=== PATIENT | female | born 1945 | race Two or more races ===

== ENCOUNTER → 2022-04-15 11:06 | Outpatient (BNVA) | payer OTHER, SELFPAY | PROVIDERS: PCP Internal Medicine; Visit Provider Internal Medicine Gastroenterology | DX: K62.5 Hemorrhage of anus and rectum (principal); R06.02 Shortness of breath; R60.9 Edema, unspecified; R21 Rash and other nonspecific skin eruption; M32.9 Systemic lupus erythematosus, unspecified; L40.9 Psoriasis, unspecified; E46 Unspecified protein-calorie malnutrition | CPT/HCPCS: Q3014 ==

== ENCOUNTER 2022-05-02 14:05 | Outpatient (REF) | payer OTHER, SELFPAY ==
[2022-05-02 10:21] LABS: MANUAL DIFF FLAG NO
[2022-05-02 10:31] LABS: Basophils Absolute Auto 0.1 X10*3/uL (0.0-0.2); Basophils Percent Auto 0.9 % (0-2); Eosinophils Absolute Auto 0.1 X10*3/uL (0.0-0.4); Eosinophils Percent Auto 2.1 % (0-4); Hematocrit 39.8 % (37.0-47.0); Hemoglobin 12.9 g/dl (12.0-16.0); Imm Gran Abs Auto 0.02 X10*3/uL (0.00-0.03); Imm Gran Pct Auto 0.3 % (0.0-0.4); Lymphocytes Percent Auto 34.2 % (20-40); Mean Corpuscular HGB Conc 32.4 g/dl (31.0-35.0); Mean Corpuscular Hemoglobin 30.4 pg (27.0-33.0); Mean Corpuscular Volume 93.9 fL (80.0-98.0); Mean Platelet Volume 10.4 fL (9.4-12.3); Monocytes Absolute Auto 0.7 X10*3/uL (0.1-1.2); Monocytes Percent Auto 11.5 % (2-11); Platelet Count 198 X10*3/uL (160-400); Red Blood Count 4.24 X10*6/uL (4.20-5.50); White Blood Count 5.9 X10*3/uL (4.8-10.8)
[2022-05-02 10:49] LABS: Alanine Aminotransferase 15 U/L (0-31); Albumin Level 3.9 g/dL (3.5-5.0); Alkaline Phosphatase 120 U/L (39-117); Anion Gap 14 (12-20); Aspartate Amino Transferase 17 U/L (5-31); Bilirubin Total 0.9 mg/dL (0.0-1.0); Blood Urea Nitrogen 16 mg/dL (9-16); C Reactive Protein 0.25 mg/dL (< or = 0.50); Calcium 9.6 mg/dL (8.4-10.2); Carbon Dioxide 25 mmol/L (22-29); Chloride 107 mmol/L (96-108); Estimated Glomerular Filt Rate > 60; Glucose Random 89 mg/dL (60-115); Potassium 4.3 mmol/L (3.3-5.1); Rheumatoid Factor < 15.0 IU/mL (<15.0); Sodium 142 mmol/L (135-145); Total Protein 7.6 g/dL (6.5-8.0)
[2022-05-02 10:53] LABS: B Type Natriuretic Peptide 23 pg/mL (<100)
[2022-05-02 11:07] LABS: Creatinine Urine 77.85 mg/dL; Total Protein Urine Random < 7 mg/dL (<12)
[2022-05-02 11:11] LABS: Ferritin 76 ng/mL (10-250); TSH reflex Free T4 3.98 uIU/mL (0.32-4.0); Vitamin D 25-OH Total 33.9 ng/mL (>30)
[2022-05-02 11:12] LABS: HBc Num1 0.15 S/CO (0.00-0.79); HBsAGNum1 0.21 S/CO (0.00-0.99); Hepatitis B Core Antibody Nonreactive (Nonreactive); Hepatitis B Surface Antigen Negative (Negative); ~HepC Num1 0.09 S/CO (0.00-0.79); ~Hepatitis B Surface Antibody NONREACTIVE (Nonreactive); ~Hepatitis C Antibody Nonreactive (Nonreactive)
[2022-05-02 11:33] LABS: Folate 14.5 ng/mL (> or = 4.0); Vitamin B12 484 pg/mL (200-900)
[2022-05-02 11:40] LABS: Erythrocyte Sedimentation Rate 28 MM/HR (0-20)
[2022-05-03 04:50] LABS: Hepatitis A Antibody IgM 0.22 Index (0-0.79); ~Hepatitis A Antibody IgM Nonreactive (Nonreactive)
[2022-05-06 12:17] LABS: Immunoglobulin G 1922 mg/dL (600-1540)
[2022-05-06 14:52] LABS: Anti DNA DS Antibody <1 IU/mL
[2022-05-06 18:23] LABS: Cyclic Citrullinated Peptide <16 UNITS
[2022-05-07 11:31] LABS: Complement C3 158 mg/dL (83-193)
[2022-05-07 12:21] LABS: Vitamin B6 16.2 ng/mL (2.1-21.7)
[2022-05-07 13:12] LABS: Anti Nuclear Antibody Screen NEGATIVE (NEGATIVE)
[2022-05-07 14:18] LABS: Zinc 60 mcg/dL (60-130)
[2022-05-07 14:37] LABS: Transglutaminase Ab IgG 3.9 U/mL; Transglutaminase IgA <1.0 U/mL
[2022-05-08 12:46] LABS: Vitamin A 32 mcg/dL (38-98)
[2022-05-08 12:51] LABS: Beta-Gamma Tocopherol <1.0 mg/L (<=4.3)
[2022-05-08 16:57] LABS: Vitamin C 1.1 mg/dL (0.3-2.7)
[2022-05-09 05:32] LABS: Aldolase 4.4 U/L (<=8.1); Angiotensin Converting Enzyme 28 U/L (9-67)
[2022-05-09 10:47] LABS: Nicotinamide 24 ng/mL; Vit B3 - Nicotinic Acid <20 ng/mL
[2022-05-10 10:56] LABS: Vitamin B5 (Pantothenic Acid) 46 ng/mL (<275)
[2022-05-10 17:16] LABS: Histamine Plasma <1.5 ng/mL (< OR = 1.8)
[2022-05-10 22:46] LABS: EJ Autoantibodies NOT DETECTED (NOT DETECTED); JO-1 Antibody <1.0 NEG AI (<1.0 NEGATIVE); MI 2 Autoantibodies NOT DETECTED (NOT DETECTED); OJ Autoantibodies NOT DETECTED (NOT DETECTED); PL 12 Autoantibodies NOT DETECTED (NOT DETECTED); PL 7 Autoantibodies NOT DETECTED (NOT DETECTED)
== END 2022-05-02 14:06 | disposition home or self-care (01) ==
LOC: HO.LHD 14:05
PROVIDERS: Visit Provider Internal Medicine Gastroenterology
DX: K62.5 Hemorrhage of anus and rectum (principal); L40.9 Psoriasis, unspecified; M32.9 Systemic lupus erythematosus, unspecified; R06.02 Shortness of breath; R21 Rash and other nonspecific skin eruption; R60.9 Edema, unspecified; K52.839 Microscopic colitis, unspecified; R19.7 Diarrhea, unspecified; G89.29 Other chronic pain; R10.33 Periumbilical pain; K75.81 Nonalcoholic steatohepatitis (NASH); R79.82 Elevated C-reactive protein (CRP); E46 Unspecified protein-calorie malnutrition
CPT/HCPCS: 36415; 80053; 82085; 82164; 82180; 82306; 82550; 82607; 82728; 82746; 82784; 83088; 83520; 83880; 84156; 84207; 84443; 84446; 84590; 84591; 84630; 85025; 85652; 86038; 86039; 86140; 86160; 86200; 86225; 86364; 86431; 86704; 86706; 86709; 86803; 87340

== ENCOUNTER → 2022-06-10 11:47 | Outpatient (BNVA) | payer OTHER, SELFPAY | PROVIDERS: PCP Internal Medicine; Visit Provider Internal Medicine Gastroenterology | DX: M32.9 Systemic lupus erythematosus, unspecified (principal); R21 Rash and other nonspecific skin eruption | CPT/HCPCS: Q3014 ==

== ENCOUNTER 2022-06-25 13:36 | Day surgery (SDC) | payer OTHER, SELFPAY ==
--- NOTE | 2022-06-25 12:51 | HO.ANESPROP2 ---
HPI - Anesthesia Eval Consult details Narrative: 77 F for egd colo PMFSH Active Problems Active Problems: All Active Problems (Updated 04/15/22 @ 12:18 by Santosh Connor MD) Malnutrition (Acute) Rectal bleeding (Acute) Psoriasis (Acute) Lupus (systemic lupus erythematosus) (Acute) Skin rash (Acute) Edema (Acute) SOB (shortness of breath) (Acute) Family History Family History Maternal Aunt HTN (hypertension) Diabetes Family history of problems with anesthesia: No Surgical History Surgical History History of esophagogastroduodenoscopy (EGD) Hx of colonoscopy History of Problems with Anesthesia: No Social History Social History Patient Tobacco Use Status: Never used Tobacco Use of substances other than those prescribed or required for medical reasons: No Are you DNR?: No Advance Directives: No Advance Directives Information Provided: Yes Meds Allergies Allergy/AdvReac Type Severity Reaction Status Date / Time doxycycline Allergy Mild Unknown Verified 06/10/22 11:48 Iodine and Iodide Containing Allergy Mild Unknown Verified 06/10/22 11:48 Produc codeine Allergy Unknown Verified 06/10/22 11:48 dairy Allergy Mild unkno Uncoded 06/10/22 11:48 gluten Allergy Mild Unknown Uncoded 06/10/22 11:48 levaquin Allergy Mild Unknown Uncoded 06/10/22 11:48 vancomycin Allergy Mild unknown Uncoded 06/10/22 11:48 Home Medications Medication Instructions Recorded Confirmed Last Taken Type blood sugar diagnostic (FreeStyle #10 ea 04/15/22 Unknown History Lite Strips) hydrocortisone acetate 25 mg mg CO 04/15/22 Unknown History rectal suppository lancets 28 gauge (FreeStyle #100 ea 04/15/22 Unknown History Lancets) lidocaine 4 % topical patch 1 patch topical DAILY PRN 04/15/22 Unknown History (Aspercreme (lidocaine)) naproxen sodium 220 mg tablet 440 mg PO DAILY 04/15/22 12/27/21 History (Aleve) Exam Exam Date and Time: June 25, 2022 1251 Airway Mallampati Class: II TM Dist: >3cm Neck ROM: Full Denture: Upper and Lower Loose/Missing/Broken Teeth: Yes Assessment and Plan Assessment Anesthesia Assessment: Anesthesia Plan Discussed and Chart Reviewed Final Anesthetic Review Family History of Problems with Anesthesia: No History of Problems with Anesthesia: No NPO: Yes ASA Class: III Final Preanesthetic Review: No Changes in Pt Med Stat, Meds/Allgs Chart Reviewed, Consent Obtained/Reviewed and Anes Risks/Benef Reviewed Patient Risk: Intermediate Procedure Risk: Low Anesthetic Plan Anesthetic Plan: MAC: Disposition: Standard PACU
[2022-06-25 13:56] VITALS: BP 125/77; PULSE 87; RESP 16; TEMP 36.6; O2SAT 98; BMI 22.9
--- NOTE | 2022-06-25 13:57 | MHC.SHP ---
Pre-Procedural Eval Section A Date of Service: 06/25/22 Section B Chief Complaint: Hemorrhage of anus and rectum, protein-calorie mal Relevant Family History (Specify if Yes): No Relevant Social History: None Present Medications: see Short Stay Collaborative assessment Medical History: Significant History (hemorrhoids ) History of Previous Operations: Relevant previous surgery/procedure and date(s) (History of esophagogastroduodenoscopy (EGD) Hx of colonoscopy) Allergies: Allergies Allergy/AdvReac Type Severity Reaction Status Date / Time doxycycline Allergy Mild Unknown Verified 06/10/22 11:48 Iodine and Iodide Containing Allergy Mild Unknown Verified 06/10/22 11:48 Produc codeine Allergy Unknown Verified 06/10/22 11:48 dairy Allergy Mild unkno Uncoded 06/10/22 11:48 gluten Allergy Mild Unknown Uncoded 06/10/22 11:48 levaquin Allergy Mild Unknown Uncoded 06/10/22 11:48 vancomycin Allergy Mild unknown Uncoded 06/10/22 11:48 Review of Systems Sugical H&P ROS: Negative: Constitution, Cardiovascular, Respiratory, Neurological, Psychiatric, Hem-Onc, Allergic/Immunologic, Gastrointestinal, Genitourinary, Musculoskeletal, Integumentary, Endocrine and Eyes/Ears/Nose/Throat Exam Surgical H&P Exam: Normal: HEENT, Normal: Heart, Normal: Lungs, Normal: Extremities and Normal: Neurological and Significant Findings: Abdomen (umbilical hernia ) and Significant Findings: Skin (dystrophic nails ) Plan Diagnosis/Plan: Unchanged I have reviewed the history and physical and performed a pertinent physical examination on my patient. No changes have occurred unless specified.
[2022-06-25] MEDS: Lactated Ringers 1,000 ML 50 ML IVCONT (14:32)
--- NOTE | 2022-06-25 14:42 | W.PM.OPN ---
Operative Note Operative Note Date of Service: 06/25/22 Narrative: Operative Information Procedure Description: EGD, Colonoscopy Indication: rectal bleeding, weight loss Anesthesia: MAC FLEXIBLE TRANSORAL UPPER GASTROINTESTINAL ENDOSCOPY AND COLONOSCOPY PROCEDURE NOTE UPPER ENDOSCOPY Consent: Indications for the procedure and potential complications of bleeding, perforation, reaction to medications and missed diagnosis were discussed with the patient and informed consent was obtained. Instrument: Olympus GIF H 190 J mid size upper endoscope Monitoring: Vital signs and clinical assessment, continuous EKG monitoring, Pulse oximetry, Carbon Dioxide monitoring and blood pressure monitoring were done throughout the procedure. Procedure: The patient was placed in the left lateral decubitis position and pre-procedure medications were administered and a bite block was placed. The endoscope was inserted into the mouth and advanced under direct vision to the third part of duodenum. A careful inspection was made as the upper endoscope was withdrawn including a retroflexed examination of the proximal stomach; Findings and interventions are described below. Findings: Larynx:normal Esophagus: GE junction at 35 cm, diaphragm hiatus at 39 cm, 4 cm fixed hiatal hernia with marsha erosions, GEJ edema with erythema and erosions, bx taken as well as random esophagus Stomach: Patchy erythema. Biopsies were obtained. Grade 2 flap valve on retroflexed examination of the cardia. Duodenum: Patchy duodenitis, bx taken Intervention: Biopsies as noted above COLONOSCOPY Instrument: Olympus variable stiffness pediatric scope 190L Colonoscopy Monitoring: Vital signs and clinical assessment, continuous EKG monitoring, Pulse oximetry, Carbon Dioxide monitoring and blood pressure monitoring were done throughout the procedure. Colon withdrawal time was 8 minutes. Procedure: The patient was placed in the left lateral decubitis position and pre-procedure medications were administered. After a digital rectal examination of the ano-rectum, the video colonoscope was inserted into the rectum and advanced through the colon to the cecum/TI. The colonoscope was slowly withdrawn in a retrograde panoramic fashion and the colon mucosa was carefully examined including a retroflexed view of the rectum. Findings and interventions are described below. Procedure Difficulty:moderate, pressure applied to reach cecum Findings: Terminal Ileum-normal, bx taken random colon bx taken Cecum:normal Ascending Colon: normal Transverse Colon -normal Descending Colon:normal Sigmoid Colon: normal Rectum: Retroflexion with medium sized internal hemorrhoids, grade I Anorectum - normal Colon preparation: [place] Bowel Preparation Scale Right colon; 2 Transverse colon: 2 Left colon; 2 (0 = Unprepared colon segment with mucosa not seen due to solid stool that cannot be cleared. 1 = Portion of mucosa of the colon segment seen, but other areas of the colon segment not well seen due to staining, residual stool and/or opaque liquid. 2 = Minor amount of residual staining, small fragments of stool and/or opaque liquid, but mucosa of colon segment seen well. 3 = Entire mucosa of colon segment seen well with no residual staining, small fragments of stool or opaque liquid) Impression and Post Procedure Diagnosis: Endoscopy Findings: hiatal hernia esophagitis marsha erosions duodenitis Colonoscopy Findings: internal hemorrhoids Plan: Await Pathology results Repeat Colonoscopy in 10 years if health allows or earlier if clinically indicated High fiber diet leaflet avoid straining at stool, epsom salts and sitz bath, anusol supps or cream GERD precautions consider referral for hernia repair Above findings were reviewed with the patient and relevant handouts were provided if indicated.
[2022-06-25 15:20] VITALS: BP 103/54; PULSE 87; RESP 20; TEMP 37.1; O2SAT 97
[2022-06-25 15:35] VITALS: BP 120/63; PULSE 95; RESP 18; TEMP 36.1; O2SAT 96
== END 2022-06-25 15:56 | disposition home or self-care (01) ==
PROVIDERS: PCP Internal Medicine; Visit Provider Internal Medicine Gastroenterology
PROC: (CPT 45380; principal; 2022-06-25 15:00)
DX: K62.5 Hemorrhage of anus and rectum (principal); K64.0 First degree hemorrhoids; E46 Unspecified protein-calorie malnutrition; R63.4 Abnormal weight loss; K29.80 Duodenitis without bleeding; K20.80 Other esophagitis without bleeding; K25.9 Gastric ulcer, unspecified as acute or chronic, without hemorrhage or perforation; K44.9 Diaphragmatic hernia without obstruction or gangrene; K29.50 Unspecified chronic gastritis without bleeding; M32.9 Systemic lupus erythematosus, unspecified; Z79.1 Long term (current) use of non-steroidal anti-inflammatories (NSAID); Z88.1 Allergy status to other antibiotic agents; Z88.8 Allergy status to other drugs, medicaments and biological substances
CPT/HCPCS: 45380; 43239; 88305; 88313; 88341; 88342

== ENCOUNTER → 2022-07-29 14:02 | Outpatient (BNVA) | payer OTHER, SELFPAY | PROVIDERS: PCP Internal Medicine; Visit Provider Internal Medicine Gastroenterology | DX: K44.9 Diaphragmatic hernia without obstruction or gangrene (principal) | CPT/HCPCS: Q3014 ==

== ENCOUNTER 2022-08-02 16:35 | Outpatient (REF) | payer OTHER, SELFPAY ==
[2022-08-02 17:17] LABS: MANUAL DIFF FLAG NO
[2022-08-02 17:23] LABS: Basophils Absolute Auto 0.1 X10*3/uL (0.0-0.2); Basophils Percent Auto 0.7 % (0-2); Eosinophils Absolute Auto 0.1 X10*3/uL (0.0-0.4); Eosinophils Percent Auto 1.1 % (0-4); Hematocrit 38.4 % (37.0-47.0); Hemoglobin 12.2 g/dl (12.0-16.0); Imm Gran Abs Auto 0.03 X10*3/uL (0.00-0.03); Imm Gran Pct Auto 0.4 % (0.0-0.4); Lymphocytes Absolute Auto 1.8 X10*3/uL (1.2-4.9); Lymphocytes Percent Auto 25.7 % (20-40); Mean Corpuscular HGB Conc 31.8 g/dl (31.0-35.0); Mean Corpuscular Hemoglobin 29.5 pg (27.0-33.0); Mean Corpuscular Volume 92.8 fL (80.0-98.0); Mean Platelet Volume 8.9 fL (9.4-12.3); Monocytes Absolute Auto 0.6 X10*3/uL (0.1-1.2); Monocytes Percent Auto 8.8 % (2-11); Neutrophils Absolute Auto 4.5 x10*3/uL (2.0-8.3); Neutrophils Percent Auto 63.3 % (45-73); Platelet Count 433 X10*3/uL (160-400); Red Blood Count 4.14 X10*6/uL (4.20-5.50); Red Cell Distribution Width 12.1 % (11.0-16.0); White Blood Count 7.2 X10*3/uL (4.8-10.8)
[2022-08-02 18:05] LABS: Alanine Aminotransferase 30 U/L (0-31); Albumin Level 3.4 g/dL (3.5-5.0); Alkaline Phosphatase 146 U/L (39-117); Anion Gap 13 (12-20); Aspartate Amino Transferase 20 U/L (5-31); Bilirubin Total 0.4 mg/dL (0.0-1.0); Blood Urea Nitrogen 13 mg/dL (9-16); C Reactive Protein 4.03 mg/dL (< or = 0.50); Calcium 9.8 mg/dL (8.4-10.2); Carbon Dioxide 30 mmol/L (22-29); Chloride 100 mmol/L (96-108); Estimated Glomerular Filt Rate > 60; Ferritin 286 ng/mL (10-250); Glucose Random 97 mg/dL (60-115); Iron 28 mcg/dL (30-160); Lactate Dehydrogenase 186 U/L (122-220); Percent Iron Saturation 12 % (15-50); Potassium 4.6 mmol/L (3.3-5.1); Sodium 138 mmol/L (135-145); Total Iron Binding Capacity 235 mcg/dL (228-428); Total Protein 8.2 g/dL (6.5-8.0); Unsaturated Iron Binding 207 ug/dL
[2022-08-02 18:12] LABS: Erythrocyte Sedimentation Rate 91 MM/HR (0-20)
[2022-08-03 14:42] LABS: Alpha 1 Anti-trypsin 243 mg/dL (83-199); Transferrin 209 mg/dL (188-341)
[2022-08-03 23:27] LABS: Prot Elec - Alpha1 0.5 g/dL (0.2-0.3); Prot Elec - Alpha2 1.3 g/dL (0.5-0.9); Prot Elec - Beta 1 0.6 g/dL (0.4-0.6); Prot Elec - Beta 2 0.7 g/dL (0.2-0.5); Prot Elec - Gamma 2.1 g/dL (0.8-1.7); Prot Elec - Total Protein 8.1 g/dL (6.1-8.1)
[2022-08-05 02:12] LABS: TS Negative Control Passed; TS Panel A 0; TS Panel B 0; TS Positive Control Passed; TSpotTB Negative (Negative)
[2022-08-05 09:47] LABS: Anti Nuclear Antibody Screen NEGATIVE (NEGATIVE)
[2022-08-05 10:51] LABS: Complement C3 223 mg/dL (83-193)
[2022-08-05 16:40] LABS: Immunoglobulin G Subclass 1 1548 mg/dL (382-929); Immunoglobulin G Subclass 2 342 mg/dL (241-700); Immunoglobulin G Subclass 3 56 mg/dL (22-178); Immunoglobulin G Subclass 4 89.2 mg/dL (4-86); Immunoglobulin G Total 2168 mg/dL (600-1540)
[2022-08-05 18:52] LABS: Anti-Centromere B Antibodies <1.0 NEG AI (<1.0 NEG)
[2022-08-05 22:31] LABS: Cardiolipin IgG Ab <2.0 GPL-U/mL; Cardiolipin IgM Ab <2.0 MPL-U/mL
[2022-08-06 12:11] LABS: IgA 539 mg/dL (70-320); IgG 2466 mg/dL (600-1540); IgM 93 mg/dL (50-300)
[2022-08-06 13:56] LABS: Anti DNA DS Antibody <1 IU/mL; Antibody to SS-A Antigen <1.0 NEG AI (<1.0 NEG); Antibody to SS-B Antigen <1.0 NEG AI (<1.0 NEG); Myeloperoxidase Antibody <1.0 AI; Proteinase 3 PR3 Antibodies <1.0 AI; SM/Ribonucleoprotein Ab <1.0 NEG AI (<1.0 NEG); Scleroderma 70 Antibody <1.0 NEG AI (<1.0 NEG); Smith Protein <1.0 NEG AI (<1.0 NEG)
[2022-08-07 06:10] LABS: Aldolase 3.2 U/L (<=8.1)
[2022-08-07 07:26] LABS: DRVVT Confirmation Negative (Negative); PTT (LAC) Screen 38 sec (<=40)
[2022-08-07 14:41] LABS: Mitochondrial Antibodies NEGATIVE (NEGATIVE)
[2022-08-07 21:37] LABS: Liver Kidney Microsomal Ab <=20.0 U (<=20.0)
[2022-08-08 13:22] LABS: Lysozyme, Serum 8.7 mcg/mL (5.0-11.0)
[2022-08-08 23:57] LABS: Smooth Muscle Antibody 21 U (<20)
[2022-08-09 22:26] LABS: Beta-2 Glycoprotein IgA <2.0 U/mL (<20.0); Beta-2 Glycoprotein IgG <2.0 U/mL (<20.0); Beta-2 Glycoprotein IgM <2.0 U/mL (<20.0)
[2022-08-11 21:47] LABS: HLA B27 Negative (Negative)
== END 2022-08-02 16:36 | disposition home or self-care (01) ==
LOC: HO.LAB 16:35
PROVIDERS: PCP Internal Medicine; Visit Provider Student in an Organized Health Care Education/Training Program
DX: Z11.7 Encounter for testing for latent tuberculosis infection (principal); G72.9 Myopathy, unspecified; M11.20 Other chondrocalcinosis, unspecified site; M32.9 Systemic lupus erythematosus, unspecified; M48.061 Spinal stenosis, lumbar region without neurogenic claudication; J84.9 Interstitial pulmonary disease, unspecified; L40.50 Arthropathic psoriasis, unspecified; M10.9 Gout, unspecified; D86.9 Sarcoidosis, unspecified; M89.9 Disorder of bone, unspecified
CPT/HCPCS: 80053; 82085; 82103; 82550; 82728; 82784; 83540; 83615; 84165; 84466; 84550; 85025; 85549; 85597; 85613; 85652; 85730; 86015; 86021; 86038; 86039; 86140; 86146; 86147; 86160; 86225; 86235; 86255; 86256; 86334; 86376; 86481; 86812; 99202

== ENCOUNTER → 2022-10-15 13:42 | Outpatient (BNVA) | payer OTHER, SELFPAY | PROVIDERS: PCP Internal Medicine; Visit Provider Student in an Organized Health Care Education/Training Program | DX: J84.9 Interstitial pulmonary disease, unspecified (principal); M11.20 Other chondrocalcinosis, unspecified site | CPT/HCPCS: 99212 ==

== ENCOUNTER 2025-05-09 13:02 | Outpatient (AMB) | payer OTHER, SELFPAY ==
--- OUTSIDE RECORDS SUMMARY | 2013-06-11 | XMS_ITS | Encounter Summary ---
Author Organization [facility] Address [address] [facility] [address] [place] [phone] Phone Care Team Providers Care Chief Minister Name Role Phone Unavailable Primary Care Provider Unavailabl e Encounter Details Date Type Department Care Team (Late st Contact Info) Description 06/11/2013 Hospital Encounter [facility] [address] [place] [address] Jeff Hurst MD [address] [facility] [address] [place] [address] [email or web address] Social History Tobacco Use Types [...] Description 07/18/2025 10:30 AM EST Office [facility] Genetics 15 [place] [address] Jazzmine Zaman MD [address] [place] [phone] [email or web address] 07/18/2025 1:30 PM EST Office Visit [facility] Specialties [address] [facility] [address] [place] [address] Jazzmine Zaman MD [address] [place] [phone] [email or web address] documented as of this encounter Procedures Procedure Name Priority Date/Time Associated Diagnosis Comments CT CHEST OUTSIDE (NO INTERPRETATION) Routine 06/11/2013 12:00 AM EDT documented in this encounter Results * CT Chest Outside (No Interpretation) (06/11/2013 12:00 AM EDT) Narrative [facility] - 04/23/2024 1:50 PM EDT This study is for PACS storage only and not for interpretation. us Jeff Hurst MD IMG OUTSIDE IMAGING W/OUT INTERPRETATION Final Result [facility] documented in this encounter Visit Diagnoses Not on filedocumented in this encounter Additional Source Comments The information contained in this document represents components of the legal health record. It is not the complete legal health record.[facility]
--- NOTE | 2025-05-09 13:03 | A.OFFVIS_ITS ---
Intake Visit Reasons: telehealth [phone] Intake Note: Apryl presents in the office as a telehealth today follow up. CC: daughter states that a lot of things have happened in the past couple years. She has become anemic - she states HGB is around 33 and the RBC is low as well. One of the PCP wanted to do a FIT test but they needed to make sure that she did not have active hemorhoids - they have currently been active. She has used suppositories in the past. Energy Control Officer Required: No Allergies egg Allergy (Intermediate, Verified 05/09/25 13:03) Unknown doxycycline Allergy (Mild, Verified 05/09/25 13:03) Unknown Iodine and Iodide Containing Produc Allergy (Mild, Verified 05/09/25 13:03) Unknown codeine Allergy (Verified 05/09/25 13:03) Unknown dairy Allergy (Mild, Uncoded 05/09/25 13:03) unkno gluten Allergy (Mild, Uncoded 05/09/25 13:03) Unknown levaquin Allergy (Mild, Uncoded 05/09/25 13:03) Unknown vancomycin Allergy (Mild, Uncoded 05/09/25 13:03) unknown HPI HPI telehealth [phone]: Details: 80 yr old lady being called for f/u hx from daughter pt dx with pulm fibrosis asking about cutting down PPI to 20 mg for her reflux due to hiatal hernia also ongoing issues with hemorrhoids asking about treatment options also wanted to know about GI side effects of pirfenidone chronic anemia per daughter and worreid about using iron tabs EXAM: pt with good color looks relaxed A/P: 1/ Advised given pulm fibrosis, and age maybe good idea to try to avoid interventional diagnostics and treatments, for hemorrhoids can refer for embolization, for anemia, we can use iron drops, cut PPI to 20 mg and watc symptoms, if worsening GERD the restart 40 mg 2/ hiatal hernia PLAN: 1/ CBC and ferritin 2/ pPI to 20 mg 3/ She wants to hold on ba swallow for moment 4/ refer [facility] for hemorrhoid treatment 5/ pirfenidone may help fibrosis but can be assoc with abdominal discomfort PFSH Medical History DVT (deep venous thrombosis) Pseudogout Surgical History Hx of colonoscopy History of esophagogastroduodenoscopy (EGD) Family History Maternal Aunt HTN (hypertension) Diabetes Social History Alcohol intake: current Alcohol intake frequency: does not drink Patient Tobacco Use Status: Never used Tobacco Telehealth Telehealth Telehealth Platform: [employer] Location of provider rendering services: practice address Location of patient: address on file Patient Identification confirmed using: Name, : Yes Telehealth method: video Patient verbally consented to treatment: Yes Patient verbally consented to billing insurance company: Yes Patient informed of any privacy concerns related to visit: Yes Minutes spent on Phone/Video with Pt.: 29 Assessment & Plan Assessment & Plan (1) Rectal bleeding: Code(s): K62.5 - Hemorrhage of anus and rectum Category: Medical Plan: 2/2 hemorrhoids Orders: Orders Complete Blood Count Auto Diff 05/09/25 K62.5 - Hemorrhage of anus and rectum Ferritin 05/09/25 K62.5 - Hemorrhage of anus and rectum Medications: New pantoprazole 20 mg PO DAILY 90 tabs 1RF Discontinued pantoprazole Discontinued Reason: Doctor's Order 40 mg PO DAILY 90 tabs 1RF Coding Level of Care Code Tele Est Pt Level 4 (07617) Diagnoses Rectal bleeding K62.5
--- OUTSIDE RECORDS SUMMARY | 2025-05-09 14:17 | XMS_ITS | Encounter Summary ---
Author Organization [facility] Address [address] [place] [address] [place] [phone] Phone Care Team Providers Care Pen Tender Name Role Phone Adelaide Pollock MD Primary Care Provider + Aide Adame MD Primary Care Provider + Johnathan Lisa MD, MPH Unavailable [phone] Jazzmine Zaman MD Unavailable [phone] Encounter Details Date Type Department Care Team (Latest Contact Info) Description 05/19/2024 Ancillary Orders [facility] [address] [facility] 8th Floor, [address] [place] [address] Ce Luke MD [address] [facility] [address] [place] [address] [email or web address] Interstitial lung disease (Primary Dx) Social History Tobacco Use Types Packs/Day Years Used Date Smoking Tobacco: Never Assessed Education Answer Date Recorded Are you interested in more education? Not on humera e 02/18/2024 Are you concerned about learning? Not on file 02/18/2024 No 02/18/2024 No 02/18/2024 Digital Access Answer Date Recorded No 02/18/2024 [...] Description 07/18/2025 10:30 AM EST Office Visit [facility] Gen[facility] [address] [place] [address] aJzzmine Zaman MD [address] [place] [phone] [email or web address] 07/18/2025 1:30 PM EST Office Visit [facility] [address] [facility] [address] [place] [address] Jazzmine Zaman MD [address] [place] [phone] [email or web address] documented as of this encounter Results * XR HAND 3 OR MORE VIEWS (BILATERAL) (05/19/2024 10:24 AM EDT) Anatomical Region Laterality Modality Hand Left Computed Radiogr aphy 05/19/2024 12:3 9 PM EDT Impressions 05/19/2024 12:40 PM EDT No specific evidence of inflammatory arthritis. Narrative 05/19/2024 12:40 PM EDT XR HAND 3 OR MORE VIEWS (BILATERAL) Referring clinician's provided indication for this examination in Epic: Pain; evaluate for inflammatory arthritis COMPARISON: None FINDINGS: Left hand: Severe first carpometacarpal and mild scattered interphalangeal degenerative changes. No acute fracture or dislocation. No soft tissue swelling. No erosion. Right hand: Severe first carpometacarpal and mild scattered interphalangeal degenerative changes. No acute fracture or dislocation. No soft tissue swelling. No erosion. Procedure Note Nancy Castellano MD - 05/19/2024 XR HAND 3 OR MORE VIEWS (BILATERAL) Referring clinician's provided indication for this examination in Epic:Pain; evaluate for inflammatory arthritis COMPARISON: None FINDINGS: Left hand: Severe first carpometacarpal and mild scattered interphalangealdegenerative changes. No acute fracture or dislocation. No soft tissueswelling. No erosion. Right hand: Severe first carpometacarpal and mild scatteredinterphalangeal degenerative changes. No acute fracture or dislocation. Nosoft tissue swelling. No erosion. IMPRESSION: No specific evidence of inflammatory arthritis. Amanda Thacker MD IMG XR UPPER EXTREMITY Final Result documented in this encounter Visit Diagnoses Diagnosis Interstitial lung disease Postinflammatory pulmonary fibrosis Interstitial lung disease- Primary Postinflammatory pulmonary fibrosis documented in this encounter Care Teams Pen Tender Relationship Specialty Start Date End Date Adelaide Pollock MD [facility] [place] [address] PCP - General Internal Medicine 02/16/24 03/27/25 Aide Adame MD [facility] [address] PCP - General Internal Medicine 03/28/25 Johnathan Lisa MD, MPH [address] [place] [phone] [email or web address] Referring Physician Pulmonary Disease 03/28/25 Jazzmine Zaman MD [address] [place] [phone] [email or web address] Referring Physician Pediatrics 03/28/25 documented as of this encounter Additional Source Comments The information contained in this document represents components of the legal health record. It is not the complete legal health record.[facility]
--- OUTSIDE RECORDS SUMMARY | 2025-05-09 14:17 | XMS_ITS | Encounter Summary ---
Author Organization [facility] Address [address] [place] [phone] Phone Care Team Providers Care Industrial Roof Plumber Name Role Phone Adelaide Pollock MD Primary Care Provider + Aide Adame MD Primary Care Provider + Johnathan Lisa MD, MPH Unavailable [phone] Jazzmine Zaman MD Unavailable [phone] Encounter Details Date Type Department Care Team (Late st Contact Info) Description 04/30/2024 Procedure Pass [facility], [address] [address] Social History Tobacco Use Types Packs/Day Years [...] Description 07/18/2025 10:30 AM EST Office Visit [facility] Genetics [address] [place] [address] Jazzmine Zaman MD [address] [place] [phone] [email or web address] 07/18/2025 1:30 PM EST Office [facility] [address] [facility] [address] [place] [address] Jazzmine Zaman MD [address] [place] [phone] [email or web address] documented as of this encounter Visit Diagnoses Not on filedocumented in this encounter Care Teams Industrial Roof Plumber Relationship Specialty Start Date End Date Adelaide Pollock MD [facility] [place] [address] PCP - General Internal Medicine 02/16/24 03/27/25 Aide Adame MD [facility] [address] PCP - General Internal Medicine 03/28/25 Johnathan Lisa MD, MPH [address] [place] [phone] [email or web address] Referring Physician Pulmonary Disease 03/28/25 Jazzmine Zaman MD [address] [place] [phone] [email or web address] Referring Physician Pediatrics 03/28/25 documented as of this encounter Additional Source Comments The information contained in this document represents components of the legal health record. It is not the complete legal health record.[facility]
--- OUTSIDE RECORDS SUMMARY | 2025-05-09 14:17 | XMS_ITS | Clinical Summary ---
Author Organization [facility] Address [address] [place] [address] Phone Care Team Providers Care Candy Puller Name Role Phone Adelaide Pollock MD Primary Care Provider [phone] Allergies Active Allergy Reactions Criticality Noted Date Comments Codeine 01/02/2017 Other Reaction(s): OTHER dizzy Doxycycline 01/02/2017 Other Reaction(s): Rash/Dermatitis Egg 08/28/2022 Other Reaction(s): Rash/Dermatitis Gluten 01/02/2017 Iodine 01/02/2017 Celiac disease Levofloxacin 01/02/2017 Pt fainted Other 04/29/2022 Kdc:Albumin, Egg+Flu Virus Vaccine+Thimerosal+Pork Allergy - Other Reaction(s): Rash/Dermatitis Vancomycin 01/02/2017 Other Reaction(s): Flushing, feeling of warmth Medications diazePAM (VALIUM) 2 mg tablet Take 1 tablet (2 mg total) by mouth as needed. Max Daily Amount: 2 mg Active multivitamin (MULTIPLE VITAMINS ORAL) Take by mouth daily. Active pantoprazole (PROTONIX) 40 mg EC tablet Take 1 tablet (40 mg total) by mouth 1 (one) time each day. Active ASCORBIC ACID, VITAMIN C, ORAL Take 670 mg by mouth daily. Active cholecalciferol (VITAMIN D-3) 25 mcg (1,000 unit) capsule Take 1 Capsule by mouth daily. Includes vitamin k Active lidocaine (LIDODERM) 5 % patch Place 1 Patch onto the skin every 24 hours. Apply for no more than 12 hours in any 24 hour period. Active Active Problems Problem Noted Date Diagnosed Date Fatigue 03/08/2024 Interstitial lung disease ([facility], [facility] V28) 03/08/2024 Hypotension 08/29/2022 Dyspnea 12/07/2020 Edema 12/07/2020 Chronic low back pain 01/03/2017 Fibromyalgia 01/03/2017 GERD (gastroesophageal reflux disease) 7 Pseudogout 01/03/2017 Surgical History Surgery Date Site/Laterality Comments TUBAL LIGATION PROCEDURE: HISTORICAL TUBAL LIGATION CHOLECYSTECTOMY 1980 PROCEDURE: HISTORICAL CHOLECYSTECTOMY OTHER SURGICAL HISTORY PROCEDURE: HISTORY OTHER; COMMENT: fundoplication Medical History Medical History Date Comments Abdominal pain DX:Abdominal giuliano n Calcium pyrophosphate deposi tion disease DX:Calcium pyrophosphate dep osition disease Carotid bruit DX:Carotid bruit Carpal tunnel syndrome DX:Carpal tunnel syndrome Closed fracture of left tibial plateau DX:Closed fracture of left tibial plateau Depression 1969 DX:Depression Dizziness DX:Dizziness Fatigue DX:Fatigue Gastritis DX:Gastritis IBS (irritable bowel syndrome) D X:IBS (irritable bowel syndrome) IGT (impaired glucose tolerance) DX:IGT (impaired glucose tolerance) Leg swelling DX:Leg swelling Lumbar spondylosis DX:Lumbar spo ndylosis Peripheral motor neuropathy DX:P eripheral motor neuropathy Muscle ache DX:Muscle ache Myalgia DX:Myalgia Neck pain DX:Neck pain Osteoarthritis DX:Osteoarthriti s Osteoporosis DX:Osteoporosis Polymyalgia rheumatica ([facility]24) DX:Polymyalgia rheumatica ([facility]) Pseudogout DX:Pseudogout Rash DX:Rash Reflux esophagitis DX:Reflux eso phagitis Restless legs syndrome DX:Restle ss legs syndrome Subclinical hypothyroidism DX:Monsalve bclinical hypothyroidism Thrombophlebitis 1999 DX:Thrombophleb itis History of varicose veins DX:His tory of varicose veins Bilateral leg edema 04/29/2022 DX:Bilateral leg edema Calcification of lung determ ined by X-ray DX:Calcification of lung det ermined by X-ray Chronic pain of multiple joints DX:Chronic pain of multiple joints Lesion of lumbar spine DX:Lesion of lumbar spine Other chondrocalcinosis, uns pecified site DX:Other chondrocalcinosis, unspecified site Family History Medical History Relation Name Comments Prostate cancer Brother Prostate cancer Father Relation Name Status Comments Brother Father Social History Tobacco Use Types Packs/Day Years Used Date Smoking Tobacco: Never Smokeless Tobacco: Never Alcohol Use Standard Drinks/Week Comments No 0 (1 standard drink = 0.6 oz pur e alcohol) Comments Unknown Sex and Gender Information Value Date Recorded Sex Assigned at Not on file Legal Sex Female 6:18 PM EST Gender Identity Not on file Sexual Orientation Not on file Obstetrics History Last Filed Vital Signs Vital Sign Reading Time Taken Comments Blood Pressure 118/60 07/20/2024 1:38 PM EST Pulse 76 03/08/2024 2:10 PM EDT Temperature - - Respiratory Rate - - Oxygen Saturation - - Inhaled Oxygen Concentration - - Weight 60.8 kg (134 lb) 07/20/2024 1:38 PM EST Height 160 cm (5' 3 ) 07/20/2024 1:38 PM EST Body Mass Index 23.74 07/20/2024 1:38 PM EST Plan of Treatment Health Maintenance Due Date Last Done Comments Zoster Vaccines (1 of 2) 1994 Pneumococcal Vaccine: 50+ Ye ars (2 of 2 - PCV) 06/03/2012 06/03/2011 RSV Immunization Adult Patie nts (1 - 1-dose 75+ series) 2019 DTaP,Tdap,and Td Vaccines (2 - Td or Tdap) 08/15/2021 08/15/2011 Falls Risk Assessment 08/25/2022 Medicare Annual Wellness Visit 08/25/2022 Osteoporosis Screening (Bone Density Screening) 08/25/2022 Social Influencers of Health Screening 08/25/2022 COVID-19 Vaccine (1 - 2023-2 5 season) 2024 Depression Screening 09/15/2024 Influenza Vaccine (#1) 2025 HIB Vaccines Aged Out No longer eligi ble based on patient's age to complete this topic HPV Vaccines Aged Out No longer eligi ble based on patient's age to complete this topic Hepatitis A Vaccines Aged Out No long er eligible based on patient's age to complete this topic Hepatitis B Vaccines Aged Out No long er eligible based on patient's age to complete this topic IPV Vaccines Aged Out No longer eligi ble based on patient's age to complete this topic MMR Vaccines Aged Out No longer eligi ble based on patient's age to complete this topic Meningococcal ACWY Vaccine Aged Out N o longer eligible based on patient's age to complete this topic Meningococcal B Vaccine Aged Out No l onger eligible based on patient's age to complete this topic RSV Immunization Patients Un uriel 20 months Aged Out No longer eligible b ased on patient's age to complete this topic Varicella Vaccines Aged Out No longer eligible based on patient's age to complete this topic Insurance [facility] Member Subscriber Plan / Payer ( fective 2010-Present) Name:Apryl Downing Relation to Subscriber:Self Name:Apryl Downing Payer ID:[id number] Group ID:Not on file Type:Not on file Address: [address] [place] [address] [employer] MED[employer] Member Subscriber Plan / Payer (Ef fective 2010-Present) Name:Apryl Downing Relation to Subscriber:Self Name:Apryl Downing Payer ID:[id number] Group ID:[id number] Type:Not on file Address: [address] [place] [address] Care Teams Candy Puller Relationship Specialty Start Date End Date Adelaide Pollock MD [address] [place] [address] PCP - General Internal Medicine 05/13/13
--- OUTSIDE RECORDS SUMMARY | 2025-05-09 14:17 | XMS_ITS | Encounter Summary ---
Author Organization [facility] Address [address] [place] [phone] Phone Care Team Providers Care Non Destructive Testing Engineer Name Role Phone Adelaide Pollock MD Primary Care Provider + Aide Adame MD Primary Care Provider + Johnathan Lisa MD, MPH Unavailable [phone] Jazzmine Zaman MD Unavailable [phone] Encounter Details Date Type Department Care Team (Late st Contact Info) Description 03/22/2025 Procedure Pass [facility] [address] [place] [address] Social History Tobacco Use Types Packs/Day Years Used Date Smoking Tobacco: Never Smokeless Tobacco: Never Education Answer Date Recorded Are you interested [...] Description 07/18/2025 10:30 AM EST Office Visit [facility] Gen[facility] [address] [place] [address] Jazzmine Zaman MD [address] [place] [phone] [email or web address] 07/18/2025 1:30 PM EST Office Visit [facility] [address] [facility] [address] [place] [address] Jazzmine Zaman MD [address] [place] [phone] [email or web address] documented as of this encounter Visit Diagnoses Not on filedocumented in this encounter Additional Health Concerns Assessment Noted Time PHQ-2 Depression Total Score: 0 03/21/20 10:47 AM EDT documented as of this encounter Care Teams Non Destructive Testing Engineer Relationship Specialty Start Date End Date Adelaide Pollock MD [address] [place] [address] PCP - General Internal Medicine 02/16/24 03/27/25 Aide Adame MD [address] [place] [address] PCP - General Internal Medicine 03/28/25 Johnathan Lisa MD, MPH [address] [place] [phone] [email or web address] Referring Physician Pulmonary Disease 03/28/25 Jazzmine Zaman MD [address] [place] [phone] [email or web address] Referring Physician Pediatrics 03/28/25 documented as of this encounter Additional Source Comments The information contained in this document represents components of the legal health record. It is not the complete legal health record.[facility]
--- OUTSIDE RECORDS SUMMARY | 2025-05-09 14:17 | XMS_ITS | Encounter Summary ---
Author Organization [facility] Address [address] [place] [phone] Phone Care Team Providers Care Logging Equipment Operator Name Role Phone Adelaide Pollock MD Primary Care Provider + Aide Adame MD Primary Care Provider + Johnathan Lisa MD, MPH Unavailable [phone] Jazzmine Zaman MD Unavailable [phone] Encounter Details Date Type Department Care Team (Late st Contact Info) Description 11/30/2024 Ancillary Orders [facility] Arthritis Center Main [place] [address] [place] [address] Josh Davey MD [address] [place] [address] [email or web address] Arthralgia, unspecified joint (Primary Dx) Social History Tobacco Use Types [...] Description 07/18/2025 10:30 AM EST Office Visit [facility] Genetics [address] [place] [address] Jazzmine Zaman MD [address] [place] [phone] [email or web address] 07/18/2025 1:30 PM EST Office Visit [facility] Specialties 45 [facility] [address] [place] [address] Jazzmine Zaamn MD [address] [place] [phone] [email or web address] documented as of this encounter Results * XR ANKLE 3 OR MORE VIEWS (LEFT) (11/30/2024 4:47 PM EDT) Anatomical Region Laterality Modality Ankle Left Radiographic Arlin ging 12/01/2024 8:44 AM EDT Impressions 12/01/2024 9:13 AM EDT Moderate osteoarthritis of the ankle and hindfoot. No acute fracture or dislocation. Narrative 12/01/2024 9:13 AM EDT XR ANKLE 3 OR MORE VIEWS (RIGHT), XR ANKLE 3 OR MORE VIEWS (LEFT) Referring clinician's provided indication for this examination in Epic: Pain COMPARISON: XR FOOT 3 OR MORE VIEWS (RIGHT) ; XR FOOT 3 OR MORE VIEWS (LEFT) FINDINGS: Left ankle: Diffuse osseous demineralization. Pes planus. No fracture. Symmetric ankle mortise. Moderate osteoarthritis involving the tibiotalar, subtalar, and talonavicular joints with joint space narrowing and marginal osteophytes. Mild diffuse soft tissue swelling. Atherosclerotic vascular calcifications. Achilles insertional enthesophyte. Plantar calcaneal spur. Mineralization along the plantar fascia, likely sequelae of plantar fasciitis. Soft tissue mineralization adjacent to the lateral malleolus, nonspecific, and may be due to sequelae of prior trauma or degeneration. Right ankle: Diffuse osseous demineralization. Pes planus. Chronic appearing deformity of the distal fibula, likely due to sequelae of prior injury. No acute fracture. Symmetric ankle mortise. Moderate osteoarthritis involving the tibiotalar, subtalar, and talonavicular joints with joint space narrowing and marginal osteophytes. Mild diffuse soft tissue swelling. Atherosclerotic vascular calcifications. Achilles insertional enthesophyte. Plantar calcaneal spur. Mineralization along the plantar fascia, likely sequelae of plantar fasciitis. Soft tissue mineralization adjacent to the medial malleolus, nonspecific, and may be due to sequelae of prior trauma or degeneration. Procedure Note Syeda Hunter MD - 12/01/2024 XR ANKLE 3 OR MORE VIEWS (RIGHT), XR ANKLE 3 OR MORE VIEWS (LEFT) Referring clinician's provided indication for this examination in Epic:Pain COMPARISON: XR FOOT 3 OR MORE VIEWS (RIGHT) ; XR FOOT 3 OR MOREVIEWS (LEFT) FINDINGS: Left ankle: Diffuse osseous demineralization. Pes planus. No fracture.Symmetric ankle mortise. Moderate osteoarthritis involving the tibiotalar,subtalar, and talonavicular joints with joint space narrowing and marginalosteophytes. Mild diffuse soft tissue swelling. Atherosclerotic vascularcalcifications. Achilles insertional enthesophyte. Plantar calcanealspur. Mineralization along the plantar fascia, likely sequelae of plantarfasciitis. Soft tissue mineralization adjacent to the lateral malleolus,nonspecific, and may be due to sequelae of prior trauma or degeneration. Right ankle: Diffuse osseous demineralization. Pes planus. Chronicappearing deformity of the distal fibula, likely due to sequelae of priorinjury. No acute fracture. Symmetric ankle mortise. Moderateosteoarthritis involving the tibiotalar, subtalar, and talonavicularjoints with joint space narrowing and marginal osteophytes. Mild diffusesoft tissue swelling. Atherosclerotic vascular calcifications. Achillesinsertional enthesophyte. Plantar calcaneal spur. Mineralization alongthe plantar fascia, likely sequelae of plantar fasciitis. Soft tissuemineralization adjacent to the medial malleolus, nonspecific, and may bedue to sequelae of prior trauma or degeneration. IMPRESSION: Moderate osteoarthritis of the ankle and hindfoot. No acute fracture or dislocation. us Josh Davey MD IMG XR LOWER EXTREMITY Final Result documented in this encounter Visit Diagnoses Diagnosis Arthralgia, unspecified joint Arthralgia, unspecified joint- Primary documented in this encounter Additional Health Concerns Assessment Noted Time PHQ-2 Depression Total Score: 0 12/01/19 2:18 PM EDT documented as of this encounter Care Teams Logging Equipment Operator Relationship Specialty Start Date End Date Adelaide Pollock MD [facility] [place] [address] PCP - General Internal Medicine 02/16/24 03/27/25 Aide Adame MD [address] [place] [phone] PCP - General Internal Medicine 03/28/25 Johnathan Lisa MD, MPH [address] [place] [phone] [email or web address] Referring Physician Pulmonary Disease 03/28/25 Jazzmine Zaman MD [address] [place] [phone] [email or web address] Referring Physician Pediatrics 03/28/25 documented as of this encounter Additional Source Comments The information contained in this document represents components of the legal health record. It is not the complete legal health record.[facility]
--- OUTSIDE RECORDS SUMMARY | 2025-05-09 14:17 | XMS_ITS | Encounter Summary ---
Author Organization [facility] Address [address] [place] [phone] Phone Care Team Providers Care Utility Tech Name Role Phone Adelaide Pollock MD Primary Care Provider + Aide Adame MD Primary Care Provider + Johnathan Lisa MD, MPH Unavailable [phone] Jazzmine Zaman MD Unavailable Encounter Details Date Type Department Care Team (Late st Contact Info) Description 11/30/2024 Ancillary Orders [facility] Arthritis Center Main [place] [address] [place] [address] Josh Davey MD [address] [place] [phone] [email or web address] Arthralgia, unspecified joint (Primary Dx) Social History [...] Description 07/18/2025 10:30 AM EST Office Visit [facility] Genetics [address] [place] [address] Jazzmine Zaman MD [address] [place] [phone] [email or web address] 07/18/2025 1:30 PM EST Office Visit [facility] Specialties 45 [facility] [address] [place] [address] Jazzmine Zaman MD [address] [place] [phone] [email or web address] documented as of this encounter Results * XR HAND 3 OR MORE VIEWS (LEFT) (11/30/2024 4:48 PM EDT) Anatomical Region Laterality Modality Hand Left Radiographic Arlin ging 12/01/2024 8:44 AM EDT Impressions 12/01/2024 9:05 AM EDT Diffuse osseous demineralization. 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 Chondrocalcinosis of the TFCC and mineralization about the right second and third MCP joints, which may be seen in CPPD. Narrative 12/01/2024 9:05 AM EDT XR HAND 3 OR MORE VIEWS (LEFT), XR HAND 3 OR MORE VIEWS (RIGHT) Referring clinician's provided indication for this examination in Epic: Pain COMPARISON: XR HAND 3 OR MORE VIEWS (BILATERAL) FINDINGS: Left hand: Diffuse osseous demineralization. No fracture. Severe osteoarthritis of the first carpometacarpal joint with joint space narrowing, hypertrophic changes, and osseous remodeling with adjacent ossific body. Moderate osteoarthritis of the triscaphe joint, first MCP joint, and first interphalangeal joint. Odux-wr-akruvqcj degenerative changes of additional scattered interphalangeal joints. Cystic changes within the carpal bones and fifth metacarpal head. Chondrocalcinosis of the TFCC. No focal soft tissue swelling. Right hand: Diffuse osseous demineralization. No fracture. Severe osteoarthritis of the first carpometacarpal joint with joint space narrowing, hypertrophic changes, and osseous remodeling. Moderate osteoarthritis of the radiocarpal joint and triscaphe joint. Hicy-px-qydcaikl degenerative changes of additional scattered interphalangeal joints. Cystic changes within the carpal bones and second metacarpal head. Chondrocalcinosis of the TFCC. Mineralization about the second and third MCP joints, similar to prior. No focal soft tissue swelling. Procedure Note Syeda Hunter MD - 12/01/2024 XR HAND 3 OR MORE VIEWS (LEFT), XR HAND 3 OR MORE VIEWS (RIGHT) Referring clinician's provided indication for this examination in Epic:Pain COMPARISON: XR HAND 3 OR MORE VIEWS (BILATERAL) FINDINGS: Left hand: Diffuse osseous demineralization. No fracture. Severeosteoarthritis of the first carpometacarpal joint with joint spacenarrowing, hypertrophic changes, and osseous remodeling with adjacentossific body. Moderate osteoarthritis of the triscaphe joint, first MCPjoint, and first interphalangeal joint. Xyvg-kl-hhzpigae degenerativechanges of additional scattered interphalangeal joints. Cystic changeswithin the carpal bones and fifth metacarpal head. Chondrocalcinosis ofthe TFCC. No focal soft tissue swelling. Right hand: Diffuse osseous demineralization. No fracture. Severeosteoarthritis of the first carpometacarpal joint with joint spacenarrowing, hypertrophic changes, and osseous remodeling. Moderateosteoarthritis of the radiocarpal joint and triscaphe joint.Xxzv-mq-izhjpqoz degenerative changes of additional scatteredinterphalangeal joints. Cystic changes within the carpal bones and secondmetacarpal head. Chondrocalcinosis of the TFCC. Mineralization about thesecond and third MCP joints, similar to prior. No focal soft tissueswelling. IMPRESSION: Diffuse osseous demineralization. Multifocal osteoarthritis, with severeinvolvement of the bilateral first carpometacarpal joints, similar toprior. Chondrocalcinosis of the TFCC and mineralization about the right secondand third MCP joints, which may be seen in CPPD. us Josh Davey MD IMG XR UPPER EXTREMITY Final Result documented in this encounter Visit Diagnoses Diagnosis Arthralgia, unspecified joint Arthralgia, unspecified joint- Primary documented in this encounter Additional Health Concerns Assessment Noted Time PHQ-2 Depression Total Score: 0 12/01/19 2:18 PM EDT documented as of this encounter Care Teams Utility Tech Relationship Specialty Start Date End Date Adelaide Pollock MD [facility] [place] [address] PCP - General Internal Medicine 02/16/24 03/27/25 Aide Adame MD [address] [place] [address] PCP - General Internal Medicine 03/28/25 Johnathan Lisa MD, MPH [address] [place] [phone] [email or web address] Referring Physician Pulmonary Disease 03/28/25 Jazzmine Zaman MD [address] [place] [address] [email or web address] Referring Physician Pediatrics 03/28/25 documented as of this encounter Additional Source Comments The information contained in this document represents components of the legal health record. It is not the complete legal health record.[facility]
--- OUTSIDE RECORDS SUMMARY | 2025-05-09 14:17 | XMS_ITS | Encounter Summary ---
Author Organization [facility] Address [address] [place] [address] Phone Care Team Providers Care Oracle Programmer Name Role Phone Adelaide Pollock MD Primary Care Provider + Aide Adame MD Primary Care Provider + Johnathan Lisa MD, MPH Unavailable [phone] Jazzmine Zaman MD Unavailable [phone] Encounter Details Date Type Department Care Team (Late st Contact Info) Description 04/05/2024 Procedure Pass [facility], [address] [address] Social History Tobacco Use Types Packs/Day Years [...] Description 07/18/2025 10:30 AM EST Office Visit [facility] Genetics 15 [place] [address] Jazzmine Zaman MD [address] [place] [phone] [email or web address] 07/18/2025 1:30 PM EST Office Visit [facility] 45 [facility] [address] [place] [address] Jazzmine Zaman MD [address] [place] [phone] [email or web address] documented as of this encounter Visit Diagnoses Not on filedocumented in this encounter Care Teams Oracle Programmer Relationship Specialty Start Date End Date Adelaide Pollock MD [facility] [place] [address] PCP - General Internal Medicine 02/16/24 03/27/25 Aide Adame MD [facility]0[place] [address] PCP - General Internal Medicine 03/28/25 Johnathan Lisa MD, MPH [address] [place] [phone] [email or web address] Referring Physician Pulmonary Disease 03/28/25 Jazzmine Zaman MD [address] [place] [phone] [email or web address] Referring Physician Pediatrics 03/28/25 documented as of this encounter Additional Source Comments The information contained in this document represents components of the legal health record. It is not the complete legal health record.[facility]
--- OUTSIDE RECORDS SUMMARY | 2025-05-09 14:17 | XMS_ITS | Encounter Summary ---
Author Organization [facility] Address [address] [place] [address] Phone Care Team Providers Care Hydraulic Mechanic Name Role Phone Aide Adame MD Primary Care Provider + Johnathan Lisa MD, MPH Unavailable Jazzmine Zaman MD Unavailable Reason for Visit * Reason Onset Date Comments pt information 04/12/2025 Encounter Details Date Type Department Care Team (Late st Contact Info) Description 04/12/2025 Telephone [facility] Genetics [address] [place] [address] Jazzmine Zaman MD [address] [place] [phone] [email or web address] pt information Social History Tobacco Use Types Packs/Day Years [...] PM EDT documented as of this encounter Progress Notes * Aline Head - 04/12/2025 8:35 AM EDT Good morning, Pt of Dr. Ball daughter Apryl is requesting for the office notes on 03/21/25 to be released for pt to view in pt portal.Please advise. CB# [phone] Thank you Aline Lombardo Pt Access Center Coordinator Department Of Medicine documented in this encounter Plan of Treatment Upcoming Encounters Date Type Department Care Team (Late st Contact Info) Description 07/18/2025 10:30 AM EST Office Visit [facility] Genetics [address] [place] [address] Jazzmine Zaman MD [address] [place] [phone] [email or web address] 07/18/2025 1:30 PM EST Office Visit [facility] 45 [facility] [address] [place] [address] Jazzmine Zaman MD 75 [facility] [address] [place] [address] [email or web address] documented as of this encounter Visit Diagnoses Not on filedocumented in this encounter Additional Health Concerns Assessment Noted Time PHQ-2 Depression Total Score: 0 03/21/20 10:47 AM EDT documented as of this encounter Care Teams Hydraulic Mechanic Relationship Specialty Start Date End Date Aide Adame MD [facility] [address] PCP - General Internal Medicine 03/28/25 Johnathan Lisa MD, MPH [address] [place] [phone] [email or web address] Referring Physician Pulmonary Disease 03/28/25 Jazzmine Zaman MD [address] [phone] [email or web address] Referring Physician Pediatrics 03/28/25 documented as of this encounter Additional Source Comments The information contained in this document represents components of the legal health record. It is not the complete legal health record.[facility]
--- OUTSIDE RECORDS SUMMARY | 2025-05-09 14:17 | XMS_ITS | Encounter Summary ---
Author Organization [facility] Address [address] [place] [address] Phone Care Team Providers Care Special Agent Group Insurance Name Role Phone Adelaide Pollock MD Primary Care Provider + Aide Adame MD Primary Care Provider + Johnathan Lisa MD, MPH Unavailable [phone] Jazzmine Zaman MD Unavailable [phone] Reason for Visit * Reason Onset Date Comments Maria L/Test Results 03/10/2025 Encounter Details Date Type Department Care Team (Late st Contact Info) Description 03/10/2025 Telephone [facility] [address] [place] [phone] Johnathan Lisa MD, MPH [address] [place] [phone] [email or web address] Maria L/Test Results Social History Tobacco Use Types Packs/Day Years [...] as of this encounter Progress Notes * Germaine Amador - 03/10/2025 2:21 PM EDT Shaunna Pt of Dr. Lisa Daughter of the pt calling in regarding a lab order that was done for her mother on February 21. Stated that she has not obtained the results for the Telomere length, 6 panel test. Stated that she wouldlike results to be sent through the pgw. CB#:[phone] documented in this encounter Plan of Treatment Upcoming Encounters Date Type Department Care Team (Late st Contact Info) Description 07/18/2025 10:30 AM EST Office Visit [facility] Genetics [address] [place] [address] Jazzmine Zaman MD [address] [place] [phone] [email or web address] 07/18/2025 1:30 PM EST Office Visit [facility] Specialties 45 [facility] [address] [place] [address] Jazzmine Zaman MD [address] [place] [phone] [email or web address] documented as of this encounter Visit Diagnoses Not on filedocumented in this encounter Additional Health Concerns Assessment Noted Time PHQ-2 Depression Total Score: 0 02/22/20 25 11:14 AM EDT documented as of this encounter Care Teams Special Agent Group Insurance Relationship Specialty Start Date End Date Adelaide Pollock MD [address] [place] [address] PCP - General Internal Medicine 02/16/24 03/27/25 Aide Adame MD [facility] [address] PCP - General Internal Medicine 03/28/25 Johnathan Lisa MD, MPH [address] [place] [address] [email or web address] Referring Physician Pulmonary Disease 03/28/25 Jazzmine Zaman MD [address] [place] [address] [email or web address] Referring Physician Pediatrics 03/28/25 documented as of this encounter Additional Source Comments The information contained in this document represents components of the legal health record. It is not the complete legal health record.[facility]
--- OUTSIDE RECORDS SUMMARY | 2025-05-09 14:20 | XMS_ITS | Clinical Summary ---
Author Organization [facility] Address [address] [place] [address] Phone Care Team Providers Care Informatics Physician Name Role Phone Aied Adame MD Primary Care Provider + Johnathan Lisa MD, MPH Unavailable Jazzmine Zaman MD Unavailable [phone] Allergies Active Allergy Reactions Criticality Noted Date Comments Codeine Lightheadedness 04/26/2024 Doxycycline Rash Low 04/26/2024 Egg Rash Low 04/26/2024 Gluten Rash Low 04/26/2024 Iodine Dermatitis,Itching,Rash Low 04/26/2024 Levofloxacin Dizziness,Tendonitis High 04/03/2017 Vancomycin Flushing,Hives,Itching 04/03/2017 Medications pantoprazole (PROTONIX) 40 MG tablet Take 40 mg by mouth daily. Active therapeutic multivitamin tablet Take 1 tablet by mouth daily. Active arnica 20 % Tinc Apply 1 Application topically daily as needed. Active ascorbic acid, vitamin C, (VITAMIN C) 250 MG tablet Take 500 mg by mouth daily. Active cholecalciferol, vitamin D3, 12.5 mcg/5 mL (500 unit/5 mL) Liqd Take 15 mL by mouth daily. Active ipratropium (ATROVENT) 21 mcg (0.03 %) nasal sprayIndications :ILD (interstitial lung disease) 2 sprays by Nasal route 3 (three) times a day. Can be used 2-4 times daily for runny nose 30 mL 12 5 Active Additional Information Patient not taking.Reported on 04/11/2025 nintedanib (OFEV) 150 mg capsule Take 1 capsule (150 mg total) by mouth 2 (two) times a day with meals. 60 capsule 11 Active Additional Information Patient not taking.Reported on 04/11/2025 ZINC ORAL Take 1 tablet by mouth daily. Active Medication-Free Text Take 1 capsule by mouth daily. Neprinol mutli enzyme blend Active Active Problems Problem Noted Date Diagnosed Date ILD (interstitial lung disease) 12/30/2024 Assessment & Plan (01/03/2025 10:04 PM EDT): The patient has upper lobe predominant interstitial lung disease with progressive fibrotic changes. Despite the absence of a definitive autoimmune diagnosis, the clinical picture suggests a possible connective tissue disease. The patient has experienced a decline in her pulmonary function and has symptoms consistent possibly consistent with pulmonary hypertension. - Initiate treatment with nintedanib (Ofev) 150 mg, with the understanding that it may stabilize her condition but is unlikely to improve symptoms. Monitor for potential side effects, particularly gastrointestinal issues such as diarrhea. - Schedule follow-up with the GI specialist to evaluate her history of esophagitis and elevated alkaline phosphatase levels before starting antifibrotic therapy. - Continue to monitor pulmonary function and symptoms, and consider echocardiogram for pulmonary hypertension evaluation. Orders: ipratropium (ATROVENT) 21 mcg (0.03 %) nasal spray; 2 sprays by Nasal route 3 (three) times a day. Can be used 2-4 times daily for runny nose Chronic cough 12/30/2024 Assessment & Plan (01/03/2025 10:04 PM EDT): The patient has a chronic cough likely related to post-nasal drip and difficulty clearing secretions. - Start nasal ipratropium, 2 sprays in each nostril three times a day, with the option to increase to four times a day as needed for symptom relief. - Referred to physical therapy for instruction on using an acapella device for mucus clearance. 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; Genetic defect; Familial idiopathic pulmonary fibrosis 04/12/2025 Telephone [facility] Genetics [address] [place] [address] Jazzmine Zaman MD pt information 04/11/2025 2:09 PM EDT - 04/11/2025 11:59 PM EDT Hospital Encounter [facility] Radiology [address] [place] [address] Maurilio Rojas MD Discharge Disposition: Home or Self Care 04/11/2025 11:00 AM EDT Office Visit [facility] for [facility]emia, Division of Hematologic Oncology, [facility] [place] [address] [facility], 8th [place] [address] Marcial Fiore MD 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 (Primary Dx) 04/11/2025 Telephone [facility] Center for Chest Diseases [address] [place] [address] Jazzmine Zaman MD 04/11/2025 Orders Only [facility] for Cancer Genetics and Prevention, [facility] [place] [address], 10th [place] [address] Marcial Fiore MD ILD (interstitial lung disease) (Primary Dx) 03/29/2025 Orders Only [facility] for Leukemia, Division of Hematologic Oncology, [facility] [place] [address], 8th [place] [address] Marcial Fiore MD 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 (Primary Dx) 03/25/2025 Telephone [facility] for Chest Diseases [address] [place] [address] Jazzmine Zaman MD baumann/pt advice 03/22/2025 11:40 AM EDT Telemedicine [facility] Lung Center-Pulmonary Medicine [address] [place] [address] Maurilio Rojas MD Familial idiopathic pulmonary fibrosis (Primary Dx) 03/22/2025 Procedure [facility] Radiology [address] [place] [address] 03/22/2025 Telephone [facility] Genetics [address] [place], [place] [phone] Jazzmine Zaman MD 03/21/2025 1:00 PM EDT Office Visit [facility] [address] [facility], 1st Floor, [address] [place] [phone] Unknown, Unknown, Syeda Ceron, PT ILD (interstitial lung disease) (Primary Dx) 03/21/2025 10:30 AM EDT Office Visit [place] [phone] Jazzmine Zaman MD 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 (Primary Dx); Familial idiopathic pulmonary fibrosis; Chronic cough; Interstitial lung disease 03/21/2025 9:52 AM EDT - 03/21/2025 11:59 PM EDT Hospital Encounter [facility] Pulmonary Function Lab [address] [place] [phone] Johnathan Lisa MD, MPH Discharge Disposition: Home or Self Care 03/21/2025 Plan of Care Documentation [facility] [address], 1st Floor, [address] [place] [address] 03/10/2025 Telephone [facility] - Center for Chest Diseases [address] [place] [phone] Johnathan Lisa MD, MPH Maria L/Test Results 02/21/2025 1:28 PM EDT - 02/21/2025 11:59 PM EDT Hospital Encounter [facility] Phlebotomy [facility] [address] [place] [address] Johnathan Lisa MD, MPH Discharge Disposition: Home or Self Care 02/21/2025 11:00 AM EDT Follow-Up [facility] Genetics [address] [place], [place] [phone] Johnathan Lisa MD, MPH ILD (interstitial lung disease) (Primary Dx) 02/10/2025 Telephone [facility] [address] [facility], 2nd Floor, [address] [place] [address] Cristine Gomez MD 02/10/2025 Telephone [facility] for Chest Diseases [address] [place] [address] Johnathan Lisa MD, MPH Clarification/Maria L from Last 3 Months Immunizations Immunization Administration Dates Next Due Pneumococcal polysaccharide PPSV23 06/03/2011 Tdap 08/15/2011 Family History Medical History Relation Comments Billy-Danlos syndrome Daughter Pulmonary fibrosis Maternal Aunt Pulmonary fibrosis Mother Pulmonary fibrosis Sister Chronic Pain Son 1 Relation Status Comments Daughter Alive Maternal Aunt Alive Mother Sister Son 1 Alive Son 2 Alive Social History Tobacco Use Types Packs/Day Years Used Date Smoking Tobacco: Never Smokeless Tobacco: Never Tobacco Cessation:Counseling Given: Not Answered Child or Family Care Answer Date Record [...] Orientation Straight 02/16/2024 4: 15 PM EDT Last Filed Vital Signs Vital Sign Reading Time Taken Comments Blood Pressure 115/55 04/11/2025 11:05 AM EDT Pulse 80 04/11/2025 11:05 AM EDT Temperature 36.3 C (97.4 F) 04/11/2025 11:05 AM EDT Respiratory Rate 18 04/11/2025 11:05 AM EDT Oxygen Saturation 99% 04/11/2025 11:05 AM EDT Inhaled Oxygen Concentration - - Weight 57 kg (125 lb 10.6 oz) 04/11/2025 11:05 A M EDT Height 160 cm (5' 3 ) 03/21/2025 10:44 AM EDT Body Mass Index 22.26 03/21/2025 10:44 AM EDT Plan of Treatment Upcoming Encounters Date Type Department Care Team (Late st Contact Info) Description 07/18/2025 10:30 AM EST Office Visit [facility] Genetics [address] [place] [address] Jazzmine Zaman MD [address] [place] [phone] [email or web address] 07/18/2025 1:30 PM EST Office Visit [facility] Medical Specialties [address] [facility] [address] [place] [address] Jazzmine Zaman MD [address] [place] [phone] [email or web address] Health Maintenance Due Date Last Done Comments ZOSTER VACCINES (1 of 2) 1994 OSTEOPOROSIS SCREENING INITI AL (ONE-TIME) 2009 PNEUMOCOCCAL VACCINES (50+ y ears) (2 of 2 - PCV) 06/03/2012 06/03/2011 RSV VACCINE (1 - 1-dose 75+ series) 2019 Adult Td,Tdap Booster 08/15/2021 08/15/2011 COVID-19 VACCINE (1 - 2023-2 5 season) 2024 INFLUENZA VACCINE (#1) 2025 DEPRESSION SCREENING 03/21/2026 03/21/2025 HEPATITIS A VACCINES Aged Out No long er eligible based on patient's age to complete this topic HIB VACCINES Aged Out No longer eligi ble based on patient's age to complete this topic MENINGOCOCCAL VACCINES (ACWY) Aged Out No longer eligible based on patient's age to complete this topic MENINGOCOCCAL VACCINES (B) Aged Out N o longer eligible based on patient's age to complete this topic Medical Devices Not on file Procedures Procedure Name Priority Date/Time Associated Diagnosis Comments CT CHEST (HIGH RESOLUTION) WITHOUT CONTRAST Routine 04/11/2025 2:24 PM EDT Familial idiopathic pulmonary fibrosis LAB ADD ON Routine 04/11/2025 11:54 AM EDT 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 RETICULOCYTES Routine 04/11/2025 10:36 AM EDT FERRITIN Routine 04/11/2025 10:36 AM EDT MISCELLANEOUS TEST Routine 04/11/2025 10 :36 AM EDT ILD (interstitial lung disease) PASQ BANKING Routine 04/11/2025 1 0:36 AM EDT ILD (interstitial lung disease) COMPREHENSIVE METABOLIC PANEL Routine 04/11/2025 10:36 AM EDT 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 LDH Routine 04/11/2025 10:36 AM EDT 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 HC DFCI MANUAL DIFFERENTIAL Routine 04/11/2025 10:36 AM EDT 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 HC PULMONARY STRESS TESTING Routine 03/21/2025 12:00 AM EDT ILD (interstitial lung disease) LFTS (HEPATIC PANEL) Routine 02/21/2025 1:33 PM EDT ILD (interstitial lung disease) ALPHA GLUCOSIDASE (POMPE DISEASE) Routine 02/21/2025 1:33 PM EDT Dyspnea and respiratory abnormalities TELOMERE LENGTH, 6 PANEL Routine 02/21/2025 1:33 PM EDT ILD (interstitial lung disease) from Last 3 Months Results * CT CHEST (HIGH RESOLUTION) WITHOUT CONTRAST (04/11/2025 2:24 PM EDT) Anatomical Region Laterality Modality Chest Computed Tomogra phy 04/11/2025 3:01 PM EDT Impressions 04/11/2025 7:22 PM EDT Increased upper lobe subpleural predominant reticular and groundglass opacities, in keeping with fibrotic interstitial lung disease in a pattern which is inconsistent with UIP, may represent CTD-ILD, possibly in the setting of scleroderma given patulous esophagus, versus hypersensitivity pneumonitis given air trapping and upper lobe predominance. ATTESTATION: Arabella Judge, as teaching physician have reviewed the images, if any, for this patient's exam, and if necessary, have edited the report originally created by Eduardo Kulkarni. Narrative 04/11/2025 7:[address] CHEST (HIGH RESOLUTION) WITHOUT CONTRAST Referring clinician's provided indication for this examination in Epic: Interstital Lung Disease TECHNIQUE: Multidetector CT of the chest was performed without intravenous contrast using tailored dose modulation techniques. Thin inspiratory, expiratory and inspiratory prone images were obtained as part of a high-resolution chest CT protocol. COMPARISON: CT CHEST OUTSIDE WITH INTERPRETATION OR CONSULT FINDINGS: Devices/Tubes/Lines: None. Lungs: Increased upper lobe subpleural predominant reticular and groundglass opacities with traction bronchiolectasis. No honeycombing. The airways are clear. Expiratory imaging shows moderate air trapping. Pleura: No pleural effusion or pneumothorax. Mediastinum: Heart size is normal. No pericardial effusion. Prominent main pulmonary artery measuring 31 mm.Diffusely patulous esophagus. Small hiatal hernia. Lymph Nodes: No enlarged supraclavicular, axillary, mediastinal, or hilar lymph nodes. Upper Abdomen: Absence of intravenous contrast limits sensitivity for detecting solid organ findings. Left kidney cysts, unchanged. Chest Wall: No chest wall mass. Bones: No suspicious lytic or blastic lesions. Bilateral shoulder joint degenerative change. Unchanged deformity proximal left humerus, likely remote fracture.. Procedure Note Arabella Irwin MD - 04/11/2025 CT CHEST (HIGH RESOLUTION) WITHOUT CONTRAST Referring clinician's provided indication for this examination in Epic:Interstital Lung Disease TECHNIQUE: Multidetector CT of the chest was performed without intravenouscontrast using tailored dose modulation techniques. Thin inspiratory,expiratory and inspiratory prone images were obtained as part of [facility]. COMPARISON: CT CHEST OUTSIDE WITH INTERPRETATION OR CONSULT FINDINGS: Devices/Tubes/Lines: None. Lungs: Increased upper lobe subpleural predominant reticular andgroundglass opacities with traction bronchiolectasis. No honeycombing. Theairways are clear. Expiratory imaging shows moderate air trapping. Pleura: No pleural effusion or pneumothorax. Mediastinum: Heart size is normal. No pericardial effusion. Prominent mainpulmonary artery measuring 31 mm.Diffusely patulous esophagus. Smallhiatal hernia. Lymph Nodes: No enlarged supraclavicular, axillary, mediastinal, or hilarlymph nodes. Upper Abdomen: Absence of intravenous contrast limits sensitivity fordetecting solid organ findings. Left kidney cysts, unchanged. Chest Wall: No chest wall mass. Bones: No suspicious lytic or blastic lesions. Bilateral shoulder jointdegenerative change. Unchanged deformity proximal left humerus, likelyremote fracture.. IMPRESSION: Increased upper lobe subpleural predominant reticular and groundglassopacities, in keeping with fibrotic interstitial lung disease in a patternwhich is inconsistent with UIP, may represent CTD-ILD, possibly in thesetting of scleroderma given patulous esophagus, versus hypersensitivitypneumonitis given air trapping and upper lobe predominance. ATTESTATION: Arabella Judge, as teaching physician have reviewed theimages, if any, for this patient's exam, and if necessary, have edited thereport originally created by Eduardo Kulkarni. Maurilio Rojas MD IMG CT CHEST Final Resu lt * Lab Add On: retic count, ferritin, erythropoietin (04/11/2025 11:54 AM EDT) Pathologist [facility] TEST REQUESTED RETIC COUNT, FERRITIN, ERYTHROPOIETIN [facility] LIC# [id number] Comments (Chemistry) TEST TO BE ADDED ON TO EXISTING SPECIMEN [facility] LIC# [id number] Comment:CAN NOT ADD THE TEST ERYTHROPOIETIN BECAUSE NO SAMPLE TO PULL Blood 04/11/2025 11:5 4 AM EDT 04/11/2025 12:25 PM EDT Result [facility] Marcial Fiore MD LAB BLOOD ORDERABLES Fin al Result Performing Organization Address [facility] Co de Phone Number [facility] LIC# [id number] [address] [place], [place] [id number] * Miscellaneous test (04/11/2025 10:36 AM EDT) [facility] Misc Test Information PLEASE COLLECT 5CC IN EDTA LAVENDER TOP TUBE PAGE [id number] FOR PICKUP [facility] LIC# [id number] [facility] MISCELLANEOUS TEST (RESULTS) RESEARCH [facility] LIC# [id number] Resulting Agency [facility] LIC# [id number] Blood 04/11/2025 10:3 6 AM EDT 04/11/2025 10:51 AM EDT Marcial Fiore MD LAB BLOOD ORDERABLES Fin al Result Performing Organization Address City/[facility] Co de Phone Number [facility] LIC# [id number] [address] [place], [place] [id number] * (ABNORMAL) CBC with manual differential (04/11/2025 10:36 AM EDT) WBC 6.27 4.00 - 10.00 K/uL [facility] LIC# [id number] RBC 3.70(L) 3.90 - 6.00 M/uL [facility] LIC# [id number] HGB 11.4(L) 11.5 - 16.4 g/dL [facility] LIC# [id number] HCT 36.1 36.0 - 48.0 % [facility] LIC# [id number] PLT 186 150 - 450 K/uL [facility] LIC# [id number] MCV 97.6 80.0 - 100.0 fL [facility] LIC# [id number] MCH 30.8 27.0 - 32.0 pg [facility] LIC# [id number] MCHC 31.6(L) 32.0 - 36.0 g/dL [facility] LIC# [id number] RDW 13.3 11.5 - 14.5 % [facility] LIC# [id number] MPV 9.8 8.4 - 12.0 fL [facility] LIC# [id number] NRBC 0.00 0 /100 WBCs [facility] LIC# [id number] ABSOLUTE NRBC 0.00 0 K/uL [facility] LIC# [id number] BLASTS 0.0 0 % [facility] LIC# [id number] NEUTS (MANUAL) 66.2 48.0 - 76.0 % [facility] LIC# [id number] LYMPHS 24.6 18.0 - 41.0 % [facility] LIC# [id number] MONOS 7.7 4.0 - 11.0 % [facility] LIC# [id number] EOSINOPHIL 1.5 0.0 - 5.0 % [facility] LIC# [id number] BASOPHIL 0.0 0.0 - 1.5 % [facility] LIC# [id number] ABSOLUTE NEUTS 4.15 1.92 - 7.60 K/uL [facility] LIC# [id number] ABSOLUTE LYMPHS 1.54 0.72 - 4.10 K/uL [facility] LIC# [id number] ABSOLUTE MONOS 0.48 0.16 - 1.10 K/uL [facility] LIC# [id number] ABSOLUTE EOS 0.09 0.00 - 0.50 K/uL [facility] LIC# [id number] ABSOLUTE BASO 0.00 0.00 - 0.15 K/uL [facility] LIC# [id number] ABSOLUTE BLASTS 0.00 0 K/uL [facility] LIC# [id number] PLT GIANT FORMS PRESENT [facility] LIC# [id number] DIFF METHOD MANUAL [facility] LIC# [id number] RBC MORPHOLOGY NORMAL [facility] LIC# [id number] Blood 04/11/2025 10:3 6 AM EDT 04/11/2025 10:52 AM EDT Marcial Fiore MD LAB BLOOD ORDERABLES Fin al Result Performing Organization Address City/[facility] Co de Phone Number [facility] LIC# [id number] [address] [place] [address] * Reticulocytes (04/11/2025 10:36 AM EDT) RETIC (%) 1.2 0.7 - 2.5 % [facility] LIC# [id number] RETIC (ABSOLUTE) 0.0450 0.0273 - 0.1500 M/uL [facility] LIC# [id number] RETIC HGB EQUIV 31.5 28.6 - 36.2 pg [facility] LIC# [id number] 04/11/2025 10:3 6 AM EDT 04/11/2025 10:52 AM EDT Marcial Fiore MD LAB BLOOD ORDERABLES Fin al Result Performing Organization Address City/[facility]/ZIP Co de Phone Number [facility] LIC# [id number] [address] [place] [address] * LDH (04/11/2025 10:36 AM EDT) LDH 191 135 - 225 U/L [facility] LIC# [id number] Blood 04/11/2025 10:3 6 AM EDT 04/11/2025 10:52 AM EDT us Marcial Fiore MD LAB BLOOD ORDERABLES Fin al Result [facility] LIC# [id number] [address] [place] [address] * (ABNORMAL) Comprehensive metabolic panel (04/11/2025 10:36 AM EDT) SODIUM 142 136 - 145 mmol/L [facility] LIC# [id number] POTASSIUM 5.5(H) 3.4 - 5.1 mmol/L [facility] LIC# [id number] CHLORIDE 108(H) 98 - 107 mmol/L [facility] LIC# [id number] CO2 26 22 - 31 mmol/L [facility] LIC# [id number] BUN 20 6 - 23 mg/dL [facility] LIC# [id number] CREATININE 1.00 0.50 - 1.20 mg/dL [facility] LIC# [id number] GLUCOSE 92 70 - 100 mg/dL [facility] LIC# [id number] ALBUMIN 3.8 3.5 - 5.2 g/dL [facility] LIC# [id number] TOTAL PROTEIN 7.3 6.4 - 8.3 g/dL [facility] LIC# [id number] CALCIUM 9.4 8.8 - 10.7 mg/dL [facility] LIC# [id number] ALKALINE PHOSPHATASE 150(H) 35 - 104 U/L [facility] LIC# [id number] TOTAL BILIRUBIN 0.6 0.2 - 1.2 mg/dL [facility] LIC# [id number] AST 15 <33 U/L [facility] LIC# [id number] ALT 12 <34 U/L [facility] LIC# [id number] GLOBULIN 3.5 2.3 - 4.2 g/dL [facility] LIC# [id number] EGFR 57(L) >59 mL/min/1.7 3m2 [facility] LIC# [id number] Comment:Estimated glomerular filtration rate calculated using the CKD-EPI refit equation. ANION GAP 8 7 - 17 mmol/L [facility] LIC# [id number] Blood 04/11/2025 10:3 6 AM EDT 04/11/2025 10:52 AM EDT us Marcial Fiore MD LAB BLOOD ORDERABLES Fin al Result Performing Organization Address [facility] de Phone Number [facility] LIC# [id number] [address] [place], [place] [address] * PASQ 01-206 BANKING (04/11/2025 10:36 AM EDT) Research Test FOR RESEARCH STUDY [facility] LIC# [id number] Blood 04/11/2025 10:3 6 AM EDT 04/11/2025 10:52 AM EDT Marcial Fiore MD LAB BLOOD ORDERABLES Fin al Result Performing Organization Address [facility] Co de Phone Number [facility] LIC# [id number] [address] [place] [address] * Ferritin (04/11/2025 10:36 AM EDT) FERRITIN 95 13 - 150 ug/L [facility] LIC# [id number] 04/11/2025 10:3 6 AM EDT 04/11/2025 10:52 AM EDT Marcial Fiore MD LAB BLOOD ORDERABLES Fin al Result Performing Organization Address [facility] Co de Phone Number [facility] LIC# [id number] [address] [place] [address] * Pulmonary Function Test Reason for Exam: Dyspnea/Shortness of Breath; Performing Location: [facility];Please specify: [facility] (03/21/2025 12:00 AM EDT) Anatomical Region Laterality Modality Other 03/21/2025 Narrative 03/21/2025 12:00 AM EDT Process Expert Notes: Two Patient Identifiers (Name, ) used to identify patient. Six Minute Walk Test: Very good effort throughout six minute walk test. Patient was able to walk for the full six minutes without stopping. Total distance measured was 130 meters. No visible signs of shortness of breath, diaphoresis, nor chest discomfort noted. Pt reported left side leg pain during walk but was able to complete the test. (Pre-exercise)Jonathan Score: 0 (Post-exercise) Jonathan Score: 3. Please see flowsheets for more information. Physician Interpretation: Distance walked in 6 minutes on room air was reduced (130m, 32%), without oxygen desaturation. us Johnathan Lisa MD, MPH PFT ORDERABLES Final Re sult * Telomere length, 6 panel (02/21/2025 1:33 PM EDT) Pathologist [facility] Telomere analysis Results Viewable in Attached Link: [facility] Comment: (NOTE) Blood 02/21/2025 1:33 PM EDT 02/21/2025 1:52 PM EDT us Johnathan Lisa MD, MPH LAB BLOOD ORDERABLES Fin al Result Performing Organization Address [facility] Co de Phone Number [facility] [address] [place] [id number] * Alpha glucosidase (Pompe disease) (02/21/2025 1:33 PM EDT) Pompe GAA Activity Interpretation [facility] Comment: (NOTE) In this sample, lysosomal acid alpha-glucosidase (GAA) activity was within normal range. Based on this result, this individual is NOT affected with Pompe disease (glycogen storage disease II; OMIM #285768). This test cannot predict carrier status for this disease. Additionally, this test does NOT exclude other lysosomal storage disorders. Normal enzyme activity may also be observed in treated individuals who are receiving enzyme replacement therapy. Results reviewed and interpreted by Tammy Medina, PhD, [facility] INTERPRETIVE INFORMATION: Pompe Disease (GAA), Enzyme Activity in Leukocytes This test was developed and its performance characteristics determined by [employer]. It has not been cleared or approved by the US Food and Drug Administration. This test was performed in a CLIA certified laboratory and is intended for clinical purposes. Performed By: [address] [address] Appeals Nurse: Arslan Manzanares MD, PhD CLIA Number: [id number] Pompe GAA Activity 18.6 5.5 - 25.0 nmol/h/mg [facility] Comment: (NOTE) Units of measure for acid alpha-glucosidase (GAA) activity (Pompe Disease) are: Nanomoles of substrate hydrolyzed per hour per mg of protein. Blood 02/21/2025 1:33 PM EDT 02/21/2025 1:52 PM EDT us Adriana Gallagher MD, PhD LAB BLOOD ORDERABL ES Final Result [address] [phone] * (ABNORMAL) LFTs (hepatic panel) (02/21/2025 1:33 PM EDT) TOTAL PROTEIN 8.2 6.4 - 8.3 g/dL [facility] ALBUMIN 4.0 3.5 - 5.2 g/dL [facility] GLOBULIN 4.2 2.2 - 4.2 g/dL [facility] AST 19 10 - 50 U/L [facility] ALT 16 10 - 50 U/L [facility] ALKALINE PHOSPHATASE 168(H) 35 - 130 U/L [facility] TOTAL BILIRUBIN 0.6 0.0 - 1.0 mg/dL [facility] DIRECT BILIRUBIN 0.2 0.0 - 0.3 mg/dL [facility] Blood 02/21/2025 1:33 PM EDT 02/21/2025 1:52 PM EDT us Cristine Gomez MD LAB BLOOD ORDERABLES Final Re sult [facility] [address] [place] [address] from Last 3 Months Insurance MEDICARE REPLACEMENT MEDICARE REPLACEMENT MEDICARE REPLACEMENT MEDICARE REPLACEMENT MEDICARE REPLACEMENT MEDICARE REPLACEMENT Care Teams Informatics Physician Relationship Specialty Start Date End Date Aide Adame MD [address] [address] PCP - General Internal Medicine 03/28/25 Johnathan Lisa MD, MPH [address] [place] [address] [email or web address] Referring Physician Pulmonary Disease 03/28/25 Jazzmine Zaman MD [address] [place] [phone] [email or web address] Referring Physician Pediatrics 03/28/25 Additional Source Comments The information contained in this document represents components of the legal health record. It is not the complete legal health record.[facility]
== END 2025-05-09 16:23 | disposition home or self-care (01) ==
LOC: HO.HGI 13:02
PROVIDERS: PCP Internal Medicine; Visit Provider Internal Medicine Gastroenterology
DX: K62.5 Hemorrhage of anus and rectum (principal)
CPT/HCPCS: 99214

== ENCOUNTER 2025-07-13 12:57 | Outpatient (AMB) | payer OTHER, SELFPAY ==
--- OUTSIDE RECORDS SUMMARY | 2013-06-11 | XMS_ITS | Encounter Summary ---
Author Organization [facility] Address [address] [facility] [address] [place] [address] Phone Care Team Providers Care Goodwill Ambassador Name Role Phone Unavailable Primary Care Provider Unavailabl e Encounter Details Date Type Department Care Team ([facility] st Contact Info) Description 06/11/2013 Hospital Encounter [facility] 55 [place] [address] Jeff Hurst MD 55 [place] [address] [email or web address] Social History Tobacco Use Types Packs/Day [...] Care Team (Late st Contact Info) Description 07/18/2025 10:30 AM EST Office Visit [facility] Genetics 15 [place] [address] Jazzmine Zaman MD [address] [place] [address] [email or web address] 07/18/2025 1:30 PM EST Office Visit [facility] Specialties [address] [facility] [address] [place] [address] Jazzmine Zaman MD [address] [place] [address] [email or web address] documented as of this encounter Procedures Procedure Name Priority Date/Time Associated Diagnosis Comments CT CHEST OUTSIDE (NO INTERPRETATION) Routine 06/11/2013 12:00 AM EDT documented in this encounter Results * CT Chest Outside (No Interpretation) (06/11/2013 12:00 AM EDT) Narrative [facility] - 04/23/2024 1:50 PM EDT This study is for PACS storage only and not for interpretation. us Jeff Hurst MD IMG OUTSIDE IMAGING W/OUT INTERPRETATION Final Result [facility] documented in this encounter Visit Diagnoses Not on filedocumented in this encounter Additional Source Comments The information contained in this document represents components of the legal health record. It is not the complete legal health record.[facility]
--- NOTE | 2025-07-13 12:26 | A.OFFPC_ITS ---
Vital Signs 07/13/25 13:14 Height 5 ft 2.5 in Weight 120 lb 6 oz BMI 21.7 BP 96/50 L Blood Pressure Location Rt brachial Position Sitting Respiration 16 Pulse 80 Pulse Source Palpation Temp 97.3 F Temp Source Temporal Artery Scan Intake Visit Reasons: Re-establish care Triple Air Valve Tester Required: No Accompanied by: Daughter Allergies egg Allergy (Intermediate, Verified 07/13/25 12:26) Unknown doxycycline Allergy (Mild, Verified 07/13/25 12:26) Unknown Iodine and Iodide Containing Produc Allergy (Mild, Verified 07/13/25 12:26) Unknown codeine Allergy (Verified 07/13/25 12:26) Unknown dairy Allergy (Mild, Uncoded 05/09/25 13:03) unkno gluten Allergy (Mild, Uncoded 05/09/25 13:03) Unknown levaquin Allergy (Mild, Uncoded 05/09/25 13:03) Unknown vancomycin Allergy (Mild, Uncoded 05/09/25 13:03) unknown Medication List - Last Reconciled 07/13/25 by Adelaide Pollock MD ascorbate calcium (vitamin C) 500 mg PO DAILY blood sugar diagnostic (FreeStyle Lite Strips) As directed chlorhexidine gluconate 0.12% 15 mL PO BID hydrocortisone acetate 25 mg [place] BID lancets (FreeStyle Lancets) As directed lidocaine 4% (Aspercreme (lidocaine)) 1 patch topical DAILY PRN pantoprazole 20 mg PO DAILY vitamin D3-vitamin K2 125 mcg (5,000 unit)-100 mcg caps PO .QD zinc sulfate (Orazinc) 50 mg PO DAILY Tobacco use date assessed: 07/13/25 Fall risk assessment: No Falls in past year Last assessed Fall Risk: 07/13/25 Dental Screening Dental Screen Date: 07/13/25 Did you have a dental visit in the last 12 months?: Yes Did you have a dental problem in the last 6 months where you did not have access to dental care?: No Was dental information given to patient?: Patient has dentist HPI HPI Comments History of Present Illness Details The patient is an 80 year old female presenting for the re-establishment of care to address her chronic and complex medical conditions. 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 Currently exploring laser therapy with a chiropractor in [place] because of concern of side e ffects of meds recommended by specialists in [place]. 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 Rectal and Vaginal Bleeding: Persistent rectal bleeding; suppositories provided no relief; saw other wood processing machine operator Dr. Collins because of episodes of vaginal bleeding pelvic exam noted irritation possibly from rectocele. Left shoulder pain s/p fracture- ongoing spasms and pain, some restricted range of motion Anemia: due for repeat labs Subclinical hypothyroidism- used to see head track coach Dr. Moses Cruz Interventions: - Acapella device for pulmonary therapy - Use of laser therapy for pulmonary fib rosis symptom management(patient and daughter sought this treatment on their own) Social History: - The patient reports exploring non-trad itional therapies, including laser therapy from a chiropractor. - Daughter is actively involved. Jun blanco active communication with healthcare providers and researches health conditions independently. 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 Review of Systems - General: Reports fatigue - Gastrointestinal: Reports rectal bleed ing; denies constipation - Genitourinary: Reports recent episodes of vaginal bleeding. - Dermatologic: Reports nail dystrophy. - Ophthalmologic: Reports tearing from r ight eye Physical Exam General: NAD Chest:slight wheezing bilateral posterior lung vasquez Card: normal s1, s2, Abd: SNTND, +BS Extremities: no edema Neuro: AOX3 Assessment and Plan 1. Pulmonary Fibrosis - Follow up with pulmonology at [facility]. 2. Telomere Biology Disorder - Monitor anemia; check CBC, iron panel. -Follow up with specialist at Lisa sosa and team at [facility] 3. Rectal Bleeding - await GI consultation. 4. Anemia - Order CBC and iron panel. Monitor leve ls. 5. Subclinical hypothyroidism - check tsh 6. Malnutrition- check prealbumin 7. Left shoulder pain/spasms- can try ma ssaging to help with spasms Follow up in 3-4 months Discussion Notes Patient Instructions - Call the office if new or worsening sy mptoms arise. [facility] Medical History (Updated 07/13/25 @ 17:00 by Adelaide Pollock MD) Vitamin D deficiency Subclinical hypothyroidism Iron deficiency anemia Pulmonary fibrosis DVT (deep venous thrombosis) Pseudogout Surgical History (Updated 07/12/25 @ 15:36 by Elenita Márquez) Hx of colonoscopy (~06/25/22) History of esophagogastroduodenoscopy (EGD) Family History Maternal Aunt HTN (hypertension) Diabetes Social History Housing: House Alcohol intake: current Alcohol intake frequency: does not drink Patient Tobacco Use Status: Never used Tobacco e-Cigarette/Vaping Use: Never Used service: No Current occupational status: retired Questionnaire AUDIT C Alcohol Use Questionnaire (AUDIT-C) 1. How often do you have a drink containing alcohol?: Never 3. How often do you have six or more drinks on one occasion?: Never Total Score: 0 Physical exam (Primary Care) Vital Signs: Last Vital Signs Temp 97.3 F 07/13/25 13:14 Pulse 80 07/13/25 13:14 Resp 16 07/13/25 13:14 BP 96/50 L 07/13/25 13:14 BMI result Body Mass Index 21.7 Tobacco/Smoking Status: Tobacco use Status Tobacco use date assessed 07/13/25 07/13/25 12:27 Patient Tobacco Use Status Never used Tobacco 07/13/25 12:27 e-Cigarette/Vaping Use Never Used 07/13/25 13:21 Coding Level of Care Code Est Pt Level 4 (91739) Complex EM visit Add On G2211 Diagnoses Protein-calorie malnutrition, unspecified severity E46 Malnutrition type: protein-calorie malnutrition Protein-calorie malnutrition severity: unspecified severity Pulmonary fibrosis J84.10 Iron deficiency anemia, unspecified iron deficiency anemia type D50.9 Iron deficiency anemia type: unspecified iron deficiency Subclinical hypothyroidism E03.8 Assessment & Plan Assessment & Plan (1) Malnutrition: Code(s): E46 - Unspecified protein-calorie malnutrition Category: Medical Qualifiers: Malnutrition type: protein-calorie malnutrition Protein-calorie malnutrition severity: unspecified severity Qualified Code(s): E46 - Unspecified protein-calorie malnutrition (2) Pulmonary fibrosis: Code(s): J84.10 - Pulmonary fibrosis, unspecified Category: Medical (3) Iron deficiency anemia: Code(s): D50.9 - Iron deficiency anemia, unspecified Category: Medical Qualifiers: Iron deficiency anemia type: unspecified iron deficiency Qualified Code(s): D50.9 - Iron deficiency anemia, unspecified (4) Subclinical hypothyroidism: Code(s): E03.8 - Other specified hypothyroidism Category: Medical Plan - Continue follow up with beer still runner compounder re pulmonary fibrosis - follow up with GI - get labs Orders: Orders Complete Blood Count Auto Diff Today D50.9 - Iron deficiency anemia, unspecified, E03.8 - Other specified hypothyroidism, E46 - Unspecified protein- calorie malnutrition, J84.10 - Pulmonary fibrosis, unspecified, J84.9 - Interstitial pulmonary disease, unspecified Comprehensive Met. Panel Today D50.9 - Iron deficiency anemia, unspecified, E03.8 - Other specified hypothyroidism, E46 - Unspecified protein-calorie malnutrition, J84.10 - Pulmonary fibrosis, unspecified, J84.9 - Interstitial pulmonary disease, unspecified Vitamin B12 Today D50.9 - Iron deficiency anemia, unspecified, E03.8 - Other specified hypothyroidism, E46 - Unspecified protein-calorie malnutrition Vitamin D 25-OH Total Today E55.9 - Vitamin D deficiency, unspecified Prealbumin Today E46 - Unspecified protein-calorie malnutrition Magnesium Today D50.9 - Iron deficiency anemia, unspecified, E03.8 - Other specified hypothyroidism, E46 - Unspecified protein-calorie malnutrition, J84.10 - Pulmonary fibrosis, unspecified, J84.9 - Interstitial pulmonary disease, unspecified TSH reflex Free T4 Today D50.9 - Iron deficiency anemia, unspecified, E03.8 - Other specified hypothyroidism, E46 - Unspecified protein-calorie malnutrition, J84.10 - Pulmonary fibrosis, unspecified, J84.9 - Interstitial pulmonary disease, unspecified Ferritin Today D50.9 - Iron deficiency anemia, unspecified IRON PROFILE Today D50.9 - Iron deficiency anemia, unspecified, E03.8 - Other specified hypothyroidism, E46 - Unspecified protein-calorie malnutrition Vitamin A Today D50.9 - Iron deficiency anemia, unspecified, E46 - Unspecified protein-calorie malnutrition
[2025-07-13 13:14] VITALS: BP 96/50; PULSE 80; RESP 16; TEMP 36.3; BMI 21.7
--- OUTSIDE RECORDS SUMMARY | 2025-07-13 16:24 | XMS_ITS | Encounter Summary ---
Author Organization [facility] Address [address] [place] [address] Phone Care Team Providers Care Gis Scientist Name Role Phone Adelaide Pollock MD Primary Care Provider + Aide Adame MD Primary Care Provider + Johnathan Lisa MD, MPH Unavailable [phone] Jazzmine Zaman MD Unavailable [phone] Encounter Details Date Type Department Care Team (Late st Contact Info) Description 04/30/2024 Procedure Pass [facility], [address] [address] Social History Tobacco Use Types Packs/Day Years [...] Description 07/18/2025 10:30 AM EST Office Visit [facility] Genetics [address] [place] [address] Jazzmine Zaman MD [address] [place] [phone] [email or web address] 07/18/2025 1:30 PM EST Office Visit [facility] [address] [facility] [address] [place] [address] Jazzmine Zaman MD [address] [place] [address] [email or web address] documented as of this encounter Visit Diagnoses Not on filedocumented in this encounter Care Teams Gis Scientist Relationship Specialty Start Date End Date Adelaide Pollock MD [facility] [place] [address] PCP - General Internal Medicine 02/16/24 03/27/25 Aide Adame MD [address] [place] [address] PCP - General Internal Medicine 03/28/25 Johnathan Lisa MD, MPH [address] [place] [phone] [email or web address] Referring Physician Pulmonary Disease 03/28/25 Jazzmine Zaman MD [address] [place] [phone] [email or web address] Referring Physician Pediatrics 03/28/25 documented as of this encounter Additional Source Comments The information contained in this document represents components of the legal health record. It is not the complete legal health record.[facility]
--- OUTSIDE RECORDS SUMMARY | 2025-07-13 16:24 | XMS_ITS | Encounter Summary ---
Author Organization [facility] Address [address] [place] [phone] Phone Care Team Providers Care Block Hand Name Role Phone Adelaide Pollock MD Primary Care Provider + Aide Adame MD Primary Care Provider + Johnathan Lisa MD, MPH Unavailable [phone] Jazzmine Zaman MD Unavailable Encounter Details Date Type Department Care Team (Late st Contact Info) Description 04/05/2024 Procedure Pass [facility], [address] [address] Social History Tobacco Use Types Packs/Day Years [...] 07/18/2025 10:30 AM EST Office Visit [facility] Genetics [address] [place] [address] Jazzmine Zaman MD [address] [place] [phone] [email or web address] 07/18/2025 1:30 PM EST Office Visit [facility] [address] [facility] [address] [place] [address] Jazzmine Zaman MD [address] [place] [phone] [email or web address] documented as of this encounter Visit Diagnoses Not on filedocumented in this encounter Care Teams Block Hand Relationship Specialty Start Date End Date Adelaide Pollock MD [facility] [place] [address] PCP - General Internal Medicine 02/16/24 03/27/25 Aide Adame MD [address] [place] [address] PCP - General Internal Medicine 03/28/25 Johnathan Lisa MD, MPH [address] [place] [phone] [email or web address] Referring Physician Pulmonary Disease 03/28/25 Jazzmine Zaman MD [address] [place] [phone] [email or web address] Referring Physician Pediatrics 03/28/25 documented as of this encounter Additional Source Comments The information contained in this document represents components of the legal health record. It is not the complete legal health record.[facility]
--- OUTSIDE RECORDS SUMMARY | 2025-07-13 16:24 | XMS_ITS | Encounter Summary ---
Author Organization [facility] Address [address] [place] [address] Phone Care Team Providers Care Veneer Marker Name Role Phone Adelaide Pollock MD Primary Care Provider + Aide Adame MD Primary Care Provider + Johnathan Lisa MD, MPH Unavailable [phone] Jazzmine Zaman MD Unavailable Encounter Details Date Type Department Care Team (Late st Contact Info) Description 11/30/2024 Ancillary Orders [facility] [place] [address] [place] [address] Josh Davey MD [address] [place] [phone] [email or web address] Arthralgia, unspecified joint (Primary Dx) Social History [...] Description 07/18/2025 10:30 AM EST Office Visit [facility] Genetics [address] [place] [address] Jazzmine Zaman MD [address] [place] [address] [email or web address] 07/18/2025 1:30 PM EST Office Visit [facility] Special[facility] [address] [facility] [address] [place] [address] Jazzmine Zaman MD [address] [place] [phone] [email or web address] documented as of this encounter Results [...] first MCP joint, and first interphalangeal joint. Uvde-dn-rfhazsov degenerative changes of additional scattered interphalangeal joints. Cystic changes within the carpal bones and fifth metacarpal head. Chondrocalcinosis of the TFCC. No focal soft tissue swelling. Right hand: Diffuse osseous demineralization. No fracture. Severe osteoarthritis of the first carpometacarpal joint with joint space narrowing, hypertrophic changes, and osseous remodeling. Moderate osteoarthritis of the radiocarpal joint and triscaphe joint. Djgs-aw-mkuppybx degenerative changes of additional scattered interphalangeal joints. [...] joint, first MCPjoint, and first interphalangeal joint. Wcdj-jo-yzbfyobg degenerativechanges of additional scattered interphalangeal joints. Cystic changeswithin the carpal bones and fifth metacarpal head. Chondrocalcinosis ofthe TFCC. No focal soft tissue swelling. Right hand: Diffuse osseous demineralization. No fracture. Severeosteoarthritis of the first carpometacarpal joint with joint spacenarrowing, hypertrophic changes, and osseous remodeling. Moderateosteoarthritis of the radiocarpal joint and triscaphe joint.Neuo-eu-suuhwuug degenerative changes of additional scatteredinterphalangeal joints. Cystic [...] may be seen in CPPD. us Josh aDvey MD IMG XR UPPER EXTREMITY Final Result documented in this encounter Visit Diagnoses Diagnosis Arthralgia, unspecified joint Arthralgia, unspecified joint- Primary documented in this encounter Additional Health Concerns Assessment Noted Time PHQ-2 Depression Total Score: 0 12/01/19 2:18 PM EDT documented as of this encounter Care Teams Veneer Marker Relationship Specialty Start Date End Date Adelaide Pollock MD [address] [place] [address] PCP - General Internal Medicine 02/16/24 03/27/25 Aide Adame MD [facility] [place] [address] PCP - General Internal Medicine 03/28/25 Johnathan Lisa MD, MPH [address] [place] [phone] [email or web address] Referring Physician Pulmonary Disease 03/28/25 Jazzmine Zaman MD [address] [place] [phone] [email or web address] Referring Physician Pediatrics 03/28/25 documented as of this encounter Additional Source Comments The information contained in this document represents components of the legal health record. It is not the complete legal health record.[facility]
--- OUTSIDE RECORDS SUMMARY | 2025-07-13 16:24 | XMS_ITS | Data Portability ---
Author Organization [place] - [facility] Address [address] [place] [address] Care Team Providers Care Portable Machine Sander Name Role Phone HERMANN DILLON Primary Care Provider Assessment Encounter Date Assessment Date Assessment LastModified by Organization Details LastModified Time 12/02/2019 12/02/2019 Overview/History : 74 yo female new to and this provider who presents with complain of right lower extremity pain; patient is Martiniquais speaking only, her daughter, who is her POA, is present and acted as an interpreter for the deaf. Patient complain of severe 10/10 pain in her right foot and knee joint. Patient reports that symptoms have been present X4 days and at this time she is not able to put any weight on her right leg; Patient reports that she has an autoimmune disorder of unknown origin that causes occasional flares of pain in her joints; these symptoms are usual for her; reports that symptoms usually resolve with toradol and valium IM. Daughter is concerned for dehydration as patient's urine was orange yesterday; reports drinking pedialyte and states that color of the urine improved today. Denies any urinary symptoms. Comorbidities: prediabetic; DVT; polymyalgia rheumatica, IBS, autoimmune condition of unknown origin; pseudogout; arthritis; fibromyalgia Exam: elderly female, appears in discomfort due to pain, moans but in no acute distress, non-toxic appearance; alert and oriented X3; resting on the couch at the time of evaluation Mucous membranes are pink and moist without lesions Heart sounds are regular rate and rhythm; no audible murmurs, rubs, or gallops No signs of respiratory distress. Lungs are clear to auscultation in all fileds abdomen is soft, non tender, non distended. Bowel sounds are normoactive and present in all quadrants; No CVA or suprapubic tenderness No external signs of trauma. Limited assessment of range of motion due to pain; mild swelling and erythema of right ankle joint and right knee noted; extremities are well perfused, equal in size, tenderness localized to right ankle and right knee; vascular and motor-sensory functions are intact DDx considered, but not limited to: Polymyalgia rheumatica - existing dx; symptoms are consistent with presentation today DVT - unlikely; will order US to r/o as patient has hx of DVT Pseudogout - patient reports past history; possible non traumatic fx - possible; will order xray Work up/Results: ankle xray knee xray Chem 6 + Cr doppler US Plan/Discussion: - based on reported symptoms, clinical presentation and PMH symptoms are most likely due to polymyalgia rheumatica; - patient refused treatment with steroids as she reports hypersensitivity to steroids; kidney fx within normal limits; patient was given Toradol 30mg IM once; advised that does not krystian Valium - provided prescription for Meloxicam 7.5mg; patient is hesitant to try without consulting with PCP, concerned about medication being gluten free; states that she is usually advised to take Aleve; encouraged patient to call PCP for consult - Na od 136 noted; the rest of Chem 6 is WNL; advised to drink plenty of fluids such as gatorade or pedialyte - advised ice and rest - follow up with PCP as needed within 3-5 days or sooner if symptoms worsen or do not improve - advised when to seek immediate medical attention/911/ED - patient expressed understanding and agreed to tx plan In order to obtain further information and compare any laboratory results/values, I have accessed patient records on the [employer]. This information was pertinent in my medical decision making today. Time On Scene with Patient: 01:14:21 [email or web address] Not available 12/02/2019 12:49:44 01/25/2022 01/25/2022 Time On Scene wi Patient: 01:57:32 Upon arrival plastic on blackwood and chairs. Daughter present with visit. 76 year old female patient with PMHx of prediabetes, DVT, polymyalgia rheumatica, IBS, autoimmune condition of unknown origin, pseudogout, arthritis, and fibromyalgia. She complains of left lateral localized swelling which is painful with ambulation for several days. She contacted PCP who per patient's daughter instructed her to contact for u/s to rule out DVT given her history. Patient also experiencing gasping for air several times every hour which was brought up to PCP attention It's like resetting breathing pattern . She denies SOB,CP,fever, or chest tightness with breathing. Denies any physical trauma. VS stable. Exam: Pleasant, elderly female sitting in couch conversing with staff in her [place] tongue (Martiniquais) and answering all questions appropriately. No acute distress, neurologically intact, EOMI, oropharynx clear with moist mucous membranes. respiration's even and nonlabored, lung sounds clear except mild wheeze to left lower base and right upper field. Heart RRR.Extremity with varicose veins, left lateral localized swelling, non painful to touch, non erythematous. Skin color and temp wnl. DDx considered, but not limited to: DVT - unlikely; will order US to r/o as patient has hx of DVT Chest x-ray ordered for further evaluation of adventitious lung sounds, with symptoms of gasping for air. ? possible LIBRADO.. Needs work up for further eval. oxygen levels within normal range, no use of accessory muscles, skin color and temp wnl Plan/Discussion: - patient refused treatment with steroids as she reports hypersensitivity to steroids; ? adrenal insufficiency. No PMH of asthma. Adventitious lung sounds benign and may be triggered due to allergies. The patient is advised to make an appt with PCP in 3-5 days to discuss ongoing symptoms/ further management. The patient is also advised to go to the ED immediately for any worsening symptoms. The patient understood and agreed with this plan. The patient was given discharge instructions and all questions were answered prior to team departure. [email or web address] Not available 01/25/2022 19:07:17 Plan of Treatment Reminders Order Date Submit Date Provider Last Modified By Organization Details Last Modified Time Details Appointments None recorded. Lab 6+ iStat 2019 020 [facility], [address] [place], [address], 0 11:30:47 creatinine , blood 2019 020 [facility], [address] [place], [address], 0 11:52:08 Referral None recorded. Procedures None recorded. Surgeries None recorded. Imaging US, duplex, venous, extremity, limited 2021 [facility] ([facility] [address], [place], [address], 2 17:41:55 XR, chest, 2 view - Ordered by [facility] 2021 022 [facility] [address], [place], [address], 2 14:40:38 XR, knee, 1 or 2 view - pain and swelling of knee joint 2019 020 [facility] ([facility]), [address] [place], [address], 0 08:39:18 XR, ankle, 2 view - pain and sweeling of the ankle joint 2019 020 [facility] ([facility]), [address] [place], [address], 0 08:39:19 US, duplex, venous, extremity, complete 2019 020 [facility] ([facility]), [address] [place], [address], 0 08:39:19 Medication Orders ketorolac 30 mg/mL (1 mL) injection solution 2019 020 [id number], [address] [place], [address], 0 11:52:08 meloxicam 7.5 mg tablet 2019 020 INTERFACE [id number], [address] [place], [address], 0 11:52:14 Patient TargetsNo targets recorded. Patient Instructions Encounter Date Encounter Id Patient Instructions Last Modified By Organization Details Last Modified Time 12/02/2019 [id number] [facility]. We cannot always find the exact cause of your symptoms during your initial visit. Please follow up with your primary care provider or specialist as needed to be rechecked or seek medical attention if your symptoms do not go away or get worse. If you develop any new or worsening symptoms and need after hours care, please go to nearest ER and/or call 911. If you have additional concerns or develop a change in your condition between 8am-10pm, please [phone] to help navigate your care. [email or web address] Not available 12/02/2019 11:52:35 01/25/2022 [id number] Please make an appt with PCP in 3-5 days to discuss ongoing symptoms/ further management. Chest x ray and U/S pending. The patient is also advised to go to the ED immediately for any worsening symptoms. The patient understood and agreed with this plan. The patient was given discharge instructions and all questions were answered prior to DH team departure. [email or web address] [id number] Not available 01/25/2022 19:08:53 Reason for Referral None Reported. Results Created Date Observation Date Name Description Value Unit Range Abnormal Flag Note LastModifiedBy Organization Detail LastModifiedTime 12/02/19 20 12/02/2019 creat inine , blood crea 0.6 mg/dL 0.6-1. 3 Not Available [facility] [address] [place], [address], 12/02/2019 11:27:58 12/02/19 20 12/02/2019 6+ iStat Na 136 mmol/ L 138-14 6 Not Available [facility] [address], [place], [address], 12/02/2019 11:27:38 12/02/19 20 12/02/2019 6+ iStat K 4.0 mmol/ L 3.5-4. 9 Not Available [facility] [address] [place], [address], 12/02/2019 11:27:38 12/02/19 20 12/02/2019 6+ iStat cL 100 mmol/ L 98-109 Not Available [facility] [address] [place], [address], 12/02/2019 11:27:38 12/02/19 20 12/02/2019 6+ iStat BUN 14 mg/dL 8-26 Not Available [facility] [address], [place], [address], 12/02/2019 11:27:38 12/02/19 20 12/02/2019 6+ iStat glu 119 mg/dL 70-105 Not Available [facility] [address], [place], [address], 12/02/2019 11:27:38 12/02/19 20 12/02/2019 6+ iStat HCT 36 %_pcv 37-47 Not Available [facility] [address], [place], [address], 12/02/2019 11:27:38 12/02/19 20 12/02/2019 6+ iStat Hb 12.2 g/dL 12-17 Not Available [facility] [address], [place], [address], 12/02/2019 11:27:38 12/02/19 20 12/02/2019 knee AP or lat 1- 2V KNEE AP OR LAT 1- 2V, RIGHT FINDIN GS: The knee joint is in alignm ent, but there is narrow ing of the joint space due to modera te degene rative change s. There is modera te degene rative spurri ng involv ing tibial spine and femora l condyl es. No acute fractu re or disloc ation is seen. Modera te joint effusi on is seen. Periph eral athero sclero tic diseas e noted along with chondr ocalci nosis. No compar james study is availa ble. CONCLU KADEN: Modera te osteoa rthrit is of the right knee. ELECTR ONICAL LY SIGNED BY OFE HERNANDEZ D.O. 020 5:56:0 8 PM EDT. [facility] ([facility]) [address], [place], [address], 12/06/2019 10:07:23 12/02/19 20 12/02/2019 ankle AP and lat 2V ANKLE AP and LAT 2V, RIGHT FINDIN GS: The ankle mortis e is preser jayson withou t acute fractu re or disloc ation. There is ankle soft tissue swelli ng. No foreig n body is seen. The bones appear diffus wayne demine ralize d. Periph eral athero sclero tic diseas e noted along with heel spurs. No compar james study is availa ble. CONCLU KADEN: Ankle swelli ng but no acute fractu re. ELECTR ONICAL LY SIGNED BY OFE HERNANDEZ D.O. 020 5:56:0 8 PM EDT. KNEE AP OR LAT 1- 2V, RIGHT Result s: The knee joint is in alignm ent, but there is narrow ing of the joint space due to modera te degene rative change s. There is modera te degene rative spurri ng involv ing tibial spine and femora l condyl es. No acute fractu re or disloc ation is seen. Modera te joint effusi on is seen. Periph eral athero sclero tic diseas e noted along with chondr ocalci nosis. No compar james study is availa ble. Conclu kaden: Modera te osteoa rthrit is of the right knee. Electr onical ly signed by OFE HERNANDEZ D.O. 020 5:56:0 8 PM EDT. ANKLE AP and LAT 2V, RIGHT Result s: The ankle mortis e is preser jayson withou t acute fractu re or disloc ation. There is ankle soft tissue swelli ng. No foreig n body is seen. The bones appear diffus wayne demine ralize d. Periph eral athero sclero tic diseas e noted along with heel spurs. No compar james study is availa ble. Conclu kaden: Ankle swelli ng but no acute fractu re. Electr onical ly signed by OFE HERNANDEZ D.O. 020 5:56:0 8 PM EDT. [facility] ([facility]) [address], [place], [place], [address], 12/21/2019 17:10:23 12/03/19 20 12/03/2019 venou s doppl er extre m/edouard VENOUS DOPPLE R EXTREM /EDOUARD, RIGHT FINDIN GS: Right Lower Extrem ity Venous Duplex Ultras ound: Clinic alHist ory: Pain and swelli ng. High-r esolut ion real-t viviana and Dopple r ultras ound, includ ing graysc jenny and color flow of the right lower extrem ity was perfor med. The vessel s evalua tanner includ e the common femora l, superf icial femora l, proxim al deep femora l, greate r saphen ous, poplit eal, yard goods salesperson ior tibial , and calf veins. There is normal respon se to vascul ar compre ssion and normal Dopple r respon ses are observ ed with sponta neous and augmen tanner flow. No intral uminal thromb us is identi fied. Imagin g of the contra latera l common femora l vein demons trates normal respir atory wavefo rm variat ion. No Casillas' s cyst is identi fied. CONCLU KADEN: No eviden ce for deep venous thromb osis or Casillas' s cyst. ELECTR ONICAL LY SIGNED BY MAYKEL HERNANDEZ M.D. 020 5:16:1 3 PM EDT. VENOUS DOPPLE R EXTREM /EDOUARD, RIGHT Result s: Right Lower Extrem ity Venous Duplex Ultras ound: Clinic alHist ory: Pain and swelli ng. High-r esolut ion real-t viviana and Dopple r ultras ound, includ ing graysc jenny and color flow of the right lower extrem ity was perfor med. The vessel s evalua tanner includ e the common femora l, superf icial femora l, proxim al deep femora l, greate r saphen ous, poplit eal, yard goods salesperson ior tibial , and calf veins. There is normal respon se to vascul ar compre ssion and normal Dopple r respon ses are observ ed with sponta neous and augmen tanner flow. No intral uminal thromb us is identi fied. Imagin g of the contra latera l common femora l vein demons trates normal respir atory wavefo rm variat ion. No Casillas' s cyst is identi fied. Conclu kaden: No eviden ce for deep venous thromb osis or Casillas' s cyst. Electr onical ly signed by MAYKEL HERNANDEZ M.D. 020 5:16:1 3 PM EDT. [facility] [address], [place], [address], 12/06/2019 10:07:23 01/27/20 22 01/26/2022 XR, chest , 2 view XRAY CHEST 2 VIEW FINDIN GS: The heart is normal in size and config uratio n. The medias tinum is unrema rkable . The lungs are clear, withou t mass, infilt rate, or effusi on. No acute osseou s abnorm ality is visual ized. No tuberc ulosis is seen. Mild degene rative change s are seen. Tiny calcif ied 3mm right lung granul joy is seen. CONCLU KADEN: No acute cardio pulmon naseem diseas e ELECTR ONICAL LY SIGNED BY SOFYA CAPUTO D.O. 022 2:33:1 2 PM EDT. XRAY CHEST 2 VIEW Result s: The heart is normal in size and config uratio n. The medias tinum is unrema rkable . The lungs are clear, withou t mass, infilt rate, or effusi on. No acute osseou s abnorm ality is visual ized. No tuberc ulosis is seen. Mild degene rative change s are seen. Tiny calcif ied 3mm right lung granul joy is seen. Conclu kaden: No acute cardio pulmon naseem diseas e Electr onical ly signed by SOFYA CAPUTO D.O. 2:33:1 2 PM EDT. [facility] [address] [facility] [address], [place], [address], 01/28/2022 16:45:25 01/29/20 22 01/28/2022 venou s doppl er extre m/edouard VENOUS DOPPLE R EXTREM /EDOUARD, LEFT FINDIN GS: Left Lower Extrem ity Venous Duplex Ultras ound: Clinic alHist ory: Pain and swelli ng. High-r esolut ion real-t viviana and Dopple r ultras ound, includ ing graysc jenny and color flow of the left lower extrem ity was perfor med. The vessel s evalua tanner includ e the common femora l, superf icial femora l, proxim al deep femora l, greate r saphen ous, poplit eal, yard goods salesperson ior tibial , and calf veins. There is normal respon se to vascul ar compre ssion and normal Dopple r respon ses are observ ed with sponta neous and augmen tanner flow. No intral uminal thromb us is identi fied. Imagin g of the contra latera l common femora l vein demons trates normal respir atory wavefo rm variat ion. No Casillas' s cyst is identi fied. CONCLU KADEN: No eviden ce for deep venous thromb osis or Casillas' s cyst. Ultras ound is only for modera te sensit ivity for the diagno sis of deep vein thromb osis of the calf. If deep vein thromb osis of the calf is of clinic al concer n, follow -up ultras ound examin ation in 4 to 7 days would be of value to exclud e propag ation of clot from the calf. ELECTR ONICAL LY SIGNED BY ELENO VALENTIN M.D. 5:35:0 3 PM EDT. VENOUS DOPPLE R EXTREM /EDOUARD, LEFT Result s: Left Lower Extrem ity Venous Duplex Ultras ound: Clinic alHist ory: Pain and swelli ng. High-r esolut ion real-t viviana and Dopple r ultras ound, includ ing graysc jenny and color flow of the left lower extrem ity was perfor med. The vessel s evalua tanner includ e the common femora l, superf icial femora l, proxim al deep femora l, greate r saphen ous, poplit eal, yard goods salesperson ior tibial , and calf veins. There is normal respon se to vascul ar compre ssion and normal Dopple r respon ses are observ ed with sponta neous and augmen tanner flow. No intral uminal thromb us is identi fied. Imagin g of the contra latera l common femora l vein demons trates normal respir atory wavefo rm variat ion. No Casillas' s cyst is identi fied. Conclu kaden: No eviden ce for deep venous thromb osis or Casillas' s cyst. Ultras ound is only for modera te sensit ivity for the diagno sis of deep vein thromb osis of the calf. If deep vein thromb osis of the calf is of clinic al concer n, follow -up ultras ound examin ation in 4 to 7 days would be of value to exclud e propag ation of clot from the calf. Electr onical ly signed by ELENO VALENTIN M.D. 022 5:35:0 3 PM EDT. [email or web address] [employer] [address], [place], [address], 01/31/2022 09:21:54 Result Notes Documentation Provider Name and Address Organization Details Recorded Time Xr, Chest, 2 View : XRAY CHEST 2 VIEW FINDINGS: The heart is normal in size and configuration. The mediastinum is unremarkable. The lungs are clear, without mass, infiltrate, or effusion. No acute osseous abnormality is visualized. No tuberculosis is seen. Mild degenerative changes are seen. Tiny calcified 3mm right lung granuloma is seen. CONCLUSION: No acute cardiopulmonary disease ELECTRONICALLY SIGNED BY SOFYA BENNETT D.O. 01/26/2022 2:33:12 PM EDT. XRAY CHEST 2 VIEW Results: The heart is normal in size and configuration. The mediastinum is unremarkable. The lungs are clear, without mass, infiltrate, or effusion. No acute osseous abnormality is visualized. No tuberculosis is seen. Mild degenerative changes are seen. Tiny calcified 3mm right lung granuloma is seen. Conclusion: No acute cardiopulmonary disease Electronically signed by SOFYA BENNETT D.O. 01/26/2022 2:33:12 PM EDT. Cleo Orr NP [address], [place], [address], [place] [facility] 01/28/2022 16:45:25 Procedures Surgical History Date Name Laterality Status Provider Name and Address Organization Details Recorded Time 12/02/19 20 Venipuncture - DH completed [place] ESCOTO [address], [place], [address], [place] [facility] 12/02/2019 12:34:24 Imaging Results None recorded. Procedure Notes None recorded. Medical Equipment None Reported. Allergies Allergen ID Allergen Name Allergen Category Reaction Reaction Severity Criticality Documentation Date Start Date Code Code System Note Provider Name and Address Organization Details Recorded Time 08403 Levaquin medicatio n Not available Not available Not available 12/02/2019 40962 2 RxNorm [place] ESCOTO [address], [place], [address], [place] [facility] 0 10:52:25 30180 vancomyci n medicatio n Not available Not available Not available 12/02/2019 48582 RxNorm [place] ESCOTO [address], [place], [address], [place] [facility] 0 10:52:49 22359 doxycycli ne Not available Not available Not available Not available 12/02/2019 3640 RxNorm [place] ESCOTO [address], [place], [place], [address], [place] [facility] 0 10:52:55 74081 codeine medicatio n Not available Not available Not available 12/02/2019 2670 RxNorm [place] ESCOTO [address], [place], [place], [address], [place] [facility] 0 10:53:02 89351 iodine medicatio n Not available Not available Not available 12/02/2019 5933 RxNorm [place] ESCOTO [address] [place], [address], [place] [facility] 0 10:53:11 Medications Name Sig Start Date Stop Date Status Note LastModified by Organization Details LastModified Time ketoconazol e 2 % shampoo LATHER AND LEAVE ON FOR 5 MINUTES THEN RINSE OFF. USE ONCE WEEKLY active Not Available Not Available No t Available FreeStyle Lancets 28 gauge TO BE USED TWICE A DAY active Not Available Not Available No t Available ketorolac 30 mg/mL (1 mL) injection solution Inject 1 mL every 6 hours by intramusc ular route. 2019 active Not Available Not Available Not Avai lable levothyroxi ne 25 mcg tablet 12/01 completed Not Available Not Available Not Available meloxicam 7.5 mg tablet Take 1 tablet every day by oral route for 7 days. 2019 active Not Available Not Available Not Avai lable famotidine 20 mg tablet TAKE 1 TABLET BY MOUTH TWICE A DAY active Not Available Not Available No t Available diazepam 2 mg tablet TAKE 1 TABLET BY MOUTH 2 TIMES A DAY,FOR 7 DAYS, NEEDED FOR MUSCLE SPASM active Not Available Not Available No t Available econazole nitrate 1 % topical cream 12/01 completed Not Available Not Available Not Available ranitidine 150 mg tablet 12/01 completed Not Available Not Available Not Available lidocaine 5 % topical patch APPLY 1 PATCH TOPICALLY NEEDED FOR MODERATE PAIN, THEN REMOVE PATCH AFTER 12 HOURS active Not Available Not Available No t Available polyethylen e glycol 3350 17 gram/dose oral powder 12/01 completed Not Available Not Available Not Available neomycin 3.5 mg/g-polymy willam B 10,000 unit/g-dexa meth 0.1 % eye oint 12/01 completed Not Available Not Available Not Available chlorhexidi ne gluconate 0.12 % mouthwash PLEASE SEE ATTACHED FOR DETAILED DIRECTION S active Not Available Not Available No t Available FreeStyle Lite Strips USE DIRECTED TO TEST TWICE A DAY FOR HYPOGLYCE KEREN active Not Available Not Available No t Available Lidocaine Pain Relief 4 % topical patch active Not Available Not Available Not Available Vitals Date Recorded Respiratory rate Body temperature Oxygen saturation Oxygen saturation in Arterial blood by Pulse oximetry Heart rate Systolic And Diastolic Provider Name and Address Organization Details Last Updated DateTime 0 18 /min 99.5 [degF] 98 % 98 % 98 /min 122/64 mm[Hg] Not Available [facility] 0 10:59:23 Date Recorded Oxygen saturation Oxygen saturation in Arterial blood by Pulse oximetry Respiratory rate Body temperature Heart rate Systolic And Diastolic Provider Name and Address Organization Details Last Updated DateTime 2 95 % 95 % 18 /min 97.4 [degF] 90 /min 122/70 mm[Hg] Not Available [facility] 2 17:19:55 Social History Question Answer Notes LastModified by Organizat ion Details LastModified Time Tobacco Smoking Status Never Smoker [place] ESCOTO [address], [place], [address], [place] - [facility] 12/02/2019 12:11:31 Do You Have An Advance Directive? No Information not available 12/02/2019 What Is Your Code Status? Full Code Information not available 12/02/2019 Within The Past 12 Months, Has It Happened That The Food You Bought Just Didn't Last And You Didn't Have Money To Get More. No Information not available 12/02/2019 Within The Past 12 Months, Have You Worried That Your Food Would Run Out Before You Got Money To Buy More. No Information not available 12/02/2019 Fall Risk: Do You Feel Unsteady When Standing Or Walking? No Information not available 12/02/2019 We Know That How And When People Interact With Friends And Family Can Be Very Different From Person To Person. How Often Do You Have The Opportunity To See Or Talk To People That You Care About And Feel Close To? (Ex: Talking To Friends On The Phone Or Visiting Friends Or Family Or Going To [place] Or Club Meetings) 5 Or More Times Per Week Information not available 12/02/2019 Excessive Alcohol Or Drug Use No Information not available 12/02/2019 We Know From Many Of Our Patients That Covering All Of Their Costs Can Be Difficult At Times. This Can Cause Stress And Impact Health. In The Past Year, Have You Been Unable To Get Any Of The Following When It Was Really Needed? No Information not available 12/02/2019 What Is Your Housing Situation Today? I Have Housing Information not available 12/02/2019 Would You Like Help Connecting To Resources? None Information not available 12/02/2019 Sex: Unknown Functional Status None recorded. Mental Status None recorded. Family History Relationship Description Onset Age of this Age Resolved Age Notes LastModified by Organization Details LastModified Time Father No current problems or disability [email or web address] Not available 12/01 12:11:24 Mother No current problems or disability [email or web address] Not available 12/01 12:11:24 Medical History Condition Response Coronary Artery Disease N Depression N COPD N Diabetes N Cancer N Stroke N Asthma N High Cholesterol N Pulmonary Embolism N Hypertension N Kidney Disease N Gynecological HistoryNo gynecological history recorded. Obstetrics History GPAL:G 0 P 0 0 0 0 Past Encounters Encounter ID Performer Location Encounter Start Date Encounter Closed Date Diagnosis/Indication Diagnosis SNOMED-CT Code Diagnosis ICD10 Code Diagnosis IMO Codes Diagnosis Note [id number] [facility] [address] [facility] [place] [address] 12/02/2019 10:50:22 12/03/2019 12:24:59 Pain in lower limb 38485910 M79.604 Polymyalgi a rheumatica 28859394 M35.3 [id number] March [facility] [address] [employer] [place] [address] 01/25/2022 17:07:23 01/29/2022 09:26:06 Pain in left lower limb 587348014 M79.605 Wheezing 91826174 R06.2 Health Concerns Section Related Observation LastModified by Organization Detai ls LastModified Time None Recorded Concern Status LastModified by Organization Details LastModified Time None Recorded Advance Directives Directive N: Payers Insurance Date Sequence Insurance Name Policy Number Policy Smith Covered Member ID Smith Member ID Guarantor Name 12/01/2019 1 *SELF PAY* Apryl Downing [id number] Apryl Downing 01/25/2022 1 [facility] - DOS PRIOR TO 2022 - DUAL ELIGIBLE (MEDICARE REPLACEMENT/ADV ANTAGE - HMO) Apryl Downing [id number] Apryl Downing Notes Date Note Type Note Provider Name and Address Organization Details Recorded Time 12/02/2019 text/html Mrs. Downing is a 74 yo female new to and this provider who presents with complain of right lower extremity pain; patient is Martiniquais speaking only, her daughter, who is her POA, is present and acted as an interpreter for the deaf. Patient complain of severe 10/10 pain in her right foot and knee joint. Patient reports that symptoms have been present X4 days and at this time she is not able to put any weight on her right leg; Patient reports that she has an autoimmune disorder of unknown origin that causes occasional flares of pain in her joints; these symptoms are usual for her; reports that symptoms usually resolve with toradol and valium IM. Daughter is concerned for dehydration as patient's urine was orange yesterday; reports drinking pedialyte and states that color of the urine improved today. Denies any urinary symptoms. MITZI ESCOTO [address], [place], [address], [place] [facility] 12/02/2019 12:49:52 01/25/2022 text/html General HPI Template - DHReported by Patient 76 year old female patient with PMHx of prediabetes, DVT, polymyalgia rheumatica, IBS, autoimmune condition of unknown origin, pseudogout, arthritis, and fibromyalgia. She complains of left lateral localized swelling which is painful with ambulation for several days. She contacted PCP who per patient's daughter instructed her to contact for u/s to rule out DVT given her history. Patient also experiencing gasping for air several times every hour which was brought up to PCP attention. She denies SOB,CP,fever, or chest tightness with breathing. Denies any physical trauma. Mandy Weaver NP [address], [place], [address], [place] [facility] 01/25/2022 19:09:02 OBGyn Episode No OBEpisode recorded.
--- OUTSIDE RECORDS SUMMARY | 2025-07-13 16:24 | XMS_ITS | Encounter Summary ---
Author Organization [facility] Address [address] [place] [address] Phone Care Team Providers Care Hog Trader Name Role Phone Adelaide Pollock MD Primary Care Provider + Aide Adame MD Primary Care Provider + Johnathan Lisa MD, MPH Unavailable [phone] Jazzmine Zaman MD Unavailable Encounter Details Date Type Department Care Team (Late st Contact Info) Description 11/30/2024 Ancillary Orders [facility] [place] [address] [place] [address] Josh Davey MD [address] [place] [address] [email or web address] Arthralgia, unspecified joint (Primary Dx) Social [...] Description 07/18/2025 10:30 AM EST Office Visit [facility] Genetics [address] [place] [address] Jazzmine Zaman MD [address] [place] [address] [email or web address] 07/18/2025 1:30 PM EST Office Visit [facility] Specialties [address] [facility] [address] [place] [address] Jazzmine Zaman MD [address] [place] [address] [email or web address] documented as of this encounter Results [...] documented as of this encounter Care Teams Hog Trader Relationship Specialty Start Date End Date Adelaide Pollock MD [address] [place] [address] PCP - General Internal Medicine 02/16/24 03/27/25 Aide Adame MD [address] [place] [address] PCP - General Internal Medicine 03/28/25 Johnathan Lisa MD, MPH [address] [place] [phone] [email or web address] Referring Physician Pulmonary Disease 03/28/25 Jazzmine Zaman MD [address] [place] [address] [email or web address] Referring Physician Pediatrics 03/28/25 documented as of this encounter Additional Source Comments The information contained in this document represents components of the legal health record. It is not the complete legal health record.[facility]
--- OUTSIDE RECORDS SUMMARY | 2025-07-13 16:24 | XMS_ITS | Encounter Summary ---
Author Organization [facility] Address [address] [place] [address] Phone Care Team Providers Care Cut Off Sawyer [place] Name Role Phone Aide Adame MD Primary Care Provider + Johnathan Lisa MD, MPH Unavailable [phone] Jazzmine Zaman MD Unavailable [phone] Reason for Visit * Reason Onset Date Comments pt information 04/12/2025 Encounter Details Date Type Department Care Team (Late st Contact Info) Description 04/12/[address] [facility] Genetics [address] [place] [address] Jazzmine Zaman MD [address] [place] [phone] [email or web address] pt information Social History Tobacco Use [...] to view in pt portal.Please advise. CB# [phone] Thank you Aline Lombardo Pt Access Center Coordinator Department Of Medicine documented in this encounter Plan of Treatment Upcoming Encounters Date Type Department Care Team (Late st Contact Info) Description 07/18/2025 10:30 AM EST Office Visit [facility] Genetics [address] [place] [address] Jazzmine Zaman MD [address] [place] [address] [email or web address] 07/18/2025 1:30 PM EST Office Visit [facility] Medical Specialties [address] [place] [address] Jazzmine Zaman MD [address] [place] [address] [email or web address] documented as of this encounter Visit Diagnoses Not on filedocumented in this encounter Additional Health Concerns Assessment Noted Time PHQ-2 Depression Total Score: 0 03/21/20 10:47 AM EDT documented as of this encounter Care Teams Cut [place] Relationship Specialty Start Date End Date Aide Adame MD [address] [place] [address] PCP - General Internal Medicine 03/28/25 Johnathan Lisa MD, MPH [address] [place] [phone] [email or web address] Referring Physician Pulmonary Disease 03/28/25 Jazzmine Zaman MD [address] [place] [address] [email or web address] Referring Physician Pediatrics 03/28/25 documented as of this encounter Additional Source Comments The information contained in this document represents components of the legal health record. It is not the complete legal health record.[facility]
--- OUTSIDE RECORDS SUMMARY | 2025-07-13 16:24 | XMS_ITS | Encounter Summary ---
Author Organization [facility] Address [address] [place] [address] [place] [address] Phone Care Team Providers Care Magistrate Assistant Name Role Phone Adelaide Pollock MD Primary Care Provider + Aide Adame MD Primary Care Provider + Johnathan Lisa MD, MPH Unavailable [phone] Jazzmine Zaman MD Unavailable [phone] Encounter Details Date Type Department Care Team (Latest Contact Info) Description 05/19/2024 Ancillary Orders [facility] Rheumatology Dermatology [facility] [address] [facility] 8th Floor, [address] [place] [address] Ce Luke MD [address] [facility] [address] [place] [address] [email or web address] Interstitial lung disease (Primary Dx) Social History [...] Description 07/18/2025 10:30 AM EST Office Visit [facility] Genetics [address] [place] [address] Jazzmine Zaman MD [address] [place] [address] [email or web address] 07/18/2025 1:30 PM EST Office Visit [facility] Specialties [address] [facility] [address] [place] [address] Jazzmine Zaman MD [address] [place] [address] [email or web address] documented as of this encounter Results * [...] fibrosis documented in this encounter Care Teams Magistrate Assistant Relationship Specialty Start Date End Date Adelaide Pollock MD [address] [place] [address] PCP - General Internal Medicine 02/16/24 03/27/25 Aide Adame MD [facility] [place] [address] PCP - General Internal Medicine 03/28/25 Johnathan Lisa MD, MPH [address] [place] [address] [email or web address] Referring Physician Pulmonary Disease 03/28/25 Jazzmine Zaman MD [address] [place] [address] [email or web address] Referring Physician Pediatrics 03/28/25 documented as of this encounter Additional Source Comments The information contained in this document represents components of the legal health record. It is not the complete legal health record.[facility]
--- OUTSIDE RECORDS SUMMARY | 2025-07-13 16:24 | XMS_ITS | Encounter Summary ---
Author Organization [facility] Address [address] [place] [address] Phone Care Team Providers Care Terminal Block Assembler Name Role Phone Adelaide Pollock MD Primary Care Provider + Aide Adame MD Primary Care Provider + Johnathan Lisa MD, MPH Unavailable [phone] Jazzmnie Zaman MD Unavailable [phone] Encounter Details Date Type Department Care Team (Late st Contact Info) Description 03/22/2025 Procedure Pass [facility] [address] [place] [address] Social History Tobacco Use Types Packs/Day Years [...] EST Office Visit [facility] Genetics [address] [place] [address] Jazzmine Zaman MD [address] [place] [phone] [email or web address] 07/18/2025 1:30 PM EST Office Visit [facility] Specialties [address] [facility] [address] [place] [address] Jazzmine Zaman MD [address] [place] [address] [email or web address] documented as of this encounter Visit Diagnoses Not on filedocumented in this encounter Additional Health Concerns Assessment Noted Time PHQ-2 Depression Total Score: 0 03/21/20 10:47 AM EDT documented as of this encounter Care Teams Terminal Block Assembler Relationship Specialty Start Date End Date Adelaide Pollock MD [address] [place] [address] PCP - General Internal Medicine 02/16/24 03/27/25 Aide Adame MD [address] [place] [address] PCP - General Internal Medicine 03/28/25 Johnathan Lisa MD, MPH [address] [place] [phone] [email or web address] Referring Physician Pulmonary Disease 03/28/25 Jazzmine Zaman MD [address] [place] [address] [email or web address] Referring Physician Pediatrics 03/28/25 documented as of this encounter Additional Source Comments The information contained in this document represents components of the legal health record. It is not the complete legal health record.[facility]
--- OUTSIDE RECORDS SUMMARY | 2025-07-13 16:24 | XMS_ITS | Clinical Summary ---
Author Organization [facility] Address [address] [place] [address] Phone Care Team Providers Care Service Desk Analyst Name Role Phone Adelaide Pollock MD Primary Care Provider [phone] Allergies Active Allergy Reactions Criticality Noted Date [...] Diagnosed Date Fatigue 03/08/2024 Interstitial lung disease ([facility], [facility] V28) 03/08/2024 Hypotension 08/29/2022 Dyspnea 12/07/2020 Edema [...] Osteoarthritis DX:Osteoarthriti s Osteoporosis DX:Osteoporosis Polymyalgia rheumatica ([facility] V24) DX:Polymyalgia rheumatica ([facility]) Pseudogout DX:Pseudogout Rash DX:Rash Reflux esophagitis DX:Reflux [...] 08/25/2022 Social Influencers of Health Screening 08/25/2022 Depression Screening 09/15/2024 COVID-19 Vaccine (1 - 2023-2 5 season) 2025 Influenza Vaccine (#1) 2025 HIB Vaccines Aged [...] patient's age to complete this topic Insurance [facility] Member Subscriber Plan / Payer ( fective 2010-Present) Name:Apryl Downing Relation to Subscriber:Self Name:Apryl Downing Payer ID:[id number] Group ID:Not on file Type:Not on file Address: [address] [place] [address] [employer] MEDICARE Member Subscriber Plan / Payer (Ef fective 2010-Present) Name:Apryl Downing Relation to Subscriber:Self Name:Apryl Downing Payer ID:[id number] Group ID:[id number] Type:Not on file Address: [address] [place] [address] Care Teams Service Desk Analyst Relationship Specialty Start Date End Date Adelaide Pollock MD [address] [place] [address] PCP - General Internal Medicine 05/13/13
--- OUTSIDE RECORDS SUMMARY | 2025-07-13 16:25 | XMS_ITS | Clinical Summary ---
Author Organization [facility] Address [address] [place] [address] Phone Care Team Providers Care Primary Class Teacher Name Role Phone Aide Adame MD Primary Care Provider + Johnathan Lisa MD, MPH Unavailable [phone] Jazzmine Zaman MD Unavailable [phone] Allergies Active Allergy Reactions Criticality Noted Date Comments Codeine Lightheadedness 04/26/2024 Doxycycline Rash Low 04/26/2024 Egg Rash Low 04/26/2024 Gluten Rash Low 04/26/2024 Iodine Dermatitis,Itching,Rash Low 04/26/2024 Levofloxacin Dizziness,Tendonitis High 04/03/2017 Vancomycin Flushing,Hives,Itching 04/03/2017 Medications pantoprazole (PROTONIX) 40 MG tablet Take 40 mg by mouth daily. 2 Active therapeutic multivitamin tablet Take 1 tablet [...] Encounters Date Type Department Care Team Description 07/06/2025 Telephone [facility]rom[facility] [address] [place] [address], 8th [place] [address] Adriana Rey MD, PhD 06/02/2025 10:30 AM EDT Telemedicine [facility] Neuromuscular Service [address] [facility], 8th [place] [address] Adriana Rey MD, PhD Weakness (Primary Dx) 05/24/2025 Telephone [facility] Neurom[facility] Service [address] [facility], 8th [place] [address] Adriana Rye MD, PhD 05/03/2025 2:00 PM EDT Telemedicine [facility] Physical and Occupational Therapy Services [address] [facility], 1st Floor, [address] [place] [address] Unknown, Unknown, Syeda Ceron, PT ILD (interstitial lung disease) (Primary Dx) 04/18/2025 11:00 AM EDT Telemedicine [facility] Genetics [address] [place] [address] Jazzmine Zaman MD Interstitial lung disease (Primary Dx); 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 I have henny pierre 04/08/2025 How many times have you move [...] Description 07/18/2025 10:30 AM EST Office Visit [facility] Genetics [address] [place] [address] Jazzmine Zaman MD [address] [place] [phone] [email or web address] 07/18/2025 1:30 PM EST Office Visit [facility] Specialties [address] [facility]2 [place] [address] Jazzmine Zaman MD [address] [place] [address] [email or web address] Health Maintenance Due Date Last Done Comments ZOSTER VACCINES (1 of 2) 1994 OSTEOPOROSIS SCREENING INITI AL (ONE-TIME) 2009 PNEUMOCOCCAL VACCINES (50+ y ears) (2 of 2 - PCV) 06/03/2012 06/03/2011 RSV VACCINE (1 - 1-dose 75+ series) 2019 Adult Td,Tdap Booster 08/15/2021 08/15/2011 INFLUENZA VACCINE (#1) 2025 COVID-19 VACCINE ( - 2024-2 6 season) 2025 DEPRESSION SCREENING 03/21/2026 03/21/2025 HEPATITIS A [...] this topic Medical Devices Not on file Insurance [employer] MEDICARE REPLACEMENT [place] [id number] MEDICARE REPLACEMENT MEDICARE REPLACEMENT MEDICARE REPLACEMENT [facility] [place] [id number] Care Teams Primary Class Teacher Relationship Specialty Start Date End Date Aide Adame MD [address], [place] [address] PCP - General Internal Medicine 03/28/25 Johnathan Lisa MD, MPH [address] [place] [phone] [email or web address] Referring Physician Pulmonary Disease 03/28/25 Jazzmine Zaman MD [address] [place] [phone] [email or web address] Referring Physician Pediatrics 03/28/25 Additional Source Comments The information contained in this document represents components of the legal health record. It is not the complete legal health record.[facility]
== END 2025-07-13 14:50 | disposition home or self-care (01) ==
LOC: HO.HMCHD 12:58
PROVIDERS: PCP Internal Medicine; Visit Provider Internal Medicine
DX: E46 Unspecified protein-calorie malnutrition (principal); J84.10 Pulmonary fibrosis, unspecified; D50.9 Iron deficiency anemia, unspecified; E03.8 Other specified hypothyroidism

== ENCOUNTER → 2025-07-13 12:57 | Outpatient (BNVA) | payer OTHER, SELFPAY | PROVIDERS: PCP Internal Medicine; Visit Provider Internal Medicine | DX: E03.8 Other specified hypothyroidism (principal); E46 Unspecified protein-calorie malnutrition; J84.10 Pulmonary fibrosis, unspecified; D50.9 Iron deficiency anemia, unspecified | CPT/HCPCS: 99212 ==

== ENCOUNTER 2025-07-25 14:21 | Outpatient (REF) | payer OTHER, SELFPAY ==
--- OUTSIDE RECORDS SUMMARY | 2013-06-10 23:00 | XMS_ITS | Encounter Summary ---
Author Organization [facility] Address [address] [facility] [address] [place] [phone] Phone Care Team Providers Care Usability Specialist Name Role Phone Unavailable Primary Care Provider Unavailabl e Encounter Details Date Type Department Care Team (Late st Contact Info) Description 06/11/2013 Hospital Encounter [facility] [address] [place] [address] Jeff Hurst MD 55 [place] [address] [email or web address] Social History Tobacco Use Types Packs/Day Years Used Date Smoking Tobacco: Never Smokeless Tobacco: Never Child or Family Care Answer Date Record ed Do you have problems with on e of the following making it difficult for you to work, study, or receive health care? No 04/08/2025 Education Answer Date Recorded Are you interested in more education? Not on humera e 02/18/2024 Are you concerned about learning? Not on file 02/18/2024 No 02/18/2024 No 02/18/2024 Food Answer Date Recorded Within the past 6 months we worried whether our food would run out before we got money to buy more. Never True 04/08/2025 Within the past 6 months the food we bought just didn't last and we didn't have enough money to get more. Never True Residential Stability Answer Date Recor ded What is your housing situation today? I have henny sing 04/08/2025 How many times have you move d in the past 12 months? Zero (I did not move) 04/08/2025 Paying for Meds Answer Date Recorded Do you have trouble paying for medicines? No 04/08/2025 Paying Utility Bills Answer Date Record ed Do you have trouble paying y our heating or electricity bill? I choose not to answer 04/08/2025 Transportation Answer Date Recorded Has the lack of transportati on kept you from medical appointments or from getting medications? I choose not to answer 04/08/2025 Digital Access Answer Date Recorded No 02/18/2024 No 02/18/2024 Reliable internet access at home? Not on file 02/18/2024 Device with a working camera? Not on file Comments Unknown Sex and Gender Information Value Date Recorded Sex Assigned at Female 02/16/2024 4:15 PM EDT Legal Sex Female 4:13 PM EDT Gender Identity Female 02/16/2024 4:15 PM EDT Sexual Orientation Straight 02/16/2024 4: 15 PM EDT documented as of this encounter Plan of Treatment Upcoming Encounters Date Type Department Care Team (Late st Contact Info) Description 08/15/2025 11:00 AM EST Appointment [facility] Pulmonary Function Lab [address] [place] [address] Maurilio Rojas MD [address] [place] [address] [email or web address] 08/15/2025 12:30 PM EST Office Visit [facility] Genetics 15 [place] [address] Jazzmine Zaman MD [address] [place] [address] [email or web address] 11/22/2025 12:00 PM EDT Office Visit [facility] Lung Center-Pulmonary Medicine [address] [place] [address] Maurilio Rojas MD [address] [place] [address] [email or web address] documented as of this encounter Procedures Procedure Name Priority Date/Time Associated Diagnosis Comments CT CHEST OUTSIDE (NO INTERPRETATION) Routine 06/11/2013 12:00 AM EDT documented in this encounter Results * CT Chest Outside (No Interpretation) (06/11/2013 12:00 AM EDT) Narrative [facility] [place] - 04/23/2024 1:50 PM EDT This study is for PACS storage only and not for interpretation. us Jeff Hurst MD IMG OUTSIDE IMAGING W/OUT INTERPRETATION Final Result [facility] documented in this encounter Visit Diagnoses Not on filedocumented in this encounter Additional Source Comments The information contained in this document represents components of the legal health record. It is not the complete legal health record.[facility]
[2025-07-25 14:48] LABS: MANUAL DIFF FLAG NO
[2025-07-25 14:58] LABS: Hematocrit 37.5 % (37.0-47.0); Hemoglobin 11.8 g/dl (12.0-16.0); Imm Gran Abs Auto 0.02 X10*3/uL (0.00-0.03); Imm Gran Pct Auto 0.4 % (0.0-0.4); Lymphocytes Absolute Auto 1.4 X10*3/uL (1.2-4.9); Mean Corpuscular HGB Conc 31.5 g/dl (31.0-35.0); Mean Corpuscular Hemoglobin 30.3 pg (27.0-33.0); Mean Corpuscular Volume 96.4 fL (80.0-98.0); NRBC Abs Auto 0.000 X10*3/uL (0.0-0.012); NRBC Pct Auto 0.0 /100WBC (0.0-0.2); Platelet Count 203 X10*3/uL (160-400); Red Blood Count 3.89 X10*6/uL (4.20-5.50); White Blood Count 4.8 X10*3/uL (4.8-10.8)
[2025-07-25 16:39] LABS: Alanine Aminotransferase 19 U/L (0-31); Albumin Level 3.8 g/dL (3.5-5.0); Alkaline Phosphatase 186 U/L (39-117); Anion Gap 11 (12-20); Blood Urea Nitrogen 18 mg/dL (9-16); Calcium 9.6 mg/dL (8.4-10.2); Carbon Dioxide 29 mmol/L (22-29); Chloride 104 mmol/L (96-108); Estimated Glomerular Filt Rate > 60; Iron 48 mcg/dL (30-160); Magnesium 2.0 mg/dL (1.6-2.6); Percent Iron Saturation 18 % (15-50); Potassium 5.3 mmol/L (3.3-5.1); Sodium 139 mmol/L (135-145); Total Iron Binding Capacity 265 mcg/dL (228-428); Total Protein 8.0 g/dL (6.5-8.0); Unsaturated Iron Binding 217 ug/dL
--- OUTSIDE RECORDS SUMMARY | 2025-07-25 16:44 | XMS_ITS | Encounter Summary ---
Author Organization [facility] Address [address] [place] [address] Phone Care Team Providers Care Mainspring Barrel Assembly Cleaner Name Role Phone Adelaide Pollock MD Primary Care Provider + Aide Adame MD Primary Care Provider + Johnathan Lisa MD, MPH Unavailable [phone] Jazzmine Zaman MD Unavailable [phone] System, Provider Not In PhD Primary Care Provide r Unavailable Adelaide Pollock MD Primary Care Provider + Encounter Details Date Type Department Care Team (Late st Contact Info) Description 11/30/2024 Ancillary Orders [facility] Arthritis Center Main [place] [address] [place] [address] Josh Davey MD [address] [place] [address] [email or web address] Arthralgia, unspecified joint (Primary Dx) Social History [...] Info) Description 08/15/2025 11:00 AM EST Appointment [facility] Pulmonary Function Lab [address] [place] [address] Maurilio Rojas MD [address] [place] [address] [email or web address] 08/15/2025 12:30 PM EST Office Visit [facility] Genetics [address] [place] [address] Jazzmine Zaman MD [address] [place] [address] [email or web address] 11/22/2025 12:00 PM EDT Office Visit [facility] Lung Center-Pulmonary Medicine [address] [place] [address] 14[address] Maurilio Rojas MD [address] [place] [address] [email or web address] documented as of this encounter Results * [...] clinician's provided indication for this examination in [facility]: Pain COMPARISON: XR HAND 3 OR MORE VIEWS (BILATERAL) FINDINGS: Left hand: Diffuse osseous demineralization. No fracture. Severe osteoarthritis of the first carpometacarpal joint with joint space narrowing, hypertrophic changes, and osseous remodeling with adjacent ossific body. Moderate osteoarthritis of the triscaphe joint, first MCP joint, and first interphalangeal joint. Oeiu-gr-cuqbgtjc degenerative changes of additional scattered interphalangeal joints. Cystic changes within the carpal bones and fifth metacarpal head. Chondrocalcinosis of the TFCC. No focal soft tissue swelling. Right hand: Diffuse osseous demineralization. No fracture. Severe osteoarthritis of the first carpometacarpal joint with joint space narrowing, hypertrophic changes, and osseous remodeling. Moderate osteoarthritis of the radiocarpal joint and triscaphe joint. Lcmc-wo-lualzlux degenerative changes of additional scattered interphalangeal joints. [...] clinician's provided indication for this examination in [facility]:Pain COMPARISON: XR HAND 3 OR MORE VIEWS (BILATERAL) FINDINGS: Left hand: Diffuse osseous demineralization. No fracture. Severeosteoarthritis of the first carpometacarpal joint with joint spacenarrowing, hypertrophic changes, and osseous remodeling with adjacentossific body. Moderate osteoarthritis of the triscaphe joint, first MCPjoint, and first interphalangeal joint. Tmdf-iz-hncxutkb degenerativechanges of additional scattered interphalangeal joints. Cystic changeswithin the carpal bones and fifth metacarpal head. Chondrocalcinosis ofthe TFCC. No focal soft tissue swelling. Right hand: Diffuse osseous demineralization. No fracture. Severeosteoarthritis of the first carpometacarpal joint with joint spacenarrowing, hypertrophic changes, and osseous remodeling. Moderateosteoarthritis of the radiocarpal joint and triscaphe joint.Stji-dj-iqhiussy degenerative changes of additional scatteredinterphalangeal joints. Cystic [...] Time PHQ-2 Depression Total Score: 0 12/01/19 25 2:18 PM EDT documented as of this encounter Care Teams Mainspring Barrel Assembly Cleaner Relationship Specialty Start Date End Date Adelaide Pollock MD PCP - General Internal Medicine 02/16/24 03/27/25 Aide Adame MD [address] [place] [address] PCP - General Internal Medicine 03/28/25 07/18/25 System, Provider Not In, PhD [address] [address] PCP - General 07/19/25 07/21/25 Adelaide Pollock MD [address] [place] [address] PCP - General Internal Medicine 07/22/25 Johnathan Lisa MD, MPH [address] [place] [address] [email or web address] Referring Physician Pulmonary Disease 7/14/25 Jazzmine Zaman MD [address] [place] [address] [email or web address] Referring Physician Pediatrics 03/28/25 documented as of this encounter Additional Source Comments The information contained in this document represents components of the legal health record. It is not the complete legal health record.[facility]
--- OUTSIDE RECORDS SUMMARY | 2025-07-25 16:44 | XMS_ITS | Encounter Summary ---
Author Organization [facility] Address [address] [place] [address] [place] [address] Phone Care Team Providers Care Executive Sales Manager Name Role Phone Adelaide Pollock MD Primary Care Provider + Aide Adame MD Primary Care Provider + Johnathan Lisa MD, MPH Unavailable [phone] Jazzmine Zaman MD Unavailable [phone] System, Provider Not In PhD Primary Care Provide r Unavailable Adelaide Pollock MD Primary Care Provider + Encounter Details Date Type Department Care Team (Latest Contact Info) Description 05/19/2024 Ancillary Orders [facility] Rheumatology Dermatology Multi [facility] [address] [facility] 8th Floor, [address] [place] [address] Ce Luke MD [address] [facility] [address] [place] [address] [email or web address] Interstitial lung disease (Primary Dx) Social History [...] Info) Description 08/15/2025 11:00 AM EST Appointment [facility] Pulmonary Function Lab [address] [place] [address] Maurilio Rojas MD [address] [place] [address] [email or web address] 08/15/2025 12:30 PM EST Office Visit [facility] Genetics [address] [place] [address] Jazzmine Zaman MD [address] [place] [address] [email or web address] 11/22/2025 12:00 PM EDT Office Visit [facility] Lung Center-Pulmonary Medicine [address] [place] [address] Maurilio Rojas MD [address] [place] [address] [email or web address] documented as of this encounter Results [...] fibrosis documented in this encounter Care Teams Executive Sales Manager Relationship Specialty Start Date End Date Adelaide Pollock MD PCP - General Internal Medicine 02/16/24 03/27/25 Aide Adame MD [address] [place] [address] PCP - General Internal Medicine 03/28/25 07/18/25 System, Provider [place] In, [place] [address] PCP - General 07/19/25 07/21/25 Adelaide Pollock MD [address] [place] [address] PCP - General Internal Medicine 07/22/25 Johnathan Lisa MD, MPH [address] [place] [address] [email or web address] Referring Physician Pulmonary Disease 03/28/25 Jazzmine Zaman MD [address] [place] [address] [email or web address] Referring Physician Pediatrics 03/28/25 documented as of this encounter Additional Source Comments The information contained in this document represents components of the legal health record. It is not the complete legal health record.[facility]
--- OUTSIDE RECORDS SUMMARY | 2025-07-25 16:44 | XMS_ITS | Data Portability ---
Author Organization [place] [facility] Address [address] [place] [address] Care Team Providers Care Scene Painter Name Role Phone HERMANN DILLON Primary Care Provider Assessment Encounter Date Assessment Date Assessment LastModified by Organization Details LastModified Time 12/02/2019 12/02/2019 Overview/History : 74 yo female new to and this provider who presents with complain of right lower extremity pain; patient is Namibian speaking only, her daughter, who is her POA, is present and acted as an educational sign language interpreter. Patient complain of severe 10/10 pain in [...] in couch conversing with staff in her [place] tongue (Namibian) and answering all questions appropriately. No acute [...] questions were answered prior to team departure. [email or web address] Not available 01/25/2022 19:07:17 Plan of Treatment Reminders Order Date Submit Date Provider Last Modified By Organization Details Last Modified Time Details Appointments None recorded. Lab 6+ iStat 2019 020 [email or web address] [facility], [address] [place], [address], 0 11:30:47 creatinine , blood 2019 020 nyuzych [facility], [address] [place], [address], 0 11:52:08 Referral None recorded. Procedures None recorded. Surgeries None recorded. Imaging US, duplex, venous, extremity, limited 2021 [facility] [address] [facility], [place], [address], 2 17:41:55 XR, chest, 2 view - Ordered by [facility] 2021 [facility]22 [facility] [address], [place], [address], 2 14:40:38 XR, knee, 1 or 2 view - pain and swelling of knee joint 2019 020 [facility] ([facility]), [address] [place], [address], 0 08:39:18 XR, ankle, 2 view - pain and sweeling of the ankle joint 2019 020 [facility] ([facility]), [address] [place], [address], 0 08:39:19 US, duplex, venous, extremity, complete 2019 020 [facility] ([facility]), [address] [place], [address], 0 08:39:19 Medication Orders ketorolac 30 mg/mL (1 mL) injection solution 2019 020 nyuzych [id number], [address] [place], [address], 0 11:52:08 meloxicam 7.5 mg tablet 2019 020 INTERFACE [id number], [address] [place], [address], 0 11:52:14 Patient TargetsNo targets recorded. Patient Instructions Encounter Date Encounter Id Patient Instructions Last Modified By Organization Details Last Modified Time 12/02/2019 [id number] [facility] you [facility] yo [facility]. We cannot always find the exact [...] in your condition between 8am-10pm, please call [facility] at [phone] to help navigate your care. [email or web address] Not available 12/02/2019 11:52:35 01/25/2022 [id number] Please make an appt with PCP in 3-5 days to discuss ongoing symptoms/ further management. Chest x ray and U/S pending. The patient is also advised to go to the ED immediately for any worsening symptoms. The patient understood and agreed with this plan. The patient was given discharge instructions and all questions were answered prior to DH team departure. [email or web address] Not available 01/25/2022 19:08:53 Reason for Referral None Reported. Results Created Date Observation Date Name Description Value Unit Range Abnormal Flag Note LastModifiedBy Organization Detail LastModifiedTime 12/02/19 20 12/02/2019 creat inine , blood crea 0.6 mg/dL 0.6-1. 3 Not Available [facility] [address] [place], [address], 12/02/2019 11:27:58 12/02/19 20 12/02/2019 6+ iStat Na 136 mmol/ L 138-14 6 Not Available [facility] [address], [place], [address], 12/02/2019 11:27:38 12/02/19 20 12/02/2019 6+ iStat K 4.0 mmol/ L 3.5-4. 9 Not Available [facility] [address] [place], [address], 12/02/2019 11:27:38 12/02/19 20 12/02/2019 6+ iStat cL 100 mmol/ L 98-109 Not Available [facility] [address] [place], [address], 12/02/2019 11:27:38 12/02/19 20 12/02/2019 6+ iStat BUN 14 mg/dL 8-26 Not Available [facility] [address], [place], [address], 12/02/2019 11:27:38 12/02/19 20 12/02/2019 6+ iStat glu 119 mg/dL 70-105 Not Available [facility] [address], [place], [address], 12/02/2019 11:27:38 12/02/19 20 12/02/2019 6+ iStat HCT 36 %_pcv 37-47 Not Available [facility] [address], [place], [address], 12/02/2019 11:27:38 12/02/19 20 12/02/2019 6+ iStat Hb 12.2 g/dL 12-17 Not Available [facility] [address], [place], [address], 12/02/2019 11:27:38 12/02/19 20 12/02/2019 knee AP [...] ([facility]) [address], [place], [address], 12/06/2019 10:07:23 12/02/19 20 12/02/2019 ankle AP [...] HERNANDEZ D.O. 020 5:56:0 8 PM EDT. [email or web address] [facility] [place] [facility] ([facility]) [address], [place], [place], [address], 12/21/2019 17:10:23 12/03/19 20 12/03/2019 venou s [...] l, greate r saphen ous, poplit eal, manager functional ior tibial , and calf veins. There [...] Casillas' s cyst is identi fied. CONCLU KADNE: No eviden ce for deep venous thromb [...] l, greate r saphen ous, poplit eal, manager functional ior tibial , and calf veins. There [...] 020 5:16:1 3 PM EDT. [facility] [address], [place], [address], 12/06/2019 10:07:23 01/27/20 22 01/26/2022 XR, chest [...] SOFYA CAPUTO D.O. 2:33:1 2 PM EDT. [facility] [address] [facility] [address], [place], [address], 01/28/2022 16:45:25 01/29/20 22 01/28/2022 venou s [...] l, greate r saphen ous, poplit eal, manager functional ior tibial , and calf veins. There [...] l, greate r saphen ous, poplit eal, manager functional ior tibial , and calf veins. There [...] M.D. 022 5:35:0 3 PM EDT. [email or web address] [place] [place] [address], [place], [address], 01/31/2022 09:21:54 Result Notes Documentation Provider Name [...] EDT. Cleo Orr NP [address], [place], [address], [place] [facility] 01/28/2022 16:45:25 Procedures Surgical History Date Name Laterality Status Provider Name and Address Organization Details Recorded Time 12/02/19 20 Venipuncture - DH completed [place] ESCOTO [address], [place], [address], [place] [facility] 12/02/2019 12:34:24 Imaging Results None recorded. Procedure Notes None recorded. Medical Equipment None Reported. Allergies Allergen ID Allergen Name Allergen Category Reaction Reaction Severity Criticality Documentation Date Start Date Code Code System Note Provider Name and Address Organization Details Recorded Time 14060 Levaquin medicatio n Not available Not available Not available 12/02/2019 26867 2 RxNorm MITZI ESCOTO [address], [place], [address], [place] [facility] 0 10:52:25 52113 vancomyci n medicatio n Not available Not available Not available 12/02/2019 21301 RxNorm MITZI ESCOTO [address], [place], [address], [place] [facility] 0 10:52:49 63969 doxycycli ne Not available Not available Not available Not available 12/02/2019 3640 RxNorm MITZI ESCOTO [address], [place], [place], [address], [place] [facility] 0 10:52:55 41126 codeine medicatio n Not available Not available Not available 12/02/2019 2670 RxNorm MITZI ESCOTO [address], [place], [place], [address], [place] [facility] 0 10:53:02 36967 iodine medicatio n Not available Not available Not available 12/02/2019 5933 RxNorm MITZI ESCOTO [address] [place], [address], [place] [facility] 0 10:53:11 Medications Name Sig Start Date [...] Never Smoker MITZI ESCOTO [address], [place], [address], [place] [facility] 12/02/2019 12:11:31 Do You [...] Visiting Friends Or Family Or Going To Catholic Or Club Meetings) 5 Or More Times [...] History Condition Response Coronary Artery Disease N COPD N Depression N Diabetes N Cancer N Stroke N Asthma N High Cholesterol N Pulmonary Embolism N Hypertension N Kidney Disease N Gynecological HistoryNo gynecological history recorded. Obstetrics History GPAL:G 0 P 0 0 0 0 Past Encounters Encounter ID Performer Location Encounter Start Date Encounter Closed Date Diagnosis/Indication Diagnosis SNOMED-CT Code Diagnosis ICD10 Code Diagnosis IMO Codes Diagnosis Note [id number] [facility]OTO [facility] [address] [place] [address] 12/02/2019 10:50:22 12/03/2019 12:24:59 Pain in lower limb 93831828 M79.604 Polymyalgi a rheumatica 00223097 M35.3 [id number] March MARSHALL Weaver [facility] [address] [employer] [address] 01/25/2022 17:07:23 01/29/2022 09:26:06 Pain in left lower limb 404842992 M79.605 Wheezing 45986925 R06.2 Health Concerns Section Related Observation LastModified by Organization Detai ls LastModified Time None Recorded Concern Status LastModified by Organization Details LastModified Time None Recorded Advance Directives Directive N: Payers Insurance Date Sequence Insurance Name Policy Number Policy Smith Covered Member ID Smith Member ID Guarantor Name 12/01/2019 1 *SELF PAY* Apryl Downing [id number] Apryl Downing 01/25/2022 1 [facility] - DOS PRIOR TO 2022 - DUAL ELIGIBLE (MEDICARE REPLACEMENT/ADV ANTAGE - HMO) Apryl Downing [id number] Apryl Downing Notes Date Note Type Note Provider Name and Address Organization Details Recorded Time 12/02/2019 text/html Mrs. Downing is a 74 yo female new to and this provider who presents with complain of right lower extremity pain; patient is Namibian speaking only, her daughter, who is her POA, is present and acted as an educational sign language interpreter. Patient complain of severe 10/10 pain in [...] urinary symptoms. MITZI ESCOTO [address], [place], [address], [place] [facility] 12/02/2019 12:49:52 01/25/2022 text/html [...] trauma. Mandy Weaver NP [address], [place], [address], [place] [facility] 01/25/2022 19:09:02 OBGyn Episode No OBEpisode recorded.
--- OUTSIDE RECORDS SUMMARY | 2025-07-25 16:44 | XMS_ITS | Encounter Summary ---
Author Organization [facility] Address [address] [place] [address] Phone Care Team Providers Care Christian Ministries Professor Name Role Phone Adelaide Pollock MD Primary Care Provider + Aide Adame MD Primary Care Provider + Johnathan Lisa MD, MPH Unavailable [phone] Jazzmine Zaman MD Unavailable [phone] System, Provider Not In PhD Primary Care Provide r Unavailable Adelaide Pollock MD Primary Care Provider + Encounter Details Date Type Department Care Team (Late st Contact Info) Description 11/30/2024 Ancillary Orders [facility] Arthritis Center Main [place] [address] [place] [address] Josh Davey MD [address] [place] [address] [email or web address] Arthralgia, unspecified joint (Primary Dx) [...] Info) Description 08/15/2025 11:00 AM EST Appointment [facility] Pulmonary Function Lab [address] [place] [address] Maurilio Rojas MD [address] [place] [address] [email or web address] 08/15/2025 12:30 PM EST Office Visit [facility] Genetics [address] [place] [address] Jazzmine Zaman MD [address] [place] [address] [email or web address] 11/22/2025 12:00 PM EDT Office Visit [facility] Lung Center-Pulmonary Medicine [address] [place] [address] Maurilio Rojas MD [address] [place] [address] [email or web address] documented as of this encounter [...] clinician's provided indication for this examination in [facility]: Pain COMPARISON: XR FOOT 3 OR MORE [...] clinician's provided indication for this examination in [facility]:Pain COMPARISON: XR FOOT 3 OR MORE VIEWS [...] documented as of this encounter Care Teams Christian Ministries Professor Relationship Specialty Start Date End Date Adelaide Pollock MD PCP - General Internal Medicine 02/16/24 03/27/25 Aide Adame MD [address] [place] [address] PCP - General Internal Medicine 03/28/25 07/18/25 System, Provider Not In, PhD [address] [address] PCP - General 07/19/25 07/21/25 Adelaide Pollock MD [address] [place] [address] PCP - General Internal Medicine 07/22/25 Johnathan Lisa MD, MPH [address] [place] [address] [email or web address] Referring Physician Pulmonary Disease 03/28/25 Jazzmine Zaman MD [address] [place] [address] [email or web address] Referring Physician Pediatrics 03/28/25 documented as of this encounter Additional Source Comments The information contained in this document represents components of the legal health record. It is not the complete legal health record.[facility]
--- OUTSIDE RECORDS SUMMARY | 2025-07-25 16:44 | XMS_ITS | Encounter Summary ---
Author Organization [facility] Address [address] [place] [address] Phone Care Team Providers Care Unloading Checker Name Role Phone Adelaide Pollock MD Primary Care Provider + Aide Adame MD Primary Care Provider + Johnathan Lisa MD, MPH Unavailable [phone] Jazzmine Zaman MD Unavailable System, Provider Not In PhD Primary Care Provide r Unavailable Adelaide Pollock MD Primary Care Provider + Encounter Details Date Type Department Care Team (Late st Contact Info) Description 04/05/2024 Procedure Pass [facility], [address] [address] Social History Tobacco Use Types Packs/Day Years [...] Info) Description 08/15/2025 11:00 AM EST Appointment [facility] Pulmonary Function Lab [address] [place] [address] Maurilio Rojas MD [address] [place] [address] [email or web address] 08/15/2025 12:30 PM EST Office Visit [facility] Genetics [address] [place] [address] Jazzmine Zaman MD [address] [place] [address] [email or web address] 11/22/2025 12:00 PM EDT Office Visit [facility] Lung Center-Pulmonary Medicine [address] [place] [address] Maurilio Rojas MD [address] [place] [address] [email or web address] documented as of this encounter Visit Diagnoses Not on filedocumented in this encounter Care Teams Unloading Checker Relationship Specialty Start Date End Date Adelaide Pollock MD PCP - General Internal Medicine 02/16/24 03/27/25 Aide Ad[place] MD [address] [address] PCP - General Internal Medicine 03/28/25 07/18/25 System, Provider Not In, PhD Partners [address] [address] PCP - General 07/19/25 07/21/25 Adelaide Pollock MD [address] [place] [address] PCP - General Internal Medicine 07/22/25 Johnathan Lisa MD, MPH [address] [place] [address] [email or web address] Referring Physician Pulmonary Disease 03/28/25 Jazzmine Zaman MD [address] [place] [address] [email or web address] Referring Physician Pediatrics 03/28/25 documented as of this encounter Additional Source Comments The information contained in this document represents components of the legal health record. It is not the complete legal health record.[facility]
--- OUTSIDE RECORDS SUMMARY | 2025-07-25 16:44 | XMS_ITS | Encounter Summary ---
Author Organization [facility] Address [address] [place] [address] [place] [address] Phone Care Team Providers Care Egg Gatherer Name Role Phone Johnathan Lisa MD, MPH Unavailable [phone] Jazzmine Zaman MD Unavailable [phone] Adelaide Pollock MD Primary Care Provider + Reason for Visit * Reason Onset Date Comments Results 07/22/2025 Encounter Details Date Type Department Care Team (Late st Contact Info) Description 07/22/2025 Telephone [facility] Genetics [address] [place] [address] Jazzmine Zaman MD [address] [place] [address] [email or web address] Results Social History Tobacco Use Types Packs/Day [...] encounter Progress Notes * Aline Head - 07/22/2025 4:12 PM EST Good afternoon, Pt daughter calling regarding pt of Jazzmine Zaman MD of Caller advises that pt would like to have results from [facility] Liver Elastography (Fibroscan) completed on 07/18/25 be made available for pt to see. Please advise. CB# [phone] Thank you Aline Lombardo Pt Access Center Coordinator Department Of Medicine documented in this encounter Plan of Treatment Upcoming Encounters Date Type Department Care Team (Late st Contact Info) Description 08/15/2025 11:00 AM EST Appointment [facility] Pulmonary Function Lab [address] [place] [address] Maurilio Rojas MD [address] [place] [address] [email or web address] 08/15/2025 12:30 PM EST Office Visit [facility] Genetics [address] [place] [address] Jazzmine Zaman MD [address] [place] [address] [email or web address] 11/22/2025 12:00 PM EDT Office Visit [facility] Lung Center-Pulmonary Medicine [address] [place] [address] Maurilio Rojas MD [address] [place] [address] [email or web address] documented as of this encounter Visit Diagnoses Not on filedocumented in this encounter Additional Health Concerns Assessment Noted Time PHQ-2 Depression Total Score: 0 07/18/20 10:43 AM EST documented as of this encounter Care Teams Egg Gatherer Relationship Specialty Start Date End Date Adelaide Pollock MD [address] [place] [address] PCP - General Internal Medicine 07/22/25 Johnathan Lisa MD, MPH [address] [place] [address] [email or web address] Referring Physician Pulmonary Disease 03/28/25 Jazzmine Zaman MD [address] [place] [address] [email or web address] Referring Physician Pediatrics 03/28/25 documented as of this encounter Additional Source Comments The information contained in this document represents components of the legal health record. It is not the complete legal health record.[facility]
--- OUTSIDE RECORDS SUMMARY | 2025-07-25 16:44 | XMS_ITS | Encounter Summary ---
Author Organization [facility] Address [address] [place] [address] [place] [address] Phone Care Team Providers Care Glass Lathe Operator Name Role Phone Adelaide Pollock MD Primary Care Provider + Aide Adame MD Primary Care Provider + Johnathan Lisa MD, MPH Unavailable [phone] Jazzmine Zaman MD Unavailable [phone] System, Provider Not In PhD Primary Care Provide r Unavailable Adelaide Pollock MD Primary Care Provider + Encounter Details Date Type Department Care Team (Late st Contact Info) Description 03/22/2025 Procedure Pass [facility] Radiology [address] [place] [address] Social History Tobacco Use Types Packs/Day Years [...] Info) Description 08/15/2025 11:00 AM EST Appointment [facility] Pulmonary Function Lab [address] [place] [address] Maurilio Rojas MD [address] [place] [address] [email or web address] 08/15/2025 12:30 PM EST Office Visit [facility] Genetics [address] [place] [address] Jazzmine Zaman MD [address] [place] [address] [email or web address] 11/22/2025 12:00 PM EDT Office Visit [facility] Lung Center-Pulmonary Medicine [address] [place] [address] Maurilio Rojas MD [address] [place] [address] [email or web address] documented as of this encounter Visit Diagnoses Not on filedocumented in this encounter Additional Health Concerns Assessment Noted Time PHQ-2 Depression Total Score: 0 03/21/20 10:47 AM EDT documented as of this encounter Care Teams Glass Lathe Operator Relationship Specialty Start Date End Date Adelaide Pollock MD PCP - General Internal Medicine 02/16/24 03/27/25 Aide Adame MD [address] [place] [address] PCP - General Internal Medicine 03/28/25 07/18/25 System, Provider Not In, [facility] [address] [address] PCP - General 07/19/25 07/21/25 Adelaide Pollock MD [address] [place] [address] PCP - General Internal Medicine 07/22/25 Johnathan Lisa MD, MPH [address] [place] [address] [email or web address] Referring Physician Pulmonary Disease 03/28/25 Jazzmine Zaman MD [address] [place] [address] [email or web address] Referring Physician Pediatrics 03/28/25 documented as of this encounter Additional Source Comments The information contained in this document represents components of the legal health record. It is not the complete legal health record.[facility]
--- OUTSIDE RECORDS SUMMARY | 2025-07-25 16:44 | XMS_ITS | Encounter Summary ---
Author Organization [facility] Address [address] [place] [address] Phone Care Team Providers Care Home Care Nurse Name Role Phone Adelaide Pollock MD Primary Care Provider + Aide Adame MD Primary Care Provider + Johnathan Lisa MD, MPH Unavailable [phone] Jazzmine Zaman MD Unavailable [phone] System, Provider Not In PhD Primary Care Provide r Unavailable Adelaide Pollock MD Primary Care Provider + Encounter Details Date Type Department Care Team (Late st Contact Info) Description 04/30/2024 Procedure Pass [facility] [address] [address] Social History Tobacco Use Types Packs/Day Years [...] Info) Description 08/15/2025 11:00 AM EST Appointment [facility] Pulmonary Function Lab 15 [place] [address] Maurilio Rojas MD [address] [place] [address] [email or web address] 08/15/2025 12:30 PM EST Office Visit [facility] Genetics [address] [place] [address] Jazzmine Zaman MD [address] [place] [address] [email or web address] 11/22/2025 12:00 PM EDT Office Visit [facility] Lung Center-Pulmonary Medicine [address] [place] [address] Maurilio Rojas MD [address] [place] [address] [email or web address] documented as of this encounter Visit Diagnoses Not on filedocumented in this encounter Care Teams Home Care Nurse Relationship Specialty Start Date End Date Adelaide Pollock MD PCP - General Internal Medicine 02/16/24 03/27/25 Aide Adame MD [address], [place] [address] PCP - General Internal Medicine 03/28/25 07/18/25 System, Provider Not In, PhD [facility] [address] [address] PCP - General 07/19/25 07/21/25 Adelaide Pollock MD [address] [place] [address] PCP - General Internal Medicine 07/22/25 Johnathan Lisa MD, MPH [address] [place] [address] [email or web address] Referring Physician Pulmonary Disease 03/28/25 Jazzmine Zmaan MD [address] [place] [address] [email or web address] Referring Physician Pediatrics 03/28/25 documented as of this encounter Additional Source Comments The information contained in this document represents components of the legal health record. It is not the complete legal health record.[facility]
--- OUTSIDE RECORDS SUMMARY | 2025-07-25 16:44 | XMS_ITS | Clinical Summary ---
Author Organization [facility] Address [address] [place] [address] Phone Care Team Providers Care Hr Advisor Name Role Phone Johnathan Lisa MD, MPH Unavailable [phone] Jazzmine Zaman MD Unavailable [phone] Adelaide Pollock MD Primary Care Provider + Allergies Active Allergy Reactions Criticality Noted Date [...] a day with meals. 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 07/18/2025 10:30 AM EST Office Visit [facility] Genetics 15 [place] [address] Jazzmine Zaman MD 07/06/2025 Telephone [facility] Neuromuscular Service [address] [place] [address] [address] [place] [address] Adriana Rey MD, PhD 06/02/2025 10:30 AM EDT Telemedicine [facility] Neuromuscular Service [address] [place] [address] [address] [place] [address] Adriana Rey MD, PhD Weakness (Primary Dx) 05/24/2025 Telephone [facility] Neuromuscular Service [address] [facility], [address] [place] [address] Adriana Rey MD, PhD 05/03/2025 2:00 PM EDT Telemedicine [facility] Physical and Occupational Therapy Services [address] [facility] 1st Floor, [address] [place] [address] Unknown, Unknown, Seyda Ceron, PT ILD (interstitial lung disease) (Primary Dx) from Last 3 Months Immunizations Immunization Administration [...] Sign Reading Time Taken Comments Blood Pressure 112/54 07/18/2025 10:44 AM EST Pulse 82 07/18/2025 10:44 AM EST Temperature 36.7 C (98 F) 07/18/2025 10:44 AM EST Respiratory Rate 16 07/18/2025 10:44 AM EST Oxygen Saturation 95% 07/18/2025 10:44 AM EST Inhaled Oxygen Concentration - - Weight 57.2 kg (126 lb) 07/18/2025 10:44 AM EST Height 160 cm (5' 3 ) 07/18/2025 10:44 AM EST Body Mass Index 22.32 07/18/2025 10:44 AM EST Plan of Treatment Upcoming Encounters Date Type Department Care Team (Late st Contact Info) Description 08/15/2025 11:00 AM EST Appointment [facility] Pulmonary Function Lab [address] [place] [address] Maurilio Rojas MD [address] [address] [email or web address] 08/15/2025 12:30 PM EST Office Visit [facility] Genetics [address] [place] [address] Jazzmine Zaman MD [address] [place] [address] [email or web address] 11/22/2025 12:00 PM EDT Office Visit [facility] Lung Center-Pulmonary Medicine [address] [place] [address] Maurilio Rojas MD [address] [place] [address] [email or web address] Health Maintenance Due Date Last Done Comments ZOSTER VACCINES (1 of 2) 1994 OSTEOPOROSIS SCREENING INITI AL (ONE-TIME) 2009 PNEUMOCOCCAL VACCINES (50+ y ears) (2 of 2 - PCV) 06/03/2012 06/03/2011 RSV VACCINE (1 - 1-dose 75+ series) 2019 Adult Td,Tdap Booster 08/15/2021 08/15/2011 INFLUENZA VACCINE (#1) 2025 COVID-19 VACCINE ( - 2024-2 6 season) 2025 DEPRESSION SCREENING 07/18/2026 07/18/2025 HEPATITIS A VACCINES Aged Out No long er eligible based on patient's age to complete this topic HIB VACCINES Aged Out No longer eligi ble based on patient's age to complete this topic IPV VACCINES Aged Out No longer eligi ble based on patient's age to complete this topic MENINGOCOCCAL VACCINES (ACWY) Aged Out No longer eligible based on patient's age to complete this topic MENINGOCOCCAL VACCINES (B) Aged Out N o longer eligible based on patient's age to complete this topic Medical Devices Not on file Insurance MEDICARE REPLACEMENT MEDICARE REPLACEMENT MEDICARE REPLACEMENT MEDICARE REPLACEMENT MEDICARE REPLACEMENT MEDICARE REPLACEMENT Care Teams Hr Advisor Relationship Specialty Start Date End Date Adelaide Pollock MD [address] [place] [address] PCP - General Internal Medicine 07/22/25 Johnathan Lisa MD, MPH [address] [place] [address] [email or web address] Referring Physician Pulmonary Disease 03/28/25 Jazzmine Zaman MD [address] [place] [address] [email or web address] Referring Physician Pediatrics 03/28/25 Additional Source Comments The information contained in this document represents components of the legal health record. It is not the complete legal health record.[facility]
--- OUTSIDE RECORDS SUMMARY | 2025-07-25 16:44 | XMS_ITS | Clinical Summary ---
Author Organization [facility] Address [address] [place] [address] Phone Care Team Providers Care Visual Effects Artist Name Role Phone Adelaide Pollock MD Primary Care Provider [phone] Allergies Active Allergy Reactions Criticality Noted Date [...] Diagnosed Date Fatigue 03/08/2024 Interstitial lung disease ([facility] V24, [facility] V28) 03/08/2024 Hypotension 08/29/2022 Dyspnea 12/07/2020 Edema [...] Osteoarthritis DX:Osteoarthriti s Osteoporosis DX:Osteoporosis Polymyalgia rheumatica ([facility] V24) DX:Polymyalgia rheumatica ([facility]) Pseudogout DX:Pseudogout Rash DX:Rash Reflux esophagitis [...] patient's age to complete this topic Insurance [facility] Member Subscriber Plan / Payer ( fective 2010-Present) Name:Apryl Downing Relation to Subscriber:Self Name:Apryl Downing Payer ID:[id number] Group ID:Not on file Type:Not on file Address: [address] [place] [address] [employer] MEDICARE Member Subscriber Plan / Payer (Ef fective 2010-Present) Name:Apryl Downing Relation to Subscriber:Self Name:Apryl Downing Payer ID:[id number] Group ID:[id number] Type:Not on file Address: [address] [place] [address] Care Teams Visual Effects Artist Relationship Specialty Start Date End Date Adelaide Pollock MD [address] [place] [address] PCP - General Internal Medicine 05/13/13
--- OUTSIDE RECORDS SUMMARY | 2025-07-25 16:44 | XMS_ITS | Encounter Summary ---
Author Organization [facility] Address [address] [place] [address] [place] [address] Phone Care Team Providers Care Machine Tool Technician Instructor Name Role Phone Johnathan Lisa MD, MPH Unavailable [phone] Jazzmine Zaman MD Unavailable System, Provider Not In PhD Primary Care Provide r Unavailable Adelaide Pollock MD Primary Care Provider + Encounter Details Date Type Department Care Team (Late st Contact Info) Description 07/19/2025 Telephone [facility] Center for Chest Diseases [address] [place] [address] Jazzmine Zaman MD [address] [place] [address] [email or web address] Social History Tobacco Use Types Packs/Day Years [...] as of this encounter Progress Notes * Vesta Daniels - 07/19/2025 3:19 PM EST Hi, Patient of Jazzmine Tyson F, This patients daughter is calling requesting to speak with Dahlia at the patient coordinator front desk. She states Dahlia was helping her with something after her mothers appointment tomorrow. She did not want to give me any details or allow me to help, just requested Dahlia gives her a callback. Thanks, Vesta Fortune Access Center Coordinator Department of Medicine documented in this encounter Plan of Treatment Upcoming Encounters Date Type Department Care Team (Late st Contact Info) Description 08/15/2025 11:00 AM EST Appointment [facility] Pulmonary Function Lab [address] [place], [place] [id number] Maurilio Rojas MD [address] [place] [address] [email or web address] 08/15/2025 12:30 PM EST Office Visit [facility] Genetics 15 [place] [address] Jazzmine Zaman MD [address] [place] [address] [email or web address] 11/22/2025 12:00 PM EDT Office Visit [facility] Lung Center-Pulmonary Medicine [address] [place] [address] Maurilio Rojas MD [address] [place] [address] [email or web address] documented as of this encounter Visit Diagnoses Not on filedocumented in this encounter Additional Health Concerns Assessment Noted Time PHQ-2 Depression Total Score: 0 07/18/20 10:43 AM EST documented as of this encounter Care Teams Machine Tool Technician Instructor Relationship Specialty Start Date End Date System, Provider Not In, PhD Partners [address] [address] PCP - General 07/19/25 07/21/25 Adelaide Pollock MD [address] [place] [address] PCP - General Internal Medicine 07/22/25 Johnathan Lisa MD, MPH [address] [place] [address] [email or web address] Referring Physician Pulmonary Disease 03/28/25 Jazzmine Zaman MD [address] [place] [address] [email or web address] Referring Physician Pediatrics 03/28/25 documented as of this encounter Additional Source Comments The information contained in this document represents components of the legal health record. It is not the complete legal health record.[facility]
--- OUTSIDE RECORDS SUMMARY | 2025-07-25 16:45 | XMS_ITS | Encounter Summary ---
Author Organization [facility] Address [address] [place] [address] [place] [address] Phone Care Team Providers Care Principal Scientist Name Role Phone Aide Adame MD Primary Care Provider + Johnathan Lisa MD, MPH Unavailable [phone] Jazzmine Zaman MD Unavailable [phone] System, Provider Not In PhD Primary Care Provide r Unavailable Adelaide Pollock MD Primary Care Provider + Encounter Details Date Type Department Care Team (Late st Contact Info) Description 07/06/2025 Telephone [facility] Neuromuscular Service [address] [place] [address] [place] [address] Adriana Rye MD, PhD [phone] [place] [address] [email or web address] Social History Tobacco Use Types [...] as of this encounter Progress Notes * Yamil Malik - 07/22/2025 8:34 AM EST Patient's daughter calling to requesting a call back if possible to go over next steps after denialof genetic testing. * Sandra Salas - 07/18/2025 10:05 AM EST Called patient's daughter to let her know unable to do genetic testing due to denial. Pt's daughteris requesting to know if she can become a patient of Dr. Chang Gallagher and then do the genetic testing herself? And requesting to speak to Dr. Chang Gallagher * Sandra Salas - 07/18/2025 8:14 AM EST Prior authorization has been denied because [facility] is non contracted with them. We can submit an appeal but not sure if it will be approved as the reason for denial is because [facility] is out of network for patients insurance * Sandra Salas - 07/14/2025 11:37 AM EDT Called [facility] to check on status of PA request that was faxed in on 07/06/25 . Pending Auth # [id number] The PA request is still under review, decision should be in place by 07/20/25 Call reference # [id number] * Sandra Salas - 07/06/2025 12:30 PM EDT Called [facility] at [phone] to obtain Prior auth for [facility] Genetic testing ordered by Dr. Chang Gallagher. CPT Codes 51959(x1) 21903 (x2) & G0452(1x) PA Required and for CCA Form has to be faxed in with clinicals to submit, unable to start case overthe phone or online. DX:G71.02 [facility] NPI : [id number] , [id number] Tax ID [id number] Tel. [phone] Fax. [phone] documented in this encounter Plan of Treatment Upcoming Encounters Date Type Department Care Team (Late st Contact Info) Description 08/15/2025 11:00 AM EST Appointment [facility] Pulmonary Function Lab [address] [place] [address] Maurilio Rojas MD [address] [place] [address] [email or web address] 08/15/2025 12:30 PM EST Office Visit [facility] Genetics 15 [place] [address] Jazzmine Zaman MD [address] [place] [address] [email or web address] 11/22/2025 12:00 PM EDT Office Visit [facility] Lung Center-Pulmonary Medicine [address] [place] [address] Maurilio Rojas MD [address] [place] [address] [email or web address] documented as of this encounter Visit Diagnoses Not on filedocumented in this encounter Additional Health Concerns Assessment Noted Time PHQ-2 Depression Total Score: 0 03/21/20 10:47 AM EDT documented as of this encounter Care Teams Principal Scientist Relationship Specialty Start Date End Date Aide Adame MD [address] [place] [address] PCP - General Internal Medicine 03/28/25 07/18/25 System, Provider Not In, PhD [address] [address] PCP - General 07/19/25 07/21/25 Adelaide Pollock MD [address] [place] [address] PCP - General Internal Medicine 07/22/25 Johnathan Lisa MD, MPH [address] [place] [address] [email or web address] Referring Physician Pulmonary Disease 03/28/25 Jazzmine Zaman MD [address] [place] [address] [email or web address] Referring Physician Pediatrics 03/28/25 documented as of this encounter Additional Source Comments The information contained in this document represents components of the legal health record. It is not the complete legal health record.[facility]
[2025-07-25 16:47] LABS: Aspartate Amino Transferase 23 U/L (5-31)
[2025-07-25 17:06] LABS: Ferritin 113 ng/mL (10-250); Prealbumin 17.0 mg/dL (20-40); Vitamin B12 425 pg/mL (200-900)
== END 2025-07-25 14:22 | disposition home or self-care (01) ==
LOC: HO.LAB 14:21
PROVIDERS: PCP Internal Medicine; Visit Provider Internal Medicine
DX: E03.8 Other specified hypothyroidism (principal); E46 Unspecified protein-calorie malnutrition; J84.10 Pulmonary fibrosis, unspecified; J84.9 Interstitial pulmonary disease, unspecified; D50.9 Iron deficiency anemia, unspecified; E55.9 Vitamin D deficiency, unspecified; L40.50 Arthropathic psoriasis, unspecified; M10.9 Gout, unspecified; M11.20 Other chondrocalcinosis, unspecified site
CPT/HCPCS: 36415; 80053; 82180; 82306; 82525; 82607; 82728; 83540; 83735; 84134; 84443; 84590; 85025; 85652

== ENCOUNTER 2025-08-08 14:22 | Outpatient (REF) | payer OTHER, SELFPAY ==
--- OUTSIDE RECORDS SUMMARY | 2013-06-10 23:00 | XMS_ITS | Encounter Summary ---
Author Organization [facility] Address [address] [facility] [address] [place] [address] Phone Care Team Providers Care Aircraft Line Assembler Name Role Phone Unavailable Primary Care Provider Unavailabl e Encounter Details Date Type Department Care Team (Late st Contact Info) Description 06/11/2013 Hospital Encounter [facility] 55 [place] [address] Jeff Hurst MD 55 [place] [address] [email or web address] Social History Tobacco Use Types Packs/Day [...] Info) Description 10/10/2025 9:30 AM EST Appointment [facility] Pulmonary Function Lab [address] [place] [address] Maurilio Rojas MD [address] [place] [address] [email or web address] 10/10/2025 10:30 AM EST Office Visit [facility] Genetics 15 [place] [address] Johnathan Lisa MD, MPH [address] [place] [phone] [email or web address] 11/22/2025 12:00 PM EDT Office Visit [facility] Lung Center-Pulmonary Medicine [address] [place] [address] Maurilio Rojas MD [address] [place] [address] [email or web address] documented as of this encounter Procedures Procedure Name Priority Date/Time Associated Diagnosis Comments CT CHEST OUTSIDE (NO INTERPRETATION) Routine 06/11/2013 12:00 AM EDT documented in this encounter Results * CT Chest Outside (No Interpretation) (06/11/2013 12:00 AM EDT) Narrative [facility] [place] - 04/23/2024 1:50 PM EDT This study is for PACS storage only and not for interpretation. us Jeff Hurst MD IMG OUTSIDE IMAGING W/OUT INTERPRETATION Final Result [facility] documented in this encounter Visit Diagnoses Not on filedocumented in this encounter Additional Source Comments The information contained in this document represents components of the legal health record. It is not the complete legal health record.[facility]
[2025-08-08 19:03] LABS: Potassium 4.4 mmol/L (3.3-5.1)
--- OUTSIDE RECORDS SUMMARY | 2025-08-08 19:18 | XMS_ITS | Encounter Summary ---
Author Organization [facility] Address [address] [place] [address] Phone Care Team Providers Care Knitter Operator Name Role Phone Adelaide Pollock MD Primary Care Provider + Aide Adame MD Primary Care Provider + Johnathan Lisa MD, MPH Unavailable [phone] Jazzmine Zaman MD Unavailable [phone] System, Provider Not In PhD Primary Care Provide r Unavailable Adelaide Pollock MD Primary Care Provider + Encounter Details Date Type Department Care Team (Late st Contact Info) Description 04/30/2024 Procedure Pass [facility], [address] [address] Social History Tobacco Use Types Packs/Day Years [...] Info) Description 10/10/2025 9:30 AM EST Appointment [facility] Pulmonary Function Lab [address] [place] [address] Maurilio Rojas MD [address] [place] [address] [email or web address] 10/10/2025 10:30 AM EST Office Visit [facility] Genetics [address] [place] [address] Johnathan Lisa MD, MPH [address] [place] [address] [email or web address] 11/22/2025 12:00 PM EDT Office Visit [facility] Lung Center-Pulmonary Medicine [address] [place] [address] Maurilio Rojas MD [address] [place] [address] [email or web address] documented as of this encounter Visit Diagnoses Not on filedocumented in this encounter Care Teams Knitter Operator Relationship Specialty Start Date End Date Adelaide Pollock MD PCP - General Internal Medicine 02/16/24 03/27/25 Aide Adame MD [address] [place] [address] PCP - General Internal Medicine 03/28/25 07/18/25 System, Provider Not In, [facility] [address] [address] PCP - General 07/19/25 07/21/25 Adelaide Pollock MD [address] [place] [address] PCP - General Internal Medicine 07/22/25 Johnathan Lisa MD, MPH [address] [place] [address] [email or web address] Referring Physician Pulmonary Disease 03/28/25 Jazzmine Zaman MD [address] [place] [address] [email or web address] Referring Physician Pediatrics 03/28/25 documented as of this encounter Additional Source Comments The information contained in this document represents components of the legal health record. It is not the complete legal health record.[facility]
--- OUTSIDE RECORDS SUMMARY | 2025-08-08 19:18 | XMS_ITS | Encounter Summary ---
Author Organization [facility] Address [address] [place] [address] Phone Care Team Providers Care Car Wash Attendant Name Role Phone Adelaide Pollock MD Primary Care Provider + Aide Adame MD Primary Care Provider + Johnathan Lisa MD, MPH Unavailable Jazzmine Zaman MD Unavailable [phone] System, Provider Not In PhD Primary Care Provide r Unavailable Adelaide Pollock MD Primary Care Provider + Encounter Details Date Type Department Care Team (Late st Contact Info) Description 11/30/2024 Ancillary Orders [facility] Arthritis Center Main [place] [address] [place] [address] Josh Davey MD 75 [place] [address] [email or web address] Arthralgia, unspecified joint (Primary Dx) Social [...] Info) Description 10/10/2025 9:30 AM EST Appointment [facility] Pulmonary Function Lab [address] [place] [address] Maurilio Rojas MD [address] [place], [place] [phone] [email or web address] 10/10/2025 10:30 AM EST Office Visit [facility] Genetics [address] [place] [address] Johnathan Lisa MD, MPH [address] [place] [address] [email or web address] 11/22/2025 12:00 PM EDT Office Visit [facility] Lung Center-Pulmonary Medicine [address] [place] [address] Maurilio Rojas MD [address] [place] [address] [email or web address] documented as of this encounter Results [...] clinician's provided indication for this examination in [facility]: Pain COMPARISON: XR FOOT 3 OR [...] clinician's provided indication for this examination in [facility]:Pain COMPARISON: XR FOOT 3 OR MORE [...] and hindfoot. No acute fracture or dislocation. Josh Davey MD IMG XR LOWER EXTREMITY Final Result documented in this encounter Visit Diagnoses Diagnosis Arthralgia, unspecified joint Arthralgia, unspecified joint- Primary documented in this encounter Additional Health Concerns Assessment Noted Time PHQ-2 Depression Total Score: 0 12/01/19 25 2:18 PM EDT documented as of this encounter Care Teams Car Wash Attendant Relationship Specialty Start Date End Date Adelaide Pollock MD PCP - General Internal Medicine 02/16/24 03/27/25 Aide Adame MD [address] [place] [address] PCP - General Internal Medicine 03/28/25 07/18/25 System, Provider Not In, PhD [address] [address] PCP - General 07/19/25 07/21/25 Adelaide Pollock MD [address] [place] [address] PCP - General Internal Medicine 07/22/25 Johnathan Lisa MD, MPH [address] [place] [address] [email or web address] Referring Physician Pulmonary Disease 03/28/25 Jazzmine Zaman MD [address] [place] [address] [email or web address] Referring Physician Pediatrics 03/28/25 documented as of this encounter Additional Source Comments The information contained in this document represents components of the legal health record. It is not the complete legal health record.[facility]
--- OUTSIDE RECORDS SUMMARY | 2025-08-08 19:18 | XMS_ITS | Encounter Summary ---
Author Organization [facility] Address [address] [place] [address] [place] [address] Phone Care Team Providers Care Timber Deadener Name Role Phone Adelaide Pollock MD Primary Care Provider + Aide Adame MD Primary Care Provider + Johnathan Lisa MD, MPH Unavailable [phone] Jazzmine Zaman MD Unavailable [phone] System, Provider Not In PhD Primary Care Provide r Unavailable Adelaide Pollock MD Primary Care Provider + Encounter Details Date Type Department Care Team (Latest Contact Info) Description 05/19/2024 Ancillary Orders [facility] Dermatology [facility] [address] [facility] [address]th [address], [address] [place] [address] Ce Luke MD [address] [facility] [address] [place] [address] [email or web address] Interstitial lung disease (Primary Dx) Social History [...] Info) Description 10/10/2025 9:30 AM EST Appointment [facility] Pulmonary Function Lab [address] [place] [address] Maurilio Rojas MD [address] [place] [address] [email or web address] 10/10/2025 10:30 AM EST Office Visit [facility] Genetics [address] [place] [address] Johnathan Lisa MD, MPH [address] [place] [address] [email or web address] 11/22/2025 12:00 PM EDT Office Visit [facility] Lung Center-Pulmonary Medicine [address] [place] [address] Maurilio Rojas MD [address] [place] [address] [email or web address] documented as of this encounter Results * [...] fibrosis documented in this encounter Care Teams Timber Deadener Relationship Specialty Start Date End Date Adelaide Pollock MD PCP - General Internal Medicine 02/16/24 03/27/25 Aide Adame MD [address] [place] [address] PCP - General Internal Medicine 03/28/25 07/18/25 System, Provider Not In, [place] [address] PCP - General 07/19/25 07/21/25 Adelaide Pollock MD [address] [place] [address] PCP - General Internal Medicine 07/22/25 Johnathan Lisa MD, MPH [address] [place] [address] [email or web address] Referring Physician Pulmonary Disease 03/28/25 Jazzmine Zaman MD [address] [place] [address] [email or web address] Referring Physician Pediatrics 03/28/25 documented as of this encounter Additional Source Comments The information contained in this document represents components of the legal health record. It is not the complete legal health record.[facility]
--- OUTSIDE RECORDS SUMMARY | 2025-08-08 19:18 | XMS_ITS | Encounter Summary ---
Author Organization [facility] Address [address] [place] [address] Phone Care Team Providers Care Liability Claims Representative Name Role Phone Adelaide Pollock MD Primary Care Provider + Aide Adame MD Primary Care Provider + Johnathan Lisa MD, MPH Unavailable [phone] Jazzmine Zaman MD Unavailable [phone] System, Provider Not In PhD Primary Care Provide r Unavailable Adelaide Pollock MD Primary Care Provider + Encounter Details Date Type Department Care Team (Late st Contact Info) Description 04/05/2024 Procedure Pass [facility], [address] [address] Social History Tobacco Use Types Packs/Day Years [...] Info) Description 10/10/2025 9:30 AM EST Appointment [facility] Pulmonary Function Lab 15 [place] [address] Maurilio Rojas MD [address] [place] [address] [email or web address] 10/10/2025 10:30 AM EST Office Visit [facility] Genetics [address] [place] [address] Johnathan Lisa MD, MPH [address] [place] [address] [email or web address] 11/22/2025 12:00 PM EDT Office Visit [facility] Lung Center-Pulmonary Medicine [address] [place] [address] Maurilio Rojas MD [address] [place] [address] [email or web address] documented as of this encounter Visit Diagnoses Not on filedocumented in this encounter Care Teams Liability Claims Representative Relationship Specialty Start Date End Date Adelaide Pollock MD PCP - General Internal Medicine 02/16/24 03/27/25 Aide Adame MD [address] [place] [address] PCP - General Internal Medicine 03/28/25 07/18/25 System, Provider Not In, PhD [facility] [address] [address] PCP - General 07/19/25 07/21/25 Adelaide Pollock MD [address] [place] [address] PCP - General Internal Medicine 07/22/25 Johnathan Lisa MD, MPH [address] [place] [address] [email or web address] Referring Physician Pulmonary Disease 03/28/25 Jazzmine Zaman MD [address] [place] [address] [email or web address] Referring Physician Pediatrics 03/28/25 documented as of this encounter Additional Source Comments The information contained in this document represents components of the legal health record. It is not the complete legal health record.[facility]
--- OUTSIDE RECORDS SUMMARY | 2025-08-08 19:18 | XMS_ITS | Encounter Summary ---
Author Organization [facility] Address [address] [place] [address] Phone Care Team Providers Care Health/Safety Job Titles Name Role Phone Adelaide Pollock MD Primary Care Provider + Aide Adame MD Primary Care Provider + Johnathan Lisa MD, MPH Unavailable [phone] Jazzmine Zaman MD Unavailable [phone] System, Provider Not In PhD Primary Care Provide r Unavailable Adelaide Pollock MD Primary Care Provider + Encounter Details Date Type Department Care Team (Late st Contact Info) Description 11/30/2024 Ancillary Orders [facility] Arthritis Center Main [place] 15 [place] [address] Josh Davey MD 75 [place] [address] [email or web address] Arthralgia, unspecified joint (Primary Dx) Social [...] Info) Description 10/10/2025 9:30 AM EST Appointment [facility] Pulmonary Function Lab [address] [place] [address] Maurilio Rojas MD [address] [place], [place] [phone] [email or web address] 10/10/2025 10:30 AM EST Office Visit [facility] Genetics [address] [place] [address] Johnathan Lisa MD, MPH [address] [place] [address] [email or web address] 11/22/2025 12:00 PM EDT Office Visit [facility] Lung Center-Pulmonary Medicine [address] [place] [address] Maurilio Rojas MD [address] [place] [address] [email or web address] documented as of this encounter Results [...] clinician's provided indication for this examination in [facility]: Pain COMPARISON: XR HAND 3 OR MORE VIEWS (BILATERAL) FINDINGS: Left hand: Diffuse osseous demineralization. No fracture. Severe osteoarthritis of the first carpometacarpal joint with joint space narrowing, hypertrophic changes, and osseous remodeling with adjacent ossific body. Moderate osteoarthritis of the triscaphe joint, first MCP joint, and first interphalangeal joint. Etwq-la-faffkzpl degenerative changes of additional scattered interphalangeal joints. Cystic changes within the carpal bones and fifth metacarpal head. Chondrocalcinosis of the TFCC. No focal soft tissue swelling. Right hand: Diffuse osseous demineralization. No fracture. Severe osteoarthritis of the first carpometacarpal joint with joint space narrowing, hypertrophic changes, and osseous remodeling. Moderate osteoarthritis of the radiocarpal joint and triscaphe joint. Afdp-ds-vpndxgxw degenerative changes of additional scattered interphalangeal joints. [...] joint, first MCPjoint, and first interphalangeal joint. Ybkb-do-mleesrwm degenerativechanges of additional scattered interphalangeal joints. Cystic changeswithin the carpal bones and fifth metacarpal head. Chondrocalcinosis ofthe TFCC. No focal soft tissue swelling. Right hand: Diffuse osseous demineralization. No fracture. Severeosteoarthritis of the first carpometacarpal joint with joint spacenarrowing, hypertrophic changes, and osseous remodeling. Moderateosteoarthritis of the radiocarpal joint and triscaphe joint.Qbjz-zr-zehhspxg degenerative changes of additional scatteredinterphalangeal joints. Cystic [...] which may be seen in CPPD. us Jsoh Davey MD IMG XR UPPER EXTREMITY Final Result documented in this encounter Visit Diagnoses Diagnosis Arthralgia, unspecified joint Arthralgia, unspecified joint- Primary documented in this encounter Additional Health Concerns Assessment Noted Time PHQ-2 Depression Total Score: 0 12/01/19 25 2:18 PM EDT documented as of this encounter Care Teams Health/Safety Job Titles Relationship Specialty Start Date End Date Adelaide Pollock MD PCP - General Internal Medicine 02/16/24 03/27/25 Aide Adame MD [address] [place] [address] PCP - General Internal Medicine 03/28/25 07/18/25 System, Provider Not In, PhD [address] [address] PCP - General 07/19/25 07/21/25 Adelaide Pollock MD [address] [place] [address] PCP - General Internal Medicine 07/22/25 Johnathan Lisa MD, MPH [address] [place] [address] [email or web address] Referring Physician Pulmonary Disease 03/28/25 Jazzmine Zaman MD [address] [place] [address] [email or web address] Referring Physician Pediatrics 03/28/25 documented as of this encounter Additional Source Comments The information contained in this document represents components of the legal health record. It is not the complete legal health record.[facility]
--- OUTSIDE RECORDS SUMMARY | 2025-08-08 19:19 | XMS_ITS | Clinical Summary ---
Author Organization [facility] Address [address] [place] [address] Phone Care Team Providers Care Pretzel Twisting Machine Operator Name Role Phone Adelaide Pollock MD Primary Care Provider [phone] Allergies Active Allergy Reactions Criticality Noted Date [...] Diagnosed Date Fatigue 03/08/2024 Interstitial lung disease ([facility] V24, [facility] V28) 03/08/2024 Hypotension 08/29/2022 Dyspnea 12/07/2020 Edema [...] Osteoarthritis DX:Osteoarthriti s Osteoporosis DX:Osteoporosis Polymyalgia rheumatica ([facility] V24) DX:Polymyalgia rheumatica ([facility]) Pseudogout DX:Pseudogout Rash DX:Rash Reflux esophagitis [...] Depression Screening 09/15/2024 COVID-19 Vaccine (1 - 2024-2 6 season) 2025 Influenza Vaccine (#1) 2025 HIB [...] patient's age to complete this topic Insurance [facility] Member Subscriber Plan / Payer ( fective 2010-Present) Name:Apryl Downing Relation to Subscriber:Self Name:Apryl Downing Payer ID:[id number] Group ID:Not on file Type:Not on file Address: [address] [place] [address] [employer] MEDICARE Member Subscriber Plan / Payer (Ef fective 2010-Present) Name:Apryl Downing Relation to Subscriber:Self Name:Apryl Downing Payer ID:[id number] Group ID:[id number] Type:Not on file Address: [address] [place] [address] Care Teams Pretzel Twisting Machine Operator Relationship Specialty Start Date End Date Adelaide Pollock MD [address] [place] [address] PCP - General Internal Medicine 05/13/13
--- OUTSIDE RECORDS SUMMARY | 2025-08-08 19:19 | XMS_ITS | Clinical Summary ---
Author Organization [facility] Address [address] [place] [address] Phone Care Team Providers Care Human Service Technician Name Role Phone Johnathan Lisa MD, MPH Unavailable [phone] Jazzmine Zaman MD Unavailable [phone] Adelaide Pollock MD Primary Care Provider + [...] Type Department Care Team Description 07/22/2025 Telephone 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 Genetics 15 [place] [address] Jazzmine Zaman MD 07/06/2025 Telephone [facility] [address] [facility] [address] [place] [address] Adriana Rey MD, PhD 06/02/2025 10:30 AM EDT Telemedicine [facility] [address] [place] [address] Adriana Rey MD, PhD Weakness (Primary Dx) 05/24/2025 Telephone [facility] [address] [place] [address] Adriana Rey MD, PhD from Last 3 Months Immunizations Immunization Administration [...] Info) Description 10/10/2025 9:30 AM EST Appointment [facility] Pulmonary Function Lab [address] [place] [address] Maurilio Rojas MD [address] [place] [address] [email or web address] 10/10/2025 10:30 AM EST Office Visit [facility] Genetics 15 [place] [address] Johnathan Lisa MD, MPH [address] [place] [address] [email or web address] 11/22/2025 12:00 PM EDT Office Visit [facility] Lung Center-Pulmonary Medicine [address] [place] [address] Maurilio Rojas MD [address] [place] [address] [email or web address] Health Maintenance Due Date Last Done Comments ZOSTER VACCINES (1 of 2) 1994 OSTEOPOROSIS SCREENING INITI AL (ONE-TIME) 2009 PNEUMOCOCCAL VACCINES (50+ y ears) (2 of 2 - PCV) 06/03/2012 06/03/2011 RSV VACCINE (1 - 1-dose 75+ series) 2019 Adult Td,Tdap Booster 08/15/2021 08/15/2011 INFLUENZA VACCINE (#1) 2025 COVID-19 VACCINE (1 - 2024-2 6 season) 2025 DEPRESSION SCREENING [...] REPLACEMENT MEDICARE REPLACEMENT MEDICARE REPLACEMENT MEDICARE REPLACEMENT [place] [id number] MEDICARE REPLACEMENT MEDICARE REPLACEMENT [place] [id number] Care Teams Human Service Technician Relationship Specialty Start Date End Date Adelaide Pollock MD [address] [place] [address] PCP - General Internal Medicine 07/22/25 Johnathan Lisa MD, MPH [address] [place] [address] [email or web address] Referring Physician Pulmonary Disease 03/28/25 Jazzmine Zaman MD [address] [place] [address] [email or web address] Referring Physician Pediatrics 03/28/25 Additional Source Comments The information contained in this document represents components of the legal health record. It is not the complete legal health record.[facility]
--- OUTSIDE RECORDS SUMMARY | 2025-08-08 19:19 | XMS_ITS | Encounter Summary ---
Author Organization [facility] Address [address] [place] [address] [place] [address] Phone Care Team Providers Care Professor Of Industrial Technology Name Role Phone Johnathan Lisa MD, MPH Unavailable [phone] Jazzmine Zaman MD Unavailable Adelaide Pollock MD Primary Care Provider + Reason for Visit * Reason Onset Date Comments Results 07/22/2025 Encounter Details Date Type Department Care Team (Late st Contact Info) Description 07/22/2025 Telephone [facility] Genetics 15 [place] [address] Jazzmine Zaman MD [address] [place] [address] [email or web address] Results Social History Tobacco Use Types Packs/Day [...] pt would like to have results from [facility] Liver Elastography (Fibroscan) completed on 07/18/25 be made available for pt to see. Please advise. CB# [phone] Thank you Aline Lombardo Pt Access Center Coordinator Department Of Medicine documented in this encounter Plan of Treatment Upcoming Encounters Date Type Department Care Team (Late st Contact Info) Description 10/10/2025 9:30 AM EST Appointment [facility] Pulmonary Function Lab [address] [place] [address] Maurilio Rojas MD [address] [place] [address] [email or web address] 10/10/2025 10:30 AM EST Office Visit [facility] Genetics [address] [place] [address] Johnathan Lisa MD, MPH [address] [place] [phone] [email or web address] 11/22/2025 12:00 PM EDT Office Visit [facility] Lung Center-Pulmonary Medicine [address] [place] [address] Maurilio Rojas MD [address] [place] [address] [email or web address] documented as of this encounter Visit Diagnoses Not on filedocumented in this encounter Additional Health Concerns Assessment Noted Time PHQ-2 Depression Total Score: 0 07/18/20 10:43 AM EST documented as of this encounter Care Teams Professor Of Industrial Technology Relationship Specialty Start Date End Date Adelaide Pollock MD [address] [place] [address] PCP - General Internal Medicine 07/22/25 Johnathan Lisa MD, MPH [address] [place] [address] [email or web address] Referring Physician Pulmonary Disease 03/28/25 Jazzmine Zaman MD [address] [place] [address] [email or web address] Referring Physician Pediatrics 03/28/25 documented as of this encounter Additional Source Comments The information contained in this document represents components of the legal health record. It is not the complete legal health record.[facility]
--- OUTSIDE RECORDS SUMMARY | 2025-08-08 19:19 | XMS_ITS | Encounter Summary ---
Author Organization [email or web address] [facility] Address [address] [place] [address] [place] [address] Phone Care Team Providers Care Fusing Furnace Loader Name Role Phone Johnathan Lisa MD, MPH Unavailable [phone] Jazzmine Zaman MD Unavailable System, Provider Not In PhD Primary Care Provide r Unavailable Adelaide Pollock MD Primary Care Provider + Encounter Details Date Type Department Care Team (Late st Contact Info) Description 07/19/2025 Telephone [facility] [address] [place] [address] Jazzmine Zaman MD [address] [place] [address] [email or web address] Social History Tobacco Use Types [...] requesting to speak with Dahlia at the front office attendant. She states Dahlia was helping her with [...] Info) Description 10/10/2025 9:30 AM EST Appointment [facility] Pulmonary Function Lab [address] [place], [place] [id number] Maurilio Rojas MD [address] [place] [address] [email or web address] 10/10/2025 10:30 AM EST Office Visit [facility] Genetics [address] [place] [address] Johnathan Lisa MD, MPH [address] [place] [phone] [email or web address] 11/22/2025 12:00 PM EDT Office Visit [facility] Lung Center-Pulmonary Medicine [address] [place] [address] Muarilio Rojas MD [address] [place] [address] [email or web address] documented as of this encounter Visit Diagnoses Not on filedocumented in this encounter Additional Health Concerns Assessment Noted Time PHQ-2 Depression Total Score: 0 07/18/20 10:43 AM EST documented as of this encounter Care Teams Fusing Furnace Loader Relationship Specialty Start Date End Date System, Provider Not In, PhD [address] [address] PCP - General 07/19/25 07/21/25 Adelaide Pollock MD [address] [place] [address] PCP - General Internal Medicine 07/22/25 Johnathan Lisa MD, MPH [address] [place] [phone] [email or web address] Referring Physician Pulmonary Disease 03/28/25 Jazzmine Zaman MD [address] [place] [address] [email or web address] Referring Physician Pediatrics 03/28/25 documented as of this encounter Additional Source Comments The information contained in this document represents components of the legal health record. It is not the complete legal health record.[facility]
--- OUTSIDE RECORDS SUMMARY | 2025-08-08 19:19 | XMS_ITS | Data Portability ---
Author Organization [place] [facility] Address [address] [place] [address] Care Team Providers Care Executive Receptionist Name Role Phone HERMANN DILLON Primary Care Provider [phone] Assessment Encounter Date Assessment Date Assessment LastModified by Organization Details LastModified Time 12/02/2019 12/02/2019 Overview/History : 74 yo female new to and this provider who presents with complain of right lower extremity pain; patient is Citizen [place] speaking only, her daughter, who is her POA, is present and acted as an calibration checker. Patient complain of severe 10/10 pain in [...] in couch conversing with staff in her [place] tongue (Citizen [place]) and answering all questions appropriately. No acute [...] questions were answered prior to team departure. [email or web address] Not available 01/25/2022 19:07:17 Plan of Treatment Reminders Order Date Submit Date Provider Last Modified By Organization Details Last Modified Time Details Appointments None recorded. Lab 6+ iStat 2019 020 [email or web address] [facility], [address] [place], [address], 0 11:30:47 creatinine , blood 2019 020 [email or web address] [facility], [address] [place], [address], 0 11:52:08 Referral None recorded. Procedures None recorded. Surgeries None recorded. Imaging US, duplex, venous, extremity, limited 2021 [facility] [address] [facility], [place], [address], 2 17:41:55 XR, chest, 2 view - [facility]dered by [facility] 2021 [facility] [address] [facility], [place], [address], 2 14:40:38 XR, knee, 1 or 2 view - pain and swelling of knee joint 2019 020 [facility] ([facility]), [address] [place], [address], 0 08:39:18 XR, ankle, 2 view - pain and sweeling of the ankle joint 2019 020 [facility] ([facility]), [address] [place], [address], 0 08:39:19 US, duplex, venous, extremity, complete 2019 020 [facility] ([facility]), [address] [place], [address], 0 08:39:19 Medication Orders ketorolac 30 mg/mL (1 mL) injection solution 2019 020 nyuzych [id number], [address] [place], [address], 0 11:52:08 meloxicam 7.5 mg tablet 2019 020 INTERFACE [id number], [address] [place], [address], 0 11:52:14 Patient TargetsNo targets recorded. Patient Instructions Encounter Date Encounter Id Patient Instructions Last Modified By Organization Details Last Modified Time 12/02/2019 [id number] Thank you for yo ur visit with [facility] today. We cannot always find the exact [...] in your condition between 8am-10pm, please call [facility] at [phone] to help navigate your care. [email or web address] Not available 12/02/2019 11:52:35 01/25/2022 [id number] Please make an appt with PCP in 3-5 days to discuss ongoing symptoms/ further management. Chest x ray and U/S pending. The patient is also advised to go to the ED immediately for any worsening symptoms. The patient understood and agreed with this plan. The patient was given discharge instructions and all questions were answered prior to DH team departure. [email or web address] Not available 01/25/2022 19:08:53 Reason for Referral None Reported. Results Created Date Observation Date Name Description Value Unit Range Abnormal Flag Note LastModifiedBy Organization Detail LastModifiedTime 12/02/19 20 12/02/2019 creat inine , blood crea 0.6 mg/dL 0.6-1. 3 Not Available [facility] [address] [place], [address], 12/02/2019 11:27:58 12/02/19 20 12/02/2019 6+ iStat Na 136 mmol/ L 138-14 6 Not Available [facility] [address], [place], [address], 12/02/2019 11:27:38 12/02/19 20 12/02/2019 6+ iStat K 4.0 mmol/ L 3.5-4. 9 Not Available [facility] [address] [place], [address], 12/02/2019 11:27:38 12/02/19 20 12/02/2019 6+ iStat cL 100 mmol/ L 98-109 Not Available [facility] [address] [place], [address], 12/02/2019 11:27:38 12/02/19 20 12/02/2019 6+ iStat BUN 14 mg/dL 8-26 Not Available [facility] [address], [place], [address], 12/02/2019 11:27:38 12/02/19 20 12/02/2019 6+ iStat glu 119 mg/dL 70-105 Not Available [facility] [address], [place], [address], 12/02/2019 11:27:38 12/02/19 20 12/02/2019 6+ iStat HCT 36 %_pcv 37-47 Not Available [facility] [address], [place], [address], 12/02/2019 11:27:38 12/02/19 20 12/02/2019 6+ iStat Hb 12.2 g/dL 12-17 Not Available [facility] [address], [place], [address], 12/02/2019 11:27:38 12/02/19 20 12/02/2019 knee AP [...] HERNANDEZ D.O. 020 5:56:[address] [facility] [address], [place], [address], 12/06/2019 10:07:23 12/02/19 20 12/02/2019 ankle AP [...] HERNANDEZ D.O. 020 5:56:0 8 PM EDT. [email or web address] [facility] ([facility]) [address], [place], [place], [address], 12/21/2019 17:10:23 12/03/19 20 12/03/2019 venou s [...] l, greate r saphen ous, poplit eal, nuclear waste management engineer ior tibial , and calf veins. There [...] l, greate r saphen ous, poplit eal, nuclear waste management engineer ior tibial , and calf veins. There [...] 020 5:16:1 3 PM EDT. [facility] [address], [place], [address], 12/06/2019 10:07:23 01/27/20 22 01/26/2022 XR, chest [...] SOFYA CAPUTO D.O. 2:33:1 2 PM EDT. [facility] [address] [facility] [address], [place], [address], 01/28/2022 16:45:25 01/29/20 22 01/28/2022 venou s [...] l, greate r saphen ous, poplit eal, nuclear waste management engineer ior tibial , and calf veins. There [...] l, greate r saphen ous, poplit eal, nuclear waste management engineer ior tibial , and calf veins. There [...] 022 5:35:0 3 PM EDT. [email or web address] [place] [address], [place], [address], 01/31/2022 09:21:54 Result Notes Documentation Provider Name [...] EDT. Cleo Orr NP [address], [place], [address], [place] [facility] 01/28/2022 16:45:25 Procedures Surgical History Date Name Laterality Status Provider Name and Address Organization Details Recorded Time 12/02/19 20 Venipuncture - DH completed MITZ[place] ESCOTO [address], [place], [address], [place] [facility] 12/02/2019 12:34:24 Imaging Results None recorded. Procedure Notes None recorded. Medical Equipment None Reported. Allergies Allergen ID Allergen Name Allergen Category Reaction Reaction Severity Criticality Documentation Date Start Date Code Code System Note Provider Name and Address Organization Details Recorded Time 72102 Levaquin medicatio n Not available Not available Not available 12/02/2019 44478 2 RxNorm MITZI ESCOTO [address], [place], [address], [place] [facility] 0 10:52:25 18620 vancomyci n medicatio n Not available Not available Not available 12/02/2019 69205 RxNorm MITZI ESCOTO [address], [place], [address], [place] [facility] 0 10:52:49 56732 doxycycli ne Not available Not available Not available Not available 12/02/2019 3640 RxNorm MITZI ESCOTO [address], [place], [place], [address], [place] [facility] 0 10:52:55 65924 codeine medicatio n Not available Not available Not available 12/02/2019 2670 RxNorm MITZI ESCOTO [address], [place], [place], [address], [place] [facility] 0 10:53:02 65686 iodine medicatio n Not available Not available Not available 12/02/2019 5933 RxNorm MITZI ESCOTO [address] [place], [address], [place] [facility] 0 10:53:11 Medications Name Sig Start Date [...] Recorded Respiratory rate Body temperature Oxygen saturation Heart rate Systolic And Diastolic Provider Name and Address Organization Details Last Updated DateTime 0 18 /min 99.5 [degF] 98 % 98 /min 122/64 mm[Hg] Not Available [facility] 0 10:59:23 Date Recorded Oxygen saturation Respiratory rate Body temperature Heart rate Systolic And Diastolic Provider Name and Address Organization Details Last Updated DateTime 2 95 % 18 /min 97.4 [degF] 90 /min 122/70 mm[Hg] Not Available [facility] 2 17:19:55 Social History Question Answer Notes LastModified by Organizat ion Details LastModified Time Tobacco Smoking Status Never Smoker MITZI ESCOTO [address], [place], [address], [place] [facility] 12/02/2019 12:11:31 Do You [...] Visiting Friends Or Family Or Going To Congregational Or Club Meetings) 5 Or More Times [...] ICD10 Code Diagnosis IMO Codes Diagnosis Note [id number] [facility] ESCOTO [facility] [address] [place] [address] 12/02/2019 10:50:22 12/03/2019 12:24:59 Pain in lower limb 66701502 M79.604 Polymyalgi a rheumatica [id number] M35.3 [id number] March MARSHALL Weaver [facility] [address] [place] [address] 01/25/2022 17:07:23 01/29/2022 09:26:06 Pain in left lower limb [id number] M79.605 Wheezing 22599048 R06.2 Health Concerns Section Related Observation LastModified by Organization Detai ls LastModified Time None Recorded Concern Status LastModified by Organization Details LastModified Time None Recorded Advance Directives Directive N: Payers Insurance Date Sequence Insurance Name Policy Number Policy Smith Covered Member ID Smith Member ID Guarantor Name 12/01/2019 1 *SELF PAY* Apryl Downing [id number] Apryl Downing 01/25/2022 1 [facility] - DOS PRIOR TO 2022 - DUAL ELIGIBLE (MEDICARE REPLACEMENT/ADV ANTAGE - HMO) Apryl Downing [id number] Apryl Downing Notes Date Note Type Note Provider Name and Address Organization Details Recorded Time 12/02/2019 text/html Mrs. Downing is a 74 yo female new to and this provider who presents with complain of right lower extremity pain; patient is Citizen Of [place] speaking only, her daughter, who is her POA, is present and acted as an calibration checker. Patient complain of severe 10/10 pain in [...] urinary symptoms. MITZI ESCOTO [address], [place], [address], [place] [facility] 12/02/2019 12:49:52 01/25/2022 text/html [...] trauma. Mandy Weaver NP [address], [place], [address], [place] [facility] 01/25/2022 19:09:02 OBGyn Episode No OBEpisode recorded.
--- OUTSIDE RECORDS SUMMARY | 2025-08-08 19:19 | XMS_ITS | Encounter Summary ---
Author Organization [facility] Address [address] [place] [address] [place] [address] Phone Care Team Providers Care Custom Framing Specialist Name Role Phone Adelaide Pollock MD Primary Care Provider + Aide Adame MD Primary Care Provider + Johnathan Lisa MD, MPH Unavailable [phone] Jazzmine Zaman MD Unavailable [phone] System, Provider Not In PhD Primary Care Provide r Unavailable Adelaide Pollock MD Primary Care Provider + Encounter Details Date Type Department Care Team (Late st Contact Info) Description 03/22/2025 Procedure [facility] [address] [place] [address] Social History Tobacco Use Types Packs/Day Years [...] Info) Description 10/10/2025 9:30 AM EST Appointment [facility] Pulmonary Function Lab [address] [place] [address] Maurilio Rojas MD [address] [place] [address] [email or web address] 10/10/2025 10:30 AM EST Office Visit [facility] Genetics [address] [place] [address] Johnathan Lisa MD, MPH [address] [place] [address] [email or web address] 11/22/2025 12:00 PM EDT Office Visit [facility] Lung Center-Pulmonary Medicine [address] [place] [address] Maurilio Rojas MD [address] [place] [address] [email or web address] documented as of this encounter Visit Diagnoses Not on filedocumented in this encounter Additional Health Concerns Assessment Noted Time PHQ-2 Depression Total Score: 0 03/21/20 10:47 AM EDT documented as of this encounter Care Teams Custom Framing Specialist Relationship Specialty Start Date End Date Adelaide Pollock MD PCP - General Internal Medicine 02/16/24 03/27/25 Aide Adame MD [address] [place] [address] PCP - General Internal Medicine 03/28/25 07/18/25 System, Provider Not In, PhD [facility] [address] [address] PCP - General 07/19/25 07/21/25 Adelaide Pollock MD [address] [place] [address] PCP - General Internal Medicine 07/22/25 Johnathan Lisa MD, MPH [address] [place] [address] [email or web address] Referring Physician Pulmonary Disease 03/28/25 Jazzmine Zaman MD [address] [place] [address] [email or web address] Referring Physician Pediatrics 03/28/25 documented as of this encounter Additional Source Comments The information contained in this document represents components of the legal health record. It is not the complete legal health record.[facility]
== END 2025-08-08 14:23 | disposition home or self-care (01) ==
LOC: HO.HKASLDS 14:22
PROVIDERS: PCP Internal Medicine; Visit Provider Internal Medicine
DX: E87.5 Hyperkalemia (principal); E03.8 Other specified hypothyroidism; D50.9 Iron deficiency anemia, unspecified; E55.9 Vitamin D deficiency, unspecified; E46 Unspecified protein-calorie malnutrition
CPT/HCPCS: 36415; 82306; 84132

== ENCOUNTER 2025-08-18 09:13 | Outpatient (AMB) | payer OTHER, SELFPAY ==
--- OUTSIDE RECORDS SUMMARY | 2013-06-10 23:00 | XMS_ITS | Encounter Summary ---
Author Organization [facility] Address [address] [facility] [address] [place] [phone] Phone Care Team Providers Care Traffic Clerk Name Role Phone Unavailable Primary Care Provider Unavailabl e Encounter Details Date Type Department Care Team (Late st Contact Info) Description 06/11/2013 Hospital Encounter [facility] 55 [place] [address] Jeff Hurst MD 55 [place] [address] [email or web address] Social History Tobacco Use Types Packs/Day Years [...] Care Team (Late st Contact Info) Description 10/10/2025 9:30 AM EST Appointment [facility] Pulmonary Function Lab [address] [place] [address] Maurilio Rojas MD [address] [place] [address] [email or web address] 10/10/2025 10:30 AM EST Office Visit [facility] Genetics 15 [place] [address] Johnathan Lisa MD, MPH [address] [place] [phone] [email or web address] 11/22/2025 12:00 PM EDT Office Visit [facility] Lung Center-Pulmonary Medicine [address] [place] [address] Maurilio Rojas MD [address] [place] [phone] [email or web address] documented as of this encounter Procedures Procedure Name Priority Date/Time Associated Diagnosis Comments CT CHEST OUTSIDE (NO INTERPRETATION) Routine 06/11/2013 12:00 AM EDT documented in this encounter Results * CT Chest Outside (No Interpretation) (06/11/2013 12:00 AM EDT) Narrative [facility] [place] - 04/23/2024 1:50 PM EDT This study is for PACS storage only and not for interpretation. us Jeff Hurst MD IMG OUTSIDE IMAGING W/OUT INTERPRETATION Final Result [facility] documented in this encounter Visit Diagnoses Not on filedocumented in this encounter Additional Source Comments The information contained in this document represents components of the legal health record. It is not the complete legal health record.[facility]
--- OUTSIDE RECORDS SUMMARY | 2025-08-11 22:07 | XMS_ITS | Encounter Summary ---
Author Organization [facility] Address [address] [place] [address] Care Team Providers Care Hydraulic Controls Technician Name Role Phone Adelaide Pollock MD Primary Care Provider [phone] Reason for Referral * Home Health (Routine) - Closed Specialty Diagnoses / Procedures Referred By Beba fuentes Referred To Contact Home Health Services Diagnoses Weakness Adelaide Hunter PA [address] [place] [id number] Phone: tel: fax: [facility] [address] [place] [address] Phone: tel: fax: Referral ID Status Reason Start Date Expiration Date V isits Requested Visits Authorized [id number] Closed Consult and Treat 08/13/2025 08/13/2026 1 1 Reason for Visit * Reason Comments Weakness - Generalized * Auth/Cert (Routine) Specialty Diagnoses / Procedures Referred By Beba t Referred To Contact Diagnoses Neck pain, acute Sepsis secondary to UTI (CMS/HCC V24, CMS/HCC V28) Urinary tract infection, acute Generalized weakness Ambulatory dysfunction Closed Colles' fracture of right radius with routine healing, subsequent encounter Acute midline low back pain without sciatica Acute bilateral low back pain without sciatica Sepsis without septic shock (CMS/HCC V24, CMS/[facility] V28) Procedures . Omar Kyle MD [address] [place] [address] Phone: tel: fax: [facility] [address] [place] [phone] Phone: tel: Referral ID Status Reason Start Date Expiration Date Visits Re quested Visits Authorized [id number] 1 1 Encounter Details Date Type Department Care Team (Late st Contact Info) Description 08/11/2025 10:07 PM EST - 08/13/2025 4:24 PM EST Hospital Encounter [facility] Medical Surgical Unit [address] [place] [phone] Allen Guerrero MD [address] [place] MITZI Chaudhary [id number] Omar Kyle MD [address] [place] [address] [phone] Anton Dhaliwal MD [address] [place] [phone] Sepsis without septic shock (CMS/[facility] V24, CMS/[facility] V28) (Primary Dx); Urinary tract infection, acute; Closed Colles' fracture of right radius with routine healing, subsequent encounter; Generalized weakness; Ambulatory dysfunction; Acute midline low back pain without sciatica; Neck pain, acute; Acute bilateral low back pain without sciatica; Weakness Discharge Disposition: Home-Health Care Svc Social History Tobacco Use Types Packs/Day Years Used Date Smoking Tobacco: Never Smokeless Tobacco: Never Alcohol Use Standard Drinks/Week Comments No 0 (1 standard drink = 0.6 oz pur e alcohol) Housing Instability Answer Date Recorde d Are you worried that in the next 2 months you may not have stable housing? Patient declined 08/12/2025 Food Access & Nutrition Answer Date Rec orded Do you have access to a vari ety of food including fruits and vegetables? Patient declined 08/12/2025 Access to Healthcare Answer Date Record ed Within the last 3 months, ho w many times did you visit the emergency department for your medical care? 1 08/12/2025 Health Literacy Answer Date Recorded How often do you need to hav e someone help you when you read instructions, pamphlets, or other written material from your doctor or pharmacy? Patient declined 08/12/2025 Caregiver: How often do you need to have someone help you when you read instructions, pamphlets, or other written material from your doctor or pharmacy? Not on file 025 Financial Risk Answer Date Recorded How hard is it for you to pa y for the very basics like food, housing, medical care, and air conditioning / heating? Patient declined 08/12/2025 Transportation Answer Date Recorded Has the lack of transportati on kept you from meetings, work, or from getting things needed for daily living? Patient declined 08/12/2025 Has the lack of transportati on kept you from medical appointments or from getting medications? Patient declined 08/12/2025 Social Isolation Answer Date Recorded How often do you feel lonely or isolated from those around you? Patient declined 08/12/2025 Food Risk Answer Date Recorded Within the past 12 months we worried whether our food would run out before we got money to buy more. Patient declined 025 Within the past 12 months th e food we bought just didn't last and we didn't have money to get more. Patient declined 07/17 Dependent Care Answer Date Recorded Do you need help finding or paying for care for your loved ones. For example, children counselor or elderly care for an older adult? Patient declined 08/12/2025 Education Answer Date Recorded Do you think completing more education or training, like finishing a GED, going to college, or learning a trade, would be helpful for you? Patient declined 08/12/2025 Employment and Income Answer Date Recor ded During the last four weeks, have you been actively looking for work? Patient declined 08/12/2025 Living Situation Answer Date Recorded What is your living situation? Unrecognized valu e 08/12/2025 Interpersonal Safety Answer Date Record ed Physical Abuse Unrecognized value 08/12/2025 Verbal Abuse Unrecognized value 08/12/2025 Comments No Sex and Gender Information Value Date Recorded Sex Assigned at Female 08/12/2025 10:39 AM EST Legal Sex Female 6:18 PM EST Gender Identity Female 08/12/2025 10:39 AM EST Sexual Orientation Straight 08/12/2025 10 :39 AM EST documented as of this encounter Last Filed Vital Signs Vital Sign Reading Time Taken Comments Blood Pressure 119/71 08/13/2025 3:31 PM EST Pulse 96 08/13/2025 3:31 PM EST Temperature 36.8 C (98.2 F) 08/13/2025 3:31 PM EST Respiratory Rate 20 08/13/2025 3:31 PM EST Oxygen Saturation 97% 08/13/2025 3:31 PM EST Inhaled Oxygen Concentration - - Weight 61.2 kg (135 lb) 08/11/2025 9:29 PM EST Height 157.5 cm (5' 2 ) 08/11/2025 9:29 PM EST Body Mass Index 24.69 08/11/2025 9:29 PM EST documented in this encounter Functional Status * Calculated C-SSRS Risk Score (Lifetime/Recent) Answer Date of Assessment Author No Risk Indicated 08/12/2025 10:42 AM EST Genevieve Merchant RN * [place] Suicide Severity Rating Scale (Screener/Recent Self-Report) Question Answer Date of Assessment Author 1. Wish to be (Past 1 Month) No 08/12/2025 10:42 AM Jhony Aguilar RN 2. Non-Specific Active Suici laxmi Thoughts (Past 1 Month) No 08/12/2025 10:42 AM EST Me jhonny Berry RN 6. Suicidal Behavior (Lifetime) No 10:42 AM Genevieve Aguilar RN documented as of this encounter Discharge Summaries * MITZI Shi - 08/13/2025 12:30 PM EST Images from the original note were not included. [facility] DISCHARGE SUMMARY Patient Information Apryl Downing : 1945 [80 y.o.] Admitting Provider Omar Kyle MD Discharge Provider MITZI Shi, Anton Dhaliwal MD Primary Care Physician Adelaide Pollock MD Admission Date 08/11/2025 Discharge Date 08/13/2025 Summary of Hospital Problems Primary Discharge Diagnosis: Weakness Secondary Discharge Diagnosis: Comminuted fracture of the distal radius s/p Closed Reduction GERD Diabetes mellitus type 2 Pulmonary fibrosis Telomere biology disorder Scoliosis of the spine History of systemic inflammation Osteoarthritis History of pseudogout Discharge Destination: Intensive rehabilitation Code Status at Discharge: Full Code - Default Hospital Course Summary LOS: 1 day Ms. Nguyễn is an 80 year-old female with history of familial fibrotic interstitial lung disease,type 2 diabetes mellitus, GERD who presents to the [facility] Emergency Department with generalized weakness. The patient was initially seen in the Emergency Department on 08/09/2025 after she had a mechanical fall at home and suffered a right distal radius fracture for which she underwent closed reduction and splinting with orthopedic surgery. She was discharged to home. Since being home she has had increasing weakness. She has had increased difficulty ambulating and low back pain. Family had brought her back to the Emergency Department for further evaluation. Vital signs were remarkable for tachycardia. The patient was afebrile with Tmax of 37.4 C. Laboratories were personally reviewed. CBC demonstrated a leukocytosis of 11,400 /uL with neutrophil predominance. Chemistries were fairly unremarkable with slight elevations in alkaline phosphatase and bilirubin. BNP and troponin were normal at 30 pg/mL and 6 ng/L. Lactic acid was normal at 1.1 mmol/L. TSHwas normal at 2.87 uIU/mL. Urinalysis revealed pyuria. Viral respiratory panel was negative. CT of the cervical spine was personally reviewed and was without acute fracture or subluxation. CT of the lumbar spine showed mild degenerative changes but no acute changes. Chest x-ray was personally reviewed and demonstrated pulmonary fibrosis but was without acute cardiopulmonary disease. ECG was personally reviewed and demonstrated sinus tachycardia. The patient was administered acetaminophen and a liter of crystalloid. The Hospitalist service was consulted for admission. On evaluation, the patient's daughter reports that the patient has not been able to walk they returned home from the Emergency Department. She typically is ambulatory with a walker. She has been becoming increasingly weak. Tonight, even with maximal assistance from her daughter, the patient was unable to stand. Her daughter reports that it took her nearly 1.5 hours to move the patient from her chair to the toilet so that she could use the bathroom. She became concerned for a possible cauda equina syndrome as one of her family members ended up with permanent weakness after the diagnosis was missed. She does not think her mother has a UTI as she cares for her mother 24 hours a day, and the patient has not reported any of her usual symptoms of dysuria or frequency. She also was concerned by the swelling and duskiness of the patient's right hand at home, symptoms which have since resolved in the Emergency Department with elevation of the limb. [Omar Kyle MD 08/11/25 This is an 80-year-old female with history of familial fibrotic interstitial lung disease, recent diagnosis of short telomere syndrome, diabetes mellitus type 2, GERD, recently question the possibility of FSHD muscular dystrophy however genetic testing was declined by her insurance presents status post fall with severe acute lower extremity weakness. 1. General weakness Looking at her records it is noted that she was having generalized weakness for quite some time andhad reestablish care With Adriana Gallagher MD who specializes in neuromuscular division at [facility]. At her visit in May it is documented that she has been experiencing more muscle weakness and fatigue. From a previous note in 12/17/24: It is unclear to me whether there is any degree of muscle weakness in the presence of severe pain that interfered with strength exam, and shortness of breath in the setting of ILD. She is connected with Rheumatology, Dermatology and Pulmonary. Her muscle MRIs, EMG and myositis panel have been all unremarkable, so a muscle biopsy will belikely of low diagnostic yield in these settings, but if no clear diagnosis, we could consider muscle and fascia biopsy . Daughter reports weakness to this degree only occurred this past week. Her fall on 08/09 was precipitated by profound weakness resulting in right wrist fracture. Daughter is concerned that there is no difficulty ambulating prior to her fall and she is concerned there may be something going on in her spine. Patient's exam as below. No complaint of back pain or point tenderness on exam. There is a note she may have had PMR in the past. Patient's ESR is elevated at 88 however daughter reports that she has had extensive rheumatologic workup and was told that she does not have PMR. Elevation in ESR and CRP levels may be in response to her acute fracture. CPK level is within normal limits, not elevated. I do not see anything on physical exam that is concerning. Daughter was questioning cauda equina syndrome. CT imaging obtained of cervical, thoracic and lumbar spine without any evidence of cord compression. There is no saddle anesthesia, bowel or bladder incontinence. Sensation is intact. Strength though decreased is not alarming. Substantial difficulties upon standing noted. Daughter is requesting further imaging with MRI however there is no clinical evidence to warrant additional imaging at this time. Neurology consultation obtained last evening did not recommend any additional testing either. Physical therapy and Occupational Therapy strongly encourage transition to inpatient rehabilitation. Patient and family are refusing. Patient will require a platform walker given her right distal radial fracture. I am concerned of patient returning to home in this condition. 2. Abnormal UA Urinalysis is really unrevealing. 30 white cells are noted but negative for bacteria large amounts of mucus are noted there. Patient does not have any suprapubic discomfort, incontinence or dysuria. Leukocytosis and left shift that we see could be in response to recent radial fracture. Culture growing less than 10,000 colonies of gram-positive cocci. Antibiotics are not indicated. 3. Right distal radial fracture status post closed reduction Reduced on 08/10. Sugar-tong splint was applied. Orthopedic recommends sling for comfort and encouraging range of motion of the fingers to minimize stiffness and swelling. 4. Diabetes mellitus type 2 Resume home regimen and dietary modifications 5. GERD Continue PPI 6. Pulmonary fibrosis Secondary to familial fibrotic interstitial lung disease. The patient has not yet started treatmentfor her hereditary pulmonary fibrosis. At this time she appears to be at her baseline level of functioning. No crackles are auscultated on exam and patient is saturating 98% on room air. Follow-Up Instructions and Recommendations Provider: Recommend contacting your neuromuscular specialist at [facility] for short-term outpatient follow-up. Dr. Adriana Gallaghre Discharge Procedure Orders Walker Order Comments: Height: 1.575 m (62 ) Weight: 61.2 kg (135 lb) Order Specific Question Answer Comments Additional Options With right platform extension Face to face evaluation was performed on 08/13/2025 Ambulatory referral to Home Health Standing Status: Future Referral Priority: Routine Referral Type: Home Health Referral Reason: Consult and Treat Requested Specialty: Home Health Services Number of Visits Requested: 1 Provider: Order Specific Question Answer Comments Instructions for follow-up: Recommend contacting your neuromuscular specialist at [facility] for short-term outpatient follow-up. Dr. Adriana Gallagher There are no outpatient Patient Instructions on file for this admission. Discharge Medications Your medication list CONTINUE taking these medications Instructions Last Dose Given Next Dose Due ASCORBIC ACID (VITAMIN C) ORAL Take 670 mg by mouth daily. cholecalciferol 25 mcg (1,000 unit) capsule Commonly known as: VITAMIN D-3 Take 1 Capsule by mouth daily. Includes vitamin k gabapentin 600 mg tablet Commonly known as: NEURONTIN [place] zeke tableta (600 mg en total) por v??a oral antes de acostarse. (Take 1 tablet (600 mg total) by mouth at bedtime.) MULTIPLE VITAMINS ORAL Take by mouth daily. pantoprazole 20 mg EC tablet Commonly known as: PROTONIX [place] 1 tableta (20 mg en total) por v??a oral 1 (zeke) vez al d??a antes del desayuno. (Take 1 tablet (20 mg total) by mouth 1 (one) time each day before breakfast.) Synjardy XR 12.5-1,000 mg tablet, IR - ER, biphasic 24hr Generic drug: empagliflozin-metformin Take 2 Tab ER by mouth 1 (one) time each day. walker misc 1 Act 1 (one) time each day. Dispense PLATFORM WALKER OR ATTACHMENT Physical Exam at time of Discharge Physical Exam HENT: Head: Normocephalic and atraumatic. Mouth/Throat: Mouth: Mucous membranes are moist. Eyes: Extraocular Movements: Extraocular movements intact. Conjunctiva/sclera: Conjunctivae normal. Pupils: Pupils are equal, round, and reactive to light. Comments: Left orbital ecchymosis with further ecchymosis noted on the left forehead Cardiovascular: Rate and Rhythm: Normal rate and regular rhythm. Heart sounds: Normal heart sounds. Pulmonary: Effort: Pulmonary effort is normal. Breath sounds: Normal breath sounds. No wheezing, rhonchi or rales. Abdominal: General: Bowel sounds are normal. There is no distension. Palpations: Abdomen is soft. There is no mass. Tenderness: There is no abdominal tenderness. There is no guarding. Musculoskeletal: General: Normal range of motion. Cervical back: Normal range of motion. Skin: General: Skin is warm and dry. Neurological: General: No focal deficit present. Mental Status: She is alert and oriented to person, place, and time. Cranial Nerves: No cranial nerve deficit. Sensory: No sensory deficit. Motor: Weakness present. Gait: Gait abnormal. Comments: Patient able to do straight leg raises bilaterally without any back discomfort. Dorsi and plantarflexion 4+/5 bilaterally Straight leg raise 3+/5 bilaterally Sensation intact No back point tenderness Psychiatric: Mood and Affect: Mood normal. Behavior: Behavior normal. Vitals Visit Vitals BP 124/66 (BP Location: Left arm, Patient Position: Lying) Pulse 90 Temp 36.7 ??C (98.1 ??F) (Oral) Resp 20 Temp (24hrs), Av.1 ??C (98.8 ??F), Min:36.7 ??C (98.1 ??F), Max:37.6 ??C (99.6 ??F) Body mass index is 24.69 kg/m??. No results found for: PTWT , PTHT Procedure Component Value Units Date/Time CT Thoracic Spine wo Contrast [[id number]] Collected: 08/13/25 111 Order Status: Completed Updated: 08/13/25 112 Narrative: PROCEDURE: Thoracic spine CT INDICATION: Pain, weakness TECHNIQUE: Noncontrast CT of the thoracic spine with multiplanar reformats. The examination was performed utilizing dose reduction techniques. Total DLP 682 COMPARISON: No priors available. FINDINGS: Thoracic kyphosis is maintained. Dextroconvex thoracic scoliosis. No acute fracture. Mild degenerative loss of disc space heights throughout the thoracic spine with associated endplatespurring. Degenerative thoracic facet arthritis, most pronounced in the right upper thoracic region. No high-grade bony spinal canal stenosis or foraminal stenosis. Paraspinal muscles are within normal limits. The visualized upper abdominal structures are notable for left renal cysts. Visualized intrathoracic structures are notable for moderate hiatal hernia. The visualized intrathoracic structures are notable for upper lobe predominant chronic interstitial lung disease. Impression: No acute thoracic spine fracture. Degenerative changes throughout the thoracic spine. -------- FINAL REPORT -------- Dictated By: ARSLAN JOSE Dictated Date: 08/13/2025 11:12 ET Assigned Physician: ARSLAN JOSE Reviewed and Electronically Signed By: ARSLAN JOSE Signed Date: 08/13/2025 11:19 ET Workstation ID: [id number] Transcribed By: Self Edit Transcribed Date: 08/13/2025 11:12 ET XR Forearm 2 Views Right [[id number]] Collected: 08/12/25844 Order Status: Completed Updated: 08/12/25851 Narrative: XR FOREARM 2 VIEWS RIGHT INDICATION: Pain TECHNIQUE: XR FOREARM 2 VIEWS RIGHT COMPARISON: 08/10/2025. Impression: FINDINGS/IMPRESSION: Unchanged alignment distal radial fracture with splint in place. Contour abnormality at the radial head suspicious for nondisplaced radial head fracture extending to the neck. Noadditional fractures. Degenerative changes are seen throughout the hand and wrist, most pronounced at the 1st CMC articulation. Soft tissue swelling throughout the right forearm. -------- FINAL REPORT -------- Dictated By: ARSLAN JOSE Dictated Date: 08/12/2025 08:45 ET Assigned Physician: ARSLAN JOSE Reviewed and Electronically Signed By: ARSLAN JOSE Signed Date: 08/12/2025 08:47 ET Workstation ID: [id number] Transcribed By: Self Edit Transcribed Date: 08/12/2025 08:45 ET XR Chest 1 View [[id number]] Collected: 08/12/25844 Order Status: Completed Updated: 08/12/25851 Narrative: History: Generalized weakness. Fall. Comparison: 08/10/25, 09/02/22 Findings: Portable AP upright chest at 1:24 AM. The cardiac silhouette remains normal in size. A coarse reticular pattern is seen bilaterally, worst in the upper lungs, similar to the most recent study but overall worse compared to the 2021 exam, most likely representing interstitial fibrosis. No acute infiltrate is seen. The costophrenic angles are sharp. Stable deformity of the left humeral neck is consistent with an old, healed fracture. Impression: Impression: 1. Interstitial pulmonary fibrosis. 2. No acute infiltrate identified. Telerad PA ([id number]) -------- FINAL REPORT -------- Dictated By: Sarahi Ignacio Dictated Date: 08/12/2025 08:45 ET Assigned Physician: Sarahi Ignacio Reviewed and Electronically Signed By: Sarahi Ignacio Signed Date: 08/12/2025 08:47 ET Workstation ID: [id number] Transcribed By: Self Edit Transcribed Date: 08/12/2025 08:[address] Lumbar Spine wo Contrast [[id number]] Collected: 08/12/25131 Order Status: Completed Updated: 08/12/25132 Narrative: INDICATION: pain CT lumbar spine without contrast Comparison: None provided Findings: For the purposes of this report, there are 6 tfe-cqi-reotxak lumbar vertebral bodies. L6 is partially sacralized on the left. Osteopenia. Vertebral alignment is within normal limits. No acute fractures or dislocations. Mild multilevel degenerative changes. L3-L4: Mild bilateral neural foraminal stenosis. L4-L5: Posterior disc osteophyte complex and facet arthropathy causing moderate bilateral neural foraminal stenosis. L5-L6: Disc bulge and facet arthropathy causing mild bilateral neural foraminal stenosis. Aortic atherosclerosis. No aneurysm. Left renal cysts. Impression: No acute findings. This document has been electronically signed by: González Khoury MD on 08/12/2025 01:32:57 CT Cervical Spine wo Contrast [[id number]] Collected: 08/12/25119 Order Status: Completed Updated: 08/12/25120 Narrative: INDICATION: pain CT cervical spine without contrast Comparison: CT - CT C SPINE WO CONTRAST - 08/10/25 00:38 EST Findings: Straightening of the cervical spine is likely positional. Multilevel degenerative changes, similar to prior. No acute fractures or dislocations. Biapical reticulonodular opacities, similar to prior. Heterogeneous thyroid gland. No acute findings in the visualized brain. Impression: No acute findings. Chronic findings as above This document has been electronically signed by: Harini Latest Reference Range & Units Most Recent Sodium 133 - 145 mmol/L 140 08/12/25 05:24 Potassium 3.5 - 5.5 mmol/L 3.8 08/12/25 05:24 Chloride 96 - 110 mmol/L 106 08/12/25 05:24 CO2 21 - 32 mmol/L 26 08/12/25 05:24 Anion Gap 3 - 11 8 08/12/25 05:24 Glucose 70 - 100 mg/dL 111 (H) 08/12/25 05:24 BUN 5 - 25 mg/dL 16 08/12/25 05:24 Creatinine 0.50 - 1.10 mg/dL 0.56 08/12/25 05:24 Calculated GFR >=60 mL/min/1.73m2 92 08/12/25 05:24 BUN/Creatinine Ratio - 28.6 08/12/25 05:24 Calcium 8.5 - 10.5 mg/dL 8.4 (L) 08/12/25 05:24 AST (SGOT) 10 - 42 unit/L 25 08/11/25 21:59 ALT (SGPT) 10 - 60 unit/L 17 08/11/25 21:59 Alkaline Phosphatase 42 - 121 unit/L 164 (H) 08/11/25 21:59 Total Protein 6.0 - 8.0 g/dL 8.0 08/11/25 21:59 Albumin 3.2 - 5.0 g/dL 4.0 08/11/25 21:59 Total Bilirubin 0.0 - 1.4 mg/dL 2.2 (H) 08/11/25 21:59 Lipase 12 - 53 unit/L 22 08/11/25 22:57 Lactate, Whole Blood 0.4 - 2.0 mmol/L 1.1 08/11/25 22:57 Glucose POCT 70 - 100 mg/dL 95 08/13/25 11:31 B Type Natriuretic Peptide <=100 pcg/mL 30 08/11/25 22:57 Total CK 34 - 145 unit/L 72 08/12/25 05:24 TROPONIN I, HIGH SENSITIVITY <=34 ng/L 6 08/11/25 22:57 C-Reactive Protein <=0.50 mg/dL 9.36 (H) 08/12/25 05:24 Auto WBC 4.8 - 10.8 K/mcL 9.2 08/12/25 05:24 RBC 3.80 - 4.80 M/mcL 3.30 (L) 08/12/25 05:24 Hemoglobin 11.5 - 16.0 g/dL 10.0 (L) 08/12/25 05:24 Hematocrit 35.0 - 47.0 % 30.4 (L) 08/12/25 05:24 MCV 79.0 - 98.0 FL 93.5 08/12/25 05:24 MCH 27.0 - 32.0 pcg 30.8 08/12/25 05:24 MCHC 32.0 - 37.0 g/dL 32.9 08/12/25 05:24 RDW 11.0 - 15.0 % 12.8 08/12/25 05:24 Platelets 130 - 400 K/mcL 161 11/28/25 05:24 MPV 7.0 - 11.0 FL 10.1 08/12/25 05:24 Neutrophils Relative % 66.7 08/12/25 05:24 Immature Granulocytes Relative % 0.3 08/12/25 05:24 Lymphocytes Relative % 17.6 08/12/25 05:24 Monocytes Relative % 14.9 08/12/25 05:24 Eosinophils Relative % 0.2 08/12/25 05:24 Basophils Relative % 0.3 08/12/25 05:24 Neutrophils Absolute 1.50 - 7.00 K/mcL 6.15 08/12/25 05:24 Immature Granulocytes Absolute 0.00 - 0.03 K/mcL 0.03 08/12/25 05:24 Lymphocytes Absolute 1.00 - 5.00 K/mcL 1.62 08/12/25 05:24 Monocytes Absolute 0.20 - 1.00 K/mcL 1.37 (H) 08/12/25 05:24 Eosinophils Absolute 0.00 - 0.50 K/mcL 0.02 08/12/25 05:24 Basophils Absolute 0.00 - 0.20 K/mcL 0.03 08/12/25 05:24 NRBC <1.0 % 0.0 08/12/25 05:24 NRBC Absolute <0.10 K/mcL 0.00 08/12/25 05:24 Neutrophils Percent Manual % 78.0 08/11/25 21:59 Lymphocytes Percent Manual % 8.0 08/11/25 21:59 Monocytes Percent Manual % 11.0 08/11/25 21:59 Eosinophils Percent Manual % 0.0 08/11/25 21:59 Basophils Percent Manual % 1.0 08/11/25 21:59 Bands Percent Manual % 1.0 08/11/25 21:59 Metamyelocytes Percent Manual % 1.0 (H) 08/11/25 21:59 Neutrophils Absolute Manual 1.50 - 7.00 K/mcL 8.81 (H) 08/11/25 21:59 Lymphocytes Absolute Manual 1.00 - 5.00 K/mcL 0.90 (L) 08/11/25 21:59 Monocytes Absolute Manual 0.20 - 1.00 K/mcL 1.24 (H) 08/11/25 21:59 Eosinophils Absolute Manual 0.00 - 0.50 K/mcL 0.00 08/11/25 21:59 Basophils Absolute Manual 0.00 - 0.20 K/mcL 0.11 08/11/25 21:59 Bands Absolute Manual 0.00 - 0.00 K/mcL 0.11 (H) 08/11/25 21:59 Metamyelocytes Absolute Manual 0.00 - 0.00 K/mcL 0.11 (H) 08/11/25 21:59 RBC Morphology Consistent with indices, Normal for [place] Present ! 08/11/25 21:59 PLT Morphology Normal See Note ! 08/11/25 21:59 Sed Rate 0 - 30 mm/hr 88 (H) 08/12/25 05:24 Prothrombin Time 10.6 - 13.9 sec 13.2 08/10/25 00:09 INR - 1.1 08/10/25 00:09 aPTT 24.1 - 39.3 sec 30.0 08/10/25 00:09 (H): Data is abnormally high (L): Data is abnormally low !: Data is abnormal 40 minutes spent reviewing medical record, evaluating the patient, coordinating care with ICC, RN and attending physician to facilitate today's discharge. 3 evaluations with the patient and her daughter at bedside the first with bedside director of securities and real estate [place] #[id number] in the last visit taken with assistance of Yusef Cosigned by Anton Dhaliwal MD at 08/13/2025 3:15 PM EST documented in this encounter Discharge Instructions * Discharge Instructions* MITZI Shi - 08/13/2025 11:43 AM EST Right wrist fracture: Sling for comfort Patient encouraged to move fingers is much as possible to minimize stiffness Follow-up orthopedics in 7 to 10 days for repeat x-rays AP lateral right wrist Ok to use acetaminophen 1000 mg up to 3x/day for pain Upon discharge please contact your primary neuromuscular specialist at [facility] Dr. Adriana Gallagher to discuss further workup. Physical therapy is strongly encouraged in an intensive rehabilitation program. documented in this encounter Medications at Time of Discharge gabapentin (NEURONTIN) 600 mg tablet Take 1 tablet (600 mg total) by mouth at bedtime. 08/09/2025 Synjardy XR 12.5-1,000 mg tablet, IR - ER, biphasic 24hr Take 2 Tab ER by mouth 1 (one) time each day. 08/09/2025 ASCORBIC ACID, VITAMIN C, ORAL Take 670 mg by mouth daily. cholecalciferol (VITAMIN D-3) 25 mcg (1,000 unit) capsule Take 1 Capsule by mouth daily. Includes vitamin k multivitamin (MULTIPLE VITAMINS ORAL) Take by mouth daily. pantoprazole (PROTONIX) 20 mg EC tablet Take 1 tablet (20 mg total) by mouth 1 (one) time each day before breakfast. walker misc 1 Act 1 (one) time each day. Dispense PLATFORM WALKER OR ATTACHMENT 1 each 08/10/2025 documented as of this encounter Discharge Disposition Disposition Code Departure Means Destination Comment s Home-Health Care Svc documented in this encounter Progress Notes * Clarita Tapia RN - 08/13/2025 3:42 PM EST 08/13/25 1541 Transportation Transportation at discharge [facility] providing transportation [place] What day is the transport expected? 08/13/25 What time is the transport expected? 1600 Final Discharge Disposition Home Health Care Services ICC spoke with pt and daughter/HCP Juliet at bedside. In person director of securities and real estate Yusef staples. ICC discussed PT recommendation for rehab. Pt declines rehab. Pt agreeable to home PT, referral placed andaccepted by Eliaz[facility] PITTMAN. D/C summary and ambulatory referral for home health sent via [employer], notified of d/c today. Pt/HCP reported they will be staying at pt's son's house [address] in [place]. Ambulance booked. Pt/ HCP aware and agreeable to d/c plan * Ana Palomino RN - 08/13/2025 3:35 PM EST Goals: Problem: Patient Specific Problem: Pressure Injury Actual or Risk of Goal: Patient Specific Outcome Outcome: Progressing Problem: Cognitive: Kidd Lemuel Fall Risk Goal: Last Known Fall Outcome: Progressing Goal: Mobility requiring assistance of person or device Outcome: Progressing Goal: Dizziness Outcome: Progressing Goal: Medications Outcome: Progressing Goal: Mental Status/LOC/Awareness Outcome: Progressing Goal: Toileting Needs Outcome: Progressing Goal: Volume and Electrolyte Status Outcome: Progressing Goal: Communication/Sensory Outcome: Progressing Goal: Behavior Outcome: Progressing Identify possible barriers to meeting goals/advancing plan of care: no identifiable barriers to meeting goals/advancing plan of care at this time Stability of the patient: Moderately Stable - Low risk of patient condition declining or worsening End of Shift Summary: patient accepted D/C via ambulance, booked at 4pm to home with [facility] at this time. * RODY Walton - 08/13/2025 3:27 PM EST Social Work consulted by ICC relative to disposition and consideration of GSSS/ Elder Protective Service referral. Upon presenting to pt's room, noted ICC and sensitizer engaged with patientand visitor relative to dc planning. This commercial loan underwriter verified disposition will be to the home of an adult child/son assuming 24 hour care. Review of Epic documents [facility] has accepted patient for service. Based on the above, social work consult outruled. * MITZI Shi - 08/12/2025 4:41 PM EST Images from the original note were not included. MARIE PROGRESS NOTE Date: 08/12/2025 Author: MITZI Shi Patient ID: Apryl Downing is a 80 y.o. female : 1945 MR#: [id number] SUBJECTIVE Subjective History and exam in Irish assisted by the patient's daughter at bedside who family and patient defer additional director of securities and real estate services. Patient is denying any abdominal pain, incontinence or dysuria.She is denying a decrease in pain but reports significant weakness. She is right-hand dominant. Daughter reports drastic change in mothers functional ability. She states that boast her mother has a walker she uses it only intermittently in the home and when outside of the home. She states the day she fell had drastic change in her functional ability to even get into the car. At the time of getting to the hospital for evaluation patient could not stand on her own feet without severe shaking which is new. Allergies Codeine, Doxycycline, Egg, Gluten, Iodine, Levofloxacin, Milk containing products (dairy), Other, and Vancomycin Current Medications: MEDSSCHEDULED[1] MEDSCONTINUOUS[2] MEDSPRN[3] OBJECTIVE Vitals: 08/12/25 0501 08/12/25 0739 08/12/25 1102 08/12/25 1500 BP: 119/66 127/66 125/60 117/61 BP Location: Left arm Left arm;Upper Patient Position: Lying Lying Pulse: 87 91 96 106 Resp: 16 15 20 18 Temp: 36.7 ??C (98.1 ??F) 36.6 ??C (97.8 ??F) 37.6 ??C (99.6 ??F) TempSrc: Temporal SpO2: 97% 98% 99% 97% Weight: Height: Physical Exam Constitutional: Appearance: Normal appearance. HENT: Head: Normocephalic and atraumatic. Mouth/Throat: Mouth: Mucous membranes are moist. Eyes: Extraocular Movements: Extraocular movements intact. Conjunctiva/sclera: Conjunctivae normal. Pupils: Pupils are equal, round, and reactive to light. Cardiovascular: Rate and Rhythm: Normal rate and regular rhythm. Heart sounds: Normal heart sounds. Pulmonary: Effort: Pulmonary effort is normal. Breath sounds: Normal breath sounds. No wheezing, rhonchi or rales. Abdominal: General: Bowel sounds are normal. There is no distension. Palpations: Abdomen is soft. There is no mass. Tenderness: There is no abdominal tenderness. There is no guarding. Musculoskeletal: General: Normal range of motion. Cervical back: Normal range of motion. Skin: General: Skin is warm and dry. Neurological: General: No focal deficit present. Mental Status: She is alert and oriented to person, place, and time. Comments: Slight discrepancy in strength, right lower extremity 4+/5, left lower extremity 3+/5. Sensation intact bilateral lower extremity. DTRs within normal limits not hyperreflexive. Psychiatric: Mood and Affect: Mood normal. Behavior: Behavior normal. LABS HEMATOLOGY Lab Results Component Value Date WBC 9.2 08/12/2025 HGB 10.0 (L) 08/12/2025 HCT 30.4 (L) 08/12/2025 MCV 93.5 08/12/2025 PLT 161 08/12/2025 CHEMISTRY Lab Results Component Value Date GLUCOSE 142 (H) 08/12/2025 NA 140 08/12/2025 K 3.8 08/12/2025 CO2 26 08/12/2025 CL 106 08/12/2025 BUN 16 08/12/2025 CREATININE 0.56 08/12/2025 EGFR 92 08/12/2025 CALCIUM 8.4 (L) 08/12/2025 ANIONGAP 8 08/12/2025 Imaging: XR Forearm 2 Views Right Narrative: XR FOREARM 2 VIEWS RIGHT INDICATION: Pain TECHNIQUE: XR FOREARM 2 VIEWS RIGHT COMPARISON: 08/10/2025. Impression: FINDINGS/IMPRESSION: Unchanged alignment distal radial fracture with splint in place. Contour abnormality at the radial head suspicious for nondisplaced radial head fracture extending to the neck. No additional fractures. Degenerative changes are seen throughout the hand and wrist, most pronounced at the 1st CMC articulation. Soft tissue swelling throughout the right forearm. -------- FINAL REPORT -------- Dictated By: ARSLAN JOSE Dictated Date: 08/12/2025 08:45 ET Assigned Physician: ARSLAN JOSE Reviewed and Electronically Signed By: ARSLAN JOSE Signed Date: 08/12/2025 08:47 ET Workstation ID: [id number] Transcribed By: Self Edit Transcribed Date: 08/12/2025 08:45 ET XR Chest 1 View Narrative: History: Generalized weakness. Fall. Comparison: 08/10/25, 09/02/22 Findings: Portable AP upright chest at 1:24 AM. The cardiac silhouette remains normal in size. A coarse reticular pattern is seen bilaterally, worst in the upper lungs, similar to the most recent study but overall worse compared to the 2021 exam, most likely representing interstitial fibrosis. No acute infiltrate is seen. The costophrenic angles are sharp. Stable deformity of the left humeral neck is consistent with an old, healed fracture. Impression: Impression: 1. Interstitial pulmonary fibrosis. 2. No acute infiltrate identified. Telerad MITZI ([id number]) -------- FINAL REPORT -------- Dictated By: Sarahi Ignacio Dictated Date: 08/12/2025 08:45 ET Assigned Physician: Sarahi Ignacio Reviewed and Electronically Signed By: Sarahi Ignacio Signed Date: 08/12/2025 08:47 ET Workstation ID: [id number] Transcribed By: Self Edit Transcribed Date: 08/12/2025 08:[address] Lumbar Spine wo Contrast Narrative: INDICATION: pain CT lumbar spine without contrast Comparison: None provided Findings: For the purposes of this report, there are 6 gqb-[id number]-[id number] lumbar vertebral bodies. L6 is partially sacralized on the left. Osteopenia. Vertebral alignment is within normal limits. No acute fractures or dislocations. Mild multilevel degenerative changes. L3-L4: Mild bilateral neural foraminal stenosis. L4-L5: Posterior disc osteophyte complex and facet arthropathy causing moderate bilateral neural foraminal stenosis. L5-L6: Disc bulge and facet arthropathy causing mild bilateral neural foraminal stenosis. Aortic atherosclerosis. No aneurysm. Left renal cysts. Impression: No acute findings. This document has been electronically signed by: González Khoury MD on 08/12/2025 01:32:57 CT Cervical Spine wo Contrast Narrative: INDICATION: pain CT cervical spine without contrast Comparison: CT - CT C SPINE WO CONTRAST - 08/10/25 00:38 EST Findings: Straightening of the cervical spine is likely positional. Multilevel degenerative changes, similar to prior. No acute fractures or dislocations. Biapical reticulonodular opacities, similar to prior. Heterogeneous thyroid gland. No acute findings in the visualized brain. Impression: No acute findings. Chronic findings as above This document has been electronically signed by: González Khoury MD on 08/12/2025 01:20:37 ASSESSMENT & PLAN This is an 80-year-old female with history of familial fibrotic interstitial lung disease, recent diagnosis of short telomere syndrome, diabetes mellitus type 2, GERD, recently question the possibility of FSHD muscular dystrophy however genetic testing was declined by her insurance presents status post fall with severe acute lower extremity weakness. 1. Weakness Looking at her records it is noted that she was having generalized weakness back in May and had reestablish careWith Adriana Gallagher MD who specializes in neuromuscular division at [facility]. At her visit in May it is documented that she has been experiencing more muscle weakness and fatigue. Daughter reports it has been much more acute. Her fall on 08/09 was precipitated by profound weakness. There is a note she may have had PMR. Patient's ESR is elevated at 88 however daughter reports that she has had extensive rheumatologic workup and was told that she does not have PMR. I will check a CPK level. I do not see anything on physical exam that is concerning. Daughter was questioning cauda equina syndrome. I reviewed the cervical CT and lumbar CT with the patient and her daughter. There is no saddle anesthesia, bowel or bladder incontinence that is new. Sensation is intact. At this time I do not see additional imaging to be necessary. I will ask neurology to weigh in.Weakness was abrupt does not appear to be ascending in nature. Physical therapy has deemed her necessary to go to a half-way facility though patient and family do not wish to go this route at this time. Would recommend short-term follow-up with her primary neurologist. 2. Abnormal UA Urinalysis is really unrevealing. 30 white cells are noted but negative for bacteria large amounts of mucus are noted there. Patient does not have any suprapubic discomfort, incontinence or dysuria. Leukocytosis and left shift that we see could be in response to recent radial fracture. Would not give antibiotics at this time. 3. Right distal radial fracture status post closed reduction Reduced on 08/10. Sugar-tong splint was applied. Orthopedic recommends sling for comfort and encouraging range of motion of the fingers to minimize stiffness and swelling. 4. Diabetes mellitus type 2 We will hold the patient's oral hypoglycemics and place patient on sliding scale insulin while in hospital. 5. GERD Continue PPI 6. Pulmonary fibrosis Secondary to familial fibrotic interstitial lung disease. The patient has not yet started treatmentfor her hereditary pulmonary fibrosis. At this time she appears to be at her baseline level of functioning. DAILY CARE CHECKLIST Length of Stay: VTE Prophylaxis: Lovenox Resuscitation: Full Code - Default PCP: Adelaide Pollock MD Disposition/patient need hospital stay because : Neurology evaluation Health care proxy with phone number : Case discussed with attending [1] acetaminophen, 1,000 mg, oral, q8h JAMAAL cefTRIAXone, 2 g, intravenous, Once [Held by provider] cefTRIAXone, 2 g, intravenous, q24h enoxaparin, 40 mg, subcutaneous, q24h JAMAAL insulin lispro, 2-12 Units, subcutaneous, Before meals & nightly ondansetron, 4 mg, intravenous, Once pantoprazole, 40 mg, oral, q AM AC sodium chloride, 10 mL, intravenous, BID [2] [3] PRN medications: dextrose 50%, dextrose 50%, dextrose, dextrose, glucagon injection, ondansetron (ZOFRAN-ODT) disintegrating tablet OR ondansetron, prochlorperazine OR prochlorperazine OR prochlorperazine, [COMPLETED] Insert peripheral IV AND Maintain IV access AND Saline lock IV AND sodium chloride AND sodium chloride Cosigned by Anton Dhaliwal MD at 08/13/2025 3:15 PM EST * Rafia De Santiago, PT - 08/12/2025 1:50 PM EST [facility] Physical Therapy Evaluation & Treatment PT Discharge Recommendations: intermediate facility placement (pt currently would not be safe toreturn home, would need to dc home at level, via van, be transported up step , and have assist x 2 for safe transfers or mechanical lift and 24 hour care) Staff Recommendations for safe patient handling: assist x 2 with gait belt, sling on rue for transfer (avoid lifting under RUE), max assist for bed mobility; RUE nwb Modified [place] Scale Score: 5=Severe disability. Requires constant nursing care and attention, bedridden. AM-PAC 6 Clicks Scoring Form: Unable: 1 A Lot: 2 A Little: 3 None: 4 How much difficulty does the patient currently have? Turning over in bed (including adjustment of bedclothes, sheets, and blankets) [x] [] [] [] Sitting down on and standing up from a chair with arms (wheelchair, bedside commode etc [] [x] [] [] Moving from lying on back to sitting on the side of the bed [] [x] [] [] How much help from another person does the patient currently need? Moving to and from a bed to a chair ( including a wheelchair) [] [x] [] [] To walk in hospital room [x] [] [] [] Climbing 3-5 steps with a railing [x] [] [] [] Score: score indicates the pt would benefit from STR after acute discharge Precautions Medical Precautions: Fall Risk, Limb restriction Safety Interventions: Call caldera within reach, Bed alarm, Chair alarm, Side rails up x1, Gait belt RUE Weight Bearing Status: Non Weight Bearing LUE Weight Bearing Status: Full RLE Weight Bearing Status: Full LLE Weight Bearing Status: Full Fall prevention education provided including use of call light in hospital, use of appropriate assistive device, safe mobility techniques, and safety measures at home. PT Received On: 08/12/25 PT Start Time: 1350 PT Stop Time: 1440 PT Time Calculation (min): 50 min General Family/Caregiver Present: Yes General Comments: dtr and caregiver present and wishing to translate for pt Precautions Medical Precautions: Fall Risk, Limb restriction Safety Interventions: Call caldera within reach, Bed alarm, Chair alarm, Side rails up x1, Gait belt RUE Weight Bearing Status: Non Weight Bearing LUE Weight Bearing Status: Full RLE Weight Bearing Status: Full LLE Weight Bearing Status: Full Cognition Orientation Level: Oriented X4 Following Commands: Follows one step commands consistently Safety Judgment: Good awareness of safety precautions Hearing: Intact Vision: Intact Speech: Intact History of Present Illness: Patient is a 80 y.o. female admitted to [facility] on 08/11/2025. Problem List[1] Medical History[2] Surgical History[3] Social History Home Living Environment: Home Living Type of Home: House Lives With: Daughter Home Adaptive Equipment: Cane, Walker - rolling, Bedside commode, Shower chair, Roll Up Helper, Other (Comment) (transport chair) Home Layout: One level Home Access: Stairs to enter without rails Entrance Stairs-Number of Steps: 1 Prior Function Level of [place]: Independent with mobility and functional transfers Ambulation Status: Household ambulator Receives Help From: Family, patient safety attendant Indoor Mobility Assistance: Independent Stairs Assistance : Needed Some Help Prior Device Use: No prior device use, Walker Which is your dominant hand?: Right General Assessment 08/12/25 1350 PT Last Visit PT Received On 08/12/25 General Family/Caregiver Present Yes General Comments dtr and caregiver present and wishing to translate for pt PT Time Calculation PT Start Time 1350 PT Stop Time 1440 PT Time Calculation (min) 50 min Precautions Medical Precautions Fall Risk;Limb restriction Safety Interventions Call caldera within reach;Bed alarm;Chair alarm;Side rails up x1;Gait belt RUE Weight Bearing Status Non Weight Bearing LUE Weight Bearing Status Full RLE Weight Bearing Status Full LLE Weight Bearing Status Full Pain Assessment Activities/Procedures Causing Pain Activity (Up to chair, ambulation) (reports pain in all of her toes) Cognition Following Commands Follows one step commands consistently Safety Judgment Good awareness of safety precautions Home Living Type of Home House Lives With Daughter Home Adaptive Equipment Cane;Walker - rolling;Bedside commode;Shower chair;Roll Up Helper;Other (Comment) (transport chair) Home Layout One level Home Access Stairs to enter without rails Entrance Stairs-Number of Steps 1 Prior Function Level of [place] Independent with mobility and functional transfers Ambulation Status Household ambulator Receives Help From Family;patient safety attendant Indoor Mobility Assistance Independent Stairs Assistance Needed Some Help Prior Device Use No prior device use;Walker Which is your dominant hand? Right Activity Tolerance Endurance Tolerates 10 - 20 min exercise with multiple rests Sensation Light Touch Partial deficits in the RLE;Partial deficits in the LLE Proprioception Proprioception No apparent deficits Coordination Coordination Functional Postural Control Postural Control Deficits on evaluation Trunk Control mild proximal weakness Static Sitting Balance Static Sitting-Level of Assistance Standby assistance Static Sitting-Balance Support Left upper extremity supported Dynamic Sitting Balance Dynamic Sitting-Level of Assistance Contact guard Dynamic Sitting-Balance Within base of support Dynamic Sitting-Balance Support Left upper extremity supported Static Standing Balance Static Standing-Level of Assistance Moderate assistance Dynamic Standing Balance Dynamic Standing-Level of Assistance Moderate assistance Dynamic Standing-Balance Ambulation Bed Mobility Sitting to Lying Assistance Moderate assistance Sitting to Lying Deficit Assist to lower upper body onto bed;Assist to position upper body;Assist lifting right leg onto bed;Assist lifting left leg onto bed;Increased time to complete;Supervision/safety awareness;Verbal cueing Lying to Sitting Assistance Moderate assistance Lying to Sitting Deficit Verbal cueing;Increased time to complete;Assist lifting left leg off of bed;Assist lifting right leg off of bed;Assist to push upper body to upright;Assist to scoot to edge of bed Transfers Sit to Stand Assistance Maximum assistance Sit to Stand Deficit Verbal cueing;Steadying;Supervision/safety awareness;Increased time to complete;Assist for foot placement;Assist for lift off;Assist for trunk control Chair/Bed to Chair/Bed Transfer Assistance Maximum assistance Chair/Bed to Chair/Bed Transfer Deficit Steadying;Verbal cueing;Supervision/safety awareness;Increased time to complete;Assist for foot placement;Assist for trunk control;Assist for weight shifting Transfer Comments dtr and caregiver present; demonstrated SPT with full frontal trunk support with gait belt, b knees supported laterally, rue in sling Ambulation Walking Assistance Not attempted, medical/safety concerns Stairs 1 step (curb): Assistance Not attempted, medical/safety concerns RUE Assessment RUE Assessment Impaired RUE Assessment Comments s/p radial fx, s/p traction, casted, nwb (ok for elbow weightbearingif needed) LUE Assessment LUE Assessment Impaired LUE Assessment Comments hx of humeral fx, no fixation, weakness, decreased rom, decreased weight bearing RLE Assessment RLE Assessment Impaired RLE Assessment Comments generalzied weakness3+/5 LLE Assessment LLE Assessment Impaired LLE Assessment Comments generlazied weakness, hip: 3-/5, knee, ankle: 3+/5 PT Assessment PT Assessment Results Decreased strength;Decreased range of motion;Decreased endurance;Impaired balance;Impaired gait;Decreased mobility Prognosis Good Evaluation/Treatment Tolerance Patient limited by fatigue Comments pt reported pain in all of her toes while standing, transferring; decreased sensation bilaterally to plantar aspect to light touch Medical Staff Made Aware Yes Plan Treatment/Interventions Functional transfer training;LE strengthening/ROM;Endurance training;Patient/family training;Equipment eval/education;Bed mobility;Gait training;Compensatory technique educatio n;Continued evaluation;Balance training;Stair training PT Plan Skilled PT PT Frequency 2-5 days per week PT Discharge Recommendations intermediate facility placement (pt currently would not be safe to return home, would need to dc home at level, via van, be transported up step , and have assist x 2 for safe transfers or mechanical lift and 24 hour care) Equipment Recommended Wheelchair - manual PT - Evaluation Status Complete PT Evaluation Time Entry PT Evaluation (Moderate) Time Entry 50 ADDITIONAL COMMENTS: Chart reviewed. RN clears pt for session. Pt agrees to participate and presented in supine upon PT arrival. All lines in place. Gait belt utilized throughout treatment to maximize safety. Medical precautions observed appropriately. Initiated education on the importance of PT, bed mobility safety, Transfer Safety, Ambulation Safety , Therapy Plan of Care, Home Safety, Energy Conservations strategies, and importance of OOB activity . Pt verbalized understanding. EXIT STATUS: Session ended with patient supine, tray table and call light within reach, and RN made aware. Physical Therapy Assessment/Plan Apryl Downing is a 80 y.o. female admitted to [facility] on 08/11/2025 for Neck pain, acute [M54.2] Sepsis secondary to UTI ([facility] V24, [facility] V28) [A41.9, N39.0] Urinary tract infection, acute [N39.0] Generalized weakness [R53.1] Ambulatory dysfunction [R26.2] Closed Colles' fracture of right radius with routine healing, subsequent encounter [S52.531D] Acute midline low back pain without sciatica [M54.50] Acute bilateral low back pain without sciatica [M54.50] Sepsis without septic shock (CMS/[facility] V24, CMS/[facility] V28) [A41.9] . Pt presents with decreased BLE strength, balance deficits, decreased activity tolerance, pain, chronic weakness, decreased weight bearing and strength d/t old humeral fx on L, and now colles fx on r, NWBand far below functional baseline. Pt will benefit from skilled acute PT during hospital stay to improve the deficits listed above and optimize function. PT recommends intermediate facility placement (pt currently would not be safe to return home, would need to dc home at level, via van, be transported up step , and haveassist x 2 for safe transfers or mechanical lift and 24 hour care) when medically stable for safe di scharge and to optimize functional mobility and independence. Goals Encounter Problems Encounter Problems (Active) Template: Physical Therapy Problem: PT Short Term Goals Dates: Start: 08/12/25 Goal: PT STG 1 Dates: Start: 08/12/25 Goal: PT STG 2 Dates: Start: 08/12/25 Encounter Problems (Resolved) There are no resolved problems. Education Documentation Explain information regarding therapeutic regimen, taught by Rafia De Santiago PT at 08/12/2025 3:14 PM. Learner: Patient, Family Readiness: Acceptance Method: Explanation, Demonstration, Teach-back Response: Verbalizes Understanding, Demonstrated Understanding Comment: discussed transfer options-recommended max assist spt 's with gait belt, rue in sling using frontal trunk support, b lateral knees supported Teach information regarding safety precautions, taught by Rafia De Santiago PT at 08/12/2025 3:14 PM. Learner: Patient, Family Readiness: Acceptance Method: Explanation, Demonstration, Teach-back Response: Verbalizes Understanding, Demonstrated Understanding Comment: discussed transfer options-recommended max assist spt 's with gait belt, rue in sling using frontal trunk support, b lateral knees supported Teach proper use of assistive devices, taught by Rafia De Santiago PT at 08/12/2025 3:14 PM. Learner: Patient, Family Readiness: Acceptance Method: Explanation, Demonstration, Teach-back Response: Verbalizes Understanding, Demonstrated Understanding Comment: discussed transfer options-recommended max assist spt 's with gait belt, rue in sling using frontal trunk support, b lateral knees supported Education Comments No comments found. 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 Carotid bruit DX:Carotid bruit Carpal tunnel syndrome DX:Carpal tunnel syndrome Chronic pain of multiple joints DX:Chronic pain of multiple joints Closed fracture of left tibial plateau DX:Closed fracture of left tibial plateau Depression 1970 DX:Depression Dizziness DX:Dizziness Fatigue DX:Fatigue Gastritis DX:Gastritis History of varicose veins DX:History of varicose veins IBS (irritable bowel syndrome) DX:IBS (irritable bowel syndrome) IGT (impaired glucose tolerance) DX:IGT (impaired glucose tolerance) Leg swelling DX:Leg swelling Lesion of lumbar spine DX:Lesion of lumbar spine Lumbar spondylosis DX:Lumbar spondylosis Muscle ache DX:Muscle ache Myalgia DX:Myalgia Neck pain DX:Neck pain Osteoarthritis DX:Osteoarthritis Osteoporosis DX:Osteoporosis Other chondrocalcinosis, unspecified site DX:Other chondrocalcinosis, unspecified site Peripheral motor neuropathy DX:Peripheral motor neuropathy Polymyalgia rheumatica (CMS/HCC V24) DX:Polymyalgia rheumatica (HCC) Pseudogout DX:Pseudogout Pulmonary fibrosis (CMS/HCC V24, CMS/HCC V28) 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 Rash DX:Rash Reflux esophagitis DX:Reflux esophagitis Restless legs syndrome DX:Restless legs syndrome Subclinical hypothyroidism DX:Subclinical hypothyroidism Thrombophlebitis 1999 DX:Thrombophlebitis [3] Past Surgical History: Procedure Laterality Date CHOLECYSTECTOMY 1980 PROCEDURE: HISTORICAL CHOLECYSTECTOMY OTHER SURGICAL HISTORY PROCEDURE: HISTORY OTHER; COMMENT: fundoplication TONSILLECTOMY TUBAL LIGATION PROCEDURE: HISTORICAL TUBAL LIGATION * Clarita Tapia RN - 08/12/2025 8:47 AM EST 08/12/25 0845 Initial Transition Plan Initial Transition Plan Home Back up Transition Plan Back up Transition plan Home Health Care Discharge Planning Living Arrangements Children Type of Residence Private residence Assistive Devices Walker Support Systems Children;Other (Comment) (16 hr/wk [employer]) Medication Coverage Has Med Coverage Under Insurance Plan Yes Medication Affordability No concerns related to payment for meds Anticipated Discharge Needs Discipline following for SNF placement Networking Specialist Informed Choice Informed Choice Given? Yes ICC met with pt and daughter Juliet at bedside. Pt resting with eyes closed questions answered by daughter. Pt lives at home with daughter and has [employer] services. Pt uses a walker at baseline. Pharmacy [facility]. Daughter reported they do not like to let a lot of people in the home due topt's medical conditions and is open to discuss home PT/VNA if needed. ICC will continue to follow * Fabian Lundy RN - 08/11/2025 9:23 PM EST Pt presents with c/o generalized weakness x 2 days; as well as right hand discoloration. Pt was fell 2 days ago, was seen and dx with fracture. Per family pt is having increased difficulty with ambulation and lower back pain. * Allen Guerrero MD - 08/11/2025 9:20 PM ESTAssociated Order(s): Splint Application; Critical Care Images from the original note were not included. [facility] EMERGENCY DEPARTMENT ENCOUNTER CHIEF COMPLAINT Chief Complaint Patient presents with Weakness - Generalized HISTORY OF PRESENT ILLNESS Pt presents with c/o generalized weakness x 2 days; as well as right hand discoloration. Pt was fell 2 days ago, was seen and dx with fracture. Per family pt is having increased difficulty with ambulation and lower back pain. PAST MEDICAL HISTORY Medical History[1] Problem List[2] SURGICAL HISTORY Surgical History[3] CURRENT MEDICATIONS Previous Medications ASCORBIC ACID, VITAMIN C, ORAL Take 670 mg by mouth daily. CHOLECALCIFEROL (VITAMIN D-3) 25 MCG (1,000 UNIT) CAPSULE Take 1 Capsule by mouth daily. Includes vitamin k GABAPENTIN (NEURONTIN) 600 MG TABLET Take 1 tablet (600 mg total) by mouth at bedtime. MULTIVITAMIN (MULTIPLE VITAMINS ORAL) Take by mouth daily. PANTOPRAZOLE (PROTONIX) 20 MG EC TABLET Take 1 tablet (20 mg total) by mouth 1 (one) time each day before breakfast. SYNJARDY XR 12.5-1,000 MG TABLET, IR - ER, BIPHASIC 24HR Take 2 Tab ER by mouth 1 (one) time each day. WALKER MISC 1 Act 1 (one) time each day. Dispense PLATFORM WALKER OR ATTACHMENT ALLERGIES Codeine, Doxycycline, Egg, Gluten, Iodine, Levofloxacin, Other, and Vancomycin FAMILY HISTORY Family History[4] SOCIAL HISTORY Social History Socioeconomic History Marital status: Spouse name: Not on file Number of children: Not on file Years of education: Not on file Highest education level: Not on file Occupational History Not on file Tobacco Use Smoking status: Never Smokeless tobacco: Never Substance and Sexual Activity Alcohol use: No Drug use: No Sexual activity: Not on file Other Topics Concern Not on file Social History Narrative Not on file Vitals: 08/11/25 2129 08/12/25 0003 08/12/25 0321 BP: (!) 140/71 (!) 145/75 120/62 BP Location: Left arm Left arm Patient Position: Sitting Sitting Lying Pulse: (!) 112 109 94 Resp: 18 19 16 Temp: 36.7 ??C (98.1 ??F) 37.1 ??C (98.8 ??F) TempSrc: Oral Oral SpO2: 97% 97% 97% Weight: 61.2 kg (135 lb) Height: 1.575 m (62 ) Pulse Oximetry 97% interpretation normal in my independent interpretation Supplemental Oxygen: Room air PHYSICAL EXAM Physical Exam Vitals and nursing note reviewed. Constitutional: General: She is in acute distress. Appearance: She is cachectic. She is ill-appearing. She is not toxic-appearing or diaphoretic. HENT: Head: Normocephalic and atraumatic. Right Ear: External ear normal. Left Ear: External ear normal. Nose: Nose normal. No rhinorrhea. Eyes: Extraocular Movements: Extraocular movements intact. Conjunctiva/sclera: Conjunctivae normal. Cardiovascular: Rate and Rhythm: Tachycardia present. Comments: Well-perfused Pulmonary: Effort: Pulmonary effort is normal. No respiratory distress. Breath sounds: No stridor. Abdominal: General: There is no distension. Musculoskeletal: General: Swelling and tenderness present. No deformity. Normal range of motion. Cervical back: Normal range of motion and neck supple. No rigidity. Skin: General: Skin is dry. Coloration: Skin is not jaundiced or pale. Findings: Bruising (The right hand demonstrates bruising but there is also the concern that it could be due to the splint being too tight. At triage the physician telecom assistant removed the Shine wrap to ensure that it was not too tight. Color has not improved suggesting bruising) present. Neurological: General: No focal deficit present. Mental Status: She is alert and oriented to person, place, and time. Mental status is at baseline. Coordination: Coordination normal. Psychiatric: Mood and Affect: Mood normal. Behavior: Behavior normal. Thought Content: Thought content normal. Judgment: Judgment normal. DIAGNOSTIC RESULTS Based on the patient's history and physical exam the following labs and radiology studies were ordered in order to evaluate, work-up and determine best course of treatment for the patient. The studies are independently interpreted by me as follow here or in the MDM section or ED course section: Labs Reviewed COMPREHENSIVE METABOLIC PANEL - Abnormal Result Value Sodium 133 Potassium 4.4 Chloride 96 CO2 29 Anion Gap 8 Glucose 114 (*) BUN 22 Creatinine 0.73 eGFR 83 BUN/Creatinine Ratio 30.1 Calcium 8.4 (*) AST (SGOT) 25 ALT (SGPT) 17 Alkaline Phosphatase 164 (*) Total Protein 8.0 Albumin 4.0 Total Bilirubin 2.2 (*) CBC WITH AUTO DIFFERENTIAL - Abnormal WBC 11.3 (*) RBC 4.00 Hemoglobin 12.2 Hematocrit 37.5 MCV 93.1 MCH 30.3 MCHC 32.5 RDW 12.9 Platelets 186 MPV 9.6 NRBC 0.0 NRBC Absolute 0.00 Narrative: 6000 6000 URINALYSIS WITH REFLEX MICROSCOPIC AND CULTURE - Abnormal Specific [place] Urine 1.022 pH, Urine 7.0 Leukocytes, Urine Moderate (*) Nitrite, Urine Negative Protein, Urine 30 (*) Glucose, Urine Negative Ketones, Urine Negative Urobilinogen, Urine 1.0 Bilirubin, Urine Negative Blood, Urine Negative RBC, Urine 4 WBC, Urine 30 (*) Squamous Epithelial, Urine 50 Bacteria, Urine Negative Hyaline Casts, Urine 3 Mucus, Urine Large POCT GLUCOSE, BLOOD - Abnormal Glucose POCT 108 (*) MANUAL DIFFERENTIAL - INSTRUMENT DIFFERENTIAL - Abnormal Neutrophils % 78.0 Bands % 1.0 Lymphocytes % 8.0 Monocytes % 11.0 Eosinophils % 0.0 Basophils % 1.0 Metamyelocytes % 1.0 (*) Neutrophils Absolute Manual 8.81 (*) Bands Absolute Manual 0.11 (*) Lymphocytes Absolute 0.90 (*) Monocytes Absolute Manual 1.24 (*) Eosinophils Absolute Manual 0.00 Basophils Absolute Manual 0.11 Metamyelocytes Absolute Manual 0.11 (*) Rbc Morphology Present (*) Platelet Morphology - WAM See Note (*) RESPIRATORY VIRUS PANEL MOLECULAR STUDY - Normal Adenovirus Detection by PCR Not Detected Influenza A PCR Not Detected Influenza B PCR Not Detected Coronavirus 229E Not Detected Coronavirus HKU1 Not Detected Coronavirus OC43 Not Detected Coronavirus NL63 Not Detected Parainfluenza Virus 1 Not Detected Parainfluenza Virus 2 Not Detected Parainfluenza Virus 3 Not Detected Parainfluenza Virus 4 Not Detected RSV PCR Not Detected Human Metapneumovirus A and B Not Detected Rhinovirus/Enterovirus Not Detected Bordetella pertussis Not Detected Bordetella parapertussis Not Detected Mycoplasma pneumo by PCR Not Detected Chlamydia pneumoniae Not Detected SARS COV-2 Not Detected Narrative: Testing was performed using the [employer] Respiratory Pathogen PCR Assay. All results must be correlated with the clinical findings. Results should not be used as the sole basis for diagnosis. False Negative results may occur from the presence of sequence variants in the region targeted by the assay or the presence of inhibitors. Results may be affected by concurrent antiviral/antimicrobial therapy or levels of organisms that are below the limit of detection. THYROID STIMULATING HORMONE - Normal TSH 2.87 TROPONIN I HIGH SENSITIVITY - Normal High Sensitivity Troponin I 6 LACTATE, WITH REFLEX - Normal LACTIC ACID 1.1 LIPASE - Normal Lipase 22 B-TYPE NATRIURETIC PEPTIDE - Normal BNP 30 Narrative: Over the counter supplements containing high doses of biotin may interfere with this assay. If interference is suspected, patients shoud be retested after refraining from biotin supplements for 72 hours. CULTURE URINE CULTURE BLOOD CULTURE BLOOD CBC AND DIFFERENTIAL Narrative: The following orders were created for panel order CBC and differential. Procedure Abnormality Status --------- ------ CBC auto differential[[id number]] Abnormal Final result Please view results for these tests on the individual orders. URINALYSIS WITH REFLEX MICROSCOPIC AND CULTURE Narrative: The following orders were created for panel order Urinalysis with reflex microscopic and culture. Procedure Abnormality Status --------- ------ Urinalysis with reflex ...[[id number]] Abnormal Final result Miller urine culture tube[[id number]] Final result Please view results for these tests on the individual orders. BASIC METABOLIC PANEL CBC AND DIFFERENTIAL Narrative: The following orders were created for panel order CBC and differential. Procedure Abnormality Status --------- ------ CBC auto differential[[id number]] Please view results for these tests on the individual orders. CBC WITH AUTO DIFFERENTIAL LACTATE, WITH REFLEX POCT GLUCOSE, BLOOD POCT GLUCOSE, BLOOD POCT GLUCOSE, BLOOD XR Forearm 2 Views Right ED Interpretation No change XR Chest 1 View ED Interpretation Chronic pulmonary fibrosis no acute infiltrate CT Lumbar Spine wo Contrast Final Result No acute findings. This document has been electronically signed by: González Khoury MD on 08/12/2025 01:32:57 CT Cervical Spine wo Contrast Final Result No acute findings. Chronic findings as above This document has been electronically signed by: González Khoury MD on 08/12/2025 01:20:37 I personally reviewed the patient's images and agree with radiologist interpretation unless otherwise noted here or in ED course or MDM section Encounter Date: 08/11/25 12-Lead ECG Result Value Ventricular Rate ECG 105 Atrial Rate 105 P-R Interval 144 QRS Duration 66 Q-T Interval 320 QTc 422 P Wave [place] 67 R [place] -13 T [place] 70 ECG Interpretation Sinus tachycardia When compared with ECG of 14-APR-2023 15:05, Vent. rate has increased BY 38 BPM Confirmed by ANIKET BARBA ([id number]) on 08/12/2025 12:30:35 AM *Note: Due to a large number of results and/or encounters for the requested time period, some results have not been displayed. A complete set of results can be found in Results Review. If an EKG was performed on today's visit and is documented above or within the ED course section, Iindependently interpreted/read the EKG as noted above at the time of service as above in the ED course section. EMERGENCY DEPARTMENT COURSE and DIFFERENTIAL DIAGNOSIS/MDM: ED Course as of 08/12/25 0346 Shayy Aug 11, 2025 2214 CBC and differential(!) Leukocytosis, normal H&H and platelets [MN] 2258 12-Lead ECG EKG performed at time 2219 demonstrates sinus tachycardia with a rate of 105. There is junctional ST depression. No ST elevations or obvious ischemic change. Patient compared to prior EKG of April 14, 2023 the slight junctional depression is new. [MN] 2334 Lipase: 22 Normal [MN] 2334 TSH: 2.87 normal [MN] 2335 Comprehensive Metabolic Panel (CMP)(!) Chronic hypocalcemia which is mild, normal kidney function and other electrolytes. Mild elevation of alkaline phosphatase and bilirubin is elevated at 2.2 possibly Gilbert's syndrome but do not have a prior to compare. Otherwise normal LFTs [MN] 2342 Lactate, Whole Blood: 1.1 Negative [MN] 2342 TROPONIN I, HIGH SENSITIVITY: 6 negative [MN] 2342 B Type Natriuretic Peptide: 30 negative [MN] Fri Aug 12, 2025 0056 Respiratory virus panel molecular study negative [MN] 0216 Urinalysis with reflex microscopic and culture(!) UTI noted [MN] ED Course User Index [MN] Allen Guerrero MD Clinical Impressions as of 08/12/25 0346 Urinary tract infection, acute Closed Colles' fracture of right radius with routine healing, subsequent encounter Generalized weakness Ambulatory dysfunction Acute midline low back pain without sciatica Sepsis without septic shock (CMS/HCC V24, CMS/HCC V28) Neck pain, acute Acute bilateral low back pain without sciatica History providers: Patient and family member Patient Presents With a New Acute Problem with: Uncertain prognosis, Systemic symptoms, Threat to life or bodily/organ/limb function, and Acute complicated injury Patient presents with a chronic problem with: Progression of underlying disease Care discussed with: Nursing staff here and Hospitalist Social determinants of health that significantly limited prognosis, diagnosis and/or treatment: patient denies barriers Differential diagnosis: Generalized weakness differential I considered possibility COVID, influenza, dehydration, acute kidney injury, CHF, acute VA, CVA, sepsis due to a variety of causes including urinary tract infection, pneumonia, intra-abdominal infections, cellulitis, other nonspecific viral illnesses, electrolyte abnormalities, anemia, as well as acute on chronic conditions Risk factors to consider in determining the patient's fitness for procedures and or prognosis related to current illness include: Interstitial lung disease Labs: Ordered, Reviewed, and Interpreted Radiology: Ordered, Reviewed, and Independently interpreted External data reviewed and/or prior visits reviewed: Prior visits for fall, wrist fracture, weakness, interstitial lung disease, scoliosis, shortness ofbreath and others Notes, Labs, Radiology, and EKG Treatment and interventions considered or used: Medications: OTC medication and Prescribed medications Admission Considerations: Decision made regarding hospitalization Surgery options considered or used: Considered major or minor surgery but deemed unnecessary or otherwise not needed at this time Risk considerations: I considered the need for emergent surgery for ORIF of fractures or reduction under anesthesia for irreducible dislocations. I considered the need for emergent surgery for decompression in the setting of spinal emergencies such as cauda equina syndrome, epidural abscess or epidural hematoma. The following procedures were undertaken to stabilize and treat the patient's condition: Splint Application Date/Time: 08/12/2025 3:16 AM Performed by: Allen Guerrero MD Authorized by: Allen Guerrero MD Consent: Consent obtained: Verbal Consent given by: Patient Alternatives discussed: No treatment, alternative treatment and referral Pre-procedure details: Distal neurologic exam: Normal Distal perfusion: distal pulses strong and brisk capillary refill Procedure details: Location: Arm Arm location: R lower arm Strapping: yes Supplies: Elastic bandage Attestation: Splint applied and adjusted personally by me Post-procedure details: Distal neurologic exam: Normal Distal perfusion: distal pulses strong Procedure completion: Tolerated well, no immediate complications Post-procedure imaging: not applicable Critical Care Performed by: Allen Guerrero MD Authorized by: Allen Guerrero MD Critical care provider statement: Critical care time (minutes): 36 Total face to face critical care time (minutes): 36 Critical care time was exclusive of: Separately billable procedures and treating other patients Critical care was necessary to treat or prevent imminent or life-threatening deterioration of the following conditions: Sepsis Critical care was time spent personally by me on the following activities: Development of treatmentplan with patient or surrogate, discussions with consultants, evaluation of patient's response to treatment, ordering and review of laboratory studies, ordering and review of radiographic studies, re- evaluation of patient's condition, review of old charts, ordering and performing treatments and interventions and examination of patient I assumed direction of critical care for this patient from another provider in my specialty: no Care discussed with: admitting provider Based on the above history and exam as well as the results as listed the following medications and/or treatments were ordered in order to treat and stabilize the patient's condition: Medications ondansetron (PF) (ZOFRAN) injection 4 mg (4 mg intravenous Not Given 08/12/25 0129) cefTRIAXone (ROCEPHIN) 2 g in sterile water 20 mL IV syringe (2 g intravenous Not Given 08/12/25 0247) sodium chloride 0.9 % bolus 1,000 mL (1,000 mL intravenous New Bag 08/12/25 0246) sodium chloride 0.9 % flush 10 mL (10 mL intravenous Given 08/12/25 0252) And sodium chloride 0.9 % flush 10 mL (has no administration in time range) ondansetron ODT (ZOFRAN-ODT) disintegrating tablet 4 mg (has no administration in time range) Or ondansetron (PF) (ZOFRAN) injection 4 mg (has no administration in time range) prochlorperazine (COMPAZINE) tablet 10 mg (has no administration in time range) Or prochlorperazine (COMPAZINE) injection 10 mg (has no administration in time range) Or prochlorperazine (COMPAZINE) suppository 25 mg (has no administration in time range) enoxaparin (LOVENOX) injection 40 mg (has no administration in time range) lactated Ringer's infusion (has no administration in time range) cefTRIAXone (ROCEPHIN) 2 g in sterile water 20 mL IV syringe (has no administration in time range) pantoprazole (PROTONIX) EC tablet 40 mg (has no administration in time range) insulin lispro injection 2-12 Units ( subcutaneous Not Given 08/12/25 0332) dextrose 15 gram/60 mL oral solution 15 g (has no administration in time range) dextrose 15 gram/60 mL oral solution 30 g (has no administration in time range) dextrose (D50W) 50% injection 12.5 g (has no administration in time range) dextrose (D50W) 50% injection 25 g (has no administration in time range) glucagon HCL injection 1 mg (has no administration in time range) acetaminophen (TYLENOL) tablet 1,000 mg (has no administration in time range) sodium chloride 0.9 % bolus 1,000 mL (0 mL intravenous Stopped 08/12/25 0149) acetaminophen (TYLENOL) tablet 1,000 mg (1,000 mg oral Given 08/12/25 0122) REASSESSMENT Stable/improved after 5 hours the patient's right hand color actually has improved somewhat suggesting that it actually was perhaps too tight of the wrap on the splint there is still some bruising present that is without question. The patient's splint was rewrapped carefully without making it too tight at this time. At the daughter's request I also formally tested the strength in the lower extremities bilaterally and found her to have 4 out of 5 strength globally in all lower extremity distributions with no focal weakness. I have performed a sepsis based exam Improved after IVF. Antibiotics initiated after UA resulted. CONSULTS: None DISPOSITION/PLAN Admit To Inpatient 08/12/2025 02:27:29 AM Admission Note: Patient is being admitted to the hospital by OMAR Hdz Service: Admitting provider: Hospitalist. The results of their tests and reasons for their admission have been discussed with them and available family. They convey agreement and understanding for the need to be admitted and for their admission diagnosis. FINAL IMPRESSION DIAGNOSES: 1. Sepsis without septic shock (CMS/[facility] V24, [facility] V28) 2. Urinary tract infection, acute 3. Closed Colles' fracture of right radius with routine healing, subsequent encounter 4. Generalized weakness 5. Ambulatory dysfunction 6. Acute midline low back pain without sciatica 7. Neck pain, acute 8. Acute bilateral low back pain without sciatica (Please note that portions of this note were completed with a voice recognition program. Quite often unanticipated grammatical, syntax, homophones, and other interpretive errors are inadvertently transcribed by the computer software. These should have been corrected during proofreading. If you haveany questions, please contact the author of this note for clarification.) Note to patient: It was a pleasure taking care of you today. The Cures Act makes medical notes like this one available to patients in the interest of transparency. However, be advised that this is a medical document. It is intended as physician to physician communication. It is writtenin medical language and may contain abbreviations or verbiage that are unfamiliar. It may appear blunt or direct or even insulting if taken out of the clinical communication context. Medical documents are not meant to communicate to patients, they are intended to carry relevant information, facts as evident, and the clinical opinion of the practitioner. Allen Guerrero MD (electronically signed) 3:46 AM EST Allen Guerrero MD 08/12/25 0031 Allen Guerrero MD 08/12/25 0224 Allen Guerrero MD 08/12/25 0234 Allen Guerrero MD 08/12/25 0316 Allen Guerrero MD 08/12/25 0325 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 Carotid bruit DX:Carotid bruit Carpal tunnel syndrome DX:Carpal tunnel syndrome Chronic pain of multiple joints DX:Chronic pain of multiple joints Closed fracture of left tibial plateau DX:Closed fracture of left tibial plateau Depression 1970 DX:Depression Dizziness DX:Dizziness Fatigue DX:Fatigue Gastritis DX:Gastritis History of varicose veins DX:History of varicose veins IBS (irritable bowel syndrome) DX:IBS (irritable bowel syndrome) IGT (impaired glucose tolerance) DX:IGT (impaired glucose tolerance) Leg swelling DX:Leg swelling Lesion of lumbar spine DX:Lesion of lumbar spine Lumbar spondylosis DX:Lumbar spondylosis Muscle ache DX:Muscle ache Myalgia DX:Myalgia Neck pain DX:Neck pain Osteoarthritis DX:Osteoarthritis Osteoporosis DX:Osteoporosis Other chondrocalcinosis, unspecified site DX:Other chondrocalcinosis, unspecified site Peripheral motor neuropathy DX:Peripheral motor neuropathy Polymyalgia rheumatica (CMS/HCC V24) DX:Polymyalgia rheumatica (HCC) Pseudogout DX:Pseudogout Pulmonary fibrosis (CMS/HCC V24, CMS/HCC V28) 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 Rash DX:Rash Reflux esophagitis DX:Reflux esophagitis Restless legs syndrome DX:Restless legs syndrome Subclinical hypothyroidism DX:Subclinical hypothyroidism Thrombophlebitis 1999 DX:Thrombophlebitis [2] Patient Active Problem List Diagnosis Chronic low back pain Fibromyalgia Dyspnea Edema Fatigue GERD (gastroesophageal reflux disease) Hypotension Interstitial lung disease (CMS/HCC V24, CMS/HCC V28) Pseudogout Sepsis secondary to UTI (CMS/HCC V24, CMS/HCC V28) [3] Past Surgical History: Procedure Laterality Date CHOLECYSTECTOMY 1980 PROCEDURE: HISTORICAL CHOLECYSTECTOMY OTHER SURGICAL HISTORY PROCEDURE: HISTORY OTHER; COMMENT: fundoplication TONSILLECTOMY TUBAL LIGATION PROCEDURE: HISTORICAL TUBAL LIGATION [4] Family History Problem Relation Name Age of Onset Pulmonary fibrosis Mother Prostate cancer Father Pulmonary fibrosis Sister Prostate cancer Brother Pulmonary fibrosis Mother's Sister Liver cancer Maternal Grandmother Allen Guerrero MD 08/12/25 0346 documented in this encounter H&P Notes * Omar Kyle MD - 08/12/2025 3:00 AM EST Images from the original note were not included. [facility]ISTORY [facility] PHYSICAL Please contact author [Omar Kyle MD] via [employer]. Patient: Apryl Downing Admission Date/Time: 08/11/2025 10:07 PM : 1945 [80 y.o.] Patient's PCP: Adelaide Pollock MD Attending Provider: Omar Kyle MD CHIEF COMPLAINT Generalized weakness HISTORY OF PRESENT ILLNESS Ms. Nguyễn is an 80 year-old female with history of familial fibrotic interstitial lung disease, type 2 diabetes mellitus, GERD who presents to the [facility] Emergency Department with generalized weakness. The patient was initially seen in the Emergency Department on 08/09/2025 after she had a mechanical fall at home and suffered a right distal radius fracture for which she underwentclosed reduction and splinting with orthopedic surgery. She was discharged to home. Since being home she has had increasing weakness. She has had increased difficulty ambulating and low back pain. Family had brought her back to the Emergency Department for further evaluation. Vital signs were remarkable for tachycardia. The patient was afebrile with Tmax of 37.4 C. Laboratories were personally reviewed. CBC demonstrated a leukocytosis of 11,400 /uL with neutrophil predominance. Chemistries were fairly unremarkable with slight elevations in alkaline phosphatase and bilirubin. BNP and troponin were normal at 30 pg/mL and 6 ng/L. Lactic acid was normal at 1.1 mmol/L. TSHwas normal at 2.87 uIU/mL. Urinalysis revealed pyuria. Viral respiratory panel was negative. CT of the cervical spine was personally reviewed and was without acute fracture or subluxation. CT of the lumbar spine showed mild degenerative changes but no acute changes. Chest x-ray was personally reviewed and demonstrated pulmonary fibrosis but was without acute cardiopulmonary disease. ECG was personally reviewed and demonstrated sinus tachycardia. The patient was administered acetaminophen and a liter of crystalloid. The Hospitalist service was consulted for admission. On evaluation, the patient's daughter reports that the patient has not been able to walk they returned home from the Emergency Department. She typically is ambulatory with a walker. She has been becoming increasingly weak. Tonight, even with maximal assistance from her daughter, the patient was unable to stand. Her daughter reports that it took her nearly 1.5 hours to move the patient from her chair to the toilet so that she could use the bathroom. She became concerned for a possible cauda equina syndrome as one of her family members ended up with permanent weakness after the diagnosis was missed. She does not think her mother has a UTI as she cares for her mother 24 hours a day, and the patient has not reported any of her usual symptoms of dysuria or frequency. She also was concerned by the swelling and duskiness of the patient's right hand at home, symptoms which have since resolved in the Emergency Department with elevation of the limb. Functional status prior to presentation: Ambulatory with a walker Review of Systems Constitutional - Denies fevers or chills. Denies unintended weight loss or gain. HEENT - Denies headache, vision changes, tinnitus, hearing loss, vocal hoarseness Respiratory - Denies shortness of breath, cough, wheezing, pleurisy Cardiovascular - Denies chest pain, palpitations, orthopnea, paroxysmal nocturnal dyspnea, lower extremity edema Gastrointestinal - Denies nausea, vomiting, diarrhea, abdominal pain, melena, hematochezia - Denies dysuria, hematuria, incontinence Musculoskeletal - Reports cervicalgia and low back pain. Skin - Reports duskiness of right hand, now resolved. Neurological - Reports bilateral lower extremity weakness. Denies numbness or paresthesias Endocrine - Denies polydipsia, polyuria, heat or cold intolerance Hematological - Denies easy bruising or history of bleeding diathesis MEDICAL HISTORY Past Medical History Past Medical History: Diagnosis Date Abdominal pain DX:Abdominal pain Bilateral leg edema 04/29/2022 DX:Bilateral leg edema Calcification of lung determined by X-ray DX:Calcification of lung determined by X-ray Calcium pyrophosphate deposition disease DX:Calcium pyrophosphate deposition disease Carotid bruit DX:Carotid bruit Carpal tunnel syndrome DX:Carpal tunnel syndrome Chronic pain of multiple joints DX:Chronic pain of multiple joints Closed fracture of left tibial plateau DX:Closed fracture of left tibial plateau Depression 1970 DX:Depression Dizziness DX:Dizziness Fatigue DX:Fatigue Gastritis DX:Gastritis History of varicose veins DX:History of varicose veins IBS (irritable bowel syndrome) DX:IBS (irritable bowel syndrome) IGT (impaired glucose tolerance) DX:IGT (impaired glucose tolerance) Leg swelling DX:Leg swelling Lesion of lumbar spine DX:Lesion of lumbar spine Lumbar spondylosis DX:Lumbar spondylosis Muscle ache DX:Muscle ache Myalgia DX:Myalgia Neck pain DX:Neck pain Osteoarthritis DX:Osteoarthritis Osteoporosis DX:Osteoporosis Other chondrocalcinosis, unspecified site DX:Other chondrocalcinosis, unspecified site Peripheral motor neuropathy DX:Peripheral motor neuropathy Polymyalgia rheumatica (CMS/HCC V24) DX:Polymyalgia rheumatica (HCC) Pseudogout DX:Pseudogout Rash DX:Rash Reflux esophagitis DX:Reflux esophagitis Restless legs syndrome DX:Restless legs syndrome Subclinical hypothyroidism DX:Subclinical hypothyroidism Thrombophlebitis 1999 DX:Thrombophlebitis Past Surgical History Past Surgical History: Procedure Laterality Date CHOLECYSTECTOMY 1980 PROCEDURE: HISTORICAL CHOLECYSTECTOMY OTHER SURGICAL HISTORY PROCEDURE: HISTORY OTHER; COMMENT: fundoplication TUBAL LIGATION PROCEDURE: HISTORICAL TUBAL LIGATION Social History The patient reports that she has never smoked. She has never used smokeless tobacco. She reports that she does not drink alcohol and does not use drugs. Family History The patient's family history includes Prostate cancer in her brother and father. Allergies The patient is allergic to codeine, doxycycline, egg, gluten, iodine, levofloxacin, other, and vancomycin. Home Medications No current facility-administered medications on file prior to encounter. Current Outpatient Medications on File Prior to Encounter Medication Sig Dispense Refill gabapentin (NEURONTIN) 600 mg tablet Take 1 tablet (600 mg total) by mouth at bedtime. Synjardy XR 12.5-1,000 mg tablet, IR - ER, biphasic 24hr Take 2 Tab ER by mouth 1 (one) time each day. ASCORBIC ACID, VITAMIN C, ORAL Take 670 mg by mouth daily. cholecalciferol (VITAMIN D-3) 25 mcg (1,000 unit) capsule Take 1 Capsule by mouth daily. Includes vitamin k multivitamin (MULTIPLE VITAMINS ORAL) Take by mouth daily. pantoprazole (PROTONIX) 20 mg EC tablet Take 1 tablet (20 mg total) by mouth 1 (one) time each day before breakfast. walker misc 1 Act 1 (one) time each day. Dispense PLATFORM WALKER OR ATTACHMENT 1 each 0 [DISCONTINUED] diazePAM (VALIUM) 2 mg tablet Take 1 tablet (2 mg total) by mouth as needed. Max Daily Amount: 2 mg [DISCONTINUED] lidocaine (LIDODERM) 5 % patch Place 1 Patch onto the skin every 24 hours. Apply forno more than 12 hours in any 24 hour period. [DISCONTINUED] walker misc 1 Act 1 (one) time each day. Dispense PLATFORM WALKER OR ATTACHMENT 1 each 0 OBJECTIVE Vitals Visit Vitals BP (!) 145/75 (Patient Position: Sitting) Pulse 109 Temp 36.7 ??C (98.1 ??F) (Oral) Resp 19 Temp (24hrs), Av.7 ??C (98.1 ??F), Min:36.7 ??C (98.1 ??F), Max:36.7 ??C (98.1 ??F) Body mass index is 24.69 kg/m??. No results found for: PTWT , PTHT Physical Examination General: Frail appearing, talking in complete sentences, in no acute distress HEENT: Normocephalic, atraumatic. Pupils equal, round, reactive to light. Sclera anicteric without injection. Conjunctivae pink, moist. Oropharyngeal exam deferred. Neck: Supple. No cervical and supraclavicular lymphadenopathy. No thyromegaly. Chest: Dry rales throughout all lung vasquez. No wheezes. Normal excursion. Cardiovascular: Regular, rate, and rhythm. No murmurs, rubs, or gallops. JVP is 7 cm. No bruits. 2+distal pulses. Abdomen: Soft, non-tender, non-distended. Normoactive bowel sounds. No hepatosplenomegaly. No masses. Skin: No rashes or lesions. Normal coloration of right hand. Extremities: Warm, well perfused. No clubbing, cyanosis, or edema. Right arm in short cast, distally neurovascularly intact with <2 sec capillary refill. Neuro: Alert and oriented x3. Cranial nerves II-XII grossly intact. 5/5 strength hip flexion bilaterally, 4/5 dorsiflexion/plantar flexion bilaterally. Sensation grossly intact. ECG: Was ECG Performed? Yes . Sinus Rhythm? Yes. Signs of acute ischemia? No Further Interpretation: Sinus tachycardia LAB RESULTS (most recent) HEMATOLOGY Lab Results Component Value Date WBC 11.3 (H) 08/11/2025 HGB 12.2 08/11/2025 HCT 37.5 08/11/2025 MCV 93.1 08/11/2025 PLT 186 08/11/2025 CHEMISTRY Lab Results Component Value Date GLUCOSE 114 (H) 08/11/2025 NA 133 08/11/2025 K 4.4 08/11/2025 CO2 29 08/11/2025 CL 96 08/11/2025 BUN 22 08/11/2025 CREATININE 0.73 08/11/2025 EGFR 83 08/11/2025 CALCIUM 8.4 (L) 08/11/2025 ANIONGAP 8 08/11/2025 Radiology XR Forearm 2 Views Right ED Interpretation No change XR Chest 1 View ED Interpretation Chronic pulmonary fibrosis no acute infiltrate CT Lumbar Spine wo Contrast Final Result No acute findings. This document has been electronically signed by: González Khoury MD on 08/12/2025 01:32:57 CT Cervical Spine wo Contrast Final Result No acute findings. Chronic findings as above This document has been electronically signed by: González Khoury MD on 08/12/2025 01:20:37 ASSESSMENT & PLAN 80 year-old female with history of familial fibrotic interstitial lung disease, type 2 diabetes mellitus, GERD presents with generalized weakness likely secondary to complicated UTI. Complicated urinary tract infection- After discussion with ER provider, the patient will be admitted to the hospital. The patient presented with a leukocytosis and tachycardia meeting 2/4 SIRS criteria. Her tachycardia has since resolved with pain relief and her lactic acid is normal, making sepsis less likely. She does appear to havea urinary tract infection and is showing a systemic response with her leukocytosis and bandemia. The patient's daughter, who cares for the patient daily, feels the patient has not had any of her typical symptoms declines antibiotic therapy at this time. We will recheck her CBC in the morning, and if she has any worsening of her leukocytosis, the daughter is willing to accept antibiotic therapy. The meantime we will fluid resuscitate the patient and monitor her closely for any signs of worseninginfection. Generalized weakness- The patient is recently weeks with her fall. The daughter reports that the patient's fall was due to tripping over a bucket that had been left out in the dark. She feels the weakness occurred immediately after and has been ongoing since the fall. We will fluid resuscitate the patient and have her evaluated by physical therapy in the morning. At this time she does have fairly good strength in her legs; however, should she have any worsening weakness, development of saddle anesthesia, or urinary retention, an MRI could be considered for evaluation for cauda equina syndrome. Type 2 diabetes mellitus- We will hold the patient's oral hypoglycemics and place patient on sliding scale insulin while in hospital. Gastroesophageal reflux disease- Continue daily pantoprazole. Pulmonary fibrosis- Secondary to familial fibrotic interstitial lung disease. The patient has not yet started treatmentfor her hereditary pulmonary fibrosis. At this time she appears to be at her baseline level of functioning. Prophylaxis- Enoxaparin for DVT prophylaxis. CODE STATUS- FULL CODE. The patient's daughter, Juliet Holloway [phone], is her medical decision-maker in the event she is unable to make decisions for herself. Over 70 minutes were spent in the initial evaluation and coordination of care for this patient. documented in this encounter Consult Notes * Lukasz Ron MD - 08/12/2025 5:45 PM ESTAssociated Order(s): IP CONSULT TO NEUROLOGY TeleNeurology Consult Reason for consult: Weakness History obtained from: Patient and EMR/Housestaff Referring physician: Anton Dhaliwal MD History of Present Illness: Apryl Downing is a 80 y.o. female with history of familial fibrotic interstitial lung disease, type 2 diabetes mellitus, recent diagnosis of short telomere syndrome , GERD who presents to the [facility] Emergency Department with generalized weakness. The patient was initially seen in the Emergency Department on 08/09/2025 after she had a mechanical fall at home and suffered a right distal radius fracture for which she underwent closed reduction and splinting with orthopedic surgery. She was discharged to home. Since being home she has had increasing weakness. She has had increased difficulty ambulating and low back pain. Family had brought her back to the Emergency Department for further evaluation. Functional status prior to presentation: Ambulatory with a walker CT of the cervical spine was personally reviewed and was without acute fracture or subluxation. CT of the lumbar spine showed mild degenerative changes but no acute changes. Chest x-ray was personally reviewed and demonstrated pulmonary fibrosis but was without acute cardiopulmonary disease. Exam on 08/12: 5/5 strength hip flexion bilaterally, 4/5 dorsiflexion/plantar flexion bilaterally. Sensation grossly intact. Case D/W MITZI Pike, no pain in her legs or back Exam on 08/12: Slight discrepancy in strength, right lower extremity 4+/5, left lower extremity 3+/5. Sensation intact bilateral lower extremity. DTRs within normal limits not hyperreflexive. Per records, she was having generalized weakness back in May. At her visit in May it isdocumented that she has been experiencing more muscle weakness and fatigue. Daughter reports it has been much more acute. Her fall on 08/09 was precipitated by profound weakness. Patient's ESR is elevated at 88 Per records from [facility]: started to develop joint pains >20 years ago (mostly knees). She was started on prednisone but she did not tolerate it and was soon stopped (she did not noticeany improvement either). She had an EMG in 1981 (when she already had these symptoms) and the report mentioned: 1. Myopathy with neurogenic features. Consider connective tissue disease or less likely hidden malignancy. 2. Partial conduction block of left median sensory fiber at wrist compatible with early carpal tunnel syndrome . In 2021, she was diagnosed with interstitial lung disease (ILD) mostly affecting upper lobe. She was seen by Rheumatology and investigations for myositis were unrevealing (she never had a muscle biopsy but myositis antibodies and CK were normal although her aldolasemay have been elevated). Sarcoidosis was presumably also considered. EMG at [facility] on 04/02/2024: This is a mildly abnormal study. 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 The polyphasic, andperhaps slightly brief duration units seen in the left biceps may be consistent with a myopathic process. No other myopathic changes were seen. Past medical, surgical, social and family histories were reviewed and noted in EMR Current medications were reviewed and noted in EMR PAST MEDICAL HISTORY Medical History[1] HOME MEDICATIONS Prescriptions Prior to Admission[2] MEDICATIONS Scheduled Meds:MEDSSCHEDULED[3] Continuous Infusions:MEDSCONTINUOUS[4] PRN Meds:MEDSPRN[5] ALLERGIES Allergies[6] FAMILY HISTORY Family History[7] SOCIAL HISTORY Social History Socioeconomic History Marital status: Spouse name: Not on file Number of children: Not on file Years of education: Not on file Highest education level: Not on file Occupational History Not on file Tobacco Use Smoking status: Never Smokeless tobacco: Never Substance and Sexual Activity Alcohol use: No Drug use: No Sexual activity: Defer Other Topics Concern Not on file Social History Narrative Not on file NEUROLOGICAL EXAMINATION Vital Sign: Visit Vitals BP 117/61 (BP Location: Left arm;Upper, Patient Position: Lying) Pulse 106 Temp 37.6 ??C (99.6 ??F) (Temporal) Resp 18 Ht 1.575 m (62 ) Wt 61.2 kg (135 lb) SpO2 97% BMI 24.69 kg/m?? OB Status Perimenopausal Smoking Status Never BSA 1.62 m?? LABS: [facility] (last 7 days): ABG Anemia Results from last 7 days Lab Units 08/12/25 0524 WBC AUTO K/mcL 9.2 HEMOGLOBIN g/dL 10.0* HEMATOCRIT % 30.4* PLATELETS K/mcL 161 Hematology Results from last 7 days Lab Units 08/12/25 0524 WBC AUTO K/mcL 9.2 HEMOGLOBIN g/dL 10.0* HEMATOCRIT % 30.4* PLATELETS K/mcL 161 LYMPHS PCT AUTO % 17.6 MONO PCT AUTO % 14.9 EOS PCT AUTO % 0.2 Chemistry Results from last 7 days Lab Units 08/12/25 1103 08/12/25 0740 08/12/25 0524 SODIUM mmol/L -- -- 140 POTASSIUM mmol/L -- -- 3.8 CHLORIDE mmol/L -- -- 106 CO2 mmol/L -- -- 26 BUN mg/dL -- -- 16 CREATININE mg/dL -- -- 0.56 POCT GLUCOSE mg/dL 142* < > -- GLUCOSE mg/dL -- -- 111* CALCIUM mg/dL -- -- 8.4* < > = values in this interval not displayed. Results from last 7 days Lab Units 08/11/25 2159 ALK PHOS unit/L 164* BILIRUBIN TOTAL mg/dL 2.2* TOTAL PROTEIN g/dL 8.0 ALT unit/L 17 AST unit/L 25 Results from last 7 days Lab Units 08/12/25 0524 SED RATE mm/hr 88* Cardiac 0 Lab Value Date/Time HSTROPI 6 08/11/2025 2257 Coagulation Results from last 7 days Lab Units 08/10/25 0009 INR 1.1 No results found for: PTT Thyroid Function / HGBA1C Results from last 7 days Lab Units 08/11/25 2159 TSH mcIU/mL 2.87 No results found for: HGBA1C Urine No results found for: COLORUA , CLARITYUA , SPECGRAVUA , PHUA , PROTUA , GLUCOSEUA , KETONESUA , BILIRUBINUA , BLOODUA , UROBILINOGUA , NITRITEUA Micro Culture, Blood Date Value Ref Range Status 08/12/2025 Culture in progress Preliminary 08/12/2025 Culture in progress Preliminary Assessment: I independently reviewed results of CT CT cervical spine reported as no acute process. CT Lumbar spine reported as no acute process. Labs: ESR 88, normal CK, TSH wnl Progressive bilateral lower extremity weakness S/p Fall on 08/09/25 Plan: The following are the recommendations: Observation Schedule CT Thoracic spine without contrast R/o infection PT Further genetic testing as an outpatient is recommended Further evaluation will be needed Will follow up Recommendations were discussed with current provider: MITZI Pike Thank you for allowing us to participate in the care of this pleasant patient and please do not hesitate to contact us should questions or concerns arise. Sincerely, Dr. Ron Neurology attending Department of Neurology The patient was informed of this interprofessional consultation requested by MITZI Pike Audio visit [facility] Total time: 30min This chart was generated by the Spectralmind system and Sonalight speech recognition software and may contain inherent errors or omissions not intended by the user. Grammatical errors, random word insertions, deletions, pronoun errors and incomplete sentences are occasional consequences of this technologydue to software limitations. Not all errors are caught or corrected. If there are questions or concerns about the content of this note or information contained within the body of this dictation they should be addressed directly with the author for clarification. 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 Carotid bruit DX:Carotid bruit Carpal tunnel syndrome DX:Carpal tunnel syndrome Chronic pain of multiple joints DX:Chronic pain of multiple joints Closed fracture of left tibial plateau DX:Closed fracture of left tibial plateau Depression 1970 DX:Depression Dizziness DX:Dizziness Fatigue DX:Fatigue Gastritis DX:Gastritis History of varicose veins DX:History of varicose veins IBS (irritable bowel syndrome) DX:IBS (irritable bowel syndrome) IGT (impaired glucose tolerance) DX:IGT (impaired glucose tolerance) Leg swelling DX:Leg swelling Lesion of lumbar spine DX:Lesion of lumbar spine Lumbar spondylosis DX:Lumbar spondylosis Muscle ache DX:Muscle ache Myalgia DX:Myalgia Neck pain DX:Neck pain Osteoarthritis DX:Osteoarthritis Osteoporosis DX:Osteoporosis Other chondrocalcinosis, unspecified site DX:Other chondrocalcinosis, unspecified site Peripheral motor neuropathy DX:Peripheral motor neuropathy Polymyalgia rheumatica (CMS/HCC V24) DX:Polymyalgia rheumatica (HCC) Pseudogout DX:Pseudogout Pulmonary fibrosis (CMS/HCC V24, CMS/HCC V28) 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 Taking Synjardy XR 12.5-1,000 mg tablet, IR - ER, biphasic 24hr Take 2 Tab ER by mouth 1 (one) time each day. Taking ASCORBIC ACID, VITAMIN C, ORAL Take 670 mg by mouth daily. cholecalciferol (VITAMIN D-3) 25 mcg (1,000 unit) capsule Take 1 Capsule by mouth daily. Includes vitamin k multivitamin (MULTIPLE VITAMINS ORAL) Take by mouth daily. pantoprazole (PROTONIX) 20 mg EC tablet Take 1 tablet (20 mg total) by mouth 1 (one) time each day before breakfast. walker misc 1 Act 1 (one) time each day. Dispense PLATFORM WALKER OR ATTACHMENT 1 each 0 [3] acetaminophen, 1,000 mg, oral, q8h JAMAAL cefTRIAXone, 2 g, intravenous, Once enoxaparin, 40 mg, subcutaneous, q24h JAMAAL insulin lispro, 2-12 Units, subcutaneous, Before meals & nightly ondansetron, 4 mg, intravenous, Once pantoprazole, 40 mg, oral, q AM AC sodium chloride, 10 mL, intravenous, BID [4] [5] PRN medications: dextrose 50%, dextrose 50%, dextrose, dextrose, glucagon injection, ondansetron (ZOFRAN-ODT) disintegrating tablet OR ondansetron, prochlorperazine OR prochlorperazine OR prochlorperazine, [COMPLETED] Insert peripheral IV AND Maintain IV access AND Saline lock IV AND sodium chloride AND sodium chloride [6] Allergies Allergen Reactions Codeine Other Reaction(s): OTHER dizzy Doxycycline Other Reaction(s): Rash/Dermatitis Egg Other Reaction(s): Rash/Dermatitis Gluten Iodine Celiac disease Levofloxacin Pt fainted Milk Containing Products (Dairy) Unknown Other Kdc:Albumin, Egg+Flu Virus Vaccine+Thimerosal+Pork Allergy - Other Reaction(s): Rash/Dermatitis Vancomycin Other Reaction(s): Flushing, feeling of warmth [7] Family History Problem Relation Name Age of Onset Pulmonary fibrosis Mother Prostate cancer Father Pulmonary fibrosis Sister Prostate cancer Brother Pulmonary fibrosis Mother's Sister Liver cancer Maternal Grandmother documented in this encounter Plan of Treatment Scheduled Referrals Name Type Priority Associated Diagnoses Order Schedule Ambulatory referral to Home Health Outpatient Referral Routine Weakness 1 Occurrences starting 08/13/2025 until 08/13/2026 documented as of this encounter Procedures Procedure Name Priority Date/Time Associated Diagnosis Comments ECG ANNOTATED 08/15/2025 POCT GLUCOSE BLOOD Routine 08/13/2025 11 :[address] THORACIC SPINE WO CONTRAST STAT 08/13/2025 10:49 AM EST POCT GLUCOSE BLOOD Routine 08/13/2025 8: 09 AM EST POCT GLUCOSE BLOOD Routine 08/13/2025 4: 23 AM EST POCT GLUCOSE BLOOD Routine 08/12/2025 8: 55 PM EST POCT GLUCOSE BLOOD Routine 08/12/2025 11 :03 AM EST POCT GLUCOSE BLOOD Routine 08/12/2025 7: 40 AM EST CBC WITH AUTO DIFFERENTIAL Routine 08/12/2025 5:24 AM EST SEDIMENTATION RATE STAT Add-on 08/12/2025 5: 24 AM EST CBC AND DIFFERENTIAL Routine 08/12/2025 5:24 AM EST C-REACTIVE PROTEIN STAT Add-on 08/12/2025 5: 24 AM EST CREATINE KINASE STAT Add-on 08/12/2025 5:24 AM EST BASIC METABOLIC PANEL Routine 08/12/2025 5:24 AM EST POCT GLUCOSE BLOOD Routine 08/12/2025 3: 27 AM EST ED SPLINT APPLICATION Routine 08/12/2025 3:16 AM EST CULTURE BLOOD STAT 08/12/2025 2:42 AM EST CULTURE BLOOD STAT 08/12/2025 2:42 AM EST XR FOREARM 2 VIEWS RIGHT STAT 08/12/2025 2:17 AM EST XR CHEST 1 VIEW STAT 08/12/2025 1:33 AM EST URINALYSIS WITH REFLEX MICROSCOPIC AND CULTURE STAT 08/12/2025 1:13 AM EST MILLER URINE CULTURE TUBE STAT 08/12/2025 1:13 AM EST URINALYSIS WITH REFLEX MICROSCOPIC AND CULTURE STAT 08/12/2025 1:13 AM EST CULTURE URINE STAT 08/12/2025 1:[address] LUMBAR SPINE WO CONTRAST STAT 08/12/2025 12:[address] CERVICAL SPINE WO CONTRAST STAT 08/12/2025 12:56 AM EST LACTATE, WITH REFLEX STAT 08/11/2025 10:57 PM EST TROPONIN I HIGH SENSITIVITY STAT 08/11/2025 10:57 PM EST B-TYPE NATRIURETIC PEPTIDE STAT 08/11/2025 10:57 PM EST LIPASE STAT 08/11/2025 10:57 PM EST RESPIRATORY VIRUS PANEL MOLECULAR STUDY STAT 08/11/2025 10:56 PM EST ECG 12-LEAD STAT 08/11/2025 10:19 PM EST MANUAL DIFFERENTIAL - SYSMEX WAM STAT 08/11/2025 9:59 PM EST CBC WITH AUTO DIFFERENTIAL STAT 08/11/2025 9:59 PM EST CBC AND DIFFERENTIAL STAT 08/11/2025 9:59 PM EST THYROID STIMULATING HORMONE STAT Add-on 08/11/2025 9:59 PM EST COMPREHENSIVE METABOLIC PANEL STAT 08/11/2025 9:59 PM EST ID CRITICAL CARE 30-74 MINUTES Routine 08/11/2025 9:20 PM EST documented in this encounter Results * ECG-Annotated (08/15/2025) us Provider Onbase MD ECG ORDERABLES Final Result * POCT Glucose, blood (08/13/2025 11:31 AM EST) [facility] Signature Glucose POCT 95 70 - 100 mg/dL 08/13/2025 11:31 AM EST [facility] ([facility]) [facility] Blood Capillary blood specimen / Unknown 08/13/2025 11:31 AM EST 08/13/2025 11:32 AM EST us nAton Dhaliwal MD LAB POINT OF CARE TE ST DOCKED DEVICE UNSOLICITED RESULTS Final Result [facility] [place] ([facility]) [facility] [address] [place] [address], [place] [phone] * CT Thoracic Spine wo Contrast (08/13/2025 10:49 AM EST) Anatomical Region Laterality Modality Spine, T-spine Computed Tomogra phy 08/13/2025 11:1 2 AM EST Impressions 08/13/2025 11:19 AM EST No acute thoracic spine fracture. Degenerative changes throughout the thoracic spine. -------- FINAL REPORT -------- Dictated By: ARSLAN JOSE Dictated Date: 08/13/2025 11:12 ET Assigned Physician: ARSLAN JOSE Reviewed and Electronically Signed By: ARSLAN JOSE Signed Date: 08/13/2025 11:19 ET Workstation ID: [id number] Transcribed By: Self Edit Transcribed Date: 08/13/2025 11:12 ET Narrative 08/13/2025 11:19 AM EST PROCEDURE: Thoracic spine CT INDICATION: Pain, weakness TECHNIQUE: Noncontrast CT of the thoracic spine with multiplanar reformats. The examination was performed utilizing dose reduction techniques. Total DLP 682 COMPARISON: No priors available. FINDINGS: Thoracic kyphosis is maintained. Dextroconvex thoracic scoliosis. No acute fracture. Mild degenerative loss of disc space heights throughout the thoracic spine with associated endplate spurring. Degenerative thoracic facet arthritis, most pronounced in the right upper thoracic region. No high-grade bony spinal canal stenosis or foraminal stenosis. Paraspinal muscles are within normal limits. The visualized upper abdominal structures are notable for left renal cysts. Visualized intrathoracic structures are notable for moderate hiatal hernia. The visualized intrathoracic structures are notable for upper lobe predominant chronic interstitial lung disease. Procedure Note Arslan Jose MD - 08/13/2025 PROCEDURE: Thoracic spine CT INDICATION: Pain, weakness TECHNIQUE: Noncontrast CT of the thoracic spine with multiplanarreformats. The examination was performed utilizing dose reduction techniques. TotalDLP 682 COMPARISON: No priors available. FINDINGS: Thoracic kyphosis is maintained. Dextroconvex thoracic scoliosis. No acute fracture. Mild degenerative loss of disc space heights throughout the thoracic spinewith associated endplate spurring. Degenerative thoracic facet arthritis,most pronounced in the right upper thoracic region. No high-grade bony spinal canal stenosis or foraminal stenosis. Paraspinal muscles are within normal limits. The visualized upperabdominal structures are notable for left renal cysts. Visualized intrathoracic structures are notable for moderate hiatalhernia. The visualized intrathoracic structures are notable for upperlobe predominant chronic interstitial lung disease. IMPRESSION: No acute thoracic spine fracture. Degenerative changes throughout thethoracic spine. -------- FINAL REPORT -------- Dictated By: ARSLAN JOSE Dictated Date: 08/13/2025 11:12 ET Assigned Physician: ARSLAN JOSE Reviewed and Electronically Signed By: ARSLAN JOSE Signed Date: 08/13/2025 11:19 ET Workstation ID: [id number] Transcribed By: Self Edit Transcribed Date: 08/13/2025 11:12 ET Adelaide CARTAGENA IMG CT PROCEDURES Final Re sult * POCT Glucose, blood (08/13/2025 8:09 AM EST) [facility] Glucose POCT 83 70 - 100 mg/dL 08/13/2025 8:10 AM EST [facility] Blood Capillary blood specimen / Unknown 08/13/2025 8:09 AM EST 08/13/2025 8:11 AM EST Anton Dhaliwal MD LAB POINT OF CARE TE ST DOCKED DEVICE UNSOLICITED RESULTS Final Result [facility] [address] [place] [address], [place] [phone] * (ABNORMAL) POCT Glucose, blood (08/13/2025 4:23 AM EST) Glucose POCT 104(H) 70 - 100 mg/dL 08/13/2025 4:25 AM EST [facility] Blood Capillary blood specimen / Unknown 08/13/2025 4:23 AM EST 08/13/2025 4:26 AM EST us Anton Dhaliwal MD LAB POINT OF CARE TE ST DOCKED DEVICE UNSOLICITED RESULTS Final Result [facility] [address] [place] [address], [place] [phone] * (ABNORMAL) POCT Glucose, blood (08/12/2025 8:55 PM EST) Glucose POCT 138(H) 70 - 100 mg/dL 08/12/2025 8:57 PM EST [facility] Blood Capillary blood specimen / Unknown 08/12/2025 8:55 PM EST 08/12/2025 8:58 PM EST us Anton Dhaliwal MD LAB POINT OF CARE TE ST DOCKED DEVICE UNSOLICITED RESULTS Final Result Performing Organization Address City/[facility]/ZIP Co de Phone Number [facility] [address] [place] [address], [place] [phone] * (ABNORMAL) POCT Glucose, blood (08/12/2025 11:03 AM EST) Glucose POCT 142(H) 70 - 100 mg/dL 08/12/2025 11:04 AM EST [facility] Blood Capillary blood specimen / Unknown 08/12/2025 11:03 AM EST 08/12/2025 11:05 AM EST us Anton Dhaliwal MD LAB POINT OF CARE TE ST DOCKED DEVICE UNSOLICITED RESULTS Final Result [facility] [address] [place] [address], [place] [phone] * POCT Glucose, blood (08/12/2025 7:40 AM EST) [facility] Glucose POCT 98 70 - 100 mg/dL 08/12/2025 7:40 AM EST [facility] Blood Capillary blood specimen / Unknown 08/12/2025 7:40 AM EST 08/12/2025 7:41 AM EST Anton Dhaliwal MD LAB POINT OF CARE TE ST DOCKED DEVICE UNSOLICITED RESULTS Final Result [facility] [address] [place] [address], [place] [phone] * (ABNORMAL) C-reactive protein (08/12/2025 5:24 AM EST) [facility] C-Reactive Protein 9.36(H) <=0.50 mg/dL 08/13/2025 8:48 AM EST [facility] Blood Venous blood specimen / Unknown Venipuncture / Unknown 08/12/2025 5:24 AM EST 08/12/2025 5:39 AM EST Adelaide CARTAGENA LAB BLOOD ORDERABLES Final Result [facility] [address] [place] [address], [place] [phone] * Creatine kinase (08/12/2025 5:24 AM EST) [facility] Total CK 72 34 - 145 unit/L 08/12/2025 5:03 PM EST [facility] Blood Venous blood specimen / Unknown Venipuncture / Unknown 08/12/2025 5:24 AM EST 08/12/2025 5:39 AM EST Adelaide CARTAGENA LAB BLOOD ORDERABLES Final Result Performing Organization Address City/[facility]/ZIP Co de Phone Number [facility] [address] [place] [address], [place] [phone] * (ABNORMAL) Sedimentation rate (08/12/2025 5:24 AM EST) Sed Rate 88(H) 0 - 30 mm/hr LAB HEMETOLOGY METHOD 08/12/2025 10:10 AM EST [facility] Blood Venous blood specimen / Unknown Venipuncture / Unknown 08/12/2025 5:24 AM EST 08/12/2025 5:39 AM EST Adelaide CARTAGENA LAB BLOOD ORDERABLES Final Result Performing Organization Address [facility]/ZIP Co de Phone Number [facility] [address] [place] [address], [place] [phone] * (ABNORMAL) CBC auto differential (08/12/2025 5:24 AM EST) [facility] WBC 9.2 4.8 - 10.8 K/mcL LAB HEMETOLOGY METHOD 08/12/2025 5:50 AM [facility] RBC 3.30(L) 3.80 - 4.80 M/mcL LAB HEMETOLOGY METHOD 08/12/2025 5:50 AM [facility] Hemoglobin 10.0(L) 11.5 - 16.0 g/dL LAB HEMETOLOGY METHOD 08/12/2025 5:50 AM [facility] Hematocrit 30.4(L) 35.0 - 47.0 % LAB HEMETOLOGY METHOD 08/12/2025 5:50 AM [facility] MCV 93.5 79.0 - 98.0 FL LAB HEMETOLOGY METHOD 08/12/2025 5:50 AM [facility] MCH 30.8 27.0 - 32.0 pcg LAB HEMETOLOGY METHOD 08/12/2025 5:50 AM [facility] MCHC 32.9 32.0 - 37.0 g/dL LAB HEMETOLOGY METHOD 08/12/2025 5:50 AM [facility] RDW 12.8 11.0 - 15.0 % LAB HEMETOLOGY METHOD 08/12/2025 5:50 AM [facility] Platelets 161 130 - 400 K/mcL LAB HEMETOLOGY METHOD 08/12/2025 5:50 AM [facility] MPV 10.1 7.0 - 11.0 FL LAB HEMETOLOGY METHOD 08/12/2025 5:50 AM [facility] NRBC 0.0 <1.0 % LAB HEMETOLOGY METHOD 08/12/2025 5:50 AM [facility] NRBC Absolute 0.00 <0.10 K/mcL LAB HEMETOLOGY METHOD 08/12/2025 5:50 AM [facility] Neutrophils Relative 66.7 % LAB HEMETOLOGY METHOD 08/12/2025 5:50 AM [facility] Lymphocytes Relative 17.6 % LAB HEMETOLOGY METHOD 08/12/2025 5:50 AM [facility] Monocytes Relative 14.9 % LAB HEMETOLOGY METHOD 08/12/2025 5:50 AM [facility] Eosinophils Relative 0.2 % LAB HEMETOLOGY METHOD 08/12/2025 5:50 AM [facility] Basophils Relative 0.3 % LAB HEMETOLOGY METHOD 08/12/2025 5:50 AM [facility] Immature Granulocytes Relative 0.3 % LAB HEMETOLOGY METHOD 08/12/2025 5:50 AM [facility] Neutrophils Absolute 6.15 1.50 - 7.00 K/mcL LAB HEMETOLOGY METHOD 08/12/2025 5:50 AM EST [facility] Lymphocytes Absolute 1.62 1.00 - 5.00 K/mcL LAB HEMETOLOGY METHOD 08/12/2025 5:50 AM EST [facility] Monocytes Absolute 1.37(H) 0.20 - 1.00 K/mcL LAB HEMETOLOGY METHOD 08/12/2025 5:50 AM EST [facility] Eosinophils Absolute 0.02 0.00 - 0.50 K/Health system LAB HEMETOLOGY METHOD 08/12/2025 5:50 AM EST [facility] Basophils Absolute 0.03 0.00 - 0.20 K/Health system LAB HEMETOLOGY METHOD 08/12/2025 5:50 AM [facility] Immature Granulocytes Absolute 0.03 0.00 - 0.03 K/mcL LAB HEMETOLOGY METHOD 08/12/2025 5:50 AM [facility] Blood Venous blood specimen / Unknown Venipuncture / Unknown 08/12/2025 5:24 AM EST 08/12/2025 5:39 AM EST us Omar Kyle MD LAB BLOOD ORDERABLES Final Result [facility] [address] [place] [address], * (ABNORMAL) Basic metabolic panel (08/12/2025 5:24 AM EST) Sodium 140 133 - 145 mmol/L 08/12/2025 6:03 AM EST [facility] Potassium 3.8 3.5 - 5.5 mmol/L 08/12/2025 6:03 AM [facility] Chloride 106 96 - 110 mmol/L 08/12/2025 6:03 AM [facility] CO2 26 21 - 32 mmol/L 08/12/2025 6:03 AM [facility] Anion Gap 8 3 - 11 08/12/2025 6:03 AM [facility] Glucose 111(H) 70 - 100 mg/dL 08/12/2025 6:03 AM [facility] BUN 16 5 - 25 mg/dL 08/12/2025 6:03 AM [facility] Creatinine 0.56 0.50 - 1.10 mg/dL 08/12/2025 6:03 AM [facility] eGFR 92 >=60 mL/min/1. 73m2 08/12/2025 6:03 AM [facility] Comment:Calculation based on the Chronic Kidney Disease Epidemiology Collaboration (CKD-EPI) equation refit without adjustment for race. BUN/Creatinine Ratio 28.6 08/12/2025 6:03 AM [facility] Calcium 8.4(L) 8.5 - 10.5 mg/dL 08/12/2025 6:03 AM [facility] Blood Venous blood specimen / Unknown Venipuncture / Unknown 08/12/2025 5:24 AM EST 08/12/2025 5:39 AM EST us Omar Kyle MD LAB BLOOD ORDERABLES Final Result [facility] [address] [place] [address], * (ABNORMAL) POCT Glucose, blood (08/12/2025 3:27 AM EST) Glucose POCT 108(H) 70 - 100 mg/dL 08/12/2025 3:28 AM [facility] Blood Capillary blood specimen / Unknown 08/12/2025 3:27 AM EST 08/12/2025 3:29 AM EST us Omar Kyle MD LAB POINT OF CARE T EST DOCKED DEVICE UNSOLICITED RESULTS Final Result [facility] [address] [place] [address], [place] [phone] * Splint Application (08/12/2025 3:16 AM EST) Narrative Allen Guerrero MD - 08/12/2025 3:16 AM EST Allen Guerrero MD 08/12/2025 3:46 AM Splint Application Date/Time: 08/12/2025 3:16 AM Performed by: Allen Guerrero MD Authorized by: Allen Guerrero MD Consent: Consent obtained: Verbal Consent given by: Patient Alternatives discussed: No treatment, alternative treatment and referral Pre-procedure details: Distal neurologic exam: Normal Distal perfusion: distal pulses strong and brisk capillary refill Procedure details: Location: Arm Arm location: R lower arm Strapping: yes Supplies: Elastic bandage Attestation: Splint applied and adjusted personally by me Post-procedure details: Distal neurologic exam: Normal Distal perfusion: distal pulses strong Procedure completion: Tolerated well, no immediate complications Post-procedure imaging: not applicable Allen Guerrero MD IN CLINIC/BEDSIDE ORDERABLES Wily tanner Result - Final * Blood Culture, Peripheral #2 (08/12/2025 2:42 AM EST) Culture, Blood No growth at 5 days LAB MICROBIOLOGY METHOD 08/17/2025 6:01 AM EST [facility] Blood Venous blood specimen / Unknown Venipuncture / Unknown 08/12/2025 2:42 AM EST 08/12/2025 3:05 AM EST Omar Kyle MD LAB MICROBIOLOGY - GENERAL ORDERABLES Final Result [facility] [address] [place] [address], [place] [phone] * Blood Culture, Peripheral #1 (08/12/2025 2:42 AM EST) Culture, Blood No growth at 5 days LAB MICROBIOLOGY METHOD 08/17/2025 6:01 AM EST [facility] Blood Venous blood specimen / Unknown Venipuncture / Unknown 08/12/2025 2:42 AM EST 08/12/2025 3:05 AM EST Omar Kyle MD LAB MICROBIOLOGY - GENERAL ORDERABLES Final Result [facility] [address] [place] [address], * XR Forearm 2 Views Right (08/12/2025 2:17 AM EST) Anatomical Region Laterality Modality Upper Extremities, Forearm Right Radio graphic Imaging 08/12/2025 8:45 AM EST Impressions 08/12/2025 8:47 AM EST FINDINGS/IMPRESSION: Unchanged alignment distal radial fracture with splint in place. Contour abnormality at the radial head suspicious for nondisplaced radial head fracture extending to the neck. No additional fractures. Degenerative changes are seen throughout the hand and wrist, most pronounced at the 1st CMC articulation. Soft tissue swelling throughout the right forearm. -------- FINAL REPORT -------- Dictated By: ARSLAN JOSE Dictated Date: 08/12/2025 08:45 ET Assigned Physician: ARSLAN JOSE Reviewed and Electronically Signed By: ARSLAN JOSE Signed Date: 08/12/2025 08:47 ET Workstation ID: [id number] Transcribed By: Self Edit Transcribed Date: 08/12/2025 08:45 ET Narrative 08/12/2025 8:47 AM EST XR FOREARM 2 VIEWS RIGHT INDICATION: Pain TECHNIQUE: XR FOREARM 2 VIEWS RIGHT COMPARISON: 08/10/2025. Procedure Note Arslan Jose MD - 08/12/2025 XR FOREARM 2 VIEWS RIGHT INDICATION: Pain TECHNIQUE: XR FOREARM 2 VIEWS RIGHT COMPARISON: 08/10/2025. IMPRESSION: FINDINGS/IMPRESSION: Unchanged alignment distal radial fracture withsplint in place. Contour abnormality at the radial head suspicious fornondisplaced radial head fracture extending to the neck. No additionalfractures. Degenerative changes are seen throughout the hand and wrist,most pronounced at the 1st CMC articulation. Soft tissue swellingthroughout the right forearm. -------- FINAL REPORT -------- Dictated By: ARSLAN JOSE Dictated Date: 08/12/2025 08:45 ET Assigned Physician: ARSLAN JOSE Reviewed and Electronically Signed By: ARSLAN JOSE Signed Date: 08/12/2025 08:47 ET Workstation ID: [id number] Transcribed By: Self Edit Transcribed Date: 08/12/2025 08:45 ET Allen Guerrero MD IMG XR PROCEDURES Final Result * XR Chest 1 View (08/12/2025 1:33 AM EST) Anatomical Region Laterality Modality Body Radiographic Arlin ging 08/12/2025 8:45 AM EST Impressions 08/12/2025 8:47 AM EST Impression: 1. Interstitial pulmonary fibrosis. 2. No acute infiltrate identified. Telekayleigh CARTAGENA ([id number]) -------- FINAL REPORT -------- Dictated By: Sarahi Ignacio Dictated Date: 08/12/2025 08:45 ET Assigned Physician: Sarahi Ignacio Reviewed and Electronically Signed By: Sarahi Ignacio Signed Date: 08/12/2025 08:47 ET Workstation ID: [id number] Transcribed By: Self Edit Transcribed Date: 08/12/2025 08:45 ET Narrative 08/12/2025 8:47 AM EST History: Generalized weakness. Fall. Comparison: 08/10/25, 09/02/22 Findings: Portable AP upright chest at 1:24 AM. The cardiac silhouette remains normal in size. A coarse reticular pattern is seen bilaterally, worst in the upper lungs, similar to the most recent study but overall worse compared to the 2021 exam, most likely representing interstitial fibrosis. No acute infiltrate is seen. The costophrenic angles are sharp. Stable deformity of the left humeral neck is consistent with an old, healed fracture. Procedure Note Sarahi Ignacio MD - 08/12/2025 History: Generalized weakness. Fall. Comparison: 08/10/25, 09/02/22 Findings: Portable AP upright chest at 1:24 AM. The cardiac silhouette remainsnormal in size. A coarse reticular pattern is seen bilaterally, worst inthe upper lungs, similar to the most recent study but overall worsecompared to the 2021 exam, most likely representing interstitial fibrosis.No acute infiltrate is seen. The costophrenic angles are sharp. Stable deformity of the left humeral neck is consistent with an old,healed fracture. IMPRESSION: Impression: 1. Interstitial pulmonary fibrosis. 2. No acute infiltrate identified. Telerad MITZI ([id number]) -------- FINAL REPORT -------- Dictated By: Sarahi Ignacio Dictated Date: 08/12/2025 08:45 ET Assigned Physician: Sarahi Ignacio Reviewed and Electronically Signed By: Sarahi Ignacio Signed Date: 08/12/2025 08:47 ET Workstation ID: [id number] Transcribed By: Self Edit Transcribed Date: 08/12/2025 08:45 ET Allen Guerrero MD IMG XR PROCEDURES Final Result * (ABNORMAL) Culture urine (08/12/2025 1:13 AM EST) Culture, Urine <10,000 CFU/mL Staphylococcus epidermidis(A) JEOVANNY 08/16/2025 11:57 AM EST [facility] Comment: Beta-lactamase negative Edited result: Previously reported as Gram Positive Cocci on 08/14/2025 at 1013 EST. Culture, Urine <10,000 CFU/mL Staphylococcus epidermidis(A) JEOVANNY 08/16/2025 11:57 AM EST [facility] Comment: The organism value for this result has been updated. These results have been appended to the previously preliminary verified report. Culture, Urine <1,000 CFU/mL Staphylococcus lugdunensis(A) JEOVANNY 08/16/2025 11:57 AM EST [facility] Comment: The organism value for this result has been updated. These results have been appended to the previously preliminary verified report. Urine Urinary bladder structure / Unknown Non-blood Collection / Unknown 08/12/2025 1:13 AM EST 08/12/2025 2:08 AM EST Narrative Organism Antibiotic Method Susceptibility Staphylococcus epidermidis Benzylpenicillin JEOVANNY Susceptible Staphylococcus epidermidis Oxacillin JEOVANNY <=0.25 ug/ml: Susceptible Staphylococcus epidermidis Gentamicin JEOVANNY <=0.5 ug/ml: Susceptible Staphylococcus epidermidis Ciprofloxacin JEOVANNY <=0.5 ug/ml: Susceptible Staphylococcus epidermidis Levofloxacin JEOVANNY 0.25 ug/ml: Susceptible Staphylococcus epidermidis Quinupristin/Dalfopristin JEOVANNY <=0.25 ug/ml: Susceptible Staphylococcus epidermidis Linezolid JEOVANNY 2 ug/ml: Susceptible Staphylococcus epidermidis Vancomycin JEOVANNY 1 ug/ml: Susceptible Staphylococcus epidermidis Tetracycline JEOVANNY 2 ug/ml: Susceptible Staphylococcus epidermidis Nitrofurantoin JEOVANNY <=16 ug/ml: Susceptible Staphylococcus epidermidis Rifampin JEOVANNY <=0.5 ug/ml: Susceptible Staphylococcus epidermidis Benzylpenicillin JEOVANNY >=0.5 ug/ml: Resistant Staphylococcus epidermidis Oxacillin JEOVANNY <=0.25 ug/ml: Susceptible Staphylococcus epidermidis Gentamicin JEOVANNY <=0.5 ug/ml: Susceptible Staphylococcus epidermidis Ciprofloxacin JEOVANNY <=0.5 ug/ml: Susceptible Staphylococcus epidermidis Levofloxacin JEOVANNY <=0.12 ug/ml: Susceptible Staphylococcus epidermidis Quinupristin/Dalfopristin JEOVANNY <=0.25 ug/ml: Susceptible Staphylococcus epidermidis Linezolid JEOVANNY 2 ug/ml: Susceptible Staphylococcus epidermidis Vancomycin JEOVANNY 1 ug/ml: Susceptible Staphylococcus epidermidis Tetracycline JEOVANNY 2 ug/ml: Susceptible Staphylococcus epidermidis Nitrofurantoin JEOVANNY <=16 ug/ml: Susceptible Staphylococcus epidermidis Rifampin JEOVANNY <=0.5 ug/ml: Susceptible Staphylococcus lugdunensis Oxacillin JEOVANNY 0.5 ug/ml: Susceptible Staphylococcus lugdunensis Gentamicin JEOVANNY <=0.5 ug/ml: Susceptible Staphylococcus lugdunensis Ciprofloxacin JEOVANNY <=0.5 ug/ml: Susceptible Staphylococcus lugdunensis Levofloxacin JEOVANNY 0.25 ug/ml: Susceptible Staphylococcus lugdunensis Erythromycin JEOVANNY <=0.25 ug/ml: Susceptible Staphylococcus lugdunensis Clindamycin JEOVANNY <=0.25 ug/ml: Susceptible Staphylococcus lugdunensis Vancomycin JEOVANNY 1 ug/ml: Susceptible Staphylococcus lugdunensis Tetracycline JEOVANNY 2 ug/ml: Susceptible Staphylococcus lugdunensis Rifampin JEOVANNY <=0.5 ug/ml: Susceptible Staphylococcus lugdunensis Penicillin DISK DIFFUSION Susceptible us Allen Guerrero MD LAB MICROBIOLOGY - GENERAL ORDER SHREYAS Final Result Performing Organization Address [facility]/ZIP Co de Phone Number [facility] [address] [place] [address], [place] [phone] * Miller urine culture tube (08/12/2025 1:13 AM EST) [facility] Extra Tube Hold for add-ons. 08/12/2025 3:02 AM [facility] Comment:Auto resulted. Urine Urinary bladder structure / Unknown Non-blood Collection / Unknown 08/12/2025 1:13 AM EST 08/12/2025 1:47 AM EST us Allen Guerrero MD LAB URINE ORDERABLES Final Resul t Performing Organization Address [facility]/ZIP Co de Phone Number [facility] [address] [place] [address], [place] [phone] * (ABNORMAL) Urinalysis with reflex microscopic and culture (08/12/2025 1:13 AM EST) [facility] Specific [place] Urine 1.022 1.003 - 1.030 LAB URINALYSIS - AUTOMATED METHOD 08/12/2025 2:08 AM [facility] pH, Urine 7.0 5.0 - 8.0 pH LAB URINALYSIS - AUTOMATED METHOD 08/12/2025 2:08 AM [facility] Leukocytes, Urine Moderate(A) Negative LAB URINALYSIS - AUTOMATED METHOD 08/12/2025 2:08 AM [facility] Nitrite, Urine Negative Negative LAB URINALYSIS - AUTOMATED METHOD 08/12/2025 2:08 AM [facility] Protein, Urine 30(A) <=Trace mg/dL LAB URINALYSIS - AUTOMATED METHOD 08/12/2025 2:08 AM [facility] Glucose, Urine Negative Negative mg/dL LAB URINALYSIS - AUTOMATED METHOD 08/12/2025 2:08 AM [facility] Ketones, Urine Negative Negative mg/dL LAB URINALYSIS - AUTOMATED METHOD 08/12/2025 2:08 AM [facility] Urobilinogen , Urine 1.0 0.2 - 1.0 mg/dL LAB URINALYSIS - AUTOMATED METHOD 08/12/2025 2:08 AM [facility] Bilirubin, Urine Negative Negative LAB URINALYSIS - AUTOMATED METHOD 08/12/2025 2:08 AM [facility] Blood, Urine Negative Negative LAB URINALYSIS - AUTOMATED METHOD 08/12/2025 2:08 AM [facility] RBC, Urine 4 0 - 4 /HPF LAB URINALYSIS - AUTOMATED METHOD 08/12/2025 2:08 AM [facility] WBC, Urine 30(H) 0 - 4 /HPF LAB URINALYSIS - AUTOMATED METHOD 08/12/2025 2:08 AM [facility] Squamous Epithelial, Urine 50 0 - 60 /LPF LAB URINALYSIS - AUTOMATED METHOD 08/12/2025 2:08 AM [facility] Bacteria, Urine Negative Negative /HPF LAB URINALYSIS - AUTOMATED METHOD 08/12/2025 2:08 AM [facility] Hyaline Casts, Urine 3 0 - 3 /LPF LAB URINALYSIS - AUTOMATED METHOD 08/12/2025 2:08 AM [facility] Mucus, Urine Large None /HPF LAB URINALYSIS - AUTOMATED METHOD 08/12/2025 2:08 AM [facility] Urine Urinary bladder structure / Unknown Non-blood Collection / Unknown 08/12/2025 1:13 AM EST 08/12/2025 1:47 AM EST us Allen Guerrero MD LAB URINE ORDERABLES Final Resul t [facility] [address] [place] [address], [place] [phone] * CT Cervical Spine wo Contrast (08/12/2025 12:56 AM EST) Anatomical Region Laterality Modality Spine, C-spine Computed Tomogra phy 08/12/2025 1:20 AM EST Impressions 08/12/2025 1:20 AM EST No acute findings. Chronic findings as above This document has been electronically signed by: González Khoury MD on 08/12/2025 01:20:37 Narrative 08/12/2025 1:20 AM EST INDICATION: pain CT cervical spine without contrast Comparison: CT - CT C SPINE WO CONTRAST - 08/10/25 00:38 EST Findings: Straightening of the cervical spine is likely positional. Multilevel degenerative changes, similar to prior. No acute fractures or dislocations. Biapical reticulonodular opacities, similar to prior. Heterogeneous thyroid gland. No acute findings in the visualized brain. Procedure Note González Khoury MD - 08/12/2025 INDICATION: pain CT cervical spine without contrast Comparison: CT - CT C SPINE WO CONTRAST - 08/10/25 00:38 EST Findings: Straightening of the cervical spine is likely positional. Multilevel degenerative changes, similar to prior. No acute fractures or dislocations. Biapical reticulonodular opacities, similar to prior. Heterogeneous thyroid gland. No acute findings in the visualized brain. IMPRESSION: No acute findings. Chronic findings as above This document has been electronically signed by: González Khoury MD on 08/12/2025 01:20:37 us Allen Guerrero MD IMKrystle CT PROCEDURES Final Result * CT Lumbar Spine wo Contrast (08/12/2025 12:56 AM EST) Anatomical Region Laterality Modality Spine, L-spine Computed Tomogra phy 08/12/2025 1:32 AM EST Impressions 08/12/2025 1:32 AM EST No acute findings. This document has been electronically signed by: González Khoury MD on 08/12/2025 01:32:57 Narrative 08/12/2025 1:32 AM EST INDICATION: pain CT lumbar spine without contrast Comparison: None provided Findings: For the purposes of this report, there are 6 [id number]-[id number] lumbar vertebral bodies. L6 is partially sacralized on the left. Osteopenia. Vertebral alignment is within normal limits. No acute fractures or dislocations. Mild multilevel degenerative changes. L3-L4: Mild bilateral neural foraminal stenosis. L4-L5: Posterior disc osteophyte complex and facet arthropathy causing moderate bilateral neural foraminal stenosis. L5-L6: Disc bulge and facet arthropathy causing mild bilateral neural foraminal stenosis. Aortic atherosclerosis. No aneurysm. Left renal cysts. Procedure Note González Khoury MD - 08/12/2025 INDICATION: pain CT lumbar spine without contrast Comparison: None provided Findings: For the purposes of this report, there are 6 [id number] lumbar vertebral bodies. L6 is partially sacralized on the left. Osteopenia. Vertebral alignment is within normal limits. No acute fractures or dislocations. Mild multilevel degenerative changes. L3-L4: Mild bilateral neural foraminal stenosis. L4-L5: Posterior disc osteophyte complex and facet arthropathy causing moderate bilateral neural foraminal stenosis. L5-L6: Disc bulge and facet arthropathy causing mild bilateral neural foraminal stenosis. Aortic atherosclerosis. No aneurysm. Left renal cysts. IMPRESSION: No acute findings. This document has been electronically signed by: González Khoury MD on 08/12/2025 01:32:57 us Allen Guerrero MD [facility] CT PROCEDURES Final Result * B-Type Natriuretic Peptide (BNP) (08/11/2025 10:57 PM EST) BNP 30 <=100 pcg/mL 08/11/2025 11:38 PM EST [facility] Blood Venous blood specimen / Unknown Venipuncture / Unknown 08/11/2025 10:57 PM EST 08/11/2025 11:01 PM EST Narrative [facility] - 08/11/2025 11:38 PM EST Over the counter supplements containing high doses of biotin may interfere with this assay. If interference is suspected, patients shoud be retested after refraining from biotin supplements for 72 hours. us Allen Guerrero MD LAB BLOOD ORDERABLES Final Resul t Performing Organization Address [facility] Co de Phone Number [facility] [address] [place] [address], [place] [phone] * Lipase (08/11/2025 10:57 PM EST) Pathologist [facility] Lipase 22 12 - 53 unit/L 08/11/2025 11:25 PM EST [facility] Blood Venous blood specimen / Unknown Venipuncture / Unknown 08/11/2025 10:57 PM EST 08/11/2025 11:01 PM EST us Allen Guerrero MD LAB BLOOD ORDERABLES Final Resul t Performing Organization Address [facility] Co de Phone Number [facility] [address] [place] [address], [place] [phone] * Lactate, with Reflex (08/11/2025 10:57 PM EST) [facility] LACTIC ACID 1.1 0.4 - 2.0 mmol/L 08/11/2025 11:39 PM EST [facility] Blood Venous blood specimen / Unknown Venipuncture / Unknown 08/11/2025 10:57 PM EST 08/11/2025 11:00 PM EST us Allen Guerrero MD LAB BLOOD ORDERABLES Final Resul t Performing Organization Address [facility] Co de Phone Number [facility] [address] [place] [address], [place] [phone] * Troponin I High Sensitivity (08/11/2025 10:57 PM EST) [facility] High Sensitivity Troponin I 6 <=34 ng/L 08/11/2025 11:39 PM EST [facility] Blood Venous blood specimen / Unknown Venipuncture / Unknown 08/11/2025 10:57 PM EST 08/11/2025 11:01 PM EST us Allen Guerrero MD LAB BLOOD ORDERABLES Final Resul t [facility] [address] [place] [address], * Respiratory virus panel molecular study (08/11/2025 10:56 PM EST) Adenovirus Detection by PCR Not Detected Not Detected LAB MICROBIOLOGY METHOD 08/12/2025 12:49 AM [facility] Influenza A PCR Not Detected Not Detected LAB MICROBIOLOGY METHOD 08/12/2025 12:49 AM [facility] Influenza B PCR Not Detected Not Detected LAB MICROBIOLOGY METHOD 08/12/2025 12:49 AM [facility] Coronavirus 229E Not Detected Not Detected LAB MICROBIOLOGY METHOD 08/12/2025 12:49 AM [facility] Coronavirus HKU1 Not Detected Not Detected LAB MICROBIOLOGY METHOD 08/12/2025 12:49 AM [facility] Coronavirus OC43 Not Detected Not Detected LAB MICROBIOLOGY METHOD 08/12/2025 12:49 AM [facility] Coronavirus NL63 Not Detected Not Detected LAB MICROBIOLOGY METHOD 08/12/2025 12:49 AM [facility] Parainfluenza Virus 1 Not Detected Not Detected LAB MICROBIOLOGY METHOD 08/12/2025 12:49 AM [facility] Parainfluenza Virus 2 Not Detected Not Detected LAB MICROBIOLOGY METHOD 08/12/2025 12:49 AM [facility] Parainfluenza Virus 3 Not Detected Not Detected LAB MICROBIOLOGY METHOD 08/12/2025 12:49 AM [facility] Parainfluenza Virus 4 Not Detected Not Detected LAB MICROBIOLOGY METHOD 08/12/2025 12:49 AM [facility] RSV PCR Not Detected Not Detected LAB MICROBIOLOGY METHOD 08/12/2025 12:49 AM [facility] Human Metapneumovirus A and B Not Detected Not Detected LAB MICROBIOLOGY METHOD 08/12/2025 12:49 AM [facility] Rhinovirus/Entero virus Not Detected Not Detected LAB MICROBIOLOGY METHOD 08/12/2025 12:49 AM [facility] Bordetella pertussis Not Detected Not Detected LAB MICROBIOLOGY METHOD 08/12/2025 12:49 AM [facility] Bordetella parapertussis Not Detected Not Detected LAB MICROBIOLOGY METHOD 08/12/2025 12:49 AM [facility] Mycoplasma pneumo by PCR Not Detected Not Detected LAB MICROBIOLOGY METHOD 08/12/2025 12:49 AM [facility] Chlamydia pneumoniae Not Detected Not Detected LAB MICROBIOLOGY METHOD 08/12/2025 12:49 AM [facility] SARS COV-2 Not Detected Not Detected LAB MICROBIOLOGY METHOD 08/12/2025 12:49 AM [facility] Swab Both anterior nares / Unknown Non-blood Collection / Unknown 08/11/2025 10:56 PM EST 08/11/2025 11:00 PM EST [facility] - 08/12/2025 12:49 AM EST Testing was performed using the In[employer] Respiratory Pathogen PCR Assay. All results must be correlated with the clinical findings. Results should not be used as the sole basis for diagnosis. False Negative results may occur from the presence of sequence variants in the region targeted by the assay or the presence of inhibitors. Results may be affected by concurrent antiviral/antimicrobial therapy or levels of organisms that are below the limit of detection. us Allen Guerrero MD LAB MICROBIOLOGY - GENERAL ORDER SHREYAS Final Result [facility] [address] [place] [address], [place] [phone] * 12-Lead ECG (08/11/2025 10:19 PM EST) Ventricular Rate ECG 105 BPM GEMUSE Atrial Rate 105 BPM GEMUSE P-R Interval 144 ms GEMUSE QRS Duration 66 ms GEMUSE Q-T Interval 320 ms GEMUSE QTc 422 ms GEMUSE P Wave [place] 67 degrees GEMUSE R [place] -13 degrees GEMUSE T [place] 70 degrees GEMUSE ECG Interpretation Sinus tachycardia When compared with ECG of 14-APR-2023 15:05, Vent. rate has increased BY 38 BPM Confirmed by ANIKET BARBA ([id number]) on 08/12/2025 12:30:35 AM GEMUSE 08/11/2025 10:1 9 PM EST 08/12/2025 12:30 AM EST us Allen Guerrero MD ECG ORDERABLES Final Result GEMUSE * (ABNORMAL) Manual differential (08/11/2025 9:59 PM EST) Neutrophils % 78.0 % LAB HEMETOLOGY METHOD 08/11/2025 10:42 PM [facility] Bands % 1.0 % LAB HEMETOLOGY METHOD 08/11/2025 10:42 PM [facility] Lymphocytes % 8.0 % LAB HEMETOLOGY METHOD 08/11/2025 10:42 PM [facility] Monocytes % 11.0 % LAB HEMETOLOGY METHOD 08/11/2025 10:42 PM [facility] Eosinophils % 0.0 % LAB HEMETOLOGY METHOD 08/11/2025 10:42 PM [facility] Basophils % 1.0 % LAB HEMETOLOGY METHOD 08/11/2025 10:42 PM [facility] Metamyelocytes % 1.0(H) % LAB HEMETOLOGY METHOD 08/11/2025 10:42 PM [facility] Neutrophils Absolute Manual 8.81(H) 1.50 - 7.00 K/mcL LAB HEMETOLOGY METHOD 08/11/2025 10:42 PM [facility] Bands Absolute Manual 0.11(H) 0.00 - 0.00 K/mcL LAB HEMETOLOGY METHOD 08/11/2025 10:42 PM [facility] Lymphocytes Absolute 0.90(L) 1.00 - 5.00 K/mcL LAB HEMETOLOGY METHOD 08/11/2025 10:42 PM [facility] Monocytes Absolute Manual 1.24(H) 0.20 - 1.00 K/mcL LAB HEMETOLOGY METHOD 08/11/2025 10:42 PM [facility] Eosinophils Absolute Manual 0.00 0.00 - 0.50 K/mcL LAB HEMETOLOGY METHOD 08/11/2025 10:42 PM [facility] Basophils Absolute Manual 0.11 0.00 - 0.20 K/mcL LAB HEMETOLOGY METHOD 08/11/2025 10:42 PM [facility] Metamyelocytes Absolute Manual 0.11(H) 0.00 - 0.00 K/mcL LAB HEMETOLOGY METHOD 08/11/2025 10:42 PM [facility] Rbc Morphology Present( A) Consistent with indices, Normal for LAB HEMETOLOGY METHOD 08/11/2025 10:42 PM [facility] Comment:RBC: Morphology agre es with CBC Platelet Morphology - WAM See Note(A) Normal LAB HEMETOLOGY METHOD 08/11/2025 10:42 PM [facility] Comment:PLT: Normal Blood Venous blood specimen / Unknown Venipuncture / Unknown 08/11/2025 9:59 PM EST 08/11/2025 10:07 PM EST Madisyn CARTAGENA LAB BLOOD ORDERABLES Fin al Result [facility] [address] [place] [address], [place] [phone] * Thyroid Stimulating Hormone (TSH) (08/11/2025 9:59 PM EST) [facility] TSH 2.87 0.40 - 4.00 mcIU/mL 08/11/2025 11:23 PM EST [facility] Blood Venous blood specimen / Unknown Venipuncture / Unknown 08/11/2025 9:59 PM EST 08/11/2025 10:07 PM EST Allen Guerrero MD LAB BLOOD ORDERABLES Final Resul t Performing Organization Address [facility]/ZIP Co de Phone Number [facility] [address] [place] [address], [place] [phone] * (ABNORMAL) CBC auto differential (08/11/2025 9:59 PM EST) [facility] WBC 11.3(H) 4.8 - 10.8 K/mcL LAB HEMETOLOGY METHOD 08/11/2025 10:42 PM [facility] RBC 4.00 3.80 - 4.80 M/mcL LAB HEMETOLOGY METHOD 08/11/2025 10:42 PM [facility] Hemoglobin 12.2 11.5 - 16.0 g/dL LAB HEMETOLOGY METHOD 08/11/2025 10:42 PM [facility] Hematocrit 37.5 35.0 - 47.0 % LAB HEMETOLOGY METHOD 08/11/2025 10:42 PM [facility] MCV 93.1 79.0 - 98.0 FL LAB HEMETOLOGY METHOD 08/11/2025 10:42 PM [facility] MCH 30.3 27.0 - 32.0 pcg LAB HEMETOLOGY METHOD 08/11/2025 10:42 PM [facility] MCHC 32.5 32.0 - 37.0 g/dL LAB HEMETOLOGY METHOD 08/11/2025 10:42 PM EST [facility] RDW 12.9 11.0 - 15.0 % LAB HEMETOLOGY METHOD 08/11/2025 10:42 PM [facility] Platelets 186 130 - 400 K/mcL LAB HEMETOLOGY METHOD 08/11/2025 10:42 PM [facility] MPV 9.6 7.0 - 11.0 FL LAB HEMETOLOGY METHOD 08/11/2025 10:42 PM [facility] NRBC 0.0 <1.0 % LAB HEMETOLOGY METHOD 08/11/2025 10:42 PM [facility] NRBC Absolute 0.00 <0.10 K/mcL LAB HEMETOLOGY METHOD 08/11/2025 10:42 PM [facility] Blood Venous blood specimen / Unknown Venipuncture / Unknown 08/11/2025 9:59 PM EST 08/11/2025 10:07 PM EST Narrative [facility] - 08/11/2025 10:42 PM EST [phone] us Madisyn CARTAGENA LAB BLOOD ORDERABLES Fin al Result [facility] [address] [place] [address], * (ABNORMAL) Comprehensive Metabolic Panel (CMP) (08/11/2025 9:59 PM EST) Sodium 133 133 - 145 mmol/L 08/11/2025 11:21 PM [facility] Potassium 4.4 3.5 - 5.5 mmol/L 08/11/2025 11:21 PM [facility] Chloride 96 96 - 110 mmol/L 08/11/2025 11:21 PM [facility] CO2 29 21 - 32 mmol/L 08/11/2025 11:21 PM [facility] Anion Gap 8 3 - 11 08/11/2025 11:21 PM [facility] Glucose 114(H) 70 - 100 mg/dL 08/11/2025 11:21 PM [facility] BUN 22 5 - 25 mg/dL 08/11/2025 11:21 PM [facility] Creatinine 0.73 0.50 - 1.10 mg/dL 08/11/2025 11:21 PM [facility] eGFR 83 >=60 mL/min/1. 73m2 08/11/2025 11:21 PM [facility] Comment:Calculation based on the Chronic Kidney Disease Epidemiology Collaboration (CKD-EPI) equation refit without adjustment for race. BUN/Creatinine Ratio 30.1 08/11/2025 11:21 PM [facility] Calcium 8.4(L) 8.5 - 10.5 mg/dL 08/11/2025 11:21 PM [facility] AST (SGOT) 25 10 - 42 unit/L 08/11/2025 11:21 PM [facility] ALT (SGPT) 17 10 - 60 unit/L 08/11/2025 11:21 PM [facility] Alkaline Phosphatase 164(H) 42 - 121 unit/L 08/11/2025 11:21 PM [facility] Total Protein 8.0 6.0 - 8.0 g/dL 08/11/2025 11:21 PM [facility] Albumin 4.0 3.2 - 5.0 g/dL 08/11/2025 11:21 PM [facility] Total Bilirubin 2.2(H) 0.0 - 1.4 mg/dL 08/11/2025 11:21 PM EST [facility] Blood Venous blood specimen / Unknown Venipuncture / Unknown 08/11/2025 9:59 PM EST 08/11/2025 10:07 PM EST us Madisyn CARTAGENA LAB BLOOD ORDERABLES Fin al Result [facility] [address] [place] [address], * ID CRITICAL CARE 30-74 MINUTES (08/11/2025 9:20 PM EST) Narrative Allen Guerrero MD - 08/11/2025 9:20 PM EST Allen Guerrero MD 08/12/2025 3:46 AM Critical Care Performed by: Allen Guerrero MD Authorized by: Allen Guerrero MD Critical care provider statement: Critical care time (minutes): 36 Total face to face critical care time (minutes): 36 Critical care time was exclusive of: Separately billable procedures and treating other patients Critical care was necessary to treat or prevent imminent or life-threatening deterioration of the following conditions: Sepsis Critical care was time spent personally by me on the following activities: Development of treatment plan with patient or surrogate, discussions with consultants, evaluation of patient's response to treatment, ordering and review of laboratory studies, ordering and review of radiographic studies, re-evaluation of patient's condition, review of old charts, ordering and performing treatments and interventions and examination of patient I assumed direction of critical care for this patient from another provider in my specialty: no Care discussed with: admitting provider us Allen Guerrero MD IN CLINIC/BEDSIDE ORDERABLES Fin al Result documented in this encounter Visit Diagnoses Diagnosis Sepsis without septic shock (CMS/[facility] V24, CMS/[facility] V28)- Primary Urinary tract infection, acute Closed Colles' fracture of right radius with routine healing, subsequent encounter Generalized weakness Ambulatory dysfunction Acute midline low back pain without sciatica Neck pain, acute Acute bilateral low back pain without sciatica Weakness Other malaise and fatigue Weakness Other malaise and fatigue documented in this encounter Admitting Diagnoses Diagnosis Sepsis secondary to UTI (CMS/HCC V24, CMS/[facility] V28) documented in this encounter Administered Medications Inactive Administered Medications - up to 3 most recent administrations Medication Order MAR Action Action Date Dose Rate Site acetaminophen (TYLENOL) tablet 1,000 mg 1,000 mg, oral, Once, On Fri08/12/25 at 0031, For 1 dose Given 08/12/2025 1:22 AM EST 1,000 mg acetaminophen (TYLENOL) tablet 1,000 mg 1,000 mg, oral, Every 8 hours scheduled, First dose (after last reorder) on Fri08/12/25 at 0600 Given 08/13/2025 3:07 PM EST 1,000 mg Given 08/12/2025 9:01 PM EST 1,000 mg lactated Ringer's infusion 100 mL/hr, intravenous, Continuous, Starting on Fri08/12/25 at 0228, For 10 hours New Bag 08/12/2025 4:21 AM EST 100 mL/hr 100 mL/hr ondansetron (PF) (ZOFRAN) injection 4 mg 4 mg, intravenous, Every 8 hours PRN, vomiting, nausea, Starting on Fri08/12/25 at 0227, -ONLY give IV if patient is unable to take orally. -If inadequate response within 30 minutes, proceed to next-line agent or contact provider if no further options ordered. ondansetron ODT (ZOFRAN-ODT) disintegrating tablet 4 mg 4 mg, oral, Every 8 hours PRN, vomiting, nausea, Starting on Fri08/12/25 at 0227, -Give IV if patient is unable to take orally. -If inadequate response within 30 minutes, proceed to next-line agent or contact provider if no further options ordered. For ODT tablets: -Do not remove from blister pack until just before administering. -Patient should allow tablet to dissolve on tongue. pantoprazole (PROTONIX) EC tablet 40 mg 40 mg, oral, Every morning before breakfast, First dose on Fri08/12/25 at 0700, Do not crush, chew, or split. Given 08/12/2025 6:40 AM EST 40 mg prochlorperazine (COMPAZINE) injection 10 mg 10 mg, intravenous, Every 6 hours PRN, nausea, vomiting, Starting on Fri08/12/25 at 0227, 2nd Line Option: -ONLY give IV if patient is unable to take orally. -Give IM if patient does not have IV Access -If inadequate response within 30 minutes, proceed to next-line agent or contact provider if no further options ordered. prochlorperazine (COMPAZINE) suppository 25 mg 25 mg, rectal, Every 12 hours PRN, nausea, vomiting, Starting on Fri08/12/25 at 0227, 2nd Line Option: -ONLY give ID if patient is unable to take orally and cannot receive IV/IM. -If inadequate response within 30 minutes, proceed to next-line agent or contact provider if no further options ordered. prochlorperazine (COMPAZINE) tablet 10 mg 10 mg, oral, Every 6 hours PRN, nausea, vomiting, Starting on Fri08/12/25 at 0227, 2nd Line Option: -Give IV or IM if patient is unable to take orally. -If inadequate response within 30 minutes, proceed to next-line agent or contact provider if no further options ordered. sodium chloride 0.9 % bolus 1,000 mL 1,000 mL, intravenous, at 1,000 mL/hr, Administer over 1 Hours, Once, On Shayy 08/11/25 at 2225, For 1 dose New Bag 08/11/2025 11:12 PM EST 1,000 mL 1000 mL/hr sodium chloride 0.9 % bolus 1,000 mL 1,000 mL, intravenous, at 1,000 mL/hr, Administer over 1 Hours, Once, On Fri08/12/25 at 0219, For 1 dose New Bag 08/12/2025 2:46 AM EST 1,000 mL 1000 mL/hr sodium chloride 0.9 % flush 10 mL 10 mL, intravenous, 2 times daily, First dose on Fri08/12/25 at 0228 Given 08/12/2025 9:31 PM EST 10 mL Given 08/12/2025 2:52 AM EST 10 mL sodium chloride 0.9 % flush 10 mL 10 mL, intravenous, As needed, line care, Starting on Fri08/12/25 at 0227 documented in this encounter Discontinued Medications Medication Sig Discontinue Reason Start Date End Da te diazePAM (VALIUM) 2 mg tablet Take 1 tablet (2 mg total) by mouth as needed. Max Daily Amount: 2 mg 08/12/2025 lidocaine (LIDODERM) 5 % patch Place 1 Patch onto the skin every 24 hours. Apply for no more than 12 hours in any 24 hour period. 08/12/2025 documented as of this encounter Historical Medications * This list may reflect changes made after this encounter. gabapentin (NEURONTIN) 600 mg tablet Take 1 tablet (600 mg total) by mouth at bedtime. 08/09/2025 Synjardy XR 12.5-1,000 mg tablet, IR - ER, biphasic 24hr Take 2 Tab ER by mouth 1 (one) time each day. 08/09/2025 added in this encounter Active and Recently Administered Medications Times are shown in EST. Scheduled Medication Order 08/11/2025 08/12/2025 08/13/2025 acetaminophen (TYLENOL) tablet 1,000 mg (COMPLETED) 1,000 mg, oral, Once, On Fri08/12/25 at 0031, For 1 dose 0122 (Given - Provider: Rosy Michadu RN) acetaminophen (TYLENOL) tablet 1,000 mg 1,000 mg, oral, Every 8 hours scheduled, First dose (after last reorder) on Fri08/12/25 at 0600 0838 (Not Given - Provider: Amira Kevin RN - Reason: Patient/Resident/Ag ent refused - education provided )1322 (Not Given - Provider: Amira Kevin RN - Reason: Patient/Resident/Ag ent refused - education provided )2101 (Given - Provider: Deneen Lares, TATI) 0638 (Not Given - Provider: Deneen Lares RN - Reason: Patient/Resident/Agent refused - education provided )1507 (Given - Provider: Ana Palomino, TATI) cefTRIAXone (ROCEPHIN) 2 g in sterile water 20 mL IV syringe 2 g, intravenous, Administer over 3 Minutes, Once, On Fri08/12/25 at 0219, For 1 dose, Do not administer simultaneously with any calcium containing solutions via a Y-site in any patient., Indication: Pneumonia, Community Acquired 0247 (Not Given - Provider: Rosy Michaud RN - Reason: Patient/Resident/Ag ent refused - education provided ) enoxaparin (LOVENOX) injection 40 mg 40 mg, subcutaneous, Every 24 hours scheduled, First dose on Fri08/12/25 at 0900, Indication: VTE/PE Prophylaxis 0838 (Not Given - Provider: Amira Kevin RN - Reason: Patient/Resident/Ag ent refused - education provided ) 1009 (Not Given - Provider: Ana Palomino RN - Reason: Patient/Resident/Agent refused - education provided ) insulin lispro injection 2-12 Units 2-12 Units, subcutaneous, 4 times daily before meals and nightly, First dose on Fri08/12/25 at 0235, Indication: Total Daily Dose (TDD) 40 - 80 units. Correction Scale: Moderate Dose Administer with meal and/or mealtime dose of insulin to correct high blood glucose If mealtime insulin dose not given (e.g. patient NPO or not eating), still administer correction factor for high blood glucose 0332 (Not Given - Provider: Rosy Michaud RN - Reason: Contraindicated)075 2 (Not Given - Provider: Amira Kevin RN - Reason: Order parameters not met)1110 (Not Given - Provider: Amira Kevin RN - Reason: Order parameters not met)1812 (Not Given - Provider: Basilia Melgar RN - Reason: Order parameters not met)2126 (Not Given - Provider: Deneen Lares RN - Reason: Patient/Resident/Ag ent refused - education provided ) 0811 (Not Given - Provider: Ana Palomino RN - Reason: Contraindicated - Comment: POC is 83mg/dl)1147 (Not Given - Provider: Ana Palomino RN - Reason: Contraindicated - Comment: POC glucose is 95mg/dl)1630 (Canceled Entry - Provider: Automatic Discharge Provider - Comment: Automatically canceled at discontinue of medication order) ondansetron (PF) (ZOFRAN) injection 4 mg 4 mg, intravenous, Once, On Fri08/12/25 at 0031, For 1 dose 0129 (Not Given - Provider: Rosy Michaud RN - Reason: Patient/Resident/Ag ent refused - education provided ) pantoprazole (PROTONIX) EC tablet 40 mg 40 mg, oral, Every morning before breakfast, First dose on Fri08/12/25 at 0700, Do not crush, chew, or split. 0640 (Given - Provider: Rosy Michaud RN) 0638 (Not Given - Provider: Deneen Lares RN - Reason: Patient/Resident/Agent refused - education provided ) sodium chloride 0.9 % bolus 1,000 mL (COMPLETED) 1,000 mL, intravenous, at 1,000 mL/hr, Administer over 1 Hours, Once, On Shayy 08/11/25 at 2225, For 1 dose 2312 (New Bag - Provider: Rosy Michaud RN) 0149 (Stopped - Provider: Rosy Michaud RN) sodium chloride 0.9 % bolus 1,000 mL (COMPLETED) 1,000 mL, intravenous, at 1,000 mL/hr, Administer over 1 Hours, Once, On Fri08/12/25 at 0219, For 1 dose 0246 (New Bag - Provider: Rosy Michaud RN)0448 (Stopped - Provider: Rosy Michaud RN) sodium chloride 0.9 % flush 10 mL(Linked Group 1) 10 mL, intravenous, 2 times daily, First dose on Fri08/12/25 at 0228 0252 (Given - Provider: Rosy Michaud RN)0838 (Not Given - Provider: Amira Kevin RN - Reason: Other - Comment: fluid infusing)2131 (Given - Provider: Deneen Lares RN) 1108 (Not Given - Provider: Ana Palomino RN - Reason: Loss of IV access) Continuous Medication Order 08/11/2025 08/12/2025 08/13/2025 lactated Ringer's infusion (CANCELED) 100 mL/hr, intravenous, Continuous, Starting on Fri08/12/25 at 0228, For 10 hours 0421 (New Bag - Provider: Rosy Michaud RN)1330 (Stopped - Provider: Amira Kevin RN - Comment: [Order ends at this time. Document the following action when infusion is complete: Stopped]) PRN Medication Order 08/11/2025 08/12/2025 08/13/2025 acetaminophen (TYLENOL) tablet 1,000 mg 1,000 mg, oral, Every 8 hours PRN, mild pain, moderate pain, Starting on 08/13/25 at 1141 dextrose (D50W) 50% injection 12.5 g 12.5 g, intravenous, Every 15 min PRN, low blood sugar, moderate hypoglycemia *Patient is Unconscious, NPO, unable to swallow: BG 54 - 69 mg/dl*, Starting on Fri08/12/25 at 0234 dextrose (D50W) 50% injection 25 g 25 g, intravenous, Every 15 min PRN, low blood sugar, severe hypoglycemia *Patient is Unconscious, NPO, unable to swallow: BG LESS than 54 mg/dL*, Starting on Fri08/12/25 at 0234 dextrose 15 gram/60 mL oral solution 15 g 15 g, oral, Every 15 min PRN, low blood sugar, hypoglycemia *Patient conscious AND able to drink and swallow safely*, Starting on Fri08/12/25 at 0234 dextrose 15 gram/60 mL oral solution 30 g 30 g, oral, Every 15 min PRN, low blood sugar, hypoglycemia *Patient conscious AND able to drink and swallow safely*, Starting on Fri08/12/25 at 0234 glucagon HCL injection 1 mg 1 mg, intramuscular, Once as needed, low blood sugar, severe hypoglycemia, Starting on Fri08/12/25 at 0234, For 1 dose ondansetron (PF) (ZOFRAN) injection 4 mg(Linked Group 2) 4 mg, intravenous, Every 8 hours PRN, vomiting, nausea, Starting on Fri08/12/25 at 0227, -ONLY give IV if patient is unable to take orally. -If inadequate response within 30 minutes, proceed to next-line agent or contact provider if no further options ordered. ondansetron ODT (ZOFRAN-ODT) disintegrating tablet 4 mg(Linked Group 2) 4 mg, oral, Every 8 hours PRN, vomiting, nausea, Starting on Fri08/12/25 at 0227, -Give IV if patient is unable to take orally. -If inadequate response within 30 minutes, proceed to next-line agent or contact provider if no further options ordered. For ODT tablets: -Do not remove from blister pack until just before administering. -Patient should allow tablet to dissolve on tongue. prochlorperazine (COMPAZINE) injection 10 mg(Linked Group 3) 10 mg, intravenous, Every 6 hours PRN, nausea, vomiting, Starting on Fri08/12/25 at 0227, 2nd Line Option: -ONLY give IV if patient is unable to take orally. -Give IM if patient does not have IV Access -If inadequate response within 30 minutes, proceed to next-line agent or contact provider if no further options ordered. prochlorperazine (COMPAZINE) suppository 25 mg(Linked Group 3) 25 mg, rectal, Every 12 hours PRN, nausea, vomiting, Starting on Fri08/12/25 at 022, 2nd Line Option: -ONLY give ID if patient is unable to take orally and cannot receive IV/IM. -If inadequate response within 30 minutes, proceed to next-line agent or contact provider if no further options ordered. prochlorperazine (COMPAZINE) tablet 10 mg(Linked Group 3) 10 mg, oral, Every 6 hours PRN, nausea, vomiting, Starting on Fri08/12/25 at 022, 2nd Line Option: -Give IV or IM if patient is unable to take orally. -If inadequate response within 30 minutes, proceed to next-line agent or contact provider if no further options ordered. sodium chloride 0.9 % flush 10 mL(Linked Group 1) 10 mL, intravenous, As needed, line care, Starting on Fri08/12/25 at 0227 Linked Groups Order Group 1: Insert peripheral IV (COMPLETED) STAT, Once, On Fri08/12/25 at 022, For 1 occurrence And Maintain IV access (CANCELED) Until discontinued, Starting on Fri08/12/25 at 226, Until Specified And Saline lock IV (CANCELED) Routine, Once, On Fri08/12/25 at 022, For 1 occurrence And sodium chloride 0.9 % flush 10 mLJump to med 10 mL, intravenous, 2 times daily, First dose on Fri08/12/25 at 0228 And sodium chloride 0.9 % flush 10 mLJump to med 10 mL, intravenous, As needed, line care, Starting on Fri08/12/25 at 0227 Group 2: ondansetron ODT (ZOFRAN-ODT) disintegrating tablet 4 mgJump to med 4 mg, oral, Every 8 hours PRN, vomiting, nausea, Starting on Fri08/12/25 at 0227, -Give IV if patient is unable to take orally. -If inadequate response within 30 minutes, proceed to next-line agent or contact provider if no further options ordered. For ODT tablets: -Do not remove from blister pack until just before administering. -Patient should allow tablet to dissolve on tongue. Or ondansetron (PF) (ZOFRAN) injection 4 mgJump to med 4 mg, intravenous, Every 8 hours PRN, vomiting, nausea, Starting on Fri08/12/25 at 0227, -ONLY give IV if patient is unable to take orally. -If inadequate response within 30 minutes, proceed to next-line agent or contact provider if no further options ordered. Group 3: prochlorperazine (COMPAZINE) tablet 10 mgJump to med 10 mg, oral, Every 6 hours PRN, nausea, vomiting, Starting on Fri08/12/25 at 022, 2nd Line Option: -Give IV or IM if patient is unable to take orally. -If inadequate response within 30 minutes, proceed to next-line agent or contact provider if no further options ordered. Or prochlorperazine (COMPAZINE) injection 10 mgJump to med 10 mg, intravenous, Every 6 hours PRN, nausea, vomiting, Starting on Fri08/12/25 at 022, 2nd Line Option: -ONLY give IV if patient is unable to take orally. -Give IM if patient does not have IV Access -If inadequate response within 30 minutes, proceed to next-line agent or contact provider if no further options ordered. Or prochlorperazine (COMPAZINE) suppository 25 mgJump to med 25 mg, rectal, Every 12 hours PRN, nausea, vomiting, Starting on Fri08/12/25 at 022, 2nd Line Option: -ONLY give ID if patient is unable to take orally and cannot receive IV/IM. -If inadequate response within 30 minutes, proceed to next-line agent or contact provider if no further options ordered. documented in this encounter Orders Medications Ordered That Matthew ht Not Have Been Administered Count Last Ordered Date First Ordered Date acetaminophen (TYLENOL) tablet 1,000 mg 1 1 10/13/2024 acetaminophen (TYLENOL) tablet 650 mg 1 cefTRIAXone (ROCEPHIN) 2 g i n sterile water 20 mL IV syringe 2 08/12/2025 dextrose (D50W) 50% injection 12.5 g 1 07/17 dextrose (D50W) 50% injection 25 g 1 2024 dextrose 15 gram/60 mL oral solution 15 g 1 08/12/2025 dextrose 15 gram/60 mL oral solution 30 g 1 08/12/2025 enoxaparin (LOVENOX) injection 40 mg 1 07/17 glucagon HCL injection 1 mg 1 08/12/2025 insulin lispro injection 2-12 Units 1 08/12 ondansetron (PF) (ZOFRAN) injection 4 mg 2 08/12/2025 ondansetron ODT (ZOFRAN-ODT) disintegrating tablet 4 mg 1 08/12/2025 prochlorperazine (COMPAZINE) injection 10 mg 1 08/12/2025 prochlorperazine (COMPAZINE) suppository 25 mg 1 08/12/2025 prochlorperazine (COMPAZINE) tablet 10 mg 1 08/12/2025 sodium chloride 0.9 % flush 10 mL 1 025 Lab Orders Without Results Count Last Ordered D ate First Ordered Date POCT GLUCOSE, BLOOD 5 08/13/2025 08/12/20 25 General Supply Count Last Ordered Date First Or dered Date WALKER 1 08/13/2025 Nursing Count Last Ordered Date First Orde red Date FOLLOW UP WITH PROVIDER 1 08/13/2025 APPLY ICE TO AFFECTED AREA 1 08/11/2025 Consult Count Last Ordered Date First Orde red Date IP CONSULT TO NEUROLOGY 1 08/12/2025 IV Count Last Ordered Date First Orde red Date INSERT PERIPHERAL IV 2 08/12/2025 025 Admission Count Last Ordered Date First Orde red Date ADMIT TO INPATIENT 1 08/12/2025 INITIATE OBSERVATION STATUS 1 08/12/2025 Transfer Count Last Ordered Date First Orde red Date ED TO FLOOR BED REQUEST 1 08/12/2025 TRANSFER PATIENT TO NEW UNIT 1 08/12/2025 Discharge Count Last Ordered Date First Orde red Date DISCHARGE PATIENT 1 08/13/2025 documented in this encounter Additional Health Concerns Infection Onset Date Last Indicated Resolved Time Respiratory Rule-Out 08/11/2025 08/11/2025 025 12:49 AM EST COVID-19 Rule-Out 08/11/2025 08/11/2025 08/12/2025 12:49 AM EST documented as of this encounter Care Teams Hydraulic Controls Technician Relationship Specialty Start Date End Date Adelaide Pollock MD [address] [place] [address] PCP - General Internal Medicine 05/13/13 documented as of this encounter
--- OUTSIDE RECORDS SUMMARY | 2025-08-17 12:43 | XMS_ITS | Encounter Summary ---
Author Organization [facility] Address [address] [place] [address] Care Team Providers Care Research Program Coordinator Name Role Phone Adelaide Pollock MD Primary Care Provider [phone] Encounter Details Date Type Department Care Team (Latest Contact Info) Description 08/17/2025 12:43 PM EST - 08/17/2025 11:59 PM EST Hospital Encounter [facility] Ortho Xray [address] [place] [address] Pain Discharge Disposition: Home or Self Care Social History Tobacco Use Types Packs/Day Years [...] Record ed Within the last 3 months, sina chauhan many times did you visit the emergency [...] care for your loved ones. For example, child care teacher or elderly care for an older adult? [...] AM EST documented as of this encounter Medications at Time of Discharge ASCORBIC ACID, VITAMIN C, ORAL Take 670 mg by mouth daily. cholecalciferol (VITAMIN D-3) 25 mcg (1,000 unit) capsule Take 1 Capsule by mouth daily. Includes vitamin k gabapentin (NEURONTIN) 600 mg tablet Take 1 tablet (600 mg total) by mouth at bedtime. 08/09/2025 multivitamin (MULTIPLE VITAMINS ORAL) Take by mouth daily. pantoprazole (PROTONIX) 20 mg EC tablet Take 1 tablet (20 mg total) by mouth 1 (one) time each day before breakfast. Synjardy XR 12.5-1,000 mg tablet, IR - ER, biphasic 24hr Take 2 Tab ER by mouth 1 (one) time each day. 08/09/2025 walker misc 1 Act 1 (one) time each day. Dispense PLATFORM WALKER OR ATTACHMENT 1 each 08/10/2025 documented as of this encounter Discharge Disposition Disposition Code Departure Means Destination Home or Self Care documented in this encounter Plan of Treatment Not on file documented as of this encounter Procedures Procedure Name Priority Date/Time Associated Diagnosis Comments XR WRIST 3+ VIEWS RIGHT Routine 08/17/2025 1:04 PM EST Pain documented in this encounter Results * XR Wrist 3+ Views Right (08/17/2025 1:04 PM EST) Narrative RIS PACS/VR - 08/17/2025 1:04 PM EST This order has been auto-finalized and does not contain a result. us Petros Barber MD IMG XR PROCEDURES Final Resul t RIS PACS/VR documented in this encounter Visit Diagnoses Diagnosis Pain Generalized pain documented in this encounter Care Teams Research Program Coordinator Relationship Specialty Start Date End Date Adelaide Pollock MD [address] [place] [address] PCP - General Internal Medicine 05/13/13 documented as of this encounter
--- NOTE | 2025-08-18 09:15 | A.OFFPC_ITS ---
Vital Signs 08/18/25 09:19 Height 5 ft 2.5 in Intake Visit Reasons: Tele Med, hospital follow up Manager Editorial Required: No Accompanied by: Self / Same As Patient Allergies egg Allergy (Intermediate, Verified 08/18/25 09:16) Unknown doxycycline Allergy (Mild, Verified 08/18/25 09:16) Unknown Iodine and Iodide Containing Produc Allergy (Mild, Verified 08/18/25 09:16) Unknown codeine Allergy (Verified 08/18/25 09:16) Unknown dairy Allergy (Mild, Uncoded 05/09/25 13:03) unkno gluten Allergy (Mild, Uncoded 05/09/25 13:03) Unknown levaquin Allergy (Mild, Uncoded 05/09/25 13:03) Unknown vancomycin Allergy (Mild, Uncoded 05/09/25 13:03) unknown Medication List - Last Reconciled 08/18/25 by Adelaide Pollock MD ascorbate calcium (vitamin C) 500 mg PO DAILY blood sugar diagnostic (FreeStyle Lite Strips) As directed chair, wheel TRANSPORT CHAIR WIDE WIDTH DX: FALL W19.XXXA hydrocortisone acetate 25 mg OH BID lancets (FreeStyle Lancets) As directed lidocaine 4% (Aspercreme (lidocaine)) 1 patch topical DAILY PRN pantoprazole 20 mg PO DAILY vitamin D3-vitamin K2 125 mcg (5,000 unit)-100 mcg caps PO .QD Tobacco use date assessed: 08/18/25 Dental Screening Dental Screen Date: 08/18/25 Did you have a dental visit in the last 12 months?: Yes Did you have a dental problem in the last 6 months where you did not have access to dental care?: No HPI HPI Comments History of Present Illness Details History of Present Illness The patient is an 80 year old female presenting for hospital followup after a mechanical fall. Visit conducted via phone. Daughter Juliet is present at time of visit. Mechanical Fall and Associated Injuries: The patient was hospitalized at [facility] on August 09 following a mechanical fall, which was preceded by increased weakness and a significant change in her ambulation status noted by her daughter. Imaging revealed a distal radius fracture of the right wrist, and she was seen by orthopedist Dr. Petros Barber yesterday for post hospital follow up. She was initially in a splint, which caused a localized erythematous rash that is now improving, and is currently in a cast. The patient also reports associated increased left rib pain and left shoulder discomfort, with a remote history of a left shoulder injury. Workup during hospitalization included a chest x-ray and CT scans of her head, maxillofacial region, cervical spine, and lumbar spine, the latter of which revealed evidence of stenosis. For pain, she has been using Arnica and a heating pad, with some improvement. Pulmonary Fibrosis: The patient has an established diagnosis of pulmonary fibrosis and is followed by [facility]. Her daughter notes some increased respiratory symptoms associated with pain episodes. She has a pending follow-up appointment in September. Social History: - Functional Status: The patient's daugh ter noted increased weakness and a sign ificant change in her ambulation prior to her fall. - Support System: Her daughter, tien Chung as present for the telehealth visit. - Social Determinants: The patient requi res transportation to her appointments. Results - Imaging: Imaging showed a distal radiu s fracture of the right wrist. - CT: Head, maxillofacial, cervical spin e, and lumbar spine scans were performed. - CT cervical and lumbar spine: Showed s ome evidence of stenosis. - Urinalysis: Abnormal but without evide nce of a UTI. [facility] Medical History (Updated 08/19/25 @ 17:32 by Adelaide Pollock MD) Coccyx pain Weakness Gait instability Elevated C-reactive protein (CRP) Fall Left shoulder pain Myofascial pain Vitamin D deficiency Subclinical hypothyroidism Iron deficiency anemia Pulmonary fibrosis DVT (deep venous thrombosis) Pseudogout Surgical History (Updated 07/12/25 @ 15:36 by Elenita Márquez) Hx of colonoscopy (~06/25/22) History of esophagogastroduodenoscopy (EGD) Family History Maternal Aunt HTN (hypertension) Diabetes Other Pulmonary fibrosis Social History Housing: House Alcohol intake: current Alcohol intake frequency: does not drink Patient Tobacco Use Status: Never used Tobacco e-Cigarette/Vaping Use: Never Used service: No Current occupational status: retired Cognitive needs: No Hearing needs: No Vision needs: No Questionnaire PHQ-9 Over the last 2 weeks, how often have you been bothered by any of the following problems? 1. Little interest or pleasure in doing things: not at all 2. Feeling down, depressed, or hopeless: not at all 3. Trouble falling or staying asleep, or sleeping too much: not at all 4. Feeling tired or having little energy: not at all 5. Poor appetite or overeating: not at all 6. Feeling bad about yourself - or that you are a failure or have let yourself or your family down: not at all 7. Trouble concentrating on things, such as reading the newspaper or watching television: not at all 8. Moving or speaking so slowly that other people could have noticed. Or the opposite - being so fidgety or restless that you have been moving around a lot more than usual: not at all 9. Thoughts that you would be better off or of hurting yourself in some way: not at all Total score: 0 Source: Developed by Drs. Jeff Reyes, Cleo Iqbal, Mamadou Rhodes and colleagues, with an educational bora from [employer]. Thrive Questionnaire Date Thrive assessed: 08/18/25 I am a: Patient Within the past 12 months, did the food you bought not last and you didn't have the money to get more?: Never true Within the past 12 months, did you worry whether your food would run out before you got money to buy more?: Never true Do you have trouble paying for medicines?: No Do you have trouble getting transportation to medical appointments?: No Do you have trouble paying your heating and electricity bill?: No Do you have trouble taking care of your child, family member or friend?: No Do you have trouble with day-to-day activities such as bathing, preparing meals, shopping, managing finances, etc.?: No Are you currently unemployed and looking for a job?: No Are you interested in more education?: No THRIVE Score: 0 AUDIT C Alcohol Use Questionnaire (AUDIT-C) 1. How often do you have a drink containing alcohol?: Never 3. How often do you have six or more drinks on one occasion?: Never Total Score: 0 CHERYL-7 AMB Questionnaire CHERYL-7 Date CHERYL - 7 assessed: 08/18/25 Feeling nervous, anxious, or on edge: 0 = Not at all Not being able to stop or control worryin = Not at all Worrying too much about different things: 0 = Not at all Trouble relaxin = Not at all Being so restless that it is hard to sit still: 0 = Not at all Becoming easily annoyed or irritable: 0 = Not at all Feeling afraid as if something awful might happen: 0 = Not at all Total CHERYL-7 score (0-4 normal; 5-9 mild; 10-14 moderate; 15-21 severe): 0 Source: Developed by Drs. Jeff Reyes, Cleo Iqbal, Mamadou Rhodes and colleagues, with an educational bora from [employer]. Review of Systems Narrative Review of Systems - Constitutional: Reports increased weakness. - Respiratory: Her daughter reports increased respiratory effort with pain. - Musculoskeletal: Reports right wrist fracture, increased left rib pain, and left shoulder discomfort. - Integumentary: Reports an improving erythematous rash on the right wrist from a prior splint. - Genitourinary: per hpi Physical exam (Primary Care) Tobacco/Smoking Status: Tobacco use Status Tobacco use date assessed 08/18/25 08/18/25 09:19 Patient Tobacco Use Status Never used Tobacco 08/18/25 09:15 e-Cigarette/Vaping Use Never Used 08/18/25 09:15 PHQ-9: PHQ-9 Score PHQ-9: Total score 0 08/18/25 09:19 Thrive Assessment: Date of Thrive Assessment Date Thrive assessed 08/18/25 08/18/25 09:19 Coding Level of Care Code Complex visit Add On G2211 Diagnoses Fall, sequela W19.XXXS Encounter type: sequela Pulmonary fibrosis J84.10 Chronic left shoulder pain M25.512; G89.29 Chronicity: chronic Time Spent (min) 35 Assessment & Plan Assessment & Plan (1) Fall: Code(s): W19.XXXA - Unspecified fall, initial encounter Category: Medical Qualifiers: Encounter type: sequela Qualified Code(s): W19.XXXS - Unspecified fall, sequela (2) Pulmonary fibrosis: Code(s): J84.10 - Pulmonary fibrosis, unspecified Category: Medical (3) Left shoulder pain: Code(s): M25.512 - Pain in left shoulder Category: Medical Qualifiers: Chronicity: chronic Qualified Code(s): M25.512 - Pain in left shoulder; G89.29 - Other chronic pain Plan Plan 1. Distal Radius Fracture And Rib/Shoulder Pain/Coccyx pain - The patient is to continue following with her orthopedist for management of her right wrist fracture and cast. - She may continue using Arnica and a heating pad for pain relief. - Can add tylenol extra strength 1000mg twice daily as needed for pain - A CT of the chest will be considered to evaluate her ribs if her left-sided pain is ongoing. - Check shoulder xray - Check coccyx xray 2. Pulmonary Fibrosis - The patient has a pending follow-up appointment with her grid operator at [facility] in September. Discussion Notes I conducted a telehealth visit with the patient and her daughter, Juliet, for hospital followup. We discussed her recent mechanical fall on August 09, which resulted in a right distal radius fracture We also reviewed her associated left rib and shoulder pain, and the potential need for a CT chest if rib pain persists. Patient Instructions - Continue to follow the instructions from your orthopedist re your wrist fracture and cast. - You may continue to use Arnica and a heating pad for your rib and shoulder pain as it seems to be helping. - Let our office know if your rib pain continues, as we may need to get a CT scan of your chest to check for any injuries. Orders: Orders MR head/brain wo con 08/18/25 R26.81 - Unsteadiness on feet, R53.1 - Weakness Erythrocyte Sedimentation Rate 08/18/25 R70.0 - Elevated erythrocyte sedimentation rate, R79.82 - Elevated C-reactive protein (CRP) C Reactive Protein 08/18/25 J84.9 - Interstitial pulmonary disease, unspecified XR shoulder LT min 2V 08/18/25 M25.512 - Pain in left shoulder XR sacrum coccyx min 2V 08/18/25 M53.3 - Sacrococcygeal disorders, not elsewhere classified Urine Culture 08/18/25 R82.90 - Unspecified abnormal findings in urine Medications: New chair, wheel TRANSPORT CHAIR WIDE WIDTH DX: FALL W19.XXXA 1 ea 0RF
--- OUTSIDE RECORDS SUMMARY | 2025-08-18 10:08 | XMS_ITS | Encounter Summary ---
Author Organization [facility] Address [address] [place] [address] [place] [id number] Phone Care Team Providers Care [employer] L[employer] Name Role Phone Johnathan Lisa MD, MPH Unavailable [phone] Jazzmine Zaman MD Unavailable [phone] Adelaide Pollock MD Primary Care Provider + Encounter Details Date Type Department Care Team (Late st Contact Info) Description 08/13/2025 Telephone [facility] Neuromuscular Service [address] [facility] [facility] [place] [address] Adriana Rey MD, PhD [address] [place], [place] [phone] [place] [id number] [email or web address] Social History Tobacco Use Types Packs/Day Years [...] as of this encounter Progress Notes * Adriana Rey MD, PhD - 08/13/2025 2:08 PM EST Apryl's daughter paged me. I called her back. She explained that Apryl fell on Friday and [facility] with plan to discharge today to Rehab Facility. Daughter is concerned that Apryl may need to have MRIs of spine. She states that she had CTs but not sure if thisis enough to rule out a spine problem. She states that when her mom is lying down she is able to move all limbs against gravity and she is controlling bowel and bladder well, but she cannot walk yet.She said that they were told it could be some deconditioning but she does not believe so. She is also concerned that she will be discharged to Rehab without evaluation by Neurology who is not [facility] Friday. I encouraged Apryl's daughter to discuss her concerns with the medical team at the local hospital who can contact us ([facility] Team) if they feel a transfer to [facility] is needed for further testing or furtherevaluations. I think it is very reassuring that she is able to move four limbs against gravity and that she does not have pain as her daughter reported. She asked if Neurology is available at [facility] Arabella mentioned that there is always a Neurology Team at [facility]. She expressed understanding and appreciated my call back. Adriana Gallagher MD, PhD Neuromuscular Neurologist Neuromuscular Division [facility] documented in this encounter Plan of Treatment Upcoming Encounters Date Type Department Care Team (Late st Contact Info) Description 10/10/2025 9:30 AM EST Appointment [facility] Pulmonary Function Lab [address] [place] [address] Maurilio Rojas MD [address] [place] [address] [email or web address] 10/10/2025 10:30 AM EST Office Visit [facility] Genetics [address] [place] [id number] Johnathan Lisa MD, MPH [address] [place] [phone] [email or web address] 11/22/2025 12:00 PM EDT Office Visit [facility] Lung Center-Pulmonary Medicine [address] [place] [address] Maurilio Rojas MD [address] [place] [address] [email or web address] documented as of this encounter Visit Diagnoses Not on filedocumented in this encounter Additional Health Concerns Assessment Noted Time PHQ-2 Depression Total Score: 0 07/18/20 10:43 AM EST documented as of this encounter Care Teams [employer] L[employer] Relationship Specialty Start Date End Date Adelaide Pollock MD [address] [place] [phone] PCP - General Internal Medicine 07/22/25 Johnathan Lisa MD, MPH [address] [place] [phone] [email or web address] Referring Physician Pulmonary Disease 03/28/25 Jazzmine Zaman MD [address] [place] [phone] [email or web address] Referring Physician Pediatrics 03/28/25 documented as of this encounter Additional Source Comments The information contained in this document represents components of the legal health record. It is not the complete legal health record.[facility]
--- OUTSIDE RECORDS SUMMARY | 2025-08-18 10:09 | XMS_ITS | Clinical Summary ---
Author Organization [address] [facility] Address [address] [place] [address] Phone Care Team Providers Care Survey Research Associate Name Role Phone Adelaide Pollock MD Primary Care Provider [phone] Allergies Active Allergy Reactions Criticality Noted Date Comments Codeine 01/02/2017 Other Reaction(s): OTHER dizzy Doxycycline 01/02/2017 Other Reaction(s): Rash/Dermatitis Egg 08/28/2022 Other Reaction(s): Rash/Dermatitis Gluten 01/02/2017 Iodine 01/02/2017 Celiac disease Levofloxacin 01/02/2017 Pt fainted Milk Containing Products (Dairy) Unknown 08/12/2025 Other 04/29/2022 Kdc:Albumin, Egg+Flu Virus Vaccine+Thimerosal+Pork Allergy - Other Reaction(s): Rash/Dermatitis Vancomycin 01/02/2017 Other Reaction(s): Flushing, feeling of warmth Medications multivitamin (MULTIPLE VITAMINS ORAL) Take by mouth daily. Active pantoprazole (PROTONIX) 20 mg EC tablet Take 1 tablet (20 mg total) by mouth 1 (one) time each day before breakfast. Active ASCORBIC ACID, VITAMIN C, ORAL Take 670 mg by mouth daily. Active cholecalcifero l (VITAMIN D-3) 25 mcg (1,000 unit) capsule Take 1 Capsule by mouth daily. Includes vitamin k Active walker misc 1 Act 1 (one) time each day. Dispense PLATFORM WALKER OR ATTACHMENT 1 each 08/10/20 Active Synjardy XR 12.5-1,000 mg tablet, IR - ER, biphasic 24hr Take 2 Tab ER by mouth 1 (one) time each day. 08/09/20 Active gabapentin (NEURONTIN) 600 mg tablet Take 1 tablet (600 mg total) by mouth at bedtime. 08/09/20 Active diazePAM (VALIUM) 2 mg tablet Take 1 tablet (2 mg total) by mouth as needed. Max Daily Amount: 2 mg Discontinued lidocaine (LIDODERM) 5 % patch Place 1 Patch onto the skin every 24 hours. Apply for no more than 12 hours in any 24 hour period. Discontinued walker misc 1 Act 1 (one) time each day. Dispense PLATFORM WALKER OR ATTACHMENT 1 each 08/10/20 025 Discontinued Hospital, Clinic, or Other Facility Administered Medication Ordered Dose Route Frequency Start Date End Date Status acetaminophen (TYLENOL) tablet 1,000 mgIndications:Closed Colles' fracture of right radius with routine healing, subsequent encounter 1000 mg oral Every 8 hours PRN 08/13/2025 Active Active Problems Problem Noted Date Diagnosed Date Weakness 03/08/2024 Interstitial lung disease ([facility] V24, [facility] V28) 03/08/2024 Hypotension 08/29/2022 Dyspnea 12/07/2020 Edema 12/07/2020 Chronic low back pain 01/03/2017 Fibromyalgia 01/03/2017 GERD (gastroesophageal reflux disease) 7 Pseudogout 01/03/2017 Encounters Date Type Department Care Team Description 08/17/2025 12:43 PM EST - 08/17/2025 11:59 PM EST Hospital Encounter [facility] Ortho Xray [address] [place] [address] Pain Discharge Disposition: Home or Self Care 08/11/2025 10:07 PM EST - 08/13/2025 4:24 PM EST Hospital Encounter [facility] Medical Surgical Unit [address] [place] [address] Allen Guerrero MD Jones, Christopher, MD Rasul, Yar M, MD Sepsis without septic shock ([facility] V24, [facility] V28) (Primary Dx); Urinary tract infection, acute; Closed Colles' fracture of right radius with routine healing, subsequent encounter; Generalized weakness; Ambulatory dysfunction; Acute midline low back pain without sciatica; Neck pain, acute; Acute bilateral low back pain without sciatica; Weakness Discharge Disposition: Home-Health Care [facility] 08/10/2025 1:49 AM EST - 08/10/2025 7:04 PM [facility] Emergency [facility] Emergency [address] [place] [address] Madisyn Parada MD Killelea, Alison G, MD Closed Colles' fracture of right radius, initial encounter (Primary Dx); Interstitial lung disease ([facility] V24, [facility] V28); Fall, initial encounter; Head injury, initial encounter Discharge Disposition: Home or Self Care from Last 3 Months Surgical History Surgery Date Site/Laterality Comments TUBAL LIGATION PROCEDURE: HISTORICAL TUBAL LIGATION CHOLECYSTECTOMY 1980 PROCEDURE: HISTORICAL CHOLECYSTECTOMY OTHER SURGICAL HISTORY PROCEDURE: HISTORY OTHER; COMMENT: fundoplication TONSILLECTOMY Medical History Medical History Date Comments Abdominal [...] Osteoarthritis DX:Osteoarthriti s Osteoporosis DX:Osteoporosis Polymyalgia rheumatica (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 For example, teacher early childhood development or elderly care for an older adult? [...] Orientation Straight 08/12/2025 10 :39 AM EST Obstetrics History Last Filed Vital Signs Vital [...] Mass Index 24.69 08/11/2025 9:29 PM EST Plan of Treatment Health Maintenance Due Date Last Done Comments Zoster Vaccines (1 of 2) 1994 Pneumococcal Vaccine: 50+ Ye ars (2 of 2 - PCV) 06/03/2012 06/03/2011 RSV Immunization Adult Patie nts (1 - 1-dose 75+ series) 2019 DTaP,Tdap,and Td Vaccines (2 - Td or Tdap) 08/15/2021 08/15/2011 Medicare Annual Wellness Visit 08/25/2022 Osteoporosis Screening (Bone Density Screening) 08/25/2022 Depression Screening 09/15/2024 COVID-19 Vaccine (1 - 2024-2 6 season) 2025 Influenza Vaccine (#1) 2025 Social Influencers of Health Screening 08/12/2026 08/12/2025 Falls Risk Assessment 08/13/2026 08/13/2025 HIB Vaccines Aged Out No longer eligi [...] on patient's age to complete this topic Procedures Procedure Name Priority Date/Time Associated Diagnosis Comments XR WRIST 3+ VIEWS RIGHT Routine 08/17/2025 1:04 PM EST Pain ECG ANNOTATED 08/15/2025 POCT GLUCOSE BLOOD Routine [...] BLOOD Routine 08/12/2025 7: 40 AM EST C-REACTIVE PROTEIN STAT Add-on 08/12/2025 5: 24 AM EST CREATINE KINASE STAT Add-on 08/12/2025 5:24 AM EST SEDIMENTATION RATE STAT Add-on 08/12/2025 5: 24 AM EST CBC WITH AUTO DIFFERENTIAL Routine 08/12/2025 5:24 AM EST CBC AND DIFFERENTIAL Routine 08/12/2025 5:24 AM EST BASIC METABOLIC PANEL Routine 08/12/2025 5:24 AM EST POCT GLUCOSE BLOOD Routine 08/12/2025 3: 27 AM EST ED SPLINT APPLICATION Routine 08/12/2025 3:16 AM EST CULTURE BLOOD STAT 08/12/2025 2:42 AM EST CULTURE BLOOD STAT 08/12/2025 2:42 AM EST XR FOREARM 2 VIEWS RIGHT STAT 08/12/2025 2:17 AM EST XR CHEST 1 VIEW STAT 08/12/2025 1:33 AM EST MILLER URINE CULTURE TUBE STAT 08/12/2025 1:13 AM EST URINALYSIS WITH REFLEX MICROSCOPIC AND CULTURE STAT 08/12/2025 1:13 AM EST URINALYSIS WITH REFLEX MICROSCOPIC AND CULTURE STAT 08/12/2025 1:13 AM EST CULTURE URINE STAT 08/12/2025 1:[address] CERVICAL SPINE WO CONTRAST STAT 08/12/2025 12:[address] LUMBAR SPINE WO CONTRAST STAT 08/12/2025 12:56 AM EST B-TYPE NATRIURETIC PEPTIDE STAT 08/11/2025 10:57 PM EST LIPASE STAT 08/11/2025 10:57 PM EST LACTATE, WITH REFLEX STAT 08/11/2025 10:57 PM EST TROPONIN I HIGH SENSITIVITY STAT 08/11/2025 10:57 PM EST RESPIRATORY VIRUS PANEL MOLECULAR STUDY STAT 08/11/2025 10:56 PM EST ECG 12-LEAD STAT 08/11/2025 10:19 PM EST MANUAL DIFFERENTIAL - SYSMEX WAM STAT 08/11/2025 9:59 PM EST THYROID STIMULATING HORMONE STAT Add-on 08/11/2025 9:59 PM EST CBC WITH AUTO DIFFERENTIAL STAT 08/11/2025 9:59 PM EST CBC AND DIFFERENTIAL STAT 08/11/2025 9:59 PM EST COMPREHENSIVE METABOLIC PANEL STAT 08/11/2025 9:59 PM EST SC CRITICAL CARE 30-74 MINUTES Routine 08/11/2025 9:20 PM EST XR WRIST 3+ VIEWS RIGHT Routine 08/10/2025 4:41 PM EST XR FOOT 3+ VIEWS LEFT STAT 08/10/2025 10:38 AM EST XR WRIST 3+ VIEWS RIGHT STAT 08/10/2025 10:37 AM EST XR CHEST 1 VIEW STAT 08/10/2025 6:29 AM EST XR WRIST 3+ VIEWS RIGHT STAT 08/10/2025 6:29 AM EST XR KNEE 4+ VIEWS LEFT STAT 08/10/2025 6:29 AM EST XR FOOT 3+ VIEWS RIGHT STAT 6:29 AM EST POCT GLUCOSE BLOOD Routine 08/10/2025 5: [address] MAXILLOFACIAL WO CONTRAST STAT 08/10/2025 12:[address] CERVICAL SPINE WO CONTRAST STAT 08/10/2025 12:[address] HEAD WO CONTRAST STAT 08/10/2025 1 2:52 AM EST CBC WITH AUTO DIFFERENTIAL STAT 08/10/2025 12:09 AM EST TYPE AND SCREEN STAT 08/10/2025 12:09 AM EST CBC AND DIFFERENTIAL STAT 08/10/2025 12:09 AM EST BASIC METABOLIC PANEL STAT 08/10/2025 12:09 AM EST ACTIVATED PARTIAL THROMBOPLASTIN TIME STAT 08/10/2025 12:09 AM EST PROTHROMBIN TIME WITH INR STAT 08/10/2025 12:09 AM EST XR WRIST 3+ VIEWS RIGHT STAT 08/09/2025 8:00 PM EST from Last 3 Months Results * XR Wrist 3+ Views Right (08/17/2025 1:04 PM EST) Only the most recent of5 resultswithin the time period is included. Narrative RIS PACS/VR - 08/17/2025 1:04 PM EST This order has been auto-finalized and does not contain a result. Petros Barber MD IMG XR PROCEDURES Final Resul t Performing Organization Address City/[facility] Co de Phone Number RIS PACS/VR * ECG-Annotated (08/15/2025) us Provider Onbase MD ECG ORDERABLES Final Result * POCT Glucose, blood (08/13/2025 11:31 AM EST) Only the most recent of8 resultswithin the time period is included. Glucose POCT 95 70 - 100 mg/dL 08/13/2025 11:31 AM EST [facility] Blood Capillary blood specimen / Unknown 08/13/2025 11:31 AM EST 08/13/2025 11:32 AM EST Anton Dhaliwal MD LAB POINT OF CARE TE ST DOCKED DEVICE UNSOLICITED RESULTS Final Result Performing Organization Address [facility] de Phone Number [facility] [address] [place] [address], [place] [phone] * CT Thoracic Spine wo Contrast (08/13/2025 [...] Signed Date: 08/13/2025 11:19 ET Workstation ID: [id number] Transcribed By: Self Edit Transcribed Date: 08/13/2025 [...] Signed Date: 08/13/2025 11:19 ET Workstation ID: [id number] Transcribed By: Self Edit Transcribed Date: 08/13/2025 11:12 ET us Adelaide CARTAGENA IMKrystle CT PROCEDURES Final Re sult * (ABNORMAL) CBC auto differential (08/12/2025 5:24 AM EST) Only the most recent of3 resultswithin the time period is included. WBC 9.2 4.8 - 10.8 K/mcL LAB HEMETOLOGY METHOD 08/12/2025 5:50 AM [facility] RBC 3.30(L) 3.80 - 4.80 M/mcL LAB HEMETOLOGY METHOD 08/12/2025 5:50 AM [facility] Hemoglobin 10.0(L) 11.5 - 16.0 g/dL LAB HEMETOLOGY METHOD 08/12/2025 5:50 AM [facility] Hematocrit 30.4(L) 35.0 - 47.0 % LAB HEMETOLOGY METHOD 08/12/2025 5:50 AM [facility] MCV 93.5 79.0 - 98.0 FL LAB HEMETOLOGY METHOD 08/12/2025 5:50 AM [facility] MCH 30.8 27.0 - 32.0 pcg LAB HEMETOLOGY METHOD 08/12/2025 5:50 AM [facility] MCHC 32.9 32.0 - 37.0 g/dL LAB HEMETOLOGY METHOD 08/12/2025 5:50 AM [facility] RDW 12.8 11.0 - 15.0 % LAB HEMETOLOGY METHOD 08/12/2025 5:50 AM [facility] Platelets 161 130 - 400 K/mcL LAB HEMETOLOGY METHOD 08/12/2025 5:50 AM [facility] MPV 10.1 7.0 - 11.0 FL LAB HEMETOLOGY METHOD 08/12/2025 5:50 AM [facility] NRBC 0.0 <1.0 % LAB HEMETOLOGY METHOD 08/12/2025 5:50 AM [facility] NRBC Absolute 0.00 <0.10 K/mcL LAB HEMETOLOGY METHOD 08/12/2025 5:50 AM [facility] Neutrophils Relative 66.7 % LAB HEMETOLOGY METHOD 08/12/2025 5:50 AM [facility] Lymphocytes Relative 17.6 % LAB HEMETOLOGY METHOD 08/12/2025 5:50 AM [facility] Monocytes Relative 14.9 % LAB HEMETOLOGY METHOD 08/12/2025 5:50 AM [facility] Eosinophils Relative 0.2 % LAB HEMETOLOGY METHOD 08/12/2025 5:50 AM [facility] Basophils Relative 0.3 % LAB HEMETOLOGY METHOD 08/12/2025 5:50 AM [facility] Immature Granulocytes Relative 0.3 % LAB HEMETOLOGY METHOD 08/12/2025 5:50 AM [facility] Neutrophils Absolute 6.15 1.50 - 7.00 K/mcL LAB HEMETOLOGY METHOD 08/12/2025 5:50 AM [facility] Lymphocytes Absolute 1.62 1.00 - 5.00 K/mcL LAB HEMETOLOGY METHOD 08/12/2025 5:50 AM [facility] Monocytes Absolute 1.37(H) 0.20 - 1.00 K/mcL LAB HEMETOLOGY METHOD 08/12/2025 5:50 AM [facility] Eosinophils Absolute 0.02 0.00 - 0.50 K/mcL LAB HEMETOLOGY METHOD 08/12/2025 5:50 AM [facility] Basophils Absolute 0.03 0.00 - 0.20 K/mcL LAB HEMETOLOGY METHOD 08/12/2025 5:50 AM [facility] Immature Granulocytes Absolute 0.03 0.00 - 0.03 K/mcL LAB HEMETOLOGY METHOD 08/12/2025 5:50 AM EST [facility] Blood Venous blood specimen / Unknown Venipuncture / Unknown 08/12/2025 5:24 AM EST 08/12/2025 5:39 AM EST us Marcial Kyle MD LAB BLOOD ORDERABLES Final Result Performing Organization Address City/[facility]/ZIP Co de Phone Number [facility] [address] [place] [address], [place] [phone] * (ABNORMAL) Sedimentation rate (08/12/2025 5:24 AM EST) Pathologist [facility] Sed Rate 88(H) 0 - 30 mm/hr LAB HEMETOLOGY METHOD 08/12/2025 10:10 AM EST [facility] Blood Venous blood specimen / Unknown Venipuncture / Unknown 08/12/2025 5:24 AM EST 08/12/2025 5:39 AM EST us Adelaide CARTAGENA LAB BLOOD ORDERABLES Final Result Performing Organization Address [facility] Co de Phone Number [facility] [address] [place] [address], [place] [phone] * (ABNORMAL) C-reactive protein (08/12/2025 5:24 AM EST) Pathologist [facility] C-Reactive Protein 9.36(H) <=0.50 mg/dL 08/13/2025 8:48 AM EST [facility] Blood Venous blood specimen / Unknown Venipuncture / Unknown 08/12/2025 5:24 AM EST 08/12/2025 5:39 AM EST us Adelaide CARTAGENA LAB BLOOD ORDERABLES Final Result Performing Organization Address City/[facility]/ZIP Co de Phone Number [facility] [address] [place] [address], [place] [phone] * Creatine kinase (08/12/2025 5:24 AM EST) Pathologist [facility] Total CK 72 34 - 145 unit/L 08/12/2025 5:03 PM [facility] Blood Venous blood specimen / Unknown Venipuncture / Unknown 08/12/2025 5:24 AM EST 08/12/2025 5:39 AM EST Adelaide CARTAGENA LAB BLOOD ORDERABLES Final Result [facility] [address] [place] [address], [place] [phone] * (ABNORMAL) Basic metabolic panel (08/12/2025 5:24 AM EST) Only the most recent of2 resultswithin the time period is included. [facility] Sodium 140 133 - 145 mmol/L 08/12/2025 6:03 AM [facility] Potassium 3.8 3.5 - 5.5 mmol/L 08/12/2025 6:03 AM [facility] Chloride 106 96 - 110 mmol/L 08/12/2025 6:03 AM [facility] CO2 26 21 - 32 mmol/L 08/12/2025 6:03 AM [facility] Anion Gap 8 3 - 11 08/12/2025 6:03 AM [facility] Glucose 111(H) 70 - 100 mg/dL 08/12/2025 6:03 AM [facility] BUN 16 5 - 25 mg/dL 08/12/2025 6:03 AM [facility] Creatinine 0.56 0.50 - 1.10 mg/dL 08/12/2025 6:03 AM [facility] eGFR 92 >=60 mL/min/1. 73m2 08/12/2025 6:03 AM EST [facility] Comment:Calculation based on the Chronic Kidney Disease Epidemiology Collaboration (CKD-EPI) equation refit without adjustment for race. BUN/Creatinine Ratio 28.6 08/12/2025 6:03 AM EST [facility] Calcium 8.4(L) 8.5 - 10.5 mg/dL 08/12/2025 6:03 AM EST [facility] Blood Venous blood specimen / Unknown Venipuncture / Unknown 08/12/2025 5:24 AM EST 08/12/2025 5:39 AM EST us Marcial Kyle MD LAB BLOOD ORDERABLES Final Result [facility] [address] [place] [address], [place] [phone] * Splint Application (08/12/2025 3:16 AM EST) [...] no immediate complications Post-procedure imaging: not applicable us Allen Guerrero MD IN CLINIC/BEDSIDE ORDERABLES Wily tanner Result - Final * Blood Culture, Peripheral #2 (08/12/2025 2:42 AM EST) Only the most recent of2 resultswithin the time period is included. Culture, Blood No growth at 5 days LAB MICROBIOLOGY METHOD 08/17/2025 6:01 AM EST [facility] Blood Venous blood specimen / Unknown Venipuncture / Unknown 08/12/2025 2:42 AM EST 08/12/2025 3:05 AM EST Marcial Kyle MD LAB MICROBIOLOGY - GENERAL ORDERABLES Final Result [facility] [address] [place] [address], * XR Forearm 2 Views Right (08/12/2025 [...] Signed Date: 08/12/2025 08:47 ET Workstation ID: [id number] Transcribed By: Self Edit Transcribed Date: 08/12/2025 [...] Signed Date: 08/12/2025 08:47 ET Workstation ID: [id number] Transcribed By: Self Edit Transcribed Date: 08/12/2025 08:45 ET Allen Guerrero MD IMG XR PROCEDURES Final Result * XR Chest 1 View (08/12/2025 1:33 AM EST) Only the most recent of2 resultswithin the time period is included. Anatomical Region Laterality Modality Body Radiographic Arlin ging 08/12/2025 8:45 AM EST Impressions 08/12/2025 8:47 AM EST Impression: 1. Interstitial pulmonary fibrosis. 2. No acute infiltrate identified. [place] PA ([id number]) -------- FINAL REPORT -------- Dictated By: Sarahi Ignacio Dictated Date: 08/12/2025 08:45 ET Assigned Physician: Sarahi Ignacio Reviewed and Electronically Signed By: Sarahi Ignacio Signed Date: 08/12/2025 08:47 ET Workstation ID: [id number] Transcribed By: Self Edit Transcribed Date: 08/12/2025 [...] fibrosis. 2. No acute infiltrate identified. [place] ID ([id number]) -------- FINAL REPORT -------- Dictated By: Sarahi Ignacio Dictated Date: 08/12/2025 08:45 ET Assigned Physician: Sarahi Ignacio Reviewed and Electronically Signed By: Sarahi Ignacio Signed Date: 08/12/2025 08:47 ET Workstation ID: [id number] Transcribed By: Self Edit Transcribed Date: 08/12/2025 08:45 ET Allen Guerrero MD IMG XR PROCEDURES Final Result * (ABNORMAL) Urinalysis with reflex microscopic and culture (08/12/2025 1:13 AM EST) Specific [place] Urine 1.022 1.003 - 1.030 LAB URINALYSIS - AUTOMATED METHOD 08/12/2025 2:08 AM [facility] pH, Urine 7.0 5.0 - 8.0 pH LAB URINALYSIS - AUTOMATED METHOD 08/12/2025 2:08 AM [facility] Leukocytes, Urine Moderate(A) Negative LAB URINALYSIS - AUTOMATED METHOD 08/12/2025 2:08 AM [facility] Nitrite, Urine Negative Negative LAB URINALYSIS - AUTOMATED METHOD 08/12/2025 2:08 AM [facility] Protein, Urine 30(A) <=Trace mg/dL LAB URINALYSIS - AUTOMATED METHOD 08/12/2025 2:08 AM [facility] Glucose, Urine Negative Negative mg/dL LAB URINALYSIS - AUTOMATED METHOD 08/12/2025 2:08 AM [facility] Ketones, Urine Negative Negative mg/dL LAB URINALYSIS - AUTOMATED METHOD 08/12/2025 2:08 AM [facility] Urobilinogen , Urine 1.0 0.2 - 1.0 mg/dL LAB URINALYSIS - AUTOMATED METHOD 08/12/2025 2:08 AM [facility] Bilirubin, Urine Negative Negative LAB URINALYSIS - AUTOMATED METHOD 08/12/2025 2:08 AM [facility] Blood, Urine Negative Negative LAB URINALYSIS - AUTOMATED METHOD 08/12/2025 2:08 AM [facility] RBC, Urine 4 0 - 4 /HPF LAB URINALYSIS - AUTOMATED METHOD 08/12/2025 2:08 AM [facility] WBC, Urine 30(H) 0 - 4 /HPF LAB URINALYSIS - AUTOMATED METHOD 08/12/2025 2:08 AM [facility] Squamous Epithelial, Urine 50 0 - 60 /LPF LAB URINALYSIS - AUTOMATED METHOD 08/12/2025 2:08 AM [facility] Bacteria, Urine Negative Negative /HPF LAB URINALYSIS - AUTOMATED METHOD 08/12/2025 2:08 AM [facility] Hyaline Casts, Urine 3 0 - 3 /LPF LAB URINALYSIS - AUTOMATED METHOD 08/12/2025 2:08 AM [facility] Mucus, Urine Large None /HPF LAB URINALYSIS - AUTOMATED METHOD 08/12/2025 2:08 AM [facility] Urine Urinary bladder structure / Unknown Non-blood Collection / Unknown 08/12/2025 1:13 AM EST 08/12/2025 1:47 AM EST us Allen Guerrero MD LAB URINE ORDERABLES Final Resul t [facility] [address] [place] [address], [place] [phone] * Miller urine culture tube (08/12/2025 1:13 AM EST) Pathologist [facility] Extra Tube Hold for add-ons. 08/12/2025 3:02 AM EST [facility] Comment:Auto resulted. Urine Urinary bladder structure / Unknown Non-blood Collection / Unknown 08/12/2025 1:13 AM EST 08/12/2025 1:47 AM EST Allen Guerrero MD LAB URINE ORDERABLES Final Resul t Performing Organization Address [facility] Co de Phone Number [facility] [address] [place] [address], [place] [phone] * (ABNORMAL) Culture urine (08/12/2025 1:13 AM EST) Culture, Urine <10,000 CFU/mL Staphylococcus epidermidis(A) JEOVANNY 08/16/2025 11:57 AM EST [facility] Comment: Beta-lactamase negative Edited result: Previously reported as Gram Positive Cocci on 08/14/2025 at 1013 EST. Culture, Urine <10,000 CFU/mL Staphylococcus epidermidis(A) JEOVANNY 08/16/2025 11:57 AM EST [facility] Comment: The organism value for this result has been updated. These results have been appended to the previously preliminary verified report. Culture, Urine <1,000 CFU/mL Staphylococcus lugdunensis(A) JEOVANNY 08/16/2025 11:57 AM EST [facility] Comment: The organism value for this [...] JEOVANNY 2 ug/ml: Susceptible Staphylococcus epidermidis Nitrofurantoin JEOAVNNY <=16 ug/ml: Susceptible Staphylococcus epidermidis Rifampin JEOVANNY [...] ORDER SHREYAS Final Result Performing Organization Address City/State/[facility] Co de Phone Number [facility] [address] [place] [address], [place] [phone] * CT Lumbar Spine wo Contrast (08/12/2025 [...] purposes of this report, there are 6 [id number] lumbar vertebral bodies. L6 is partially sacralized [...] purposes of this report, there are 6 [id number] lumbar vertebral bodies. L6 is partially sacralized [...] on 08/12/2025 01:32:57 us Allen Guerrero MD IM CT PROCEDURES Final Result * CT Cervical Spine wo Contrast (08/12/2025 12:56 AM EST) Only the most recent of2 resultswithin the time period is included. Anatomical Region Laterality Modality Spine, C-spine Computed [...] Khoury MD on 08/12/2025 01:20:37 us Allen Cesar GARCES IMG CT PROCEDURES Final Result * Lactate, with Reflex (08/11/2025 10:57 PM EST) LACTIC ACID 1.1 0.4 - 2.0 mmol/L 08/11/2025 11:39 PM EST [facility] Blood Venous blood specimen / Unknown Venipuncture / Unknown 08/11/2025 10:57 PM EST 08/11/2025 11:00 PM EST us Allen Notash MD LAB BLOOD ORDERABLES Final Resul t Performing Organization Address City/[facility]/ZIP Co de Phone Number [facility] [address] [place] [address], [place] [phone] * Troponin I High Sensitivity (08/11/2025 10:57 PM EST) Pathologist [facility] High Sensitivity Troponin I 6 <=34 ng/L 08/11/2025 11:39 PM EST [facility] Blood Venous blood specimen / Unknown Venipuncture / Unknown 08/11/2025 10:57 PM EST 08/11/2025 11:01 PM EST us Allen Guerrero MD LAB BLOOD ORDERABLES Final Resul t Performing Organization Address [facility] Co de Phone Number [facility] [address] [place] [address], [place] [phone] * B-Type Natriuretic Peptide (BNP) (08/11/2025 10:57 PM EST) [facility] BNP 30 <=100 pcg/mL 08/11/2025 11:38 PM EST [facility] Blood Venous blood specimen / Unknown Venipuncture / Unknown 08/11/2025 10:57 PM EST 08/11/2025 11:01 PM EST Narrative [facility] - 08/11/2025 11:38 PM EST Over the counter supplements containing high doses of biotin may interfere with this assay. If interference is suspected, patients shoud be retested after refraining from biotin supplements for 72 hours. us Allen Guerrero MD LAB BLOOD ORDERABLES Final Resul t Performing Organization Address City/[facility]/ZIP Co de Phone Number [facility] [address] [place] [address], [place] [phone] * Lipase (08/11/2025 10:57 PM EST) [facility] Lipase 22 12 - 53 unit/L 08/11/2025 11:25 PM EST [facility] Blood Venous blood specimen / Unknown Venipuncture / Unknown 08/11/2025 10:57 PM EST 08/11/2025 11:01 PM EST us Allen Guerrero MD LAB BLOOD ORDERABLES Final Resul t [facility] [address] [place] [address], [place] [phone] * Respiratory virus panel molecular study (08/11/2025 10:56 PM EST) Pathologist [facility] Adenovirus Detection by PCR Not Detected Not Detected LAB MICROBIOLOGY METHOD 08/12/2025 12:49 AM [facility] Influenza A PCR Not Detected Not Detected LAB MICROBIOLOGY METHOD 08/12/2025 12:49 AM [facility] Influenza B PCR Not Detected Not Detected LAB MICROBIOLOGY METHOD 08/12/2025 12:49 AM [facility] Coronavirus 229E Not Detected Not Detected LAB MICROBIOLOGY METHOD 08/12/2025 12:49 AM [facility] Coronavirus HKU1 Not Detected Not Detected LAB MICROBIOLOGY METHOD 08/12/2025 12:49 AM [facility] Coronavirus OC43 Not Detected Not Detected LAB MICROBIOLOGY METHOD 08/12/2025 12:49 AM [facility] Coronavirus NL63 Not Detected Not Detected LAB MICROBIOLOGY METHOD 08/12/2025 12:49 AM [facility] Parainfluenza Virus 1 Not Detected Not Detected LAB MICROBIOLOGY METHOD 08/12/2025 12:49 AM [facility] Parainfluenza Virus 2 Not Detected Not Detected LAB MICROBIOLOGY METHOD 08/12/2025 12:49 AM [facility] Parainfluenza Virus 3 Not Detected Not Detected LAB MICROBIOLOGY METHOD 08/12/2025 12:49 AM [facility] Parainfluenza Virus 4 Not Detected Not Detected LAB MICROBIOLOGY METHOD 08/12/2025 12:49 AM [facility] RSV PCR Not Detected Not Detected LAB MICROBIOLOGY METHOD 08/12/2025 12:49 AM [facility] Human Metapneumovirus A and B Not Detected Not Detected LAB MICROBIOLOGY METHOD 08/12/2025 12:49 AM [facility] Rhinovirus/Entero virus Not Detected Not Detected LAB MICROBIOLOGY METHOD 08/12/2025 12:49 AM [facility] Bordetella pertussis Not Detected Not Detected LAB MICROBIOLOGY METHOD 08/12/2025 12:49 AM [facility] Bordetella parapertussis Not Detected Not Detected LAB MICROBIOLOGY METHOD 08/12/2025 12:49 AM [facility] Mycoplasma pneumo by PCR Not Detected Not Detected LAB MICROBIOLOGY METHOD 08/12/2025 12:49 AM [facility] Chlamydia pneumoniae Not Detected Not Detected LAB MICROBIOLOGY METHOD 08/12/2025 12:49 AM [facility] SARS COV-2 Not Detected Not Detected LAB MICROBIOLOGY METHOD 08/12/2025 12:49 AM [facility] Swab Both anterior nares / Unknown Non-blood Collection / Unknown 08/11/2025 10:56 PM EST 08/11/2025 11:00 PM EST [facility] - 08/12/2025 12:49 AM EST Testing was performed using the [employer] Respiratory Pathogen PCR Assay. All results must [...] that are below the limit of detection. Allen Guerrero MD LAB MICROBIOLOGY - GENERAL ORDER SHREYAS Final Result [facility] [address] [place] [address], [place] [phone] * 12-Lead ECG (08/11/2025 10:19 PM EST) Ventricular Rate ECG 105 BPM GEMUSE Atrial Rate 105 BPM GEMUSE P-R Interval 144 ms GEMUSE QRS Duration 66 ms GEMUSE Q-T Interval 320 ms GEMUSE QTc 422 ms GEMUSE P Wave [address] 67 degrees GEM[address] R [address] -13 degrees GEMUSE T [address] 70 degrees GEMUSE ECG Interpretation Sinus tachycardia When compared with ECG of 14-APR-2023 15:05, Vent. rate has increased BY 38 BPM Confirmed by ANIKET BARBA ([id number]) on 08/12/2025 12:30:35 AM GEMUSE 08/11/2025 10:1 9 PM EST 08/12/2025 12:30 AM EST Allen Guerrero MD ECG ORDERABLES Final Result GEMUSE * (ABNORMAL) Manual differential (08/11/2025 9:59 PM EST) Neutrophils % 78.0 % LAB HEMETOLOGY METHOD 08/11/2025 10:42 PM EST [facility] Bands % 1.0 % LAB HEMETOLOGY METHOD 08/11/2025 10:42 PM EST [facility] Lymphocytes % 8.0 % LAB HEMETOLOGY METHOD 08/11/2025 10:42 PM EST [facility] Monocytes % 11.0 % LAB HEMETOLOGY METHOD 08/11/2025 10:42 PM [facility] Eosinophils % 0.0 % LAB HEMETOLOGY METHOD 08/11/2025 10:42 PM [facility] Basophils % 1.0 % LAB HEMETOLOGY METHOD 08/11/2025 10:42 PM [facility] Metamyelocytes % 1.0(H) % LAB HEMETOLOGY METHOD 08/11/2025 10:42 PM [facility] Neutrophils Absolute Manual 8.81(H) 1.50 - 7.00 K/[facility] HEMETOLOGY METHOD 08/11/2025 10:42 PM [facility] Bands Absolute Manual 0.11(H) 0.00 - 0.00 K/[facility] LAB HEMETOLOGY METHOD 08/11/2025 10:42 PM [facility] Lymphocytes Absolute 0.90(L) 1.00 - 5.00 K/[facility] LAB HEMETOLOGY METHOD 08/11/2025 10:42 PM [facility] Monocytes Absolute Manual 1.24(H) 0.20 - 1.00 K/[facility] LAB HEMETOLOGY METHOD 08/11/2025 10:42 PM [facility] Eosinophils Absolute Manual 0.00 0.00 - 0.50 K/[facility] LAB HEMETOLOGY METHOD 08/11/2025 10:42 PM [facility] Basophils Absolute Manual 0.11 0.00 - 0.20 K/mcL LAB HEMETOLOGY METHOD 08/11/2025 10:42 PM [facility] Metamyelocytes Absolute Manual 0.11(H) 0.00 - 0.00 K/mcL LAB HEMETOLOGY METHOD 08/11/2025 10:42 PM [facility] Rbc Morphology Present( A) Consistent with indices, Normal for LAB HEMETOLOGY METHOD 08/11/2025 10:42 PM [facility] Comment:RBC: Morphology agre es with CBC Platelet Morphology - WAM See Note(A) Normal LAB HEMETOLOGY METHOD 08/11/2025 10:42 PM [facility] Comment:PLT: Normal Blood Venous blood specimen / Unknown Venipuncture / Unknown 08/11/2025 9:59 PM EST 08/11/2025 10:07 PM EST Madisyn CARTAGENA LAB BLOOD ORDERABLES Fin al Result [facility] [address] [place] [address], [place] [phone] * Thyroid Stimulating Hormone (TSH) (08/11/2025 9:59 PM EST) TSH 2.87 0.40 - 4.00 mcIU/mL 08/11/2025 11:23 PM [facility] Blood Venous blood specimen / Unknown Venipuncture / Unknown 08/11/2025 9:59 PM EST 08/11/2025 10:07 PM EST Allen Guerrero MD LAB BLOOD ORDERABLES Final Resul t Performing Organization Address [facility]/ZIP Co de Phone Number [facility] [address] [place] [address], [place] [phone] * (ABNORMAL) Comprehensive Metabolic Panel (CMP) (08/11/2025 9:59 PM EST) Pathologist [facility] Sodium 133 133 - 145 mmol/L 08/11/2025 11:21 PM [facility] Potassium 4.4 3.5 - 5.5 mmol/L 08/11/2025 11:21 PM [facility] Chloride 96 96 - 110 mmol/L 08/11/2025 11:21 PM [facility] CO2 29 21 - 32 mmol/L 08/11/2025 11:21 PM [facility] Anion Gap 8 3 - 11 08/11/2025 11:21 PM [facility] Glucose 114(H) 70 - 100 mg/dL 08/11/2025 11:21 PM [facility] BUN 22 5 - 25 mg/dL 08/11/2025 11:21 PM [facility] Creatinine 0.73 0.50 - 1.10 mg/dL 08/11/2025 11:21 PM [facility] eGFR 83 >=60 mL/min/1. 73m2 08/11/2025 11:21 PM [facility] Comment:Calculation based on the Chronic Kidney Disease Epidemiology Collaboration (CKD-EPI) equation refit without adjustment for race. BUN/Creatinine Ratio 30.1 08/11/2025 11:21 PM [facility] Calcium 8.4(L) 8.5 - 10.5 mg/dL 08/11/2025 11:21 PM [facility] AST (SGOT) 25 10 - 42 unit/L 08/11/2025 11:21 PM [facility] ALT (SGPT) 17 10 - 60 unit/L 08/11/2025 11:21 PM [facility] Alkaline Phosphatase 164(H) 42 - 121 unit/L 08/11/2025 11:21 PM [facility] Total Protein 8.0 6.0 - 8.0 g/dL 08/11/2025 11:21 PM [facility] Albumin 4.0 3.2 - 5.0 g/dL 08/11/2025 11:21 PM [facility] Total Bilirubin 2.2(H) 0.0 - 1.4 mg/dL 08/11/2025 11:21 PM [facility] Blood Venous blood specimen / Unknown Venipuncture / Unknown 08/11/2025 9:59 PM EST 08/11/2025 10:07 PM EST us Madisyn CARTAGENA LAB BLOOD ORDERABLES Fin al Result [facility] [address] [place] [address], * [facility] 30-74 MINUTES (08/11/2025 9:20 PM [...] MD IN CLINIC/BEDSIDE ORDERABLES Fin al Result * XR Foot 3+ Views Left (08/10/2025 10:38 AM EST) Anatomical Region Laterality Modality Lower Extremities, Foot Left Radiogra phic Imaging 08/10/2025 10:4 5 AM EST Impressions 08/10/2025 10:50 AM EST No fracture, dislocation, or other acute findings. A degenerative osteophyte projects dorsally from the anterior aspect of the talus. Is noted. 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 Calcification of the plantar fascia is noted. Code 03040 -------- FINAL REPORT -------- Dictated By: Ludin Patricio Dictated Date: 08/10/2025 10:45 ET Assigned Physician: Ludin Patricio Reviewed and Electronically Signed By: Ludin Patricio Signed Date: 08/10/2025 10:50 ET Workstation ID: [id number] Transcribed By: Self Edit Transcribed Date: 08/10/2025 10:45 ET Narrative 08/10/2025 10:50 AM EST HISTORY: The patient is an 80-year-old female with left foot pain following trauma. FINDINGS: AP, lateral,, and oblique views of the left foot are obtained. No prior left foot radiographs are available for comparison. This examination demonstrates marked bony demineralization. There is no fracture or dislocation. A degenerative osteophytes projects dorsally from the anterior aspect of the talus. There is a moderate-sized inferior calcaneal osteophyte. Calcification of the plantar fascia is noted as also seen on the right foot radiographs performed earlier the same day. Moderate osteoarthritis of the tibiotalar joint and of the posterior aspect of the subtalar joint is noted. Curvilinear soft tissue calcification is present adjacent to the distal fibula. Procedure Note Ludin Patricio MD - 08/10/2025 HISTORY: The patient is an 80-year-old female with left foot painfollowing trauma. FINDINGS: AP, lateral,, and oblique views of the left foot are obtained.No prior left foot radiographs are available for comparison. Thisexamination demonstrates marked bony demineralization. There is nofracture or dislocation. A degenerative osteophytes projects dorsally fromthe anterior aspect of the talus. There is a moderate- sized inferiorcalcaneal osteophyte. Calcification of the plantar fascia is noted as alsoseen on the right foot radiographs performed earlier the same day.Moderate osteoarthritis of the tibiotalar joint and of the posterioraspect of the subtalar joint is noted. Curvilinear soft tissuecalcification is present adjacent to the distal fibula. IMPRESSION: No fracture, dislocation, or other acute findings. A degenerativeosteophyte projects dorsally from the anterior aspect of the talus. Isnoted. 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 Calcification of the plantarfascia is noted. Code 27105 -------- FINAL REPORT -------- Dictated By: Ludin Patricio Dictated Date: 08/10/2025 10:45 ET Assigned Physician: Ludin Patricio Reviewed and Electronically Signed By: Ludin Patricio Signed Date: 08/10/2025 10:50 ET Workstation ID: [id number] Transcribed By: Self Edit Transcribed Date: 08/10/2025 10:45 ET us Siomara Connolly MD IMG XR PROCEDURES Final Res ult * XR Foot 3+ Views Right (08/10/2025 6:29 AM EST) Anatomical Region Laterality Modality Lower Extremities, Foot Right [facility] 08/10/2025 9:44 AM EST Impressions 08/10/2025 9:54 AM EST Degenerative changes. No acute findings. -------- FINAL REPORT -------- Dictated By: Km Zamora Dictated Date: 08/10/2025 09:44 ET Assigned Physician: Km Zamora Reviewed and Electronically Signed By: Km Zamora Signed Date: 08/10/2025 09:54 ET Workstation ID: [id number] Transcribed By: Self Edit Transcribed Date: 08/10/2025 09:44 ET Narrative 08/10/2025 9:54 AM EST PROCEDURE: Radiographs of the right foot. HISTORY: pain. COMPARISON. None. FINDINGS: 3 views of the right foot. Bones are markedly demineralized. There is a remote healed fracture deformity of the distal fibular shaft. Moderate retrocalcaneal and plantar calcaneal enthesophytes. Extensive dystrophic calcifications of the plantar fascia. Multifocal atherosclerotic calcifications. Moderate degenerative changes of the tibiotalar joint and severe degenerative changes of the posterior subtalar joint. Curvilinear dystrophic soft tissue calcifications anteromedial to the tibiotalar joint. Procedure Note Km Zamora MD - 08/10/2025 PROCEDURE: Radiographs of the right foot. HISTORY: pain. COMPARISON. None. FINDINGS: 3 views of the right foot. Bones are markedly demineralized. There is a remote healed fracturedeformity of the distal fibular shaft. Moderate retrocalcaneal and plantarcalcaneal enthesophytes. Extensive dystrophic calcifications of theplantar fascia. Multifocal atherosclerotic calcifications. Moderatedegenerative changes of the tibiotalar joint and severe degenerativechanges of the posterior subtalar joint. Curvilinear dystrophic softtissue calcifications anteromedial to the tibiotalar joint. IMPRESSION: Degenerative changes. No acute findings. -------- FINAL REPORT -------- Dictated By: Km Zamora Dictated Date: 08/10/2025 09:44 ET Assigned Physician: Km Zamora Reviewed and Electronically Signed By: Km Zamora Signed Date: 08/10/2025 09:54 ET Workstation ID: [id number] Transcribed By: Self Edit Transcribed Date: 08/10/2025 09:44 ET us Dax CARTAGENA IMG XR PROCEDURES Final Res ult * XR Knee 4+ Views Left (08/10/2025 6:29 AM EST) Anatomical Region Laterality Modality Lower Extremities, Knee Left [facility]ogra [facility] 08/10/2025 9:55 AM EST Impressions 08/10/2025 9:57 AM EST No acute findings. -------- FINAL REPORT -------- Dictated By: Km Zamora Dictated Date: 08/10/2025 09:55 ET Assigned Physician: Km Zamora Reviewed and Electronically Signed By: Km Zamora Signed Date: 08/10/2025 09:57 ET Workstation ID: [id number] Transcribed By: Self Edit Transcribed Date: 08/10/2025 09:55 ET Narrative 08/10/2025 9:57 AM EST PROCEDURE: Radiographs of the left knee. HISTORY: pain. COMPARISON: None. FINDINGS: 4 views of the right knee. Bones are diffusely demineralized. No skull calcifications suggestive of chondrocalcinosis. Multifocal atherosclerotic calcifications. Mild medial compartment joint space loss. Small medial and lateral compartment osteophytes. Minimal osteophytes and mild diffuse articular surface irregularity in the patellofemoral compartment. No joint effusion. No fracture, malalignment, erosion, or bony lesion. Procedure Note Km Zamora MD - 08/10/2025 PROCEDURE: Radiographs of the left knee. HISTORY: pain. COMPARISON: None. FINDINGS: 4 views of the right knee. Bones are diffusely demineralized. No skull calcifications suggestive ofchondrocalcinosis. Multifocal atherosclerotic calcifications. Mild medialcompartment joint space loss. Small medial and lateral compartmentosteophytes. Minimal osteophytes and mild diffuse articular surfaceirregularity in the patellofemoral compartment. No joint effusion. Nofracture, malalignment, erosion, or bony lesion. IMPRESSION: No acute findings. -------- FINAL REPORT -------- Dictated By: Km Zamora Dictated Date: 08/10/2025 09:55 ET Assigned Physician: Km Zamora Reviewed and Electronically Signed By: Km Zamora Signed Date: 08/10/2025 09:57 ET Workstation ID: [id number] Transcribed By: Self Edit Transcribed Date: 08/10/2025 09:55 ET us Dax CARTAGENA IMG XR PROCEDURES Final Res ult * CT Maxillofacial wo Contrast (08/10/2025 12:52 AM EST) Anatomical Region Laterality Modality Head and Neck Computed Tomogra phy 08/10/2025 1:49 AM EST Impressions 08/10/2025 1:49 AM EST Mild forehead soft tissue swelling. No acute fractures. This document has been electronically signed by: Urban Sandoval MD on 08/10/2025 01:49:33 Narrative 08/10/2025 1:49 AM EST INDICATION: pain CT maxillofacial without contrast Comparison: None provided Findings: No acute fractures. Temporomandibular joints are intact. Paranasal sinuses and mastoid air cells clear. Orbits normal. Visualized intracranial contents are within normal limits. No foreign bodies. Procedure Note Urban Sandoval MD - 08/10/2025 INDICATION: pain CT maxillofacial without contrast Comparison: None provided Findings: No acute fractures. Temporomandibular joints are intact. Paranasal sinuses and mastoid air cells clear. Orbits normal. Visualized intracranial contents are within normal limits. No foreign bodies. IMPRESSION: Mild forehead soft tissue swelling. No acute fractures. This document has been electronically signed by: Urban Rios MD on 08/10/2025 01:49:33 Dax [facility] [place] PROCEDURES Final Res ult * CT Head wo Contrast (08/10/2025 12:52 AM EST) Anatomical Region Laterality Modality Head and Neck Computed Tomogra phy 08/10/2025 1:40 AM EST Impressions 08/10/2025 1:40 AM EST Mild forehead soft tissue swelling. No acute intracranial findings. This document has been electronically signed by: Urban Sandoval MD on 08/10/2025 01:40:05 Narrative 08/10/2025 1:40 AM EST INDICATION: pain CT head without contrast Comparison: None provided Findings: No intra-axial mass, midline shift, hydrocephalus, or acute hemorrhage. Mild atrophy like change. The visualized paranasal sinuses and mastoid air cells are normal. The orbits are unremarkable. No skull fracture. Procedure Note Urban Sandoval MD - 08/10/2025 INDICATION: pain CT head without contrast Comparison: None provided Findings: No intra-axial mass, midline shift, hydrocephalus, or acute hemorrhage. Mild atrophy like change. The visualized paranasal sinuses and mastoid air cells are normal. The orbits are unremarkable. No skull fracture. IMPRESSION: Mild forehead soft tissue swelling. No acute intracranial findings. This document has been electronically signed by: Urban Rios MD on 08/10/2025 01:40:05 Dax [facility] [place] PROCEDURES Final Res ult * APTT (08/10/2025 12:09 AM EST) aPTT 30.0 24.1 - 39.3 sec LAB COAGULATION METHOD 08/10/2025 12:37 AM EST [facility] Blood Venous blood specimen / Unknown Venipuncture / Unknown 08/10/2025 12:09 AM EST 08/10/2025 12:26 AM EST Dax CARTAGENA LAB BLOOD ORDERABLES Final Result [facility] [address] [place] [address], [place] [phone] * Protime-INR (08/10/2025 12:09 AM EST) Protime 13.2 10.6 - 13.9 sec LAB COAGULATION METHOD 08/10/2025 12:37 AM EST [facility] INR 1.1 LAB COAGULATION METHOD 08/10/2025 12:37 AM EST [facility] Blood Venous blood specimen / Unknown Venipuncture / Unknown 08/10/2025 12:09 AM EST 08/10/2025 12:26 AM EST Dax CARTAGENA LAB BLOOD ORDERABLES Final Result Performing Organization Address [facility]/ZIP Co de Phone Number [facility] [address] [place] [address], [place] [phone] * Type and screen (08/10/2025 12:09 AM EST) Pathologist [facility] ABO Group O 08/10/2025 1:28 AM EST [facility] Rh Type Positive 08/10/2025 1:28 AM EST [facility] Antibody Screen Negative 08/10/2025 1:28 AM EST [facility] Blood Venous blood specimen / Unknown Venipuncture / Unknown 08/10/2025 12:09 AM EST 08/10/2025 12:26 AM EST Dax C[facility] LAB BLOOD BANK TEST ORDERAB LES Final Result Performing Organization Address City/[facility]/ZIP Co de Phone Number [facility] [address] [place] [address], [place] [phone] from Last 3 Months Insurance [facility] [employer] Member Subscriber Plan / Payer (Ef fective 2010-Present) Name:Apryl Downing Relation to Subscriber:Self Name:Apryl Downing Payer ID:[id number] Group ID:[id number] Type:Not on file Address: [place] [address] [place] [id number] Advance Directives Documents on File Type Date Recorded 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 Do not modify or discontinue any currently active code status orders. Healthcare Agents on File Name Relationship Healthcare Agent Relationshi p Communication Juliet Holloway Daughter Health Care Agent Care Teams Survey Research Associate Relationship Specialty Start Date End Date Adelaide Pollock MD [address] [place] [id number] PCP - General Internal Medicine 05/13/13
--- OUTSIDE RECORDS SUMMARY | 2025-08-18 10:09 | XMS_ITS | Encounter Summary ---
Author Organization [facility] Address [address] [place] [address] [place] [address] Phone Care Team Providers Care Unit Manager Rn Name Role Phone Adelaide Pollock MD Primary Care Provider + Aide Adame MD Primary Care Provider + Johnathan Lisa MD, MPH Unavailable [phone] Jazzmine Zaman MD Unavailable [phone] System, Provider Not In PhD Primary Care Provide r Unavailable Adelaide Pollock MD Primary Care Provider + Encounter Details Date Type Department Care Team (Late st Contact Info) Description 11/30/2024 Ancillary Orders [facility] Arthritis Center Main [place] [address] [place] [address] Josh Davey MD 75 [place] [address] [email or web address] Arthralgia, unspecified joint (Primary Dx) [...] [facility] Pulmonary Function Lab [address] [place] [address] Maurilio Rojas MD [address] [place] [address] [email or web address] 10/10/2025 10:30 AM EST Office Visit [facility] Genetics [address] [place] [address] Johnathan Lisa MD, MPH [address] [place] [address] [email or web address] 11/22/2025 12:00 PM EDT Office Visit [facility] Lung Center-Pulmonary Medicine [address] [place] [address] Maurilio Rojas MD [address] [place] [address] [email or web address] documented as of this encounter Results [...] clinician's provided indication for this examination in [facility]: Pain COMPARISON: XR FOOT 3 OR MORE [...] clinician's provided indication for this examination in [facility]:Pain COMPARISON: XR FOOT 3 OR MORE VIEWS [...] documented as of this encounter Care Teams Unit Manager Rn Relationship Specialty Start Date End Date Adelaide Pollock MD PCP - General Internal Medicine 02/16/24 03/27/25 Aide Adame MD [address] [place] [address] PCP - General Internal Medicine 03/28/25 07/18/25 System, Provider Not In, PhD [address] [address] PCP - General 07/19/25 07/21/25 Adelaide Pollock MD [address] [place] [address] PCP - General Internal Medicine 07/22/25 Johnathan Lisa MD, MPH [address] [place] [address] [email or web address] Referring Physician Pulmonary Disease 03/28/25 Jazzmine Zaman MD [address] [place] [address] [email or web address] Referring Physician Pediatrics 03/28/25 documented as of this encounter Additional Source Comments The information contained in this document represents components of the legal health record. It is not the complete legal health record.[facility]
--- OUTSIDE RECORDS SUMMARY | 2025-08-18 10:09 | XMS_ITS | Encounter Summary ---
Author Organization [facility] Address [address] [place] [address] [place] [address] Phone Care Team Providers Care Clip Coater Name Role Phone Adelaide Pollock MD Primary Care Provider + Aide Adame MD Primary Care Provider + Johnathan Lisa MD, MPH Unavailable [phone] Jazzmine Zaman MD Unavailable [phone] System, Provider Not In PhD Primary Care Provide r Unavailable Adelaide Pollock MD Primary Care Provider + Encounter Details Date Type Department Care Team (Latest Contact Info) Description 05/19/2024 Ancillary Orders [facility] Rheumatology Dermatology [facility] [address] [facility] 8th Floor, [address] [place] [address] Ce Luke MD [address] [facility] [address] [place] [address] [email or web address] Interstitial lung disease (Primary Dx) Social [...] Info) Description 10/10/2025 9:30 AM EST Appointment [facility] Pulmonary Function Lab [address] [place] [address] Maurilio Rojas MD [address] [place] [address] [email or web address] 10/10/2025 10:30 AM EST Office Visit [facility] Genetics [address] [place] [address] Johnathan Lisa MD, MPH [address] [place] [address] [email or web address] 11/22/2025 12:00 PM EDT Office Visit [facility] Lung Center-Pulmonary Medicine [address] [place] [address] Maurilio Rojas MD [address] [place] [address] [email or web address] documented as of this encounter Results [...] fibrosis documented in this encounter Care Teams Clip Coater Relationship Specialty Start Date End Date Adelaide Pollock MD PCP - General Internal Medicine 02/16/24 03/27/25 Aide Adame MD [address] [place] [address] PCP - General Internal Medicine 03/28/25 07/18/25 System, Provider [place] In, [place] [address] PCP - General 07/19/25 07/21/25 Adelaide Pollock MD [address] [place] [address] PCP - General Internal Medicine 07/22/25 Johnathan Lisa MD, MPH [address] [place] [address] [email or web address] Referring Physician Pulmonary Disease 03/28/25 Jazzmine Zaman MD [address] [place] [address] [email or web address] Referring Physician Pediatrics 03/28/25 documented as of this encounter Additional Source Comments The information contained in this document represents components of the legal health record. It is not the complete legal health record.[facility]
--- OUTSIDE RECORDS SUMMARY | 2025-08-18 10:09 | XMS_ITS | Encounter Summary ---
Author Organization [facility] Address [address] [place] [address] [place] [address] Phone Care Team Providers Care Isotope Technologist Name Role Phone Adelaide Pollock MD Primary Care Provider + Aide Adame MD Primary Care Provider + Johnathan Lisa MD, MPH Unavailable [phone] Jazzmine Zaman MD Unavailable [phone] System, Provider Not In PhD Primary Care Provide r Unavailable Adelaide Pollock MD Primary Care Provider + Encounter Details Date Type Department Care Team (Late st Contact Info) Description 11/30/2024 Ancillary Orders [facility] Arthritis Center Main [place] 15 [place] [address] Josh Davey MD 75 [place] [address] [email or web address] Arthralgia, unspecified joint (Primary Dx) Social History [...] Info) Description 10/10/2025 9:30 AM EST Appointment [facility] Pulmonary Function Lab [address] [place] [address] Maurilio Rojas MD [address] [place] [address] [email or web address] 10/10/2025 10:30 AM EST Office Visit [facility] Genetics [address] [place] [address] Johnathan Lisa MD, MPH [address] [place] [address] [email or web address] 11/22/2025 12:00 PM EDT Office Visit [facility] Lung Center-Pulmonary Medicine [address] [place] [address] Maurilio Rojas MD [address] [place] [address] [email or web address] documented as of this encounter Results * [...] clinician's provided indication for this examination in [facility]: Pain COMPARISON: XR HAND 3 OR MORE VIEWS (BILATERAL) FINDINGS: Left hand: Diffuse osseous demineralization. No fracture. Severe osteoarthritis of the first carpometacarpal joint with joint space narrowing, hypertrophic changes, and osseous remodeling with adjacent ossific body. Moderate osteoarthritis of the triscaphe joint, first MCP joint, and first interphalangeal joint. Bcwf-uv-avfdmzum degenerative changes of additional scattered interphalangeal joints. Cystic changes within the carpal bones and fifth metacarpal head. Chondrocalcinosis of the TFCC. No focal soft tissue swelling. Right hand: Diffuse osseous demineralization. No fracture. Severe osteoarthritis of the first carpometacarpal joint with joint space narrowing, hypertrophic changes, and osseous remodeling. Moderate osteoarthritis of the radiocarpal joint and triscaphe joint. Adim-jv-crripagy degenerative changes of additional scattered interphalangeal joints. [...] joint, first MCPjoint, and first interphalangeal joint. Uaoo-ou-njuunkvy degenerativechanges of additional scattered interphalangeal joints. Cystic changeswithin the carpal bones and fifth metacarpal head. Chondrocalcinosis ofthe TFCC. No focal soft tissue swelling. Right hand: Diffuse osseous demineralization. No fracture. Severeosteoarthritis of the first carpometacarpal joint with joint spacenarrowing, hypertrophic changes, and osseous remodeling. Moderateosteoarthritis of the radiocarpal joint and triscaphe joint.Ffdt-jo-ikfagnis degenerative changes of additional scatteredinterphalangeal joints. Cystic [...] documented as of this encounter Care Teams Isotope Technologist Relationship Specialty Start Date End Date Adelaide Pollock MD PCP - General Internal Medicine 02/16/24 03/27/25 Aide Adame MD [address] [place] [address] PCP - General Internal Medicine 03/28/25 07/18/25 System, Provider Not In, PhD [address] [address] PCP - General 07/19/25 07/21/25 Adelaide Pollock MD [address] [place] [address] PCP - General Internal Medicine 07/22/25 Johnathan Lisa MD, MPH [address] [place] [address] [email or web address] Referring Physician Pulmonary Disease 03/28/25 Jazzmine Zaman MD [address] [place] [address] [email or web address] Referring Physician Pediatrics 03/28/25 documented as of this encounter Additional Source Comments The information contained in this document represents components of the legal health record. It is not the complete legal health record.[facility]
--- OUTSIDE RECORDS SUMMARY | 2025-08-18 10:09 | XMS_ITS | Encounter Summary ---
Author Organization [facility] Address [address] [place] [address] Phone Care Team Providers Care Advertising Sales Assistant Name Role Phone Adelaide Pollock MD Primary Care Provider + Aide Adame MD Primary Care Provider + Johnathan Lisa MD, MPH Unavailable [phone] Jazzmine Zaman MD Unavailable [phone] System, Provider Not In PhD Primary Care Provide r Unavailable Adelaide Pollock MD Primary Care Provider + Encounter Details Date Type Department Care Team (Late st Contact Info) Description 04/05/2024 Procedure Pass [facility], [address] [address] Social History Tobacco Use Types Packs/Day Years [...] Info) Description 10/10/2025 9:[address] [facility] Pulmonary Function Lab 15 [place] [address] Maurilio Rojas MD [address] [address] [email or web address] 10/10/2025 10:30 AM EST Office Visit [facility] Genetics [address] [place] [address] Johnathan Lisa MD, MPH [address] [place] [address] [email or web address] 11/22/2025 12:00 PM EDT Office Visit [facility] Lung Center-Pulmonary Medicine [address] [place] [address] Maurilio Rojas MD [address] [place] [address] [email or web address] documented as of this encounter Visit Diagnoses Not on filedocumented in this encounter Care Teams Advertising Sales Assistant Relationship Specialty Start Date End Date Adelaide Pollock MD PCP - General Internal Medicine 02/16/24 03/27/25 Aide Adame MD [address] [place] [address] PCP - General Internal Medicine 03/28/25 07/18/25 System, Provider Not In, PhD [facility] [address] [address] PCP - General 07/19/25 07/21/25 Adelaide Pollock MD [address] [place] [address] PCP - General Internal Medicine 07/22/25 Johnathan Lisa MD, MPH [address] [place] [address] [email or web address] Referring Physician Pulmonary Disease 03/28/25 Jazzmine Zaman MD [address] [place] [address] [email or web address] Referring Physician Pediatrics 03/28/25 documented as of this encounter Additional Source Comments The information contained in this document represents components of the legal health record. It is not the complete legal health record.[facility]
--- OUTSIDE RECORDS SUMMARY | 2025-08-18 10:09 | XMS_ITS | Encounter Summary ---
Author Organization [facility] Address [address] [place] [address] [place] [address] Phone Care Team Providers Care Prover Name Role Phone Johnathan Lisa MD, MPH Unavailable [phone] Jazzmine Zaman MD Unavailable [phone] System, Provider Not In PhD Primary Care Provide r Unavailable Adelaide Pollock MD Primary Care Provider + Encounter Details Date Type Department Care Team (Late st Contact Info) Description 07/19/2025 Telephone [facility] 15 [place] [address] Jazzmine Zaman MD [address] [place] [address] [email or web address] Social History Tobacco Use Types Packs/Day Years [...] requesting to 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 She states Dahlia was helping her [...] Info) Description 10/10/2025 9:30 AM EST Appointment [facility] Pulmonary Function Lab [address] [place] [address] Maurilio Rojas MD [address] [place] [address] [email or web address] 10/10/2025 10:30 AM EST Office Visit [facility] Genetics [address] [place] [address] Johnathan Lisa MD, MPH [address] [place] [address] [email or web address] 11/22/2025 12:00 PM EDT Office Visit [facility] Lung Center-Pulmonary Medicine [address] [place] [address] Maurilio Rojas MD [address] [place] [address] [email or web address] documented as of this encounter Visit Diagnoses Not on filedocumented in this encounter Additional Health Concerns Assessment Noted Time PHQ-2 Depression Total Score: 0 07/18/20 10:43 AM EST documented as of this encounter Care Teams Prover Relationship Specialty Start Date End Date System, Provider [place] In, [place] [address] PCP - General 07/19/25 07/21/25 Adelaide Pollock MD [address] [place] [address] PCP - General Internal Medicine 07/22/25 Johnathan Lisa MD, MPH [address] [place] [address] [email or web address] Referring Physician Pulmonary Disease 03/28/25 Jazzmine Zaman MD [address] [place] [address] [email or web address] Referring Physician Pediatrics 03/28/25 documented as of this encounter Additional Source Comments The information contained in this document represents components of the legal health record. It is not the complete legal health record.[facility]
--- OUTSIDE RECORDS SUMMARY | 2025-08-18 10:09 | XMS_ITS | Encounter Summary ---
Author Organization [facility] Address [address] [place] [address] Phone Care Team Providers Care Senior Javascript Engineer Name Role Phone Johnathan Lisa MD, MPH Unavailable [phone] Jazzmine Zaman MD Unavailable Adelaide Pollock MD Primary Care Provider + Reason for Visit * Reason Onset Date Comments Results 07/22/2025 Encounter Details Date Type Department Care Team (Late st Contact Info) Description 07/22/2025 Telephone [facility] Genetics 15 [place] [address] Jazzmine Zaman MD [address] [place] [address] [email or web address] Results Social History Tobacco Use Types [...] pt would like to have results from [facility] Liver Elastography (Fibroscan) completed on 07/18/25 be made available for pt to see. Please advise. CB# [phone] Thank you Aline Lombardo Pt Access Center Coordinator Department Of Medicine documented in this encounter Plan of Treatment Upcoming Encounters Date Type Department Care Team (Late st Contact Info) Description 10/10/2025 9:30 AM EST Appointment [facility] Pulmonary Function Lab [address] [place], [place] [phone] Maurilio Rojas MD [address] [place], [place] [phone] [email or web address] 10/10/2025 10:30 AM EST Office Visit [facility] Genetics 15 [place] [address] Johnathan Lisa MD, MPH [address] [place] [address] [email or web address] 11/22/2025 12:00 PM EDT Office Visit [facility] Lung Center-Pulmonary Medicine 15 [place] [address] Maurilio Rojas MD [address] [place] [address] [email or web address] documented as of this encounter Visit Diagnoses Not on filedocumented in this encounter Additional Health Concerns Assessment Noted Time PHQ-2 Depression Total Score: 0 07/18/20 10:43 AM EST documented as of this encounter Care Teams Senior Javascript Engineer Relationship Specialty Start Date End Date Adelaide Pollock MD [address] [place] [address] PCP - General Internal Medicine 07/22/25 Johnathan Lisa MD, MPH [address] [place] [address] [email or web address] Referring Physician Pulmonary Disease 03/28/25 Jazzmine Zaman MD [address] [place] [address] [email or web address] Referring Physician Pediatrics 03/28/25 documented as of this encounter Additional Source Comments The information contained in this document represents components of the legal health record. It is not the complete legal health record.[facility]
--- OUTSIDE RECORDS SUMMARY | 2025-08-18 10:09 | XMS_ITS | Encounter Summary ---
Author Organization [facility] Address [address] [place] [address] Phone Care Team Providers Care Direct Customer Service Representative Name Role Phone Adelaide Pollock MD Primary Care Provider + Aide Adame MD Primary Care Provider + Johnathan Lisa MD, MPH Unavailable [phone] Jazzmine Zaman MD Unavailable System, Provider Not In PhD Primary Care Provide r Unavailable Adelaide Pollock MD Primary Care Provider + Encounter Details Date Type Department Care Team (Late st Contact Info) Description 04/30/2024 Procedure Pass [facility], [address] [address] Social History Tobacco Use Types Packs/Day Years [...] Info) Description 10/10/2025 9:30 AM EST Appointment [facility] Pulmonary Function Lab 15 [place] [address] Maurilio Rojas MD [address] [address] [email or web address] 10/10/2025 10:30 AM EST Office Visit [facility] Genetics [address] [place] [address] Johnathan Lisa MD, MPH [address] [place] [address] [email or web address] 11/22/2025 12:00 PM EDT Office Visit [facility] Lung Center-Pulmonary Medicine [address] [place] [address] Maurilio Rojas MD [address] [place] [address] [email or web address] documented as of this encounter Visit Diagnoses Not on filedocumented in this encounter Care Teams Direct Customer Service Representative Relationship Specialty Start Date End Date Adelaide Pollock MD PCP - General Internal Medicine 02/16/24 03/27/25 Aide Adame MD [address] [place] [address] PCP - General Internal Medicine 03/28/25 07/18/25 System, Provider Not In, PhD Partners [address] [address] PCP - General 07/19/25 07/21/25 Adelaide Pollock MD [address] [place] [address] PCP - General Internal Medicine 07/22/25 Johnathan Lisa MD, MPH [address] [place] [address] [email or web address] Referring Physician Pulmonary Disease 03/28/25 Jazzmine Zaman MD [address] [place] [address] [email or web address] Referring Physician Pediatrics 03/28/25 documented as of this encounter Additional Source Comments The information contained in this document represents components of the legal health record. It is not the complete legal health record.[facility]
--- OUTSIDE RECORDS SUMMARY | 2025-08-18 10:10 | XMS_ITS | Encounter Summary ---
Author Organization [facility] Address [address] [place] [address] [place] [address] Phone Care Team Providers Care Waxer Name Role Phone Adelaide Pollock MD Primary Care Provider + Aide Adame MD Primary Care Provider + Johnathan Lisa MD, MPH Unavailable [phone] Jazzmine Zaman MD Unavailable [phone] System, Provider Not In PhD Primary Care Provide r Unavailable Adelaide Pollock MD Primary Care Provider + Encounter Details Date Type Department Care Team (Late st Contact Info) Description 03/22/2025 Procedure Pass [facility] 75 [place] [address] Social History Tobacco Use Types Packs/Day Years [...] Info) Description 10/10/2025 9:30 AM EST Appointment [facility] Pulmonary Function Lab 15 [place] [address] Maurilio Rojas MD [address] [place] [address] [email or web address] 10/10/2025 10:30 AM EST Office Visit [facility] Genetics [address] [place] [address] Johnathan Lisa MD, MPH [address] [place] [address] [email or web address] 11/22/2025 12:00 PM EDT Office Visit [facility] Lung Center-Pulmonary Medicine [address] [place] [address] Maurilio Rojas MD [address] [place] [address] [email or web address] documented as of this encounter Visit Diagnoses Not on filedocumented in this encounter Additional Health Concerns Assessment Noted Time PHQ-2 Depression Total Score: 0 03/21/20 10:47 AM EDT documented as of this encounter Care Teams Waxer Relationship Specialty Start Date End Date Adelaide Pollock MD PCP - General Internal Medicine 02/16/24 03/27/25 Aide Adame MD [address] [place] [address] PCP - General Internal Medicine 03/28/25 07/18/25 System, Provider Not In, PhD Partners [address] [address] PCP - General 07/19/25 07/21/25 Adelaide Pollock MD [address] [place] [address] PCP - General Internal Medicine 07/22/25 Johnathan Lisa MD, MPH [address] [place] [address] [email or web address] Referring Physician Pulmonary Disease 03/28/25 Jazzmine Zaman MD [address] [place] [address] [email or web address] Referring Physician Pediatrics 03/28/25 documented as of this encounter Additional Source Comments The information contained in this document represents components of the legal health record. It is not the complete legal health record.[facility]
--- OUTSIDE RECORDS SUMMARY | 2025-08-18 10:10 | XMS_ITS | Clinical Summary ---
Author Organization [facility] Address [address] [place] [address] Phone Care Team Providers Care Pnp Name Role Phone Johnathan Lisa MD, MPH Unavailable [phone] Jazzmine Zaman MD Unavailable [phone] Adelaide Pollock MD Primary Care Provider + [...] Encounters Date Type Department Care Team Description 08/13/2025 Telephone [facility]rom[facility] [address] [facility], 8th [place] [address] Adriana Rey MD, PhD 07/22/2025 Telephone [facility] Genetics [address] [place] [address] Jazzmine Zaman MD Results 07/19/2025 Telephone [facility] Center for Chest Diseases 15 [place] [address] Jazzmine Zaman MD 07/18/2025 1:30 PM EST Office Visit [facility] Medical [facility] [address] 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 (Primary Dx); Interstitial lung disease; Genetic defect; Familial idiopathic pulmonary fibrosis 07/06/2025 Telephone [facility] Neuromuscular Service [address] [address] Adriana Rey MD, PhD 06/02/2025 10:30 AM EDT Telemedicine [facility] Neuromuscular Service [address] [address] Adirana Rey MD, PhD Weakness (Primary Dx) 05/24/2025 Telephone [facility] Neuromuscular Service [address] [place] [address] Adriana Rey MD, PhD from Last 3 [...] Info) Description 10/10/2025 9:30 AM EST Appointment [facility] Pulmonary Function Lab [address] [place] [address] Maurilio Rojas MD [address] [place] [address] [email or web address] 10/10/2025 10:30 AM EST Office Visit [facility] Genetics [address] [place] [address] Johnathan Lisa MD, MPH [address] [place] [address] [email or web address] 11/22/2025 12:00 PM EDT Office Visit [facility] Lung Center-Pulmonary Medicine [address] [place] [address] Maurilio Rojas MD [address] [place] [phone] [email or web address] Health Maintenance Due Date Last Done [...] REPLACEMENT MEDICARE REPLACEMENT MEDICARE REPLACEMENT Care Teams Pnp Relationship Specialty Start Date End Date Adelaide Pollock MD [address] [place] [address] PCP - General Internal Medicine 07/22/25 Johnathan Lisa MD, MPH [address] [place] [address] [email or web address] Referring Physician Pulmonary Disease 03/28/25 Jazzmine Zaman MD [address] [place] [address] [email or web address] Referring Physician Pediatrics 03/28/25 Additional Source Comments The information contained in this document represents components of the legal health record. It is not the complete legal health record.[facility]
== END 2025-08-18 12:27 | disposition home or self-care (01) ==
LOC: HO.HMCHD 09:13
PROVIDERS: PCP Internal Medicine; Visit Provider Internal Medicine
DX: W19.XXXS Unspecified fall, sequela (principal); J84.10 Pulmonary fibrosis, unspecified; M25.512 Pain in left shoulder; G89.29 Other chronic pain

== ENCOUNTER → 2025-08-18 09:13 | Outpatient (BNVA) | payer OTHER, SELFPAY | PROVIDERS: PCP Internal Medicine; Visit Provider Internal Medicine | DX: Z09 Encounter for follow-up examination after completed treatment for conditions other than malignant neoplasm (principal) | CPT/HCPCS: 99212 ==

== ENCOUNTER → 2025-08-28 14:06 | Outpatient (BNV) | payer OTHER, SELFPAY | PROVIDERS: PCP Internal Medicine; Visit Provider Radiology Diagnostic Radiology | DX: R26.81 Unsteadiness on feet (principal) | CPT/HCPCS: 70551 ==

== ENCOUNTER 2025-08-28 14:07 | Outpatient (REF) | payer OTHER, SELFPAY ==
--- OUTSIDE RECORDS SUMMARY | 2013-06-10 23:00 | XMS_ITS | Encounter Summary ---
Author Organization [facility] Address [address] [facility] [address] [place] [address] Phone Care Team Providers Care Tomb Maker Helper Name Role Phone Unavailable Primary Care Provider Unavailabl e Encounter Details Date Type Department Care Team (Late st Contact Info) Description 06/11/2013 Hospital Encounter [facility] 55 [place] [address] Jeff Hurst MD 55 [place] [address] [email or web address] Social History Tobacco Use Types Packs/Day [...] Care Team (Late st Contact Info) Description 08/23/2025 Procedure Pass [address] [address] 09/01/2025 12:30 PM EST Appointment [address] [address] Maurilio Rojas MD [address] [place] [phone] [email or web address] 10/10/2025 9:30 AM EST Appointment [facility] Pulmonary Function Lab [address] [place] [address] Maurilio Rojas MD [address] [place] [phone] [email or web address] 10/10/2025 10:30 AM EST Office Visit [facility] Genetics [address] [place] [address] Johnathan Lisa MD, MPH [address] [phone] [email or web address] 11/22/2025 12:00 PM EDT Office Visit [facility] Lung Center-Pulmonary Medicine 15 [place] [address] Maurilio Rojas MD [address] [place] [address] [email or web address] documented as of this encounter Procedures Procedure Name Priority Date/Time Associated Diagnosis Comments CT CHEST OUTSIDE (NO INTERPRETATION) Routine 06/11/2013 12:00 AM EDT documented in this encounter Results * CT Chest Outside (No Interpretation) (06/11/2013 12:00 AM EDT) Narrative [facility] [place] - 04/23/2024 1:50 PM EDT This study is for PACS storage only and not for interpretation. us Jeff Hurst MD IMG OUTSIDE IMAGING W/OUT INTERPRETATION Final Result [facility] documented in this encounter Visit Diagnoses Not on filedocumented in this encounter Additional Source Comments The information contained in this document represents components of the legal health record. It is not the complete legal health record.[facility]
--- NOTE | ~2025-08-28 | MR_ITS ---
CLINICAL HISTORY: R26.81 - Unsteadiness on feet --- r/O STROKE Exam: Nonenhanced MRI brain. Comparison: None. Findings: There is no cerebral edema or mass effect. White matter signal intensities are maintained. Diffusion weighted imaging reveals no restricted diffusion or MR evidence of acute ischemia. Susceptibility weighted imaging reveals no susceptibility artifact or evidence of intracranial hemorrhage. No sellar or parasellar lesions. Ventricular size and configuration are within normal limits. Cerebral cisterns are preserved. No significant signal abnormality seen within the paranasal sinuses or mastoid air cells. Preserved flow signal voids are present within visualized intracranial vasculature. Impression: 1. No acute intracranial abnormalities. This document has been electronically signed by: Dawit Padilla MD on 08/28/2025 15:19:58
--- OUTSIDE RECORDS SUMMARY | 2025-08-28 14:11 | XMS_ITS | Clinical Summary ---
Author Organization [facility] Address [address] [place] [address] Phone Care Team Providers Care Report Programmer Name Role Phone Johnathan Lisa MD, MPH Unavailable [phone] Jazzmine Zaman MD Unavailable [phone] Adelaide Pollock MD Primary Care Provider + [...] Encounters Date Type Department Care Team Description 08/23/2025 Orders Only [facility] - Center for Chest Diseases [address] [place] [address] [phone] Maurilio Rojas MD Rib pain (Primary Dx); Interstitial lung disease 08/23/2025 Telephone [facility] for Chest Diseases [address] [place] [address] Maurilio Rojas MD [place]/Patient Advice 08/13/2025 Telephone [facility] Neuromuscular [facility] [address] [place] [address] Adriana Rey MD, PhD 07/22/2025 Telephone [facility] Genetics [address] [place] [address] Jazzmine Zaman MD Results 07/19/2025 Telephone [facility] for Chest Diseases [address] [place] [address] Jazzmine Zaman MD 07/18/2025 1:30 PM EST Office Visit [facility] Medical [facility] 45 [facility] [place] [address] Jazzmine Zaman MD 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 07/18/2025 10:30 AM EST Office Visit [facility] Genetics [address] [place] [address] Jazzmine Zaman MD 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 (Primary Dx); Interstitial lung disease; Genetic defect; Familial idiopathic pulmonary fibrosis 07/06/2025 Telephone [facility] Neurom[facility] [address] [place] [address] Adriana Rey MD, PhD 06/02/2025 10:30 AM EDT Telemedicine [facility] Neuromuscular Service [address] [place] [address] Adriana Rey MD, PhD Weakness (Primary Dx) from Last 3 Months Immunizations [...] st Contact Info) Description 08/23/2025 Procedure [facility], Ct Scan [address] [address] 09/01/2025 12:30 PM EST Appointment [address] [address] Maurilio Rojas MD [address] [place] [address] [email or web address] 10/10/2025 9:30 AM EST Appointment [facility] Pulmonary Function Lab [address] [place] [address] Maurilio Rojas MD [address] [place] [address] [email or web address] 10/10/2025 10:30 AM EST Office Visit [facility] Genetics 15 [place] [address] Johnathan Lisa MD, MPH [address] [place] [address] [email or web address] 11/22/2025 12:00 PM EDT Office Visit [facility] Lung Center-Pulmonary Medicine [address] [place] [address] Maurilio Rojas MD [address] [place] [address] [email or web address] Health Maintenance Due Date Last Done [...] Devices Not on file Insurance MEDICARE REPLACEMENT [place] J[facility]ANG [facility] MEDICARE REPLACEMENT MEDICARE REPLACEMENT MEDICARE REPLACEMENT MEDICARE [place] [address] [place] [address] [employer] MEDICARE REPLACEMENT Care Teams Report Programmer Relationship Specialty Start Date End Date Adelaide Pollock MD [address] [place] [address] PCP - General Internal Medicine 07/22/25 Johnathan Lisa MD, MPH [address] [place] [address] [email or web address] Referring Physician Pulmonary Disease 03/28/25 Jazzmine Zaman MD [address] [place] [phone] [email or web address] Referring Physician Pediatrics 03/28/25 Additional Source Comments The information contained in this document represents components of the legal health record. It is not the complete legal health record.[facility]
--- OUTSIDE RECORDS SUMMARY | 2025-08-28 14:11 | XMS_ITS | Encounter Summary ---
Author Organization [facility] Address [address] [place] [address] [place] [address] Phone Care Team Providers Care Ratchet Setter Name Role Phone Johnathan Lisa MD, MPH Unavailable [phone] Jazzmine Zaman MD Unavailable [phone] Adelaide Pollock MD Primary Care Provider + Reason for Referral * MRI/CAT Scan - Authorized Specialty Diagnoses / Procedures Referred By Contac t Referred To Contact Radiology Diagnoses Rib pain Interstitial lung disease Procedures CT Chest CHG DIAGNOSTIC COMPUTED TOMOGRAPHY THORAX W/O CNTRST CHG DIAGNOSTIC COMPUTED TOMOGRAPHY THORAX W/CONTRAST CHG DIAGNOSTIC COMPUTED TOMOGRAPHY THORAX C-/C+ Maurilio Rojas MD [address] [place] [address] Phone: tel: fax: [email or web address] Referral ID Status Reason Start Date Expiration Date V isits Requested Visits Authorized [id number] Authorized 08/21/2025 12/20/2025 1 1 Encounter Details Date Type Department Care Team (Late st Contact Info) Description 08/23/2025 Orders Only [facility] Center for Chest Diseases [address] [place] [address] Maurilio Rojas MD [address] [place] [address] [email or web address] Rib pain (Primary Dx); Interstitial lung disease Social History Tobacco Use Types Packs/Day Years [...] st Contact Info) Description 08/23/2025 Procedure Pass [facility], Ct Scan [address] [address] 09/01/2025 12:30 PM EST Appointment [address] [address] Maurilio Rojas MD [address] [place] [address] [email or web address] 10/10/2025 9:30 AM EST Appointment [facility] Pulmonary Function Lab [address] [place] [address] Maurilio Rojas MD [address] [place] [address] [email or web address] 10/10/2025 10:30 AM EST Office Visit [facility] Genetics [address] [place] [address] Johnathan Lisa MD, MPH [address] [place] [address] [email or web address] 11/22/2025 12:00 PM EDT Office Visit [facility] Lung Center-Pulmonary Medicine [address] [place] [address] Maurilio Rojas MD [address] [place] [address] [email or web address] Scheduled Orders Name Type Priority Associated Diagnoses Orde r Schedule CT Chest Imaging Routine Rib pain Interstitial lung disease Expected: 08/23/2025 (Approximate), Expires: 02/21/2026 documented as of this encounter Visit Diagnoses Diagnosis Rib pain- Primary Unspecified chest pain Interstitial lung disease Postinflammatory pulmonary fibrosis documented in this encounter Additional Health Concerns Assessment Noted Time PHQ-2 Depression Total Score: 0 07/18/20 10:43 AM EST documented as of this encounter Care Teams Ratchet Setter Relationship Specialty Start Date End Date Adelaide Pollock MD [address] [place] [address] PCP - General Internal Medicine 07/22/25 Johnathan Lisa MD, MPH [address] [place] [address] [email or web address] Referring Physician Pulmonary Disease 03/28/25 Jazzmine Zaman MD [address] [place] [address] [email or web address] Referring Physician Pediatrics 03/28/25 documented as of this encounter Additional Source Comments The information contained in this document represents components of the legal health record. It is not the complete legal health record.[facility]
--- OUTSIDE RECORDS SUMMARY | 2025-08-28 14:11 | XMS_ITS | Data Portability ---
Author Organization [place] [facility] Address [address] [place] [address] Care Team Providers Care Service Correspondent Name Role Phone HERMANN DILLON Primary Care Provider [phone] Assessment Encounter Date Assessment Date Assessment LastModified by Organization Details LastModified Time 12/02/2019 12/02/2019 Overview/History : 74 yo female new to and this provider who presents with complain of right lower extremity pain; patient is Filipino speaking only, her daughter, who is her POA, is present and acted as an esters and emulsifiers supervisor. Patient complain of severe 10/10 pain in [...] in couch conversing with staff in her [place] tongue (Filipino) and answering all questions appropriately. No acute [...] questions were answered prior to team departure. [email or web address] Not available 01/25/2022 19:07:17 Plan of Treatment Reminders Order Date Submit Date Provider Last Modified By Organization Details Last Modified Time Details Appointments None recorded. Lab 6+ iStat 2019 020 [email or web address] [facility], [address] [place], [address], 0 11:30:47 creatinine , blood 2019 020 [email or web address] [facility], [address] [place], [address], 0 11:52:08 Referral None recorded. Procedures None recorded. Surgeries None recorded. Imaging US, duplex, venous, extremity, limited 2021 [facility] [address] [facility], [place], [address], 2 17:41:55 XR, chest, 2 view - Ordered by [facility] 2021 [facility] [address] [facility], [place], [address], 2 14:40:38 XR, knee, 1 or 2 view - pain and swelling of knee joint 2019 020 [facility] ([facility]), [address] [place], [address], 0 08:39:18 XR, ankle, 2 view - pain and sweeling of the ankle joint 2019 020 [facility] ([facility]), [address] [place], [address], 0 08:39:19 US, duplex, venous, extremity, complete 2019 020 [facility] ([facility]), [address] [place], [address], 0 08:39:19 Medication Orders ketorolac 30 mg/mL (1 mL) injection solution 2019 020 nyuzych [id number], [address] [place], [address], 0 11:52:08 meloxicam 7.5 mg tablet 2019 020 INTERFACE [id number], [address] [place], [address], 0 11:52:14 Patient TargetsNo targets recorded. Patient Instructions Encounter Date Encounter Id Patient Instructions Last Modified By Organization Details Last Modified Time 12/02/2019 [id number] Thank you for yo ur [facility]. We cannot always find the [...] in your condition between 8am-10pm, please call [facility] at [phone] to help navigate your care. [email or web address] Not available 12/02/2019 11:52:35 01/25/2022 [id number] Please make an appt with PCP in 3-5 days to discuss ongoing symptoms/ further management. Chest x ray and U/S pending. The patient is also advised to go to the ED immediately for any worsening symptoms. The patient understood and agreed with this plan. The patient was given discharge instructions and all questions were answered prior to DH team departure. [email or web address] Not available 01/25/2022 19:08:53 Reason for Referral None Reported. Results Created Date Observation Date Name Description Value Unit Range Abnormal Flag Note LastModifiedBy Organization Detail LastModifiedTime 12/02/19 20 12/02/2019 creat inine , blood crea 0.6 mg/dL 0.6-1. 3 Not Available [facility] [address] [place], [address], 12/02/2019 11:27:58 12/02/19 20 12/02/2019 6+ iStat Na 136 mmol/ L 138-14 6 Not Available [facility] [address], [place], [address], 12/02/2019 11:27:38 12/02/19 20 12/02/2019 6+ iStat K 4.0 mmol/ L 3.5-4. 9 Not Available [facility] [address] [place], [address], 12/02/2019 11:27:38 12/02/19 20 12/02/2019 6+ iStat cL 100 mmol/ L 98-109 Not Available [facility] [address] [place], [address], 12/02/2019 11:27:38 12/02/19 20 12/02/2019 6+ iStat BUN 14 mg/dL 8-26 Not Available [facility] [address], [place], [address], 12/02/2019 11:27:38 12/02/19 20 12/02/2019 6+ iStat glu 119 mg/dL 70-105 Not Available [facility] [address], [place], [address], 12/02/2019 11:27:38 12/02/19 20 12/02/2019 6+ iStat HCT 36 %_pcv 37-47 Not Available [facility] [address], [place], [address], 12/02/2019 11:27:38 12/02/19 20 12/02/2019 6+ iStat Hb 12.2 g/dL 12-17 Not Available [facility] [address], [place], [address], 12/02/2019 11:27:38 12/02/19 20 12/02/2019 knee AP [...] HERNANDEZ D.O. 020 5:56:0 8 PM EDT. [facility]) [address], [place], [address], 12/06/2019 10:07:23 12/02/19 20 12/02/2019 ankle AP [...] HERNANDEZ D.O. 020 5:56:0 8 PM EDT. [facility] ([facility]) [address], [place], [place], [address], 12/21/2019 17:10:23 12/03/19 20 12/03/2019 venou s [...] l, greate r saphen ous, poplit eal, circuit court clerk ior tibial , and calf veins. There [...] s cyst. ELECTR ONICAL LY SIGNED BY MYAKEL HERNANDEZ M.D. 020 5:16:1 3 PM EDT. [...] l, greate r saphen ous, poplit eal, circuit court clerk ior tibial , and calf veins. There [...] HERNANDEZ M.D. 020 5:16:1 3 PM EDT. [facility] [address], [place], [address], 12/06/2019 10:07:23 01/27/20 22 01/26/2022 XR, chest [...] SOFYA CAPUTO D.O. 2:33:1 2 PM EDT. [facility] [address] [facility] [address], [place], [address], 01/28/2022 16:45:25 01/29/20 22 01/28/2022 venou s [...] l, greate r saphen ous, poplit eal, circuit court clerk ior tibial , and calf veins. There [...] l, greate r saphen ous, poplit eal, circuit court clerk ior tibial , and calf veins. There [...] M.D. 022 5:35:0 3 PM EDT. [email or web address] [place] [address], [place], [address], 01/31/2022 09:21:54 Result Notes Documentation Provider Name [...] EDT. Cleo Orr NP [address], [place], [address], [place] [facility] 01/28/2022 16:45:25 Procedures Surgical History Date Name Laterality Status Provider Name and Address Organization Details Recorded Time 12/02/19 20 Venipuncture - DH completed [place] ESCOTO [address], [place], [address], [place] [facility] 12/02/2019 12:34:24 Imaging Results None recorded. Procedure Notes None recorded. Medical Equipment None Reported. Allergies Allergen ID Allergen Name Allergen Category Reaction Reaction Severity Criticality Documentation Date Start Date Code Code System Note Provider Name and Address Organization Details Recorded Time 40769 Levaquin medicatio n Not available Not available Not available 12/02/2019 31307 2 RxNorm MITZI ESCOTO [address], [place], [address], [place] [facility] 0 10:52:25 51259 vancomyci n medicatio n Not available Not available Not available 12/02/2019 24894 RxNorm MITZI ESCOTO [address], [place], [address], [place] [facility] 0 10:52:49 [address]240 doxycycli ne Not available Not available Not available Not available 12/02/2019 3640 RxNorm MITZI ESCOTO [address], [place], [place], [address], [place] [facility] 0 10:52:55 [address]103 codeine medicatio n Not available Not available Not available 12/02/2019 2670 RxNorm MITZI ESCOTO [address], [place], [place], [address], [place] [facility] 0 10:53:02 [address]2846 iodine medicatio n Not available Not available Not available 12/02/2019 5933 RxNorm [place]ZI ESCOTO [address] [place], [address], [place] [facility] 0 10:53:11 Medications [...] Never Smoker MITZI ESCOTO [address], [place], [address], [place] [facility] 12/02/2019 12:11:31 Do You [...] Visiting Friends Or Family Or Going To Buddhism Or Club Meetings) 5 Or More Times [...] Artery Disease N COPD N Depression N Cancer N Stroke N High Cholesterol N Kidney Disease N Diabetes N Asthma N Pulmonary Embolism N Hypertension N Gynecological HistoryNo gynecological history recorded. Obstetrics History GPAL:G 0 P 0 0 0 0 Past Encounters Encounter ID Performer Location Encounter Start Date Encounter Closed Date Diagnosis/Indication Diagnosis SNOMED-CT Code Diagnosis ICD10 Code Diagnosis IMO Codes Diagnosis Note [id number] [facility]OTO [facility] [address] [place] [address] 12/02/2019 10:50:22 12/03/2019 12:24:59 Pain in lower limb 10052339 M79.604 Polymyalgi a rheumatica 06132255 M35.3 [id number] March MARSHALL Weaver [facility] [address] [place] [address] 01/25/2022 17:07:23 01/29/2022 09:26:06 Pain in left lower limb 679628318 M79.605 Wheezing 26235892 R06.2 Health Concerns Section Related Observation LastModified by Organization Detai ls LastModified Time None Recorded Concern Status LastModified by Organization Details LastModified Time None Recorded Advance Directives Directive N: Payers Insurance Date Sequence Insurance Name Policy Number Policy Smith Covered Member ID Smith Member ID Guarantor Name 12/01/2019 1 *SELF PAY* Apryl Downing [id number] Apryl Downing 01/25/2022 1 [facility] - DOS PRIOR TO 2022 - DUAL ELIGIBLE (MEDICARE REPLACEMENT/ADV ANTAGE - HMO) Apryl Downing [id number] Apryl Downing Notes Date Note Type Note Provider Name and Address Organization Details Recorded Time 12/02/2019 text/html Mrs. Downing is a 74 yo female new to and this provider who presents with complain of right lower extremity pain; patient is Filipino speaking only, her daughter, who is her POA, is present and acted as an esters and emulsifiers supervisor. Patient complain of severe 10/10 pain in [...] urinary symptoms. MITZI ESCOTO [address], [place], [address], [place] [facility] 12/02/2019 12:49:52 01/25/2022 text/html [...] trauma. Mandy Weaver NP [address], [place], [address], [place] [facility] 01/25/2022 19:09:02 OBGyn Episode No OBEpisode recorded.
--- OUTSIDE RECORDS SUMMARY | 2025-08-28 14:11 | XMS_ITS | Encounter Summary ---
Author Organization [facility] Address [address] [place] [address] Phone Care Team Providers Care Wireless Operator Name Role Phone Adelaide Pollock MD Primary Care Provider + Aide Adame MD Primary Care Provider + Johnathan Lisa MD, MPH Unavailable Jazzmine Zaman MD Unavailable [phone] System, Provider Not In PhD Primary Care Provide r Unavailable Adelaide Pollock MD Primary Care Provider + Encounter Details Date Type Department Care Team (Late st Contact Info) Description 04/30/2024 Procedure Pass [facility], [address] [address] Social History Tobacco Use Types Packs/Day Years [...] st Contact Info) Description 08/23/2025 Procedure Pass [facility], [address] [address] 09/01/2025 12:30 PM EST Appointment [address] [address] Maurilio Rojas MD [address] [place] [address] [email or web address] 10/10/2025 9:30 AM EST Appointment [facility] Pulmonary Function Lab [address] [place] [address] Maurilio Rojas MD [address] [place] [address] [email or web address] 10/10/2025 10:30 AM EST Office Visit [facility] Genetics [address] [place] [address] Johnathan Lisa MD, MPH [address] [place] [address] [email or web address] 11/22/2025 12:00 PM EDT Office Visit [facility] Lung Center-Pulmonary Medicine [address] [place] [address] Maurilio Rojas MD [address] [place] [address] [email or web address] documented as of this encounter Visit Diagnoses Not on filedocumented in this encounter Care Teams Wireless Operator Relationship Specialty Start Date End Date Adelaide Pollock MD PCP - General Internal Medicine 02/16/24 03/27/25 Aide Adame MD [address] [place] [address] PCP - General Internal Medicine 03/28/25 07/18/25 System, Provider Not In, PhD Partners [address] [address] PCP - General 07/19/25 07/21/25 Adelaide Pollock MD [address] [place] [address] PCP - General Internal Medicine 07/22/25 Johnathan Lisa MD, MPH [address] [place] [address] [email or web address] Referring Physician Pulmonary Disease 03/28/25 Jazzmine Zaman MD [address] [place] [address] [email or web address] Referring Physician Pediatrics 03/28/25 documented as of this encounter Additional Source Comments The information contained in this document represents components of the legal health record. It is not the complete legal health record.[facility]
--- OUTSIDE RECORDS SUMMARY | 2025-08-28 14:11 | XMS_ITS | Encounter Summary ---
Author Organization [facility] Address [address] [place] [address] [place] [address] Phone Care Team Providers Care Entry Rep Name Role Phone Adelaide Pollock MD Primary Care Provider + Aide Adame MD Primary Care Provider + Johnathan Lisa MD, MPH Unavailable [phone] Jazzmine Zaman MD Unavailable [phone] System, Provider Not In PhD Primary Care Provide r Unavailable Adelaide Pollock MD Primary Care Provider + Encounter Details Date Type Department Care Team (Late st Contact Info) Description 03/22/2025 Procedure Pass [facility] [address] [place] [address] Social History Tobacco Use Types Packs/Day Years [...] st Contact Info) Description 08/23/2025 Procedure Pass [address] [address] 09/01/2025 12:30 PM EST Appointment [address] [address] Maurilio Rojas MD [address] [place] [address] [email or web address] 10/10/2025 9:30 AM EST Appointment [facility] Pulmonary Function Lab [address] [place] [address] Maurilio Rojas MD [address] [place] [address] [email or web address] 10/10/2025 10:30 AM EST Office Visit [facility] Genetics [address] [place] [address] Johnathan Lisa MD, MPH [address] [place] [phone] [email or web address] 11/22/2025 12:00 PM EDT Office Visit [facility] Lung Center-Pulmonary Medicine [address] [place] [address] Maurilio Rojas MD [address] [place] [address] [email or web address] documented as of this encounter Visit Diagnoses Not on filedocumented in this encounter Additional Health Concerns Assessment Noted Time PHQ-2 Depression Total Score: 0 03/21/20 25 10:47 AM EDT documented as of this encounter Care Teams Entry Rep Relationship Specialty Start Date End Date Adelaide Pollock MD PCP - General Internal Medicine 02/16/24 03/27/25 Aide Adame MD [address] [place] [address] PCP - General Internal Medicine 03/28/25 07/18/25 System, Provider Not In, PhD [address] [address] PCP - General 07/19/25 07/21/25 Adelaide Pollock MD [address] [place] [address] PCP - General Internal Medicine 07/22/25 Johnathan Lisa MD, MPH [address] [place] [phone] [email or web address] Referring Physician Pulmonary Disease 03/28/25 Jazzmine Zaman MD [address] [place] [address] [email or web address] Referring Physician Pediatrics 03/28/25 documented as of this encounter Additional Source Comments The information contained in this document represents components of the legal health record. It is not the complete legal health record.[facility]
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
--- OUTSIDE RECORDS SUMMARY | 2025-08-28 14:11 | XMS_ITS | Encounter Summary ---
Author Organization [facility] Address [address] [place] [address] [place] [address] Phone Care Team Providers Care Food Porter Name Role Phone Adelaide Pollock MD Primary Care Provider + Aide Adame MD Primary Care Provider + Johnathan Lisa MD, MPH Unavailable [phone] Jazzmine Zaman MD Unavailable [phone] System, Provider Not In PhD Primary Care Provide r Unavailable Adelaide Pollock MD Primary Care Provider + Encounter Details Date Type Department Care Team (Late st Contact Info) Description 11/30/2024 Ancillary Orders [facility] [place] [address] [place] [address] Josh Davey MD [address] [place] [address] [email or web address] Arthralgia, unspecified joint (Primary [...] st Contact Info) Description 08/23/2025 Procedure Pass [facility], [address] [address] 09/01/2025 12:30 PM EST Appointment [address] [address] Maurilio Rojas MD [address] [place] [address] [email or web address] 10/10/2025 9:30 AM EST Appointment [facility] Pulmonary Function Lab [address] [place] [address] Maurilio Rojas MD [address] [place] [phone] [email or web address] 10/10/2025 10:30 AM EST Office Visit [facility] Genetics [address] [place] [address] Johnathan Lisa MD, MPH [address] [place] [address] [email or web address] 11/22/2025 12:00 PM EDT Office Visit [facility] Lung Center-Pulmonary Medicine [address] [place] [address] Maurilio Rojas MD [address] [place] [address] [email or web address] documented as of this [...] clinician's provided indication for this examination in [facility]: Pain COMPARISON: XR FOOT 3 OR [...] clinician's provided indication for this examination in [facility]:Pain COMPARISON: XR FOOT 3 OR MORE [...] documented as of this encounter Care Teams Food Porter Relationship Specialty Start Date End Date Adelaide Pollock MD PCP - General Internal Medicine 02/16/24 03/27/25 Aide Adame MD [address] [place] [address] PCP - General Internal Medicine 03/28/25 07/18/25 System, Provider Not In, PhD [facility] [address] [place] [address] PCP - General 07/19/25 07/21/25 Adelaide Pollock MD [address] [place] [address] PCP - General Internal Medicine 07/22/25 Johnathan Lisa MD, MPH [address] [place] [address] [email or web address] Referring Physician Pulmonary Disease 03/28/25 Jazzmine Zaman MD [address] [place] [address] [email or web address] Referring Physician Pediatrics 03/28/25 documented as of this encounter Additional Source Comments The information contained in this document represents components of the legal health record. It is not the complete legal health record.[facility]
--- OUTSIDE RECORDS SUMMARY | 2025-08-28 14:11 | XMS_ITS | Clinical Summary ---
Author Organization [address] [facility] Address [address] [place] [address] Phone Care Team Providers Care Counterintelligence Agent Name Role Phone Adelaide Pollock MD Primary Care Provider [phone] Allergies Active Allergy Reactions Criticality Noted Date [...] Diagnosed Date Weakness 03/08/2024 Interstitial lung disease 03/08/2024 Hypotension 08/29/2022 Dyspnea 12/07/2020 Edema 12/07/2020 Chronic low back pain 01/03/2017 Fibromyalgia 01/03/2017 GERD (gastroesophageal reflux disease) 7 Pseudogout 01/03/2017 Encounters Date Type Department Care Team Description 08/17/2025 12:43 PM EST - 08/17/2025 11:59 PM [facility] Hospital Encounter [facility] [address] [place] [address] Pain Discharge Disposition: Home or Self Care 08/11/2025 10:07 PM EST - 08/13/2025 4:24 PM [facility] Hospital Encounter [facility] [address] [place] [address] Allen Guerrero MD Jones, Christopher, MD Rasul, Yar M, MD Sepsis without septic shock ([facility] V24, [facility] V28) (Primary Dx); Urinary tract infection, acute; Closed Colles' fracture of right radius with routine healing, subsequent encounter; Generalized weakness; Ambulatory dysfunction; Acute midline low back pain without sciatica; Neck pain, acute; Acute bilateral low back pain without sciatica; Weakness Discharge Disposition: Home-Health Care [facility] 08/10/2025 1:49 AM EST - 08/10/2025 7:04 PM EST Emergency [facility] [address] [place] [address] Madisyn Parada MD Killelea, Alison G, MD Closed Colles' fracture of right radius, initial encounter (Primary Dx); Interstitial lung disease (CMS/HCC V24, CMS/HCC V28); Fall, initial encounter; Head injury, initial [...] DX:Osteoarthriti s Osteoporosis DX:Osteoporosis Polymyalgia rheumatica ([facility] V24) DX:Polymyalgia rheumatica ([facility]) Pseudogout DX:Pseudogout Rash DX:Rash Reflux esophagitis [...] care for your loved ones. For example, childbirth educator or elderly care for an older adult? [...] Orientation Straight 08/12/2025 10 :39 AM EST Last Filed Vital Signs Vital Sign Reading [...] Health Maintenance Due Date Last Done Comments Diabetes: Annual Foot Exam 1955 Diabetes: Annual Retina Eye Exam 1955 Zoster Vaccines (1 of 2) 1994 Pneumococcal Vaccine: 50+ Years (2 of 2 - PCV) 06/03/2012 06/03/2011 RSV Immunization Adult Patients (1 - 1-dose 75+ series) 2019 DTaP,Tdap,and Td Vaccines (2 - Td or Tdap) 08/15/2021 08/15/2011 Cholesterol Screening (Lipid Panel) 08/25/2022 Medicare Annual Wellness Visit 08/25/2022 Osteoporosis Screening (Bone Density Screening) 08/25/2022 Depression Screening 09/15/2024 COVID-19 Vaccine ( season) 2025 Influenza Vaccine (#1) 2025 Diabetes: Annual Urine Albumin-Creatinine Ratio (uACR) 08/20/2025 Diabetes: Blood Sugar Control Test (HGBA1C) 08/20/2025 Diabetes: Annual GFR (Glomerular Filtration Rate) 08/12/2026 08/12/2025, 08/11/2025, 08/10/2025, Additional history exists Social Influencers of Health Screening 08/12/2026 08/12/2025 [...] to complete this topic RSV Immunization Patients Under 20 months Aged Out No longer eligible based on [...] METABOLIC PANEL STAT 08/11/2025 9:59 PM EST [facility] 30-74 MINUTES Routine 08/11/2025 9:20 [...] PROCEDURES Final Resul t Performing Organization Address City/[facility]/ZIP Co de Phone Number RIS PACS/VR * ECG-Annotated (08/15/2025) Provider Onbase MD ECG ORDERABLES Final Result * POCT Glucose, blood (08/13/2025 11:31 AM EST) Only the most recent of8 resultswithin the time period is included. [facility] Signature Glucose POCT 95 70 - 100 mg/dL 08/13/2025 11:31 AM EST [facility] Blood Capillary blood specimen / Unknown 08/13/2025 11:31 AM EST 08/13/2025 11:32 AM EST Anton Dhaliwal MD LAB POINT OF CARE TE ST DOCKED DEVICE UNSOLICITED RESULTS Final Result Performing Organization Address [facility]/ZIP Co de Phone Number [facility] [address] [place] [address], [place] [phone] * CT Thoracic Spine wo Contrast (08/13/2025 [...] Signed Date: 08/13/2025 11:19 ET Workstation ID: [id number] Transcribed By: Self Edit Transcribed Date: 08/13/2025 [...] Signed Date: 08/13/2025 11:19 ET Workstation ID: [id number] Transcribed By: Self Edit Transcribed Date: 08/13/2025 11:12 ET us Adelaied Estradaner MITZI IMG CT PROCEDURES Final Re sult * (ABNORMAL) CBC auto differential (08/12/2025 5:24 AM EST) Only the most recent of3 resultswithin the time period is included. WBC 9.2 4.8 - 10.8 K/mcL LAB HEMETOLOGY METHOD 08/12/2025 5:50 AM [facility] RBC 3.30(L) 3.80 - 4.80 M/mcL LAB HEMETOLOGY METHOD 08/12/2025 5:50 AM [facility] Hemoglobin 10.0(L) 11.5 - 16.0 g/dL LAB HEMETOLOGY METHOD 08/12/2025 5:50 AM [facility] Hematocrit 30.4(L) 35.0 - 47.0 % LAB HEMETOLOGY METHOD 08/12/2025 5:50 AM [facility] MCV 93.5 79.0 - 98.0 FL LAB HEMETOLOGY METHOD 08/12/2025 5:50 AM [facility] MCH 30.8 27.0 - 32.0 pcg LAB HEMETOLOGY METHOD 08/12/2025 5:50 AM [facility] MCHC 32.9 32.0 - 37.0 g/dL LAB HEMETOLOGY METHOD 08/12/2025 5:50 AM [facility] RDW 12.8 11.0 - 15.0 % LAB HEMETOLOGY METHOD 08/12/2025 5:50 AM [facility] Platelets 161 130 - 400 K/mcL LAB HEMETOLOGY METHOD 08/12/2025 5:50 AM [facility] MPV 10.1 7.0 - 11.0 FL LAB HEMETOLOGY METHOD 08/12/2025 5:50 AM [facility] NRBC 0.0 <1.0 % LAB HEMETOLOGY METHOD 08/12/2025 5:50 AM [facility] NRBC Absolute 0.00 <0.10 K/mcL LAB HEMETOLOGY METHOD 08/12/2025 5:50 AM [facility] Neutrophils Relative 66.7 % LAB HEMETOLOGY METHOD 08/12/2025 5:50 AM [facility] Lymphocytes Relative 17.6 % LAB HEMETOLOGY METHOD 08/12/2025 5:50 AM [facility] Monocytes Relative 14.9 % LAB HEMETOLOGY METHOD 08/12/2025 5:50 AM [facility] Eosinophils Relative 0.2 % LAB HEMETOLOGY METHOD 08/12/2025 5:50 AM [facility] Basophils Relative 0.3 % LAB HEMETOLOGY METHOD 08/12/2025 5:50 AM [facility] Immature Granulocytes Relative 0.3 % LAB HEMETOLOGY METHOD 08/12/2025 5:50 AM [facility] Neutrophils Absolute 6.15 1.50 - 7.00 K/mcL LAB HEMETOLOGY METHOD 08/12/2025 5:50 AM [facility] Lymphocytes Absolute 1.62 1.00 - 5.00 K/mcL LAB HEMETOLOGY METHOD 08/12/2025 5:50 AM [facility] Monocytes Absolute 1.37(H) 0.20 - 1.00 K/mcL LAB HEMETOLOGY METHOD 08/12/2025 5:50 AM [facility] Eosinophils Absolute 0.02 0.00 - 0.50 K/mcL LAB HEMETOLOGY METHOD 08/12/2025 5:50 AM EST [facility] Basophils Absolute 0.03 0.00 - 0.20 [facility] 08/12/2025 5:50 AM EST [facility] Immature Granulocytes Absolute 0.03 0.00 - 0.03 [facility] LAB HEMETOLOGY METHOD 08/12/2025 5:50 AM EST [facility] Blood Venous blood specimen / Unknown Venipuncture / Unknown 08/12/2025 5:24 AM EST 08/12/2025 5:39 AM EST Marcial Kyle MD LAB BLOOD ORDERABLES Final Result Performing Organization Address City/[facility]/ZIP Co de Phone Number [facility] [address] [place] [address], * (ABNORMAL) Sedimentation rate (08/12/2025 5:24 AM EST) Sed Rate 88(H) 0 - 30 mm/hr LAB HEMETOLOGY METHOD 08/12/2025 10:10 AM EST [facility] Blood Venous blood specimen / Unknown Venipuncture / Unknown 08/12/2025 5:24 AM EST 08/12/2025 5:39 AM EST Adelaide CARTAGENA LAB BLOOD ORDERABLES Final Result [facility] [address] [place] [address], [place] [phone] * (ABNORMAL) C-reactive protein (08/12/2025 5:24 AM EST) C-Reactive Protein 9.36(H) <=0.50 mg/dL 08/13/2025 8:48 AM EST [facility] Blood Venous blood specimen / Unknown Venipuncture / Unknown 08/12/2025 5:24 AM EST 08/12/2025 5:39 AM EST Adelaide Hunter [place] LAB BLOOD ORDERABLES Final Result Performing Organization Address City/[facility]/ZIP Co de Phone Number [facility] [address] [place] [address], [place] [phone] * Creatine kinase (08/12/2025 5:24 AM EST) [facility] Total CK 72 34 - 145 unit/L 08/12/2025 5:03 PM [facility] Blood Venous blood specimen / Unknown Venipuncture / Unknown 08/12/2025 5:24 AM EST 08/12/2025 5:39 AM EST Adelaide Hunter [place] LAB BLOOD ORDERABLES Final Result Performing Organization Address [facility]/ZIP Co de Phone Number [facility] [address] [place] [address], [place] [phone] * (ABNORMAL) Basic metabolic panel (08/12/2025 5:24 AM EST) Only the most recent of2 resultswithin the time period is included. [facility] Sodium 140 133 - 145 mmol/L 08/12/2025 6:03 AM [facility] Potassium 3.8 3.5 - 5.5 mmol/L 08/12/2025 6:03 AM [facility] Chloride 106 96 - 110 mmol/L 08/12/2025 6:03 AM [facility] CO2 26 21 - 32 mmol/L 08/12/2025 6:03 AM [facility] Anion Gap 8 3 - 11 08/12/2025 6:03 AM [facility] Glucose 111(H) 70 - 100 mg/dL 08/12/2025 6:03 AM [facility] BUN 16 5 - 25 mg/dL 08/12/2025 6:03 AM [facility] Creatinine 0.56 0.50 - 1.10 mg/dL 08/12/2025 6:03 AM [facility] eGFR 92 >=60 mL/min/1. 73m2 08/12/2025 6:03 AM [facility] Comment:Calculation based on the Chronic Kidney Disease Epidemiology Collaboration (CKD-EPI) equation refit without adjustment for race. BUN/Creatinine Ratio 28.6 08/12/2025 6:03 AM [facility] Calcium 8.4(L) 8.5 - 10.5 mg/dL 08/12/2025 6:03 AM [facility] Blood Venous blood specimen / Unknown Venipuncture / Unknown 08/12/2025 5:24 AM EST 08/12/2025 5:39 AM EST us Marcial Kyle MD LAB BLOOD ORDERABLES Final Result [facility] [address] [place] [address], * Splint Application (08/12/2025 3:16 AM EST) [...] LAB MICROBIOLOGY METHOD 08/17/2025 6:01 AM EST [facility] Blood Venous blood specimen / Unknown Venipuncture / Unknown 08/12/2025 2:42 AM EST 08/12/2025 3:05 AM EST Marcial Kyle MD LAB MICROBIOLOGY - GENERAL ORDERABLES Final Result [facility] [address] [place] [address], [place] [phone] * XR Forearm 2 Views Right (08/12/2025 [...] Signed Date: 08/12/2025 08:47 ET Workstation ID: [id number] Transcribed By: Self Edit Transcribed Date: 08/12/2025 [...] Signed Date: 08/12/2025 08:47 ET Workstation ID: [id number] Transcribed By: Self Edit Transcribed Date: 08/12/2025 [...] 2. No acute infiltrate identified. Telerad MITZI ([id number]) -------- FINAL REPORT -------- Dictated By: Sarahi Ignacio Dictated Date: 08/12/2025 08:45 ET Assigned Physician: Sarahi Ignacio Reviewed and Electronically Signed By: Sarahi Ignacio Signed Date: 08/12/2025 08:47 ET Workstation ID: [id number] Transcribed By: Self Edit Transcribed Date: 08/12/2025 [...] 2. No acute infiltrate identified. Telerad MITZI ([id number]) -------- FINAL REPORT -------- Dictated By: Sarahi Ignacio Dictated Date: 08/12/2025 08:45 ET Assigned Physician: Sarahi Ignacio Reviewed and Electronically Signed By: Sarahi Ignacio Signed Date: 08/12/2025 08:47 ET Workstation ID: [id number] Transcribed By: Self Edit Transcribed Date: 08/12/2025 08:45 ET Allen Guerrero MD IMG XR PROCEDURES Final Result * (ABNORMAL) Urinalysis with reflex microscopic and culture (08/12/2025 1:13 AM EST) Specific [place] Urine 1.022 1.003 - 1.030 LAB URINALYSIS - AUTOMATED METHOD 08/12/2025 2:08 AM EST [facility] pH, Urine 7.0 5.0 - 8.0 pH LAB URINALYSIS - AUTOMATED METHOD 08/12/2025 2:08 AM EST [facility] Leukocytes, Urine Moderate(A) Negative LAB URINALYSIS - AUTOMATED METHOD 08/12/2025 2:08 AM [facility] Nitrite, Urine Negative Negative LAB URINALYSIS - AUTOMATED METHOD 08/12/2025 2:08 AM [facility] Protein, Urine 30(A) <=Trace mg/dL LAB URINALYSIS - AUTOMATED METHOD 08/12/2025 2:08 AM [facility] Glucose, Urine Negative Negative mg/dL LAB URINALYSIS - AUTOMATED METHOD 08/12/2025 2:08 AM [facility] Ketones, Urine Negative Negative mg/dL LAB URINALYSIS - AUTOMATED METHOD 08/12/2025 2:08 AM [facility] Urobilinogen , Urine 1.0 0.2 - 1.0 mg/dL LAB URINALYSIS - AUTOMATED METHOD 08/12/2025 2:08 AM [facility] Bilirubin, Urine Negative Negative LAB URINALYSIS - AUTOMATED METHOD 08/12/2025 2:08 AM [facility] Blood, Urine Negative Negative LAB URINALYSIS - AUTOMATED METHOD 08/12/2025 2:08 AM [facility] RBC, Urine 4 0 - 4 /HPF LAB URINALYSIS - AUTOMATED METHOD 08/12/2025 2:08 AM [facility] WBC, Urine 30(H) 0 - 4 /HPF LAB URINALYSIS - AUTOMATED METHOD 08/12/2025 2:08 AM [facility] Squamous Epithelial, Urine 50 0 - 60 /LPF LAB URINALYSIS - AUTOMATED METHOD 08/12/2025 2:08 AM [facility] Bacteria, Urine Negative Negative /HPF LAB URINALYSIS - AUTOMATED METHOD 08/12/2025 2:08 AM [facility] Hyaline Casts, Urine 3 0 - 3 /LPF LAB URINALYSIS - AUTOMATED METHOD 08/12/2025 2:08 AM [facility] Mucus, Urine Large None /HPF LAB URINALYSIS - AUTOMATED METHOD 08/12/2025 2:08 AM EST [facility] Urine Urinary bladder structure / Unknown Non-blood Collection / Unknown 08/12/2025 1:13 AM EST 08/12/2025 1:47 AM EST us Allen Guerrero MD LAB URINE ORDERABLES Final Resul t Performing Organization Address City/[facility]/ZIP Co de Phone Number [facility] [address] [place] [address], [place] [phone] * Miller urine culture tube (08/12/2025 1:13 AM EST) Extra Tube Hold for add-ons. 08/12/2025 3:02 AM EST [facility] Comment:Auto resulted. Urine Urinary bladder structure / Unknown Non-blood Collection / Unknown 08/12/2025 1:13 AM EST 08/12/2025 1:47 AM EST us Allen Guerrero MD LAB URINE ORDERABLES Final Resul t Performing Organization Address City/[facility]/ZIP Co de Phone Number [facility] [address] [place] [address], [place] [phone] * (ABNORMAL) Culture urine (08/12/2025 1:13 AM EST) Culture, Urine <10,000 CFU/mL Staphylococcus epidermidis(A) JEOVANNY 08/16/2025 11:57 AM EST [facility] Comment: Beta-lactamase negative Edited result: Previously reported as Gram Positive Cocci on 08/14/2025 at 1013 EST. Culture, Urine <10,000 CFU/mL Staphylococcus epidermidis(A) JEOVANNY 08/16/2025 11:57 AM EST [facility] Comment: The organism value for this result has been updated. These results have been appended to the previously preliminary verified report. Culture, Urine <1,000 CFU/mL Staphylococcus lugdunensis(A) JEOVANNY 08/16/2025 11:57 AM EST [facility]) [facility] Comment: The organism value for [...] Susceptible Staphylococcus lugdunensis Penicillin DISK DIFFUSION Susceptible Allen Guerrero MD LAB MICROBIOLOGY - GENERAL ORDER SHREYAS Final Result [facility] [address] [place] [address], * CT Lumbar Spine wo Contrast (08/12/2025 [...] purposes of this report, there are 6 [id number]-[id number] lumbar vertebral bodies. L6 is partially sacralized [...] purposes of this report, there are 6 [id number]-vtaocdr lumbar vertebral bodies. L6 is partially sacralized [...] Khoury MD on 08/12/2025 01:32:57 us [address] Cesar [address] CT PROCEDURES Final Result * CT Cervical [...] MD on 08/12/2025 01:20:37 us Allen Cesar [address] CT PROCEDURES Final Result * Lactate, with Reflex (08/11/2025 10:57 PM EST) LACTIC ACID 1.1 0.4 - 2.0 mmol/L 08/11/2025 11:39 PM EST [facility] Blood Venous blood specimen / Unknown Venipuncture / Unknown 08/11/2025 10:57 PM EST 08/11/2025 11:00 PM EST us Allen Guerrero MD LAB BLOOD ORDERABLES Final Resul t Performing Organization Address City/[facility]/ZIP Co de Phone Number [facility] [address] [place] [address], [place] [phone] * Troponin I High Sensitivity (08/11/2025 10:57 PM EST) High Sensitivity Troponin I 6 <=34 ng/L 08/11/2025 11:39 PM EST [facility] Blood Venous blood specimen / Unknown Venipuncture / Unknown 08/11/2025 10:57 PM EST 08/11/2025 11:01 PM EST us Allen Guerrero MD LAB BLOOD ORDERABLES Final Resul t Performing Organization Address City/[facility]/ZIP Co de Phone Number [facility] [address] [place] [address], [place] [phone] * B-Type Natriuretic Peptide (BNP) (08/11/2025 10:57 PM EST) BNP 30 <=100 pcg/mL 08/11/2025 11:38 PM EST [facility] Blood Venous blood specimen / Unknown Venipuncture / Unknown 08/11/2025 10:57 PM EST 08/11/2025 11:01 PM EST Narrative [facility] - 08/11/2025 11:38 PM EST Over the counter supplements containing high doses of biotin may interfere with this assay. If interference is suspected, patients shoud be retested after refraining from biotin supplements for 72 hours. us Allen Guerrero MD LAB BLOOD ORDERABLES Final Resul t Performing Organization Address City/[facility]/ZIP Co de Phone Number [facility] [address] [place] [address], [place] [phone] * Lipase (08/11/2025 10:57 PM EST) [facility] Lipase 22 12 - 53 unit/L 08/11/2025 11:25 PM EST [facility] Blood Venous blood specimen / Unknown Venipuncture / Unknown 08/11/2025 10:57 PM EST 08/11/2025 11:01 PM EST us Allen Guerrero MD LAB BLOOD ORDERABLES Final Resul t Performing Organization Address [facility]/ZIP Co de Phone Number [facility] [address] [place] [address], [place] [phone] * Respiratory virus panel molecular study (08/11/2025 10:56 PM EST) [facility] Adenovirus Detection by PCR Not Detected Not Detected LAB MICROBIOLOGY METHOD 08/12/2025 12:49 AM [facility] Influenza A PCR Not Detected Not Detected LAB MICROBIOLOGY METHOD 08/12/2025 12:49 AM [facility] Influenza B PCR Not Detected Not Detected LAB MICROBIOLOGY METHOD 08/12/2025 12:49 AM [facility] Coronavirus 229E Not Detected Not Detected LAB MICROBIOLOGY METHOD 08/12/2025 12:49 AM [facility] Coronavirus HKU1 Not Detected Not Detected LAB MICROBIOLOGY METHOD 08/12/2025 12:49 AM [facility] Coronavirus OC43 Not Detected Not Detected LAB MICROBIOLOGY METHOD 08/12/2025 12:49 AM [facility] Coronavirus NL63 Not Detected Not Detected LAB MICROBIOLOGY METHOD 08/12/2025 12:49 AM [facility] Parainfluenza Virus 1 Not Detected Not Detected LAB MICROBIOLOGY METHOD 08/12/2025 12:49 AM [facility] Parainfluenza Virus 2 Not Detected Not Detected LAB MICROBIOLOGY METHOD 08/12/2025 12:49 AM [facility] Parainfluenza Virus 3 Not Detected Not Detected LAB MICROBIOLOGY METHOD 08/12/2025 12:49 AM [facility] Parainfluenza Virus 4 Not Detected Not Detected LAB MICROBIOLOGY METHOD 08/12/2025 12:49 AM [facility] RSV PCR Not Detected Not Detected LAB MICROBIOLOGY METHOD 08/12/2025 12:49 AM [facility] Human Metapneumovirus A and B Not Detected Not Detected LAB MICROBIOLOGY METHOD 08/12/2025 12:49 AM [facility] Rhinovirus/Entero virus Not Detected Not Detected LAB MICROBIOLOGY METHOD 08/12/2025 12:49 AM [facility] Bordetella pertussis Not Detected Not Detected LAB MICROBIOLOGY METHOD 08/12/2025 12:49 AM [facility] Bordetella parapertussis Not Detected Not Detected LAB MICROBIOLOGY METHOD 08/12/2025 12:49 AM [facility] Mycoplasma pneumo by PCR Not Detected Not Detected LAB MICROBIOLOGY METHOD 08/12/2025 12:49 AM [facility] Chlamydia pneumoniae Not Detected Not Detected LAB MICROBIOLOGY METHOD 08/12/2025 12:49 AM [facility] SARS COV-2 Not Detected Not Detected LAB MICROBIOLOGY METHOD 08/12/2025 12:49 AM [facility] Swab Both anterior nares / Unknown Non-blood Collection / Unknown 08/11/2025 10:56 PM EST 08/11/2025 11:00 PM [facility] - 08/12/2025 12:49 AM EST Testing was performed using the [employer] Respiratory Pathogen PCR Assay. All results must [...] ORDER SHREYAS Final Result Performing Organization Address [facility] de Phone Number [facility] [address] [place] [address], [place] [phone] * 12-Lead ECG (08/11/2025 10:19 PM EST) Pathologist [facility] Ventricular Rate ECG 105 BPM GEMUSE Atrial Rate 105 BPM GEMUSE P-R Interval 144 ms GEMUSE QRS Duration 66 ms GEMUSE Q-T Interval 320 ms GEMUSE QTc 422 ms GEMUSE P Wave [place] 67 degrees GEMUSE R [place] -13 degrees GEMUSE T [place] 70 degrees GEMUSE ECG Interpretation Sinus tachycardia When compared with ECG of 14-APR-2023 15:05, Vent. rate has increased BY 38 BPM Confirmed by ANIKET BARBA ([id number]) on 08/12/2025 12:30:35 AM GEMUSE 08/11/2025 10:1 9 PM EST 08/12/2025 12:30 AM EST Allen Guerrero MD ECG ORDERABLES Final Result Performing Organization Address [facility] Phone Number GEMUSE * (ABNORMAL) Manual differential (08/11/2025 9:59 PM EST) Pathologist [facility] Neutrophils % 78.0 % LAB HEMETOLOGY METHOD 08/11/2025 10:42 PM EST [facility] Bands % 1.0 % LAB HEMETOLOGY METHOD 08/11/2025 10:42 PM EST [facility] Lymphocytes % 8.0 % LAB HEMETOLOGY METHOD 08/11/2025 10:42 PM EST [facility] Monocytes % 11.0 % LAB HEMETOLOGY METHOD 08/11/2025 10:42 PM [facility] Eosinophils % 0.0 % LAB HEMETOLOGY METHOD 08/11/2025 10:42 PM [facility] Basophils % 1.0 % LAB HEMETOLOGY METHOD 08/11/2025 10:42 PM [facility] Metamyelocytes % 1.0(H) % LAB HEMETOLOGY METHOD 08/11/2025 10:42 PM [facility] Neutrophils Absolute Manual 8.81(H) 1.50 - 7.00 K/mcL LAB HEMETOLOGY METHOD 08/11/2025 10:42 PM [facility] Bands Absolute Manual 0.11(H) 0.00 - 0.00 K/mcL LAB HEMETOLOGY METHOD 08/11/2025 10:42 PM [facility] Lymphocytes Absolute 0.90(L) 1.00 - 5.00 K/mcL LAB HEMETOLOGY METHOD 08/11/2025 10:42 PM [facility] Monocytes Absolute Manual 1.24(H) 0.20 - 1.00 K/mcL LAB HEMETOLOGY METHOD 08/11/2025 10:42 PM [facility] Eosinophils Absolute Manual 0.00 0.00 - 0.50 K/mcL LAB HEMETOLOGY METHOD 08/11/2025 10:42 PM [facility] Basophils Absolute Manual 0.11 0.00 - 0.20 K/mcL LAB HEMETOLOGY METHOD 08/11/2025 10:42 PM [facility] Metamyelocytes Absolute Manual 0.11(H) 0.00 - 0.00 K/mcL LAB HEMETOLOGY METHOD 08/11/2025 10:42 PM [facility] Rbc Morphology Present( A) Consistent with indices, Normal for [place] LAB HEMETOLOGY METHOD 08/11/2025 10:42 PM [facility] Comment:RBC: Morphology agre es with CBC Platelet Morphology - WAM See Note(A) Normal LAB HEMETOLOGY METHOD 08/11/2025 10:42 PM EST [facility] Comment:PLT: Normal Blood Venous blood specimen / Unknown Venipuncture / Unknown 08/11/2025 9:59 PM EST 08/11/2025 10:07 PM EST Madisyn CARTAGENA LAB BLOOD ORDERABLES Fin al Result Performing Organization Address [facility]/ZIP Co de Phone Number [facility] [address] [place] [address], [place] [phone] * Thyroid Stimulating Hormone (TSH) (08/11/2025 9:59 PM EST) Pathologist [facility] TSH 2.87 0.40 - 4.00 mcIU/mL 08/11/2025 11:23 PM EST [facility] Blood Venous blood specimen / Unknown Venipuncture / Unknown 08/11/2025 9:59 PM EST 08/11/2025 10:07 PM EST Allen Guerrero MD LAB BLOOD ORDERABLES Final Resul t Performing Organization Address [facility]/ZIP Co de Phone Number [facility] [address] [place] [address], [place] [phone] * (ABNORMAL) Comprehensive Metabolic Panel (CMP) (08/11/2025 9:59 PM EST) Pathologist [facility] Sodium 133 133 - 145 mmol/L 08/11/2025 11:21 PM EST [facility] Potassium 4.4 3.5 - 5.5 mmol/L 08/11/2025 11:21 PM EST [facility] Chloride 96 96 - 110 mmol/L 08/11/2025 11:21 PM EST [facility] CO2 29 21 - 32 mmol/L 08/11/2025 11:21 PM EST [facility] Anion Gap 8 3 - 11 08/11/2025 11:21 PM [facility] Glucose 114(H) 70 - 100 mg/dL 08/11/2025 11:21 PM [facility] BUN 22 5 - 25 mg/dL 08/11/2025 11:21 PM [facility] Creatinine 0.73 0.50 - 1.10 mg/dL 08/11/2025 11:21 PM [facility] eGFR 83 >=60 mL/min/1. 73m2 08/11/2025 11:21 PM [facility] Comment:Calculation based on the Chronic Kidney Disease Epidemiology Collaboration (CKD-EPI) equation refit without adjustment for race. BUN/Creatinine Ratio 30.1 08/11/2025 11:21 PM [facility] Calcium 8.4(L) 8.5 - 10.5 mg/dL 08/11/2025 11:21 PM [facility] AST (SGOT) 25 10 - 42 unit/L 08/11/2025 11:21 PM [facility] ALT (SGPT) 17 10 - 60 unit/L 08/11/2025 11:21 PM [facility] Alkaline Phosphatase 164(H) 42 - 121 unit/L 08/11/2025 11:21 PM [facility] Total Protein 8.0 6.0 - 8.0 g/dL 08/11/2025 11:21 PM [facility] Albumin 4.0 3.2 - 5.0 g/dL 08/11/2025 11:21 PM [facility] Total Bilirubin 2.2(H) 0.0 - 1.4 mg/dL 08/11/2025 11:21 PM [facility] Blood Venous blood specimen / Unknown Venipuncture / Unknown 08/11/2025 9:59 PM EST 08/11/2025 10:07 PM EST us Madisyn CARTAGENA LAB BLOOD ORDERABLES Fin al Result [facility] [address] [place] [address], [place] [phone] * NE CRITICAL CARE 30-74 MINUTES (08/11/2025 9:20 PM [...] Laterality Modality Lower Extremities, Foot Left [facility] 08/10/2025 10:4 5 AM EST Impressions 08/10/2025 10:50 AM EST No fracture, dislocation, or other acute findings. A degenerative osteophyte projects dorsally from the anterior aspect of the talus. Is noted. 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 Calcification of the plantar fascia is noted. Code 58466 -------- FINAL REPORT -------- Dictated By: Ludin Patricio Dictated Date: 08/10/2025 10:45 ET Assigned Physician: Ludin Patricio Reviewed and Electronically Signed By: Ludin Patricio Signed Date: 08/10/2025 10:50 ET Workstation ID: [id number] Transcribed By: Self Edit Transcribed Date: 08/10/2025 [...] Calcification of the plantarfascia is noted. Code 60321 -------- FINAL REPORT -------- Dictated By: Ludin Patricio Dictated Date: 08/10/2025 10:45 ET Assigned Physician: Ludin Patricio Reviewed and Electronically Signed By: Ludin Patricio Signed Date: 08/10/2025 10:50 ET Workstation ID: [id number] Transcribed By: Self Edit Transcribed Date: 08/10/2025 10:45 ET Siomara Connolly MD IMG XR PROCEDURES Final Res ult * XR Foot 3+ Views Right (08/10/2025 6:29 AM EST) Anatomical Region Laterality Modality Lower Extremities, Foot Right [facility] 08/10/2025 9:44 AM EST Impressions 08/10/2025 9:54 AM EST Degenerative changes. No acute findings. -------- FINAL REPORT -------- Dictated By: Km Zamora Dictated Date: 08/10/2025 09:44 ET Assigned Physician: Km Zamora Reviewed and Electronically Signed By: Km aZmora Signed Date: 08/10/2025 09:54 ET Workstation ID: [id number] Transcribed By: Self Edit Transcribed Date: 08/10/2025 [...] Signed Date: 08/10/2025 09:54 ET Workstation ID: [id number] Transcribed By: Self Edit Transcribed Date: 08/10/2025 09:44 ET us Dax CARTAGENA IMG XR PROCEDURES Final Res ult * XR Knee 4+ Views Left (08/10/2025 6:29 AM EST) Anatomical Region Laterality Modality Lower Extremities, Knee Left [facility] 08/10/2025 9:55 AM EST Impressions 08/10/2025 9:57 AM EST No acute findings. -------- FINAL REPORT -------- Dictated By: Km Zamora Dictated Date: 08/10/2025 09:55 ET Assigned Physician: Km Zamora Reviewed and Electronically Signed By: Km Zamora Signed Date: 08/10/2025 09:57 ET Workstation ID: [id number] Transcribed By: Self Edit Transcribed Date: 08/10/2025 [...] Signed Date: 08/10/2025 09:57 ET Workstation ID: [id number] Transcribed By: Self Edit Transcribed Date: 08/10/2025 [...] Rios MD on 08/10/2025 01:49:33 Dax CARTAGENA [facility] CT PROCEDURES Final Res ult * CT [...] Rios MD on 08/10/2025 01:40:05 Dax CARTAGENA [facility] CT PROCEDURES Final Res ult * APTT (08/10/2025 12:09 AM EST) aPTT 30.0 24.1 - 39.3 sec LAB COAGULATION METHOD 08/10/2025 12:37 AM EST [facility] Blood Venous blood specimen / Unknown Venipuncture / Unknown 08/10/2025 12:09 AM EST 08/10/2025 12:26 AM EST Dax CARTAGENA LAB BLOOD ORDERABLES Final Result [facility] [address] [place] [address], [place] [phone] * Protime-INR (08/10/2025 12:09 AM EST) Protime 13.2 10.6 - 13.9 sec LAB COAGULATION METHOD 08/10/2025 12:37 AM EST [facility] INR 1.1 LAB COAGULATION METHOD 08/10/2025 12:37 AM EST [facility] Blood Venous blood specimen / Unknown Venipuncture / Unknown 08/10/2025 12:09 AM EST 08/10/2025 12:26 AM EST Dax CARTAGENA LAB BLOOD ORDERABLES Final Result Performing Organization Address [facility]/ZIP Co de Phone Number [facility] [address] [place] [address], [place] [phone] * Type and screen (08/10/2025 12:09 AM EST) ABO Group O 08/10/2025 1:28 AM EST [facility] Rh Type Positive 08/10/2025 1:28 AM EST [facility] Antibody Screen Negative 08/10/2025 1:28 AM EST [facility] Blood Venous blood specimen / Unknown Venipuncture / Unknown 08/10/2025 12:09 AM EST 08/10/2025 12:26 AM EST us Dax CARTAGENA LAB BLOOD BANK TEST ORDERAB LES Final Result [facility] [address] [place] [address], [place] [phone] from Last 3 Months Insurance [facility] [employer] Member Subscriber Plan / Payer (Ef fective 2010-Present) Name:Apryl Downing Relation to Subscriber:Self Name:Apryl Downing Payer ID:[id number] Group ID:[id number] Type:Not on file Address: [place] [address] [place] [id number] Advance Directives Documents on File Type Date Recorded Patient Mixing Picker Tender Expl anation Advance Directives and Living Will [...] Relationship Healthcare Agent Relationshi p Communication Juliet Colon Daughter Health Care Agent Care Teams Counterintelligence Agent Relationship Specialty Start Date End Date Adelaide Pollock MD [address] [place] [address] PCP - General Internal Medicine 05/13/13
--- OUTSIDE RECORDS SUMMARY | 2025-08-28 14:11 | XMS_ITS | Encounter Summary ---
Author Organization [facility] Address [address] [place] [address] [place] [address] Phone Care Team Providers Care Assembly Machine Tool Setter Name Role Phone Adelaide Pollock MD Primary Care Provider + Aide Adame MD Primary Care Provider + Johnathan Lisa MD, MPH Unavailable [phone] Jazzmine Zaman MD Unavailable [phone] System, Provider Not In PhD Primary Care Provide r Unavailable Adelaide Pollock MD Primary Care Provider + Encounter Details Date Type Department Care Team (Late st Contact Info) Description 11/30/2024 Ancillary Orders [facility] Main [place] [address] [place] [address] Josh Davey MD [address] [place] [address] [email or web address] Arthralgia, unspecified joint (Primary Dx) Social [...] st Contact Info) Description 08/23/2025 Procedure Pass [facility], [address] [address] 09/01/2025 12:30 PM EST Appointment [address] [address] Maurilio Rojas MD [address] [place] [address] [email or web address] 10/10/2025 9:30 AM EST Appointment [facility] Pulmonary Function Lab [address] [place] [address] Maurilio Rojas MD [address] [place] [address] [email or web address] 10/10/2025 10:30 AM EST Office Visit [facility] Genetics [address] [place] [address] Johnathan Lisa MD, MPH [address] [place] [phone] [email or web address] 11/22/2025 12:00 PM EDT Office Visit [facility] Lung Center-Pulmonary Medicine [address] [place] [address] Maurilio Rojas MD [address] [place] [address] [email or web address] documented as of this encounter Results [...] first MCP joint, and first interphalangeal joint. Kuuh-ek-ryxzjqvw degenerative changes of additional scattered interphalangeal joints. Cystic changes within the carpal bones and fifth metacarpal head. Chondrocalcinosis of the TFCC. No focal soft tissue swelling. Right hand: Diffuse osseous demineralization. No fracture. Severe osteoarthritis of the first carpometacarpal joint with joint space narrowing, hypertrophic changes, and osseous remodeling. Moderate osteoarthritis of the radiocarpal joint and triscaphe joint. Phak-hh-eyqjkuyw degenerative changes of additional scattered interphalangeal joints. [...] joint, first MCPjoint, and first interphalangeal joint. Epbr-ls-tospttps degenerativechanges of additional scattered interphalangeal joints. Cystic changeswithin the carpal bones and fifth metacarpal head. Chondrocalcinosis ofthe TFCC. No focal soft tissue swelling. Right hand: Diffuse osseous demineralization. No fracture. Severeosteoarthritis of the first carpometacarpal joint with joint spacenarrowing, hypertrophic changes, and osseous remodeling. Moderateosteoarthritis of the radiocarpal joint and triscaphe joint.Mcrf-zf-kponguts degenerative changes of additional scatteredinterphalangeal joints. Cystic [...] joints, which may be seen in CPPD. Josh Davey MD IMG XR UPPER EXTREMITY Final Result documented in this encounter Visit Diagnoses Diagnosis Arthralgia, unspecified joint Arthralgia, unspecified joint- Primary documented in this encounter Additional Health Concerns Assessment Noted Time PHQ-2 Depression Total Score: 0 12/01/19 25 2:18 PM EDT documented as of this encounter Care Teams Assembly Machine Tool Setter Relationship Specialty Start Date End Date Adelaide Pollock MD PCP - General Internal Medicine 02/16/24 03/27/25 Aide Adame MD [address] [place] [address] PCP - General Internal Medicine 03/28/25 07/18/25 System, Provider Not In, PhD Partners [facility] [address] [place] [address] PCP - General 07/19/25 07/21/25 Adelaide Pollock MD [address] [place] [address] PCP - General Internal Medicine 07/22/25 Johnathan Lisa MD, MPH [address] [place] [address] [email or web address] Referring Physician Pulmonary Disease 03/28/25 Jazzmine Zaman MD [address] [place] [address] [email or web address] Referring Physician Pediatrics 03/28/25 documented as of this encounter Additional Source Comments The information contained in this document represents components of the legal health record. It is not the complete legal health record.[facility]
--- OUTSIDE RECORDS SUMMARY | 2025-08-28 14:12 | XMS_ITS | Encounter Summary ---
Author Organization [facility] Address [address] [place] [address] [place] [address] Phone Care Team Providers Care Product Manager E Commerce Name Role Phone Johnathan Lisa MD, MPH Unavailable [phone] Jazzmine Zaman MD Unavailable Adelaide Pollock MD Primary Care Provider + Reason for Visit * Reason Onset Date Comments Results 07/22/2025 Encounter Details Date Type Department Care Team (Late st Contact Info) Description 07/22/2025 Telephone [facility] Genetics [address] [place] [address] Jazzmine Zaman MD [address] [place] [address] [email or web address] Results Social History Tobacco Use Types Packs/Day [...] pt would like to have results from [facility] Liver Elastography (Fibroscan) completed on 07/18/25 be made available for pt to see. Please advise. CB# [phone] Thank you Aline Lombardo Pt Access Center Coordinator Department Of Medicine documented in this encounter Plan of Treatment Upcoming Encounters Date Type Department Care Team (Late st Contact Info) Description 08/23/2025 Procedure Pass [address] [address] 09/01/2025 12:30 PM EST Appointment [address] [address] Maurilio Rojas MD [address] [place] [address] [email or web address] 10/10/2025 9:30 AM EST Appointment [facility] Pulmonary Function Lab [address] [place] [address] Maurilio Rojas MD [address] [place] [address] [email or web address] 10/10/2025 10:30 AM EST Office Visit [facility] Genetics [address] [place] [address] Johnathan Lisa MD, MPH [address] [place] [address] [email or web address] 11/22/2025 12:00 PM EDT Office Visit [facility] Lung Center-Pulmonary Medicine [address] [place] [address] Maurilio Rojas MD [address] [place] [phone] [email or web address] documented as of this encounter Visit Diagnoses Not on filedocumented in this encounter Additional Health Concerns Assessment Noted Time PHQ-2 Depression Total Score: 0 07/18/20 25 10:43 AM EST documented as of this encounter Care Teams Product Manager E Commerce Relationship Specialty Start Date End Date Adelaide Pollock MD [address] [place] [address] PCP - General Internal Medicine 07/22/25 Johnathan Lisa MD, MPH [address] [place] [address] [email or web address] Referring Physician Pulmonary Disease 03/28/25 Jazzmine Zaman MD [address] [place], [place] [phone] [email or web address] Referring Physician Pediatrics 03/28/25 documented as of this encounter Additional Source Comments The information contained in this document represents components of the legal health record. It is not the complete legal health record.[facility]
--- OUTSIDE RECORDS SUMMARY | 2025-08-28 14:12 | XMS_ITS | Encounter Summary ---
Author Organization [facility] Address [address] [place] [address] [place] [address] Phone Care Team Providers Care Auto Damage Trainee Name Role Phone Adelaide Pollock MD Primary Care Provider + Aide Adame MD Primary Care Provider + Johnathan Lisa MD, MPH Unavailable [phone] Jazzmine Zaman MD Unavailable [phone] System, Provider Not In PhD Primary Care Provide r Unavailable Adelaide Pollock MD Primary Care Provider + Encounter Details Date Type Department Care Team (Latest Contact Info) Description 05/19/2024 Ancillary Orders [facility] [address] [facility] 8th Floor, [address] [place] [address] Ce Luke MD [address] [facility] [address] [place] [address] [email or web address] Interstitial lung disease (Primary Dx) Social History [...] st Contact Info) Description 08/23/2025 Procedure Pass [facility], [address] [address] 09/01/2025 12:30 PM EST Appointment [address] [address] Maurilio Rojas MD [address] [place] [phone] [email or web address] 10/10/2025 9:30 AM EST Appointment [facility] Pulmonary Function Lab [address] [place] [address] Maurilio Rojas MD [address] [place] [phone] [email or web address] 10/10/2025 10:30 AM EST Office Visit [facility] Genetics [address] [place] [address] Johnathan Lisa MD, MPH [address] [place] [address] [email or web address] 11/22/2025 12:00 PM EDT Office Visit [facility] Lung Center-Pulmonary Medicine [address] [place] [address] Maurilio Rojas MD [address] [place] [address] [email or web address] documented as of this encounter Results * [...] fibrosis documented in this encounter Care Teams Auto Damage Trainee Relationship Specialty Start Date End Date Adelaide Pollock MD PCP - General Internal Medicine 02/16/24 03/27/25 Aide Adame MD [address], [place] [address] PCP - General Internal Medicine 03/28/25 07/18/25 System, Provider Not In, PhD Partners [address] [address] PCP - General 07/19/25 07/21/25 Adelaide Pollock MD [address] [place] [address] PCP - General Internal Medicine 07/22/25 Johnathan Lisa MD, MPH [address] [place] [address] [email or web address] Referring Physician Pulmonary Disease 03/28/25 Jazzmine Zaman MD [address] [place] [address] [email or web address] Referring Physician Pediatrics 03/28/25 documented as of this encounter Additional Source Comments The information contained in this document represents components of the legal health record. It is not the complete legal health record.[facility]
--- OUTSIDE RECORDS SUMMARY | 2025-08-28 14:12 | XMS_ITS | Encounter Summary ---
Author Organization [employer] [facility] Address [address] [place] [address] [place] [address] Phone Care Team Providers Care Candy Wrapping Machine Operator Name Role Phone Johnathan Lisa MD, MPH Unavailable [phone] Jazzmine Zaman MD Unavailable [phone] System, Provider Not In PhD Primary Care Provide r Unavailable Adelaide Pollock MD Primary Care Provider + Encounter Details Date Type Department Care Team (Late st Contact Info) Description 07/19/2025 Telephone [facility] [address] [place] [address] Jazzmine Zaman MD [address] [place] [phone] [email or web address] Social History Tobacco Use Types Packs/Day Years [...] to speak with Dahlia at the front desk clerk. She states Dahlia was helping her with [...] st Contact Info) Description 08/23/2025 Procedure Pass [facility], Ct Scan - [address] [address] 09/01/2025 12:30 PM EST Appointment [facility] Ct Scan - [address] [address] Maurilio Rojas MD [address] [place] [address] [email or web address] 10/10/2025 9:30 AM EST Appointment [facility] Pulmonary Function Lab [address] [place] [address] Maurilio Rojas MD [address] [place] [address] [email or web address] 10/10/2025 10:30 AM EST Office Visit [facility] Genetics [address] [place] [address] Johnathan Lisa MD, MPH [address] [place] [phone] [email or web address] 11/22/2025 12:00 PM EDT Office Visit [facility] Lung Center-Pulmonary Medicine [address] [place] [address] Maurilio Rojas MD [address] [place] [address] [email or web address] documented as of this encounter Visit Diagnoses Not on filedocumented in this encounter Additional Health Concerns Assessment Noted Time PHQ-2 Depression Total Score: 0 07/18/20 10:43 AM EST documented as of this encounter Care Teams Candy Wrapping Machine Operator Relationship Specialty Start Date End Date System, Provider Not In, PhD Partners [address] [address] PCP - General 07/19/25 07/21/25 Adelaide Pollock MD [address] [place] [address] PCP - General Internal Medicine 07/22/25 Johnathan Lisa MD, MPH [address] [place] [address] [email or web address] Referring Physician Pulmonary Disease 03/28/25 Jazzmine Zaman MD [address] [place] [address] [email or web address] Referring Physician Pediatrics 03/28/25 documented as of this encounter Additional Source Comments The information contained in this document represents components of the legal health record. It is not the complete legal health record.[facility]
--- OUTSIDE RECORDS SUMMARY | 2025-08-28 14:12 | XMS_ITS | Encounter Summary ---
Author Organization [facility] Address [address] [place] [phone] Phone Care Team Providers Care Research Engineer [employer] Name Role Phone Adelaide Pollock MD Primary Care Provider + Aide Adame MD Primary Care Provider + Johnathan Lisa MD, MPH Unavailable [phone] Jazzmine Zaman MD Unavailable [phone] System, Provider Not In PhD Primary Care Provide r Unavailable Adelaide Pollock MD Primary Care Provider + Encounter Details Date Type Department Care Team (Late st Contact Info) Description 04/05/2024 Procedure Pass [facility], [address] [address] Social History Tobacco Use Types Packs/Day Years [...] st Contact Info) Description 08/23/2025 Procedure Pass [facility], [address] [address] 09/01/2025 12:30 PM EST Appointment [address] [phone] Maurilio Rojas MD [address] [place] [phone] [email or web address] 10/10/2025 9:30 AM EST Appointment [facility] Pulmonary Function Lab [address] [place] [phone] Maurilio Rojas MD [address] [place] [phone] [email or web address] 10/10/2025 10:30 AM EST Office Visit [facility] Genetics [address] [place] [phone] Johnathan Lisa MD, MPH [address] [place] [phone] [email or web address] 11/22/2025 12:00 PM EDT Office Visit [facility] Lung Center-Pulmonary Medicine [address] [place] [address] Maurilio Rojas MD [address] [place] [phone] [email or web address] documented as of this encounter Visit Diagnoses Not on filedocumented in this encounter Care Teams Research [employer] Relationship Specialty Start Date End Date Adelaide Pollock MD PCP - General Internal Medicine 02/16/24 03/27/25 Aide Adame MD [address] [place] [phone] PCP - General Internal Medicine 03/28/25 07/18/25 System, Provider Not In, [facility] [address] [address] PCP - General 07/19/25 07/21/25 Adelaide Pollock MD [address] [place] [phone] PCP - General Internal Medicine 07/22/25 Johnathan Lisa MD, MPH [address] [place] [phone] [email or web address] Referring Physician Pulmonary Disease 03/28/25 Jazzmine Zaman MD [address] [place] [phone] [email or web address] Referring Physician Pediatrics 03/28/25 documented as of this encounter Additional Source Comments The information contained in this document represents components of the legal health record. It is not the complete legal health record.[facility]
== END 2025-08-28 14:08 | disposition home or self-care (01) ==
LOC: HO.MRI 14:07
PROVIDERS: PCP Internal Medicine; Visit Provider Internal Medicine
DX: R26.81 Unsteadiness on feet (principal); R53.1 Weakness
CPT/HCPCS: 70551